=== PATIENT | female | born 1980 | race African-American/Black ===

== ENCOUNTER 2017-04-24 09:04 | Inpatient (IN) | payer MEDICARE ==
[~2017-04-24] VITALS: Ht 157.5 cm; Wt 57.7 kg
[~2017-04-24 09:04] MED LIST: ASPI325T8 PO; CLON0.1T PO; CLOP75TA57 PO; FURO-69 PO; GABA-585 PO; INSU100V31 SQ; INSU100V8 SQ; METO100T11 PO; NITR0.4T SL; OMEP40CA5 PO; ONDA4TAB10 SL; OXYC-323 PO; OXYC60TA7 PO; PRED20TA PO; RAMI5CAP PO; SIMV20TA3 PO; SULF1TAB24 PO; TIZA4CAP PO; TIZA4TAB PO
--- NOTE | 2017-04-24 09:10 | PHYS DOC ---
Past Medical History Past Medical History: Diabetes-Type I, High Cholesterol, Hypertension, OR, Other Additional Past Medical Histor: L EYE BLIND,CHRONIC PAIN Past Surgical History: Hysterectomy Alcohol Use: None Drug Use: Marijuana Adult General Chief Complaint Chief Complaint: CHEST PAIN HPI HPI Patient is a 37 year old female presenting to the emergency department for evaluation of chest pain abdominal pain along with nausea and vomiting. Patient says that she started having nausea and vomiting at 1:30 this morning and one hour after that she started having the chest and abdominal pain. She says it is sharp and burning in the middle of her chest and radiates down into her epigastrium. She says it has been constant since approximately 2:30 in the morning and the Phenergan that she tried to swallow home did not stay down. She says she has had multiple episodes of nonbloody nonbilious emesis. She denies any fevers chills dysuria hematuria vaginal bleeding vaginal discharge diarrhea or constipation. Review of Systems Review of Systems Constitutional: Denies fever or chills [] Eyes: Denies change in visual acuity, redness, or eye pain [] HENT: Denies nasal congestion or sore throat [] Respiratory: Denies cough or shortness of breath [] Cardiovascular: + CP GI: + abdominal pain, nausea, vomiting. No diarrhea : Denies dysuria or hematuria [] Musculoskeletal: Denies back pain or joint pain [] Integument: Denies rash or skin lesions [] Neurologic: Denies headache, focal weakness or sensory changes [] Current Medications Current Medications Current Medications Medications (Trade) Dose Ordered Sig/Irina Start Time Stop Time Status Last Admin Dose Admin Fentanyl Citrate (Fentanyl 2ml Vial) 75 mcg 1X ONCE 04/24/17 09:30 04/24/17 09:31 DC 04/24/17 09:30 75 MCG Multi-Ingredient Mouthwash/Gargle (Gi Cocktail Single Dose) 15 ml 1X ONCE 04/24/17 09:30 04/24/17 09:31 DC 04/24/17 10:01 15 ML Ondansetron HCl (Zofran) 8 mg 1X ONCE 04/24/17 09:30 04/24/17 09:31 DC 04/24/17 10:01 8 MG Pantoprazole Sodium (Protonix Vial) 40 mg 1X ONCE 04/24/17 09:30 04/24/17 09:31 DC 04/24/17 10:01 40 MG Sodium Chloride 1,000 ml @ 1,000 mls/hr 1X ONCE 04/24/17 09:30 04/24/17 10:29 DC 04/24/17 10:01 1,000 MLS/HR Allergies Allergies Allergies Coded Allergies Type Severity Reaction Last Updated Verified morphine Allergy Severe Shortness of Air, trouble breathing/sweating 07/14/16 Yes Physical Exam Physical Exam Constitutional: Well developed, well nourished, no acute distress, non-toxic appearance. [] HENT: Normocephalic, atraumatic, bilateral external ears normal, oropharynx moist, no oral exudates, nose normal. [] Eyes: PERRLA, EOMI, conjunctiva normal, no discharge. [] Neck: Normal range of motion, no tenderness, supple, no stridor. [] Cardiovascular:Heart rate regular rhythm, no murmur [] Lungs & Thorax: Bilateral breath sounds clear to auscultation [] Abdomen: Bowel sounds normal, soft, + epigastric tenderness, no rebound or guarding, no masses, no pulsatile masses. [] Skin: Warm, dry, no erythema, no rash. [] Back: No tenderness, no CVA tenderness. [] Extremities: No tenderness, no cyanosis, no clubbing, ROM intact, no edema. [] Neurologic: Alert and oriented X 3, normal motor function, normal sensory function, no focal deficits noted. [] Current Patient Data Vital Signs Vital Signs Date Time Temp Pulse Resp B/P (MAP) Pulse Ox O2 Delivery O2 Flow Rate FiO2 04/24/17 11:20 74 15 140/71 (94) 100 Room Air 04/24/17 09:15 98.2 98.2 Lab Values Laboratory Tests Test 04/24/17 09:40 04/24/17 09:45 Urine Collection Type Unknown Urine Color Yellow Urine Clarity Clear Urine pH 7.0 Urine Specific Parker 1.025 Urine Protein Negative mg/dL (NEG-TRACE) Urine Glucose (UA) >=1000 mg/dL (NEG) Urine Ketones (Stick) Negative mg/dL (NEG) Urine Blood Trace (NEG) Urine Nitrite Negative (NEG) Urine Bilirubin Negative (NEG) Urine Urobilinogen Dipstick 0.2 mg/dL (0.2 mg/dL) Urine Leukocyte Esterase Negative (NEG) Urine RBC 3-5 /HPF (0-2) Urine WBC 1-4 /HPF (0-4) Urine Squamous Epithelial Cells Many /LPF Urine Bacteria 0 /HPF (0-FEW) Urine Mucus Slight /LPF Urine Opiates Screen Pos (NEG) Urine Methadone Screen Neg (NEG) Urine Barbiturates Neg (NEG) Urine Phencyclidine Screen Neg (NEG) Urine Amphetamine/Methamphetamine Neg (NEG) Urine Benzodiazepines Screen Neg (NEG) Urine Cocaine Screen Neg (NEG) Urine Cannabinoids Screen Pos (NEG) Urine Ethyl Alcohol Neg (NEG) White Blood Count 11.7 x10^3/uL (4.0-11.0) H Red Blood Count 4.21 x10^6/uL (3.50-5.40) Hemoglobin 13.1 g/dL (12.0-15.5) Hematocrit 37.6 % (36.0-47.0) Mean Corpuscular Volume 89 fL (79-100) Mean Corpuscular Hemoglobin 31 pg (25-35) Mean Corpuscular Hemoglobin Concent 35 g/dL (31-37) Red Cell Distribution Width 13.0 % (11.5-14.5) Platelet Count 301 x10^3/uL (140-400) Neutrophils (%) (Auto) 89 % (31-73) H Lymphocytes (%) (Auto) 8 % (24-48) L Monocytes (%) (Auto) 3 % (0-9) Eosinophils (%) (Auto) 0 % (0-3) Basophils (%) (Auto) 0 % (0-3) Neutrophils # (Auto) 10.4 x10^3uL (1.8-7.7) H Lymphocytes # (Auto) 0.9 x10^3/uL (1.0-4.8) L Monocytes # (Auto) 0.3 x10^3/uL (0.0-1.1) Eosinophils # (Auto) 0.1 x10^3/uL (0.0-0.7) Basophils # (Auto) 0.0 x10^3/uL (0.0-0.2) Segmented Neutrophils % 89 % (35-66) H Band Neutrophils % 2 % (0-9) Lymphocytes % 4 % (24-48) L Monocytes % 4 % (0-10) Basophils % 1 % (0-3) Platelet Estimate Adequate (ADEQUATE) Sodium Level 138 mmol/L (136-145) Potassium Level 4.3 mmol/L (3.5-5.1) Chloride Level 101 mmol/L (98-107) Carbon Dioxide Level 27 mmol/L (21-32) Anion Gap 10 (6-14) Blood Urea Nitrogen 17 mg/dL (7-20) Creatinine 1.1 mg/dL (0.6-1.0) H Estimated GFR (Cockcroft-Gault) 68.0 BUN/Creatinine Ratio 15 (6-20) Glucose Level 420 mg/dL (70-99) H Calcium Level 9.6 mg/dL (8.5-10.1) Magnesium Level 1.9 mg/dL (1.8-2.4) Total Bilirubin 0.3 mg/dL (0.2-1.0) Aspartate Amino Transferase (AST) 22 U/L (15-37) Alanine Aminotransferase (ALT) 34 U/L (14-59) Alkaline Phosphatase 129 U/L (46-116) H Creatine Kinase 74 U/L (26-192) Troponin I Quantitative < 0.017 ng/mL (0.000-0.055) Total Protein 8.1 g/dL (6.4-8.2) Albumin 3.9 g/dL (3.4-5.0) Albumin/Globulin Ratio 0.9 (1.0-1.7) L Lipase 158 U/L (73-393) Ethyl Alcohol Level < 10 mg/dL (0-10) Laboratory Tests 04/24/17 09:45 Laboratory Tests 04/24/17 09:45 EKG EKG Sinus rhythm at 61 bpm with rightward axis no obvious ST elevation or depression and normal T waves. Radiology/Procedures Radiology/Procedures Indication chest pain. A single view of the chest was obtained. 10/12/2014. The heart, pulmonary vessels and mediastinum appear normal. The lungs are clear. There has not been a significant change compared to the previous exam. IMPRESSION: No acute or focal process is seen in the chest DICTATED and SIGNED BY: ARELI WALTERS MD DATE: 04/24/17 1010 Course & Med Decision Making Course & Med Decision Making Patient with intractable abdominal pain nausea and vomiting and she cannot tolerate anything by mouth so she will be admitted for further pain and nausea control. Patient admitted in stable condition. Dragon Disclaimer Dragon Disclaimer This electronic medical record was generated, in whole or in part, using a voice recognition dictation system. Departure Departure Impression: Primary Impression: Intractable abdominal pain Additional Impressions: Intractable nausea and vomiting Hyperglycemia Disposition: ADMITTED INPATIENT Admitting Physician: Other (REUSCH) Condition: STABLE Referrals: NO PCP (PCP) Problem Qualifiers SANJUANITA JAMES DO Apr 24, 2017 09:10
[2017-04-24] MEDS ORDERED: ONDANSETRON PF 4 MG/2 ML VIAL. IV ONE (09:30)
[2017-04-24] MEDS ORDERED: LIDO:MAALOX:DONNATAL 1:1:1 15 ML SINGLE DOSE SWSW ONE (09:30)
[2017-04-24] MEDS ORDERED: fentaNYL PF VIAL 100 MCG/2 ML VIAL IV ONE (09:30)
[2017-04-24] MEDS ORDERED: PANTOPRAZOLE IV PUSH 40 MG VIAL. IVP ONE (09:30)
[2017-04-24] MEDS ORDERED: IV NORMAL SALINE 1000ML BAG 1,000 ML IV ONE (09:30)
[2017-04-24 10:06] LABS: BILIRUBIN,URINE NEGATIVE (NEG); GLUCOSE,URINE >=1000 mg/dL (NEG); NITRITE,URINE NEGATIVE (NEG); PROTEIN,URINE NEGATIVE (NEG-TRACE); UROBILINOGEN,URINE 0.2 mg/dL (0.2 mg/dL)
[2017-04-24 10:06] LABS: BASO % 0 % (0-3); EOS % 0 % (0-3); HEMATOCRIT 37.6 % (36.0-47.0); HEMOGLOBIN 13.1 g/dL (12.0-15.5); LYMPH # 0.9 x10^3/uL (1.0-4.8); LYMPH % 8 % (24-48); MEAN CORPUSCULAR HEMOGLOBIN 31 pg (25-35); MEAN CORPUSCULAR HGB CONC 35 g/dL (31-37); MEAN CORPUSCULAR VOLUME 89 fL (79-100); MONO % 3 % (0-9); NEUT % 89 % (31-73); PLATELET COUNT 301 x10^3/uL (140-400); RED BLOOD COUNT 4.21 x10^6/uL (3.50-5.40); WHITE BLOOD COUNT 11.7 x10^3/uL (4.0-11.0)
[2017-04-24 10:12] LABS: CALCIUM 9.6 mg/dL (8.5-10.1); CREATININE 1.1 mg/dL (0.6-1.0); POTASSIUM 4.3 mmol/L (3.5-5.1)
[2017-04-24 10:14] LABS: BARBITURATES NEG (NEG); BENZODIAZEPINES NEG (NEG); CANNABINOIDS POS (NEG); COCAINE NEG (NEG); METHADONE NEG (NEG); OPIATES POS (NEG); PHENCYCLIDINE NEG (NEG)
--- NOTE | 2017-04-24 10:14 | RAD ---
Indication chest pain. A single view of the chest was obtained. 10/12/2014. The heart, pulmonary vessels and mediastinum appear normal. The lungs are clear. There has not been a significant change compared to the previous exam. IMPRESSION: No acute or focal process is seen in the chest
[2017-04-24 10:15] LABS: BACTERIA,URINE 0 /HPF (0-FEW); SQUAMOUS EPITHELIAL CELL,UR MANY /LPF
[2017-04-24 10:19] LABS: ALBUMIN 3.9 g/dL (3.4-5.0); ALBUMIN/GLOBULIN RATIO 0.9 (1.0-1.7); MAGNESIUM 1.9 mg/dL (1.8-2.4); TOTAL BILIRUBIN 0.3 mg/dL (0.2-1.0); TOTAL PROTEIN 8.1 g/dL (6.4-8.2)
[2017-04-24 10:25] LABS: % BASOS 1 % (0-3); PLT ESTIMATE ADEQUATE (ADEQUATE)
[2017-04-24] MEDS ORDERED: KETOROLAC TROMETHAMINE 30 MG/ML INJ. IV ONE (11:45)
[2017-04-24] MEDS ORDERED: diazePAM 5 MG TABLET PO ONE (11:45)
[2017-04-24] MEDS ORDERED: INSULIN REGULAR 100 UNIT/ML 10ML VIAL. IV ONE (11:45)
[2017-04-24] MEDS: fentaNYL PF VIAL 100 MCG/2 ML VIAL IV PRN ×4 (12:12→20:41)
--- NOTE | 2017-04-24 12:39 | EKG ---
[facility] [address] [place] [address] Test Date: 2017-04-24 Test Time: 09:18:07 Pat Name: BOZENA CLARK Department: Room: 418 Gender: F Sheet Ironworker: : 1980 Requested By: SANJUANITA JAMES Order Number: [id number] Reading MD: Mary Kay Soto Measurements Intervals [place] Rate: 61 P: 64 PA: 160 QRS: 106 QRSD: 76 T: 68 QT: 398 QTc: 406 Interpretive Statements SINUS RHYTHM RIGHTWARD AXIS NO SPECIFIC ECG ABNORMALITIES Electronically Signed On 04-24-2017 21:27:57 CDT by Mary Kay Soto
[2017-04-24 12:41] VITALS: BP 97/49
--- NOTE | 2017-04-24 13:06 | ACF ---
Admission Forms Criteria VOMITING Clinical Indications for Admission to Inpatient Care ( Place 'X' for any and all applicable criteria): Admission is indicated for 1 or more of the following(1)(2)(3): [ ]I. Complete or partial gastrointestinal obstruction [ ]II. Vomiting due to significant metabolic derangement (eg, severe hypercalcemia, diabetic ketoacidosis) [ ]III. Other cause of vomiting requiring hospitalization (eg, poisoning, increased intracranial pressure) [X]IV. Inpatient admission required rather than observation care because of 1 or more of the following [ ]i) Hemodynamic instability [X]ii) Vomiting that is severe or persistent indicated by 1 or more of the following [X]1) Numerous episodes of vomiting in past 24hours (eg, every 1 to 2 hours) 2) Suggests severe underlying cause or complication (eg , projectile, feculent, bilious, coffee ground, bloody) 3) Appropriate antiemetic treatment (eg, repeated oral or parenteral dosing) does not sufficiently reduce vomiting within 12 to 24 hours of treatment [X] 4) Treatment regimen necessary to adequately control vomiting requires inpatient level of care (eg, not immediately available in outpatient setting) [ ]iii) Severe electrolyte abnormalities requiring inpatient care [X]iv) Severe pain requiring acute inpatient management( Continuous or frequent (eg, every 2 to 4 hours) parental analgesics or analgesic regimen that can only be performed or initiated in inpatient setting) [ ]v) High fever or infection requiring inpatient admission as indicated by 1 or more of the following(7)(8): [ ]1) Appropriate outpatient or observation care antimicrobial treatment unavailable, not effective, or not feasible [ ]2) Documented bacteremia [ ]3) Temp >104.9 degrees F (40.5 degrees C) (oral) [ ]4) Temp >103.1 degrees F (39.5 C) (oral) or <96.8 degrees F (36 C) (rectal) that does not respond to all emergency treatment measures [ ]vi) Acute renal failure [ ]vii) IV fluid required rather than oral rehydration to replace significant on going losses (greater than 3 L/m2 per day) [ ]viii) Parenteral nutrition regimen that must be implemented on inpatient basis [ ]ix) Other condition, treatment or monitoring requiring inpatient admission Extended stay beyond goal length of stay may be needed for(1)(4): [ ]a) Severe vomiting [ ]b) Persistent vomiting, vital sign changes, severe electrolyte imbalance , or diagnosed cause of vomiting that requires continued hospitalization (eg, gastrointestinal obstruction , increased intracranial pressure) [ ]c) Surgery to treat identified causes of vomiting (eg, bowel obstruction , intracranial process) [ ]d) Comorbid illness that requires inpatient care (eg, acute heart failure , renal failure) [ ]e) Need for inpatient endoscopy The original [employer] content created by [employer] has been revised. The portions of the content which have been revised are identified through the use of italic text or in bold, and [facility] has neither reviewed nor approved the modified material. All other unmodified content is copyright [employer]. Please see references footnoted in the original [employer] edition 2016 Admission Criteria Met?: Yes BARBARA ENCISO Apr 24, 2017 13:06
[2017-04-24] MEDS ORDERED: INSU100I17 SQ (14:28)
[2017-04-24] MEDS ORDERED: LANS30CA66 PO (14:58)
[2017-04-24] MEDS ORDERED: GABA600T2 PO (14:58)
[2017-04-24] MEDS ORDERED: ASPI-630 PO (14:58)
[2017-04-24] MEDS ORDERED: PROM25TA10 PO (14:58)
[2017-04-24 15:44] VITALS: BP 106/56
[2017-04-24] MEDS: ONDANSETRON PF 4 MG/2 ML VIAL. IV PRN (15:46)
[2017-04-24] MEDS ORDERED: METOPROLOL SUCC 24HR ER 50 MG TAB.ER.24H. PO SCH ×2 (17:30→21:00)
[2017-04-24] MEDS ORDERED: INSULIN ASPART 300 UNITS/3 ML INSULN.PEN SQ STA (17:58)
[2017-04-24] MEDS ORDERED: DEXTROSE 50% 25 GM / 50ML DISP.SYRIN. IV PRN (18:00)
[2017-04-24] MEDS: POTASSIUM CHLORIDE 30 MEQ in IV 1/2 NORMAL SALINE 1,000 ML IV PRN (18:18)
[2017-04-24 19:00] VITALS: BP 110/56
[2017-04-24] MEDS: GABAPENTIN 300 MG CAPSULE. PO SCH (20:19)
[2017-04-24] MEDS: SIMVASTATIN 20 MG TABLET PO SCH (20:21)
--- NOTE | 2017-04-24 20:27 | HP ---
ADMIT DATE: 04/24/2017 CHIEF COMPLAINT: Chest pain. HISTORY OF PRESENT ILLNESS: The patient is a 37-year-old -Citizen Of [place] woman with past medical history of diabetes, hypertension and CAD who presented to the Emergency Room with abdominal pain, nausea and vomiting. She relates that her symptoms started early this morning with copious vomiting 10-12 times, which then resulted in chest pain as well as abdominal pain. She states pain is sharp, burning in the middle of her chest, radiating down into her epigastrium. She actually has been ill over the past week and several ill family members are at home as well. She tried some Phenergan at home, which unfortunately did not stay down and she therefore presented to the Emergency Room. She denies any fevers, chills, any diarrhea or constipation. In the Emergency Room, she was found with a blood sugar over 400. She relates that her insurance company no longer pays for Lantus and she has been out of this medication for the past 2 weeks, substituting with regular insulin 3 times a day. PAST MEDICAL HISTORY: Diabetes mellitus, hypercholesterolemia, hypertension, CAD, status post NC, left eye blindness and chronic lower back pain. PAST SURGICAL HISTORY: She is status post hysterectomy. FAMILY HISTORY: Positive for diabetes and heart disease. SOCIAL HISTORY: Lives with her family and no tobacco use, but smokes pot. No alcohol or other drugs. ALLERGIES: MORPHINE. MEDICATIONS: MAR reconciled with home medications. REVIEW OF SYSTEMS: Positive as per HPI. Currently she seems much improved. Animated and moving in bed without difficulties. PHYSICAL EXAMINATION: VITAL SIGNS: Show blood pressure of 106/56, heart rate at 89, respiratory rate at 14, she is afebrile. GENERAL: This is a well-nourished 37-year-old -Citizen [place] woman, alert and oriented, in no acute distress. HEENT: Shows no scleral icterus. Eyes are disconjugate. Oral mucosa is pink and moist. NECK: Supple without any lymphadenopathy. LUNGS: Clear. HEART: Regular rate and rhythm. ABDOMEN: Has positive bowel sounds, obese. Some tenderness along the costal margins bilaterally. EXTREMITIES: Show no edema, no clubbing, no cyanosis. SKIN: Warm, soft and dry. LABORATORY DATA: CBC with a WBC of 11.7, hemoglobin of 13.1, platelets of 301. Chemistries with a BUN and creatinine of 17 and 1.1, normal electrolytes, glucose at 420. LFTs within normal. Tox screen positive for opiates and cannabinoids. Urine essentially negative, save for glucose greater than 1000. IMAGING STUDIES: Chest x-ray shows no acute or focal process. ASSESSMENT AND PLAN: The patient is a 37-year-old -Citizen Of [place] woman with nausea, vomiting, abdominal pain and chest pain, most likely secondary to viral gastroenteritis. Her symptoms have significantly improved. We will continue antiemetics, IV fluids, keep her on clear liquids for now. Treat symptomatically if symptoms recur. For her chest pain, she will receive Carafate and PPI. Make fentanyl q. 4 hours available for her as well. We will repeat labs in a.m. Hopefully she will be stable enough for discharge then. MIGUEL UY MD DR: UR/nts JOB#: [id number] / [id number] DRAKE
[2017-04-24] MEDS: INSULIN DETEMIR 300 UNITS/3 ML INSULN.PEN. SQ SCH (20:41)
[2017-04-24] MEDS: CYCLOBENZAPRINE 10 MG TABLET. PO PRN (21:27)
[2017-04-24 23:00] VITALS: BP 123/58
[2017-04-25] MEDS: fentaNYL PF VIAL 100 MCG/2 ML VIAL IV PRN ×3 (00:38→09:28)
[2017-04-25 04:00] VITALS: BP 118/64
[2017-04-25 04:34] LABS: BASO # 0.1 x10^3/uL (0.0-0.2); BASO % 1 % (0-3); EOS % 1 % (0-3); HEMATOCRIT 34.4 % (36.0-47.0); HEMOGLOBIN 11.5 g/dL (12.0-15.5); LYMPH # 3.2 x10^3/uL (1.0-4.8); LYMPH % 31 % (24-48); MEAN CORPUSCULAR HEMOGLOBIN 31 pg (25-35); MEAN CORPUSCULAR HGB CONC 34 g/dL (31-37); MEAN CORPUSCULAR VOLUME 92 fL (79-100); MONO % 7 % (0-9); NEUT % 61 % (31-73); PLATELET COUNT 248 x10^3/uL (140-400); RED BLOOD COUNT 3.75 x10^6/uL (3.50-5.40); RED CELL DISTRIBUTION WIDTH 13.2 % (11.5-14.5); WHITE BLOOD COUNT 10.5 x10^3/uL (4.0-11.0)
[2017-04-25 05:02] LABS: CREATININE 0.9 mg/dL (0.6-1.0); GFR 85.7; POTASSIUM 3.8 mmol/L (3.5-5.1)
[2017-04-25] MEDS: CYCLOBENZAPRINE 10 MG TABLET. PO PRN ×2 (05:18→17:24)
[2017-04-25] MEDS: ONDANSETRON PF 4 MG/2 ML VIAL. IV PRN ×2 (05:51→13:02)
[2017-04-25] MEDS: POTASSIUM CHLORIDE 30 MEQ in IV 1/2 NORMAL SALINE 1,000 ML IV PRN (05:52)
[2017-04-25] MEDS: PANTOPRAZOLE 40 MG TABLET.DR. PO SCH (06:05)
[2017-04-25 07:00] VITALS: BP 127/70
[2017-04-25] MEDS: INSULIN DETEMIR 300 UNITS/3 ML INSULN.PEN. SQ SCH (08:31)
[2017-04-25] MEDS ORDERED: SIMVASTATIN 20 MG TABLET PO SCH (09:00)
[2017-04-25] MEDS: LISINOPRIL 10 MG TABLET PO SCH ×2 (09:00→09:09)
[2017-04-25] MEDS: GABAPENTIN 300 MG CAPSULE. PO SCH ×3 (09:06→20:32)
[2017-04-25] MEDS: CLOPIDOGREL BISULFATE 75 MG TABLET PO SCH (09:07)
[2017-04-25] MEDS: ASPIRIN CHEWABLE 81 MG TABLET. PO SCH (09:09)
[2017-04-25] MEDS: INSULIN ASPART 300 UNITS/3 ML INSULN.PEN SQ SCH ×3 (09:20→17:21)
[2017-04-25] MEDS ORDERED: hydrALAZINE 20 MG/ML VIAL. IVP PRN (10:00)
[2017-04-25] MEDS ORDERED: DOCUSATE SODIUM 100 MG CAPSULE. PO PRN (10:00)
[2017-04-25] MEDS ORDERED: ACETAMINOPHEN 325 MG TABLET. PO PRN (10:00)
[2017-04-25 11:00] VITALS: BP 119/64
[2017-04-25] MEDS: METOPROLOL TART IMMED RELEASE 50 MG TABLET. PO SCH ×2 (12:13→20:36)
--- NOTE | 2017-04-25 12:58 | PDOC ---
PROGRESS NOTES Chief Complaint Chief Complaint 1. acute on chronic back pain, likely 2/2 OA 2. uncontrolled dm2 3. htn 4. hld 5. h/o CAD 6. left eye blindness 7. Leukocytosis ,reactive 8. abd pain with N/V, gastritis likely plan; lumbar XR consult cont levemir 10u qhs, ssi check hba1c ivf pt refused to advance diet, cont clear liquid for now pain control metoprolol 50mg bid, pt refused ACEI in hosp dvt ppx History of Present Illness History of Present Illness pt c/o severe back pain, "nobody listens" still has Nausea, refused to advance diet Vitals Vitals Vital Signs Date Time Temp Pulse Resp B/P (MAP) Pulse Ox O2 Delivery O2 Flow Rate FiO2 04/25/17 12:13 83 119/64 04/25/17 11:43 Room Air 04/25/17 11:00 97.9 18 100 97.9 Physical Exam General: Alert, Oriented X3, Cooperative Heart: Regular rate, Normal S1, Normal S2 Lungs: Clear Abdomen: Normal bowel sounds, Soft, Other (diffused mild abd tenderness) Extremities: No clubbing Labs LABS Laboratory Tests Test 04/24/17 16:17 04/24/17 20:23 04/25/17 03:41 04/25/17 07:40 Glucose (Fingerstick) 235 mg/dL (70-99) 234 mg/dL (70-99) 162 mg/dL (70-99) White Blood Count 10.5 x10^3/uL (4.0-11.0) Red Blood Count 3.75 x10^6/uL (3.50-5.40) Hemoglobin 11.5 g/dL (12.0-15.5) Hematocrit 34.4 % (36.0-47.0) Mean Corpuscular Volume 92 fL (79-100) Mean Corpuscular Hemoglobin 31 pg (25-35) Mean Corpuscular Hemoglobin Concent 34 g/dL (31-37) Red Cell Distribution Width 13.2 % (11.5-14.5) Platelet Count 248 x10^3/uL (140-400) Neutrophils (%) (Auto) 61 % (31-73) Lymphocytes (%) (Auto) 31 % (24-48) Monocytes (%) (Auto) 7 % (0-9) Eosinophils (%) (Auto) 1 % (0-3) Basophils (%) (Auto) 1 % (0-3) Neutrophils # (Auto) 6.4 x10^3uL (1.8-7.7) Lymphocytes # (Auto) 3.2 x10^3/uL (1.0-4.8) Monocytes # (Auto) 0.8 x10^3/uL (0.0-1.1) Eosinophils # (Auto) 0.1 x10^3/uL (0.0-0.7) Basophils # (Auto) 0.1 x10^3/uL (0.0-0.2) Sodium Level 138 mmol/L (136-145) Potassium Level 3.8 mmol/L (3.5-5.1) Chloride Level 103 mmol/L (98-107) Carbon Dioxide Level 29 mmol/L (21-32) Anion Gap 6 (6-14) Blood Urea Nitrogen 14 mg/dL (7-20) Creatinine 0.9 mg/dL (0.6-1.0) Estimated GFR (Cockcroft-Gault) 85.7 Glucose Level 135 mg/dL (70-99) Calcium Level 8.0 mg/dL (8.5-10.1) Review of Systems Review of Systems no fever, chills, sob or chest pain Assessment and Plan Assessmemt and Plan Problems Medical Problems: (1) Hyperglycemia Status: Acute (2) Intractable abdominal pain Status: Acute (3) Intractable nausea and vomiting Status: Acute Problems: Comment Review of Relevant I have reviewed the following items marina (where applicable) has been applied. Labs Laboratory Tests Test 04/24/17 09:40 04/24/17 09:45 04/24/17 16:17 04/24/17 20:23 Urine Collection Type Unknown Urine Color Yellow Urine Clarity Clear Urine pH 7.0 Urine Specific [place] 1.025 Urine Protein Negative mg/dL (NEG-TRACE) Urine Glucose (UA) >=1000 mg/dL (NEG) Urine Ketones (Stick) Negative mg/dL (NEG) Urine Blood Trace (NEG) Urine Nitrite Negative (NEG) Urine Bilirubin Negative (NEG) Urine Urobilinogen Dipstick 0.2 mg/dL (0.2 mg/dL) Urine Leukocyte Esterase Negative (NEG) Urine RBC 3-5 /HPF (0-2) Urine WBC 1-4 /HPF (0-4) Urine Squamous Epithelial Cells Many /LPF Urine Bacteria 0 /HPF (0-FEW) Urine Mucus Slight /LPF Urine Opiates Screen Pos (NEG) Urine Methadone Screen Neg (NEG) Urine Barbiturates Neg (NEG) Urine Phencyclidine Screen Neg (NEG) Urine Amphetamine/Methamphetamine Neg (NEG) Urine Benzodiazepines Screen Neg (NEG) Urine Cocaine Screen Neg (NEG) Urine Cannabinoids Screen Pos (NEG) Urine Ethyl Alcohol Neg (NEG) White Blood Count 11.7 x10^3/uL (4.0-11.0) Red Blood Count 4.21 x10^6/uL (3.50-5.40) Hemoglobin 13.1 g/dL (12.0-15.5) Hematocrit 37.6 % (36.0-47.0) Mean Corpuscular Volume 89 fL (79-100) Mean Corpuscular Hemoglobin 31 pg (25-35) Mean Corpuscular Hemoglobin Concent 35 g/dL (31-37) Red Cell Distribution Width 13.0 % (11.5-14.5) Platelet Count 301 x10^3/uL (140-400) Neutrophils (%) (Auto) 89 % (31-73) Lymphocytes (%) (Auto) 8 % (24-48) Monocytes (%) (Auto) 3 % (0-9) Eosinophils (%) (Auto) 0 % (0-3) Basophils (%) (Auto) 0 % (0-3) Neutrophils # (Auto) 10.4 x10^3uL (1.8-7.7) Lymphocytes # (Auto) 0.9 x10^3/uL (1.0-4.8) Monocytes # (Auto) 0.3 x10^3/uL (0.0-1.1) Eosinophils # (Auto) 0.1 x10^3/uL (0.0-0.7) Basophils # (Auto) 0.0 x10^3/uL (0.0-0.2) Segmented Neutrophils % 89 % (35-66) Band Neutrophils % 2 % (0-9) Lymphocytes % 4 % (24-48) Monocytes % 4 % (0-10) Basophils % 1 % (0-3) Platelet Estimate Adequate (ADEQUATE) Sodium Level 138 mmol/L (136-145) Potassium Level 4.3 mmol/L (3.5-5.1) Chloride Level 101 mmol/L (98-107) Carbon Dioxide Level 27 mmol/L (21-32) Anion Gap 10 (6-14) Blood Urea Nitrogen 17 mg/dL (7-20) Creatinine 1.1 mg/dL (0.6-1.0) Estimated GFR (Cockcroft-Gault) 68.0 BUN/Creatinine Ratio 15 (6-20) Glucose Level 420 mg/dL (70-99) Calcium Level 9.6 mg/dL (8.5-10.1) Magnesium Level 1.9 mg/dL (1.8-2.4) Total Bilirubin 0.3 mg/dL (0.2-1.0) Aspartate Amino Transf (AST/SGOT) 22 U/L (15-37) Alanine Aminotransferase (ALT/SGPT) 34 U/L (14-59) Alkaline Phosphatase 129 U/L (46-116) Creatine Kinase 74 U/L (26-192) Troponin I Quantitative < 0.017 ng/mL (0.000-0.055) Total Protein 8.1 g/dL (6.4-8.2) Albumin 3.9 g/dL (3.4-5.0) Albumin/Globulin Ratio 0.9 (1.0-1.7) Lipase 158 U/L (73-393) Ethyl Alcohol Level < 10 mg/dL (0-10) Glucose (Fingerstick) 235 mg/dL (70-99) 234 mg/dL (70-99) Test 04/25/17 03:41 04/25/17 07:40 White Blood Count 10.5 x10^3/uL (4.0-11.0) Red Blood Count 3.75 x10^6/uL (3.50-5.40) Hemoglobin 11.5 g/dL (12.0-15.5) Hematocrit 34.4 % (36.0-47.0) Mean Corpuscular Volume 92 fL (79-100) Mean Corpuscular Hemoglobin 31 pg (25-35) Mean Corpuscular Hemoglobin Concent 34 g/dL (31-37) Red Cell Distribution Width 13.2 % (11.5-14.5) Platelet Count 248 x10^3/uL (140-400) Neutrophils (%) (Auto) 61 % (31-73) Lymphocytes (%) (Auto) 31 % (24-48) Monocytes (%) (Auto) 7 % (0-9) Eosinophils (%) (Auto) 1 % (0-3) Basophils (%) (Auto) 1 % (0-3) Neutrophils # (Auto) 6.4 x10^3uL (1.8-7.7) Lymphocytes # (Auto) 3.2 x10^3/uL (1.0-4.8) Monocytes # (Auto) 0.8 x10^3/uL (0.0-1.1) Eosinophils # (Auto) 0.1 x10^3/uL (0.0-0.7) Basophils # (Auto) 0.1 x10^3/uL (0.0-0.2) Sodium Level 138 mmol/L (136-145) Potassium Level 3.8 mmol/L (3.5-5.1) Chloride Level 103 mmol/L (98-107) Carbon Dioxide Level 29 mmol/L (21-32) Anion Gap 6 (6-14) Blood Urea Nitrogen 14 mg/dL (7-20) Creatinine 0.9 mg/dL (0.6-1.0) Estimated GFR (Cockcroft-Gault) 85.7 Glucose Level 135 mg/dL (70-99) Calcium Level 8.0 mg/dL (8.5-10.1) Glucose (Fingerstick) 162 mg/dL (70-99) Laboratory Tests Test 04/24/17 16:17 04/24/17 20:23 04/25/17 03:41 04/25/17 07:40 Glucose (Fingerstick) 235 mg/dL (70-99) 234 mg/dL (70-99) 162 mg/dL (70-99) White Blood Count 10.5 x10^3/uL (4.0-11.0) Red Blood Count 3.75 x10^6/uL (3.50-5.40) Hemoglobin 11.5 g/dL (12.0-15.5) Hematocrit 34.4 % (36.0-47.0) Mean Corpuscular Volume 92 fL (79-100) Mean Corpuscular Hemoglobin 31 pg (25-35) Mean Corpuscular Hemoglobin Concent 34 g/dL (31-37) Red Cell Distribution Width 13.2 % (11.5-14.5) Platelet Count 248 x10^3/uL (140-400) Neutrophils (%) (Auto) 61 % (31-73) Lymphocytes (%) (Auto) 31 % (24-48) Monocytes (%) (Auto) 7 % (0-9) Eosinophils (%) (Auto) 1 % (0-3) Basophils (%) (Auto) 1 % (0-3) Neutrophils # (Auto) 6.4 x10^3uL (1.8-7.7) Lymphocytes # (Auto) 3.2 x10^3/uL (1.0-4.8) Monocytes # (Auto) 0.8 x10^3/uL (0.0-1.1) Eosinophils # (Auto) 0.1 x10^3/uL (0.0-0.7) Basophils # (Auto) 0.1 x10^3/uL (0.0-0.2) Sodium Level 138 mmol/L (136-145) Potassium Level 3.8 mmol/L (3.5-5.1) Chloride Level 103 mmol/L (98-107) Carbon Dioxide Level 29 mmol/L (21-32) Anion Gap 6 (6-14) Blood Urea Nitrogen 14 mg/dL (7-20) Creatinine 0.9 mg/dL (0.6-1.0) Estimated GFR (Cockcroft-Gault) 85.7 Glucose Level 135 mg/dL (70-99) Calcium Level 8.0 mg/dL (8.5-10.1) Medications Current Medications Fentanyl Citrate (Fentanyl 2ml Vial) 75 mcg 1X ONCE IV Last administered on 09:30; Start 04/24/17 at 09:30; Stop 04/24/17 at 09:31; Status DC Ondansetron HCl (Zofran) 8 mg 1X ONCE IV Last administered on 04/24/17 10:01 ; Start 04/24/17 at 09:30; Stop 04/24/17 at 09:31; Status DC Pantoprazole Sodium (Protonix Vial) 40 mg 1X ONCE IVP Last administered on 10:01; Start 04/24/17 at 09:30; Stop 04/24/17 at 09:31; Status DC Sodium Chloride 1,000 ml @ 1,000 mls/hr 1X ONCE IV Last administered on 10:01; Start 04/24/17 at 09:30; Stop 04/24/17 at 10:29; Status DC Multi-Ingredient Mouthwash/Gargle (Gi Cocktail Single Dose) 15 ml 1X ONCE SWSW Last administered on 04/24/17 10:01; Start 04/24/17 at 09:30; Stop 04/24/17 at 09:31; Status DC Insulin Human Regular (NovoLIN R VIAL) 10 unit 1X ONCE IV Last administered on 04/24/17 11:56; Start 04/24/17 at 11:45; Stop 04/24/17 at 11:46; Status DC Ondansetron HCl (Zofran) 4 mg PRN Q8HRS PRN IV NAUSEA/VOMITING Last administered on 04/25/17 05:51; Start 04/24/17 at 11:45; Stop 04/25/17 at 11:44 ; Status DC Fentanyl Citrate (Fentanyl 2ml Vial) 50 mcg PRN Q2HR PRN IV PAIN Last administered on 04/24/17 15:49; Start 04/24/17 at 11:45; Stop 04/24/17 at 17:31 ; Status DC Ketorolac Tromethamine (Toradol) 30 mg 1X ONCE IV Last administered on 11:57; Start 04/24/17 at 11:45; Stop 04/24/17 at 11:46; Status DC Diazepam (Valium) 5 mg 1X ONCE PO Last administered on 04/24/17 11:59; Start 04/24/17 at 11:45; Stop 04/24/17 at 11:46; Status DC Aspirin (Children'S Aspirin) 81 mg DAILY PO Last administered on 04/25/17 09: 09; Start 04/25/17 at 09:00 Clopidogrel Bisulfate (Plavix) 75 mg DAILY PO Last administered on 04/25/17 09 :07; Start 04/25/17 at 09:00 Metoprolol Succinate (Toprol Xl) 50 mg DAILY16 PO ; Start 04/24/17 at 17:30; Stop 04/24/17 at 17:45; Status DC Simvastatin (Zocor) 20 mg DAILY PO ; Start 04/25/17 at 09:00; Stop 04/25/17 at 09:00; Status DC Gabapentin (Neurontin) 600 mg TID PO Last administered on 04/25/17 09:06; Start 04/24/17 at 21:00 Pantoprazole Sodium (Protonix) 40 mg DAILYAC PO Last administered on 04/25/17 06:05; Start 04/25/17 at 07:30 Lisinopril (Prinivil) 10 mg DAILY PO ; Start 04/25/17 at 09:00 Fentanyl Citrate (Fentanyl 2ml Vial) 25 mcg PRN Q4HRS PRN IV PAIN Last administered on 04/25/17 09:28; Start 04/24/17 at 20:00; Stop 04/25/17 at 19:59 Potassium Chloride 30 meq/ Sodium Chloride 1,015 ml @ 75 mls/hr [id number] PRN IV . Last administered on 04/25/17 05:52; Start 04/24/17 at 17:30 Metoprolol Succinate (Toprol Xl) 50 mg HS PO ; Start 04/24/17 at 21:00; Stop 10/30 at 09:59; Status DC Simvastatin (Zocor) 20 mg HS PO Last administered on 04/24/17 20:21; Start 09/30 at 21:00 Insulin Detemir (Levemir) 20 units BID SQ Last administered on 04/24/17 20:41 ; Start 04/24/17 at 21:00; Stop 04/25/17 at 09:59; Status DC Insulin Aspart (NovoLOG) 0-9 UNITS TIDWMEALS SQ Last administered on 04/25/17 12:19; Start 04/25/17 at 08:00 Dextrose (Dextrose 50%-Water Syringe) 12.5 gm PRN Q15MIN PRN IV SEE COMMENTS; Start 04/24/17 at 18:00 Insulin Aspart (NovoLOG) 5 units 1X STAT SQ Last administered on 04/24/17 18: 27; Start 04/24/17 at 17:58; Stop 04/24/17 at 18:01; Status DC Cyclobenzaprine HCl (Flexeril) 10 mg PRN Q8HRS PRN PO MUSCLE SPASMS Last administered on 04/25/17 05:18; Start 04/24/17 at 21:00 Insulin Detemir (Levemir) 10 units QHS SQ ; Start 04/25/17 at 21:00 Metoprolol Tartrate (Lopressor) 50 mg BID PO Last administered on 04/25/17 12: 13; Start 04/25/17 at 10:30 Acetaminophen (Tylenol) 650 mg PRN Q6HRS PRN PO FEVER; Start 04/25/17 at 10:00 Ondansetron HCl (Zofran) 4 mg PRN Q6HRS PRN IV NAUSEA/VOMITING; Start 04/25/17 at 10:00 Hydralazine HCl (Apresoline) 10 mg PRN Q4HRS PRN IVP ELEVATED BP, SEE COMMENTS ; Start 04/25/17 at 10:00 Docusate Sodium (Colace) 100 mg PRN DAILY PRN PO CONSTIPATION; Start 04/25/17 at 10:00 Active Scripts Active Reported Promethazine Hcl 25 Mg Tablet Unknown Dose PO Q6H PRN Prevacid (Lansoprazole) 30 Mg Capsule.dr 1 Cap PO DAILY Gabapentin 600 Mg Tablet 600 Mg PO TID Aspirin 81 Mg Tab.chew 1 Tab PO DAILY Novolog Flexpen (Insulin Aspart) 100 Unit/1 Ml Insuln.pen 0-10 SQ TIDAC Novolog (Insulin Aspart) 100 Unit/1 Ml Vial 6 Unit SQ TIDAC Simvastatin 20 Mg Tablet 20 Mg PO DAILY Ramipril 5 Mg Capsule 5 Mg PO DAILY Plavix (Clopidogrel Bisulfate) 75 Mg Tablet 75 Mg PO DAILY Metoprolol Succinate ( Xl ) (Metoprolol Succinate) 100 Mg Tab.er.24h 50 Mg PO DAILY16 Metoprolol Succinate ( Xl ) (Metoprolol Succinate) 100 Mg Tab.er.24h 100 Mg PO DAILY08 Vitals/I & O Vital Sign - Last 24 Hours 04/24/17 04/24/17 04/24/17 04/24/17 12:59 13:02 14:20 15:44 Temp 97.9 97.9 Pulse 89 Resp 14 B/P (MAP) 106/56 (73) Pulse Ox 100 O2 Delivery Room Air Room Air Room Air Room Air 04/24/17 04/24/17 04/24/17 04/24/17 15:49 19:00 20:00 20:41 Temp 98.1 98.1 Pulse 79 Resp 18 16 B/P (MAP) 110/56 (74) Pulse Ox 100 O2 Delivery Room Air Room Air Room Air Room Air 04/24/17 04/25/17 04/25/17 04/25/17 23:00 00:38 04:00 05:19 Temp 97.7 97.8 97.7 97.8 Pulse 76 74 Resp 18 16 18 16 B/P (MAP) 123/58 (79) 118/64 (82) Pulse Ox 99 99 O2 Delivery Room Air Room Air Room Air Room Air 04/25/17 04/25/17 04/25/17 04/25/17 05:50 07:00 08:10 09:00 Temp 97.8 97.8 Pulse 75 75 Resp 16 18 B/P (MAP) 127/70 (89) 182/86 Pulse Ox 100 O2 Delivery Room Air Room Air 04/25/17 04/25/17 04/25/17 04/25/17 09:28 11:00 11:43 12:13 Temp 97.9 97.9 Pulse 83 83 Resp 18 B/P (MAP) 119/64 (82) 119/64 Pulse Ox 100 O2 Delivery Room Air Room Air Room Air Intake and Output 04/24/17 04/24/17 04/25/17 15:00 23:00 07:00 Intake Total 1120 ml 1412 ml Balance 1120 ml 1412 ml KEYUR RUSSELL MD Apr 25, 2017 12:58
[2017-04-25] MEDS: traMADol 50 MG TABLET PO PRN ×2 (13:02→20:35)
[2017-04-25] MEDS ORDERED: PROCHLORPERAZINE 10 MG/2 ML VIAL. IV PRN (14:00)
[2017-04-25] MEDS ORDERED: oxyCODONE/APAP 5/325 1 TAB TABLET PO PRN (14:00)
[2017-04-25] MEDS: oxyCODONE/APAP 5/325 1 TAB TABLET PO PRN ×3 (14:47→22:32)
[2017-04-25 15:00] VITALS: BP 124/73
--- NOTE | 2017-04-25 15:10 | PDOC2 ---
GI CONSULT Reason For Consult: N/v HPI: HPI: 37 y/o female admitted through the ER on 04/24/17. Tells me had not been feeling well since 04/20/17 (recalls this day because she spoke w/ her PCP via phone) w/ abdominal pain (upper and lower), low back pain, and n/v. N/v worsened, she was unable to keep any food or liquids down, so she came to the ER. Sick contacts at home, but none w/ GI symptoms - only "colds." Known insulin-dependent diabetic, last A1c reportedly 7.2, says she sometimes takes only long-acting insulin and sometimes only takes shorter acting preparations. She has had no issues with this in the past and has most recently been using only Novolog x 2 weeks. Admitting blood sugar >400. Additional h/o nausea related to medications (names Gabapentin), uses Phenergan PRN (says a bottle of 60 pills lasts ~2 months). Additional h/o heartburn related to spicy foods ( names chili, tacos) and carbonated beverages (names Sprite), previously treated w/ Rx Prevacid QD, then PRN. She has been out of this for awhile and now treats heartburn with home remedies (mustard). Lifelong h/o constipation improved w/ Dulcolax 3-4 times weekly. Had a small stool yesterday and another small stool today. S/p cholecystectomy, she believes for gallstones. She still has abdominal and back pain, perhaps abdominal pain is worse after eating. She has not vomited today but did feel nauseated this morning. Has kept to clear liquids, has been hesitant to advance diet for fear of recurrence of symptoms, but might be willing to try now. Does take Plavix and ASA, no NSAIDs. Tox screen + marijuana, opiates. No previous EGD, colonoscopy, or GI eval. PMH: PMH: IDDM, CAD, [place], HTN, HLD, low back pain, hysterectomy w/ right oophorectomy, cholecystectomy, breast biopsy (benign), bilateral eye surgeries (blind in left eye) FH: Family History: No pertinent hx Social History: Smoke: No ALCOHOL: none Drugs: Marijuana ROS: GEN: Denies fevers, chills, sweats HEENT: Denies blurred vision, sore throat CV: Denies chest pain RESP: Denies shortness of air, cough GI: Per HPI : Denies hematuria, dysuria ENDO: 50 lb weight loss over the past 2-3 years NEURO: Denies confusion, dizziness MSK: back pain SKIN: Denies jaundice, pruritus Vitals: Vitals: Vital Signs Date Time Temp Pulse Resp B/P (MAP) Pulse Ox O2 Delivery O2 Flow Rate FiO2 04/25/17 14:47 Room Air 04/25/17 12:13 83 119/64 04/25/17 11:00 97.9 18 100 97.9 Labs: Labs: Laboratory Tests Test 04/24/17 16:17 04/24/17 20:23 04/25/17 03:41 04/25/17 07:40 Glucose (Fingerstick) 235 mg/dL (70-99) 234 mg/dL (70-99) 162 mg/dL (70-99) White Blood Count 10.5 x10^3/uL (4.0-11.0) Red Blood Count 3.75 x10^6/uL (3.50-5.40) Hemoglobin 11.5 g/dL (12.0-15.5) Hematocrit 34.4 % (36.0-47.0) Mean Corpuscular Volume 92 fL (79-100) Mean Corpuscular Hemoglobin 31 pg (25-35) Mean Corpuscular Hemoglobin Concent 34 g/dL (31-37) Red Cell Distribution Width 13.2 % (11.5-14.5) Platelet Count 248 x10^3/uL (140-400) Neutrophils (%) (Auto) 61 % (31-73) Lymphocytes (%) (Auto) 31 % (24-48) Monocytes (%) (Auto) 7 % (0-9) Eosinophils (%) (Auto) 1 % (0-3) Basophils (%) (Auto) 1 % (0-3) Neutrophils # (Auto) 6.4 x10^3uL (1.8-7.7) Lymphocytes # (Auto) 3.2 x10^3/uL (1.0-4.8) Monocytes # (Auto) 0.8 x10^3/uL (0.0-1.1) Eosinophils # (Auto) 0.1 x10^3/uL (0.0-0.7) Basophils # (Auto) 0.1 x10^3/uL (0.0-0.2) Sodium Level 138 mmol/L (136-145) Potassium Level 3.8 mmol/L (3.5-5.1) Chloride Level 103 mmol/L (98-107) Carbon Dioxide Level 29 mmol/L (21-32) Anion Gap 6 (6-14) Blood Urea Nitrogen 14 mg/dL (7-20) Creatinine 0.9 mg/dL (0.6-1.0) Estimated GFR (Cockcroft-Gault) 85.7 Glucose Level 135 mg/dL (70-99) Calcium Level 8.0 mg/dL (8.5-10.1) Allergies: Coded Allergies: morphine (Verified Allergy, Severe, Shortness of Air, trouble breathing/ sweating, 07/14/16) tolerates DILAUDID, OXYCODONE Medications: Current Medications Medications (Trade) Dose Ordered Sig/Irina Route PRN Reason Start Time Stop Time Status Last Admin Dose Admin Aspirin (Children'S Aspirin) 81 mg DAILY PO 04/25/17 09:00 04/25/17 09:09 Clopidogrel Bisulfate (Plavix) 75 mg DAILY PO 04/25/17 09:00 04/25/17 09:07 Gabapentin (Neurontin) 600 mg TID PO 04/24/17 21:00 04/25/17 14:45 Pantoprazole Sodium (Protonix) 40 mg DAILYAC PO 04/25/17 07:30 04/25/17 06:05 Fentanyl Citrate (Fentanyl 2ml Vial) 25 mcg PRN Q4HRS PRN IV PAIN 04/24/17 20:00 04/25/17 19:59 04/25/17 09:28 Potassium Chloride 30 meq/ Sodium Chloride 1,015 ml @ 75 mls/hr [id number] PRN IV . 04/24/17 17:30 04/25/17 05:52 Simvastatin (Zocor) 20 mg HS PO 04/24/17 21:00 04/24/17 20:21 Insulin Detemir (Levemir) 20 units BID SQ 04/24/17 21:00 04/25/17 09:59 DC 04/24/17 20:41 Insulin Aspart (NovoLOG) 0-9 UNITS TIDWMEALS SQ 04/25/17 08:00 04/25/17 12:19 Insulin Aspart (NovoLOG) 5 units 1X STAT SQ 04/24/17 17:58 04/24/17 18:01 DC 04/24/17 18:27 Cyclobenzaprine HCl (Flexeril) 10 mg PRN Q8HRS PRN PO MUSCLE SPASMS 04/24/17 21:00 04/25/17 05:18 Metoprolol Tartrate (Lopressor) 50 mg BID PO 04/25/17 10:30 04/25/17 12:13 Ondansetron HCl (Zofran) 4 mg PRN Q6HRS PRN IV NAUSEA/VOMITING 04/25/17 10:00 04/25/17 13:02 Tramadol HCl (Ultram) 50 mg PRN Q6HRS PRN PO PAIN 04/25/17 13:00 04/25/17 13:02 Oxycodone/ Acetaminophen (Percocet 5/325) 1 tab PRN Q4HRS PRN PO PAIN 04/25/17 14:00 04/25/17 14:47 Imaging: Imaging: CXR 04/24/17 IMPRESSION: No acute or focal process is seen in the chest. L-spine X-Ray 04/25/17 PENDING PE: GEN: NAD, sitting up in bed HEENT: Atraumatic LUNGS: CTAB anteriorly HEART: RRR ABD: NABS, S/Nd, epigastric/BUQ discomfort, some suprapubic - says related to full bladder EXTREMITY: No edema SKIN: No rashes, no jaundice NEURO/PSYCH: A & O 3, cooperative but seems slightly annoyed A/P: A/P: Abd pain, n/v -began last week -upper and lower pain, was unable to tolerate PO at home, okay w/ clears here -s/p cholecystectomy, hysterectomy w/ unilateral oophorectomy -does admit to chronic intermittent nausea related to medications -tox screen + cannabinoids, opiates IDDM -BS >400 on admission, better Heartburn -most often related to spicy foods or carbonation -previously used PPI, out of this, now only home remedies ---> is on PPI here -no previous EGD Constipation -lifelong history, controlled w/ Dulcolax PRN Low back pain Anemia -on Plavix and ASA, no overt bleeding CRC screen -no previous colonoscopy, average risk -- Agree w/ PPI. ADAT, consider GES if unimproved. (?diabetic gastroparesis) STEPHEN CLIFFORD Apr 25, 2017 15:10
[2017-04-25] MEDS: ENOXAPARIN 40 MG/0.4 ML SYRINGE. SQ SCH (15:34)
--- NOTE | 2017-04-25 17:04 | RAD ---
Three-view lumbar spine radiographs 04/25/2017 Clinical history: Low back pain intermittently for the last 3-4 years. AP and 2 lateral digital radiographs of the lumbar spine were obtained. Surgical clips are seen within the right upper quadrant of the abdomen consistent with a cholecystectomy. The alignment of the lumbar vertebrae is within normal limits. L5 is partially sacralized. No fracture or subluxation is seen. Degenerative changes are seen involving the lower thoracic disc spaces and the mid and lower lumbar disc spaces consisting of vertebral endplate sclerosis and minimal to mild anterior vertebral body osteophyte formation. Degenerative changes are seen involving the facet joints of the lower lumbar spine. Impression: Degenerative changes are seen involving the lower thoracic and mid and lower lumbar spine. No acute osseous abnormality is seen.
[2017-04-25] MEDS ORDERED: methylPREDNISolone ACETATE 40 MG/ML VIAL. ONE (18:00)
[2017-04-25] MEDS ORDERED: methylPREDNISolone ACETATE 40 MG/ML VIAL. IM ONE (18:00)
[2017-04-25] MEDS ORDERED: BUPIVACAINE MPF 0.25% 10 ML VIAL. IJ ONE (18:00)
[2017-04-25] MEDS ORDERED: BUPIVACAINE MPF 0.25% 10 ML VIAL. ONE (18:00)
[2017-04-25 19:00] VITALS: BP 127/60
--- NOTE | 2017-04-25 19:12 | PDOC4 ---
PROCEDURE Procedure At her request,I have injected her painful left sacroiliac joint under aseptic skin technique with marcaine and depomedrol solution and she tolerated the procedure satisfactorily without any side effects. ENDY FRANCE MD Apr 25, 2017 19:12
[2017-04-25] MEDS: SIMVASTATIN 20 MG TABLET PO SCH (20:34)
[2017-04-25] MEDS ORDERED: INSULIN DETEMIR 300 UNITS/3 ML INSULN.PEN. SQ SCH (21:00)
[2017-04-25] MEDS ORDERED: INSULIN ASPART 300 UNITS/3 ML INSULN.PEN SQ ONE (21:15)
[2017-04-25 23:00] VITALS: BP 132/65
[2017-04-26] MEDS ORDERED: oxyCODONE/APAP 5/325 1 TAB TABLET PO ONE (01:15)
[2017-04-26 03:00] VITALS: BP 146/68
--- NOTE | 2017-04-26 03:38 | CONS ---
DATE OF CONSULTATION: 04/25/2017 ATTENDING PHYSICIAN: Dr. Remy. The patient was seen at the request of Dr. Ramey for rehab evaluation. HISTORY OF PRESENT ILLNESS: This is a 37-year-old female with diabetes mellitus, juvenile onset, has been on insulin since age 10, hypertension, coronary artery disease, admitted through the Emergency Room on 04/24/2017 with abdominal pain, nausea, vomiting. The patient also admits to some chest pain radiating to her epigastrium. She apparently has been ill over the past week. 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 The patient had x-rays done at that time, which failed to reveal any acute abnormalities. The patient admits to lower back pain on and off. She denies any trouble with her bladder control. The patient has been blind in her left eye and she also had decreased acuity of vision in her right eye from diabetic retinopathy. Past medical history also includes previous myocardial infarction. THE PATIENT IS KNOWN ALLERGIC TO MORPHINE. She lives with her and children in [facility], had a flight of stairs for her to manage. ____ Eliz is her family physician. PHYSICAL EXAMINATION: Today revealed a young female patient in no acute distress. She is alert, oriented to time, place, person and circumstance and follows commands appropriately. She had painful limited movements of her lumbar spine without any significant paraspinal muscle spasm, tenderness to palpation over sacroiliac joint area bilaterally, left side more than right side and the adjoining lower lumbar paraspinal muscles. Straight leg raising test is negative bilaterally. She had 5/5 grade muscle strength in her extremities and deep tendon reflexes are decreased overall with absent ankle jerks and she had decreased touch and pinprick sensation over a stock and glove distribution mainly in her lower extremities. She is independent with bed mobility and transfers and up walking at bedside without any assistive devices. She is not using proper body mechanics all the time. ASSESSMENT: Young female with chronic lower back pain, most probably from degenerative disk disease of lumbar vertebrae. X-rays of lumbar spine revealed mild degenerative changes in the lower thoracic and lumbar vertebrae. The patient also presents with left lumbar radiculitis, but no clinical evidence of ongoing lumbar radiculopathy. She also presents with diabetic peripheral neuropathy, retinopathy with blindness in her left eye and decreased acuity of vision in her right eye and patient with known hypercholesterolemia, hypertension, coronary artery disease, status post previous myocardial infarction. RECOMMENDATIONS: To obtain MRI scan of her lumbar vertebrae to confirm her disk problem, to proceed with injections to help ease her lower back pain, to try to get her lumbar corset for use while up home when medically stable with outpatient followup. Dr. Ramey, I appreciate asking me to participate in the care of this interesting patient. I will be glad to follow her with you as needed for her rehabilitation. ENDY FRANCE MD DR: CHAVEZ/dilcia JOB#: [id number] / [id number]
[2017-04-26] MEDS: traMADol 50 MG TABLET PO PRN ×4 (04:34→23:45)
[2017-04-26 04:51] LABS: BASO # 0.1 x10^3/uL (0.0-0.2); BASO % 1 % (0-3); EOS % 0 % (0-3); HEMATOCRIT 35.3 % (36.0-47.0); LYMPH % 28 % (24-48); MEAN CORPUSCULAR HEMOGLOBIN 31 pg (25-35); MEAN CORPUSCULAR HGB CONC 34 g/dL (31-37); MEAN CORPUSCULAR VOLUME 92 fL (79-100); MONO % 7 % (0-9); NEUT % 64 % (31-73); PLATELET COUNT 240 x10^3/uL (140-400); RED BLOOD COUNT 3.84 x10^6/uL (3.50-5.40); RED CELL DISTRIBUTION WIDTH 12.8 % (11.5-14.5); WHITE BLOOD COUNT 7.4 x10^3/uL (4.0-11.0)
[2017-04-26 05:26] LABS: CALCIUM 8.4 mg/dL (8.5-10.1); CREATININE 0.8 mg/dL (0.6-1.0); GFR 98.2
[2017-04-26] MEDS: ONDANSETRON PF 4 MG/2 ML VIAL. IV PRN (05:29)
[2017-04-26] MEDS: PANTOPRAZOLE 40 MG TABLET.DR. PO SCH (05:29)
[2017-04-26 07:00] VITALS: BP 137/69
[2017-04-26] MEDS: GABAPENTIN 300 MG CAPSULE. PO SCH ×3 (08:00→21:08)
[2017-04-26] MEDS: CLOPIDOGREL BISULFATE 75 MG TABLET PO SCH (08:00)
[2017-04-26] MEDS: ASPIRIN CHEWABLE 81 MG TABLET. PO SCH (08:01)
[2017-04-26] MEDS: LISINOPRIL 10 MG TABLET PO SCH (08:01)
[2017-04-26] MEDS: CYCLOBENZAPRINE 10 MG TABLET. PO PRN ×2 (08:10→16:49)
[2017-04-26] MEDS: METOPROLOL SUCC 24HR ER 100 MG TAB.ER.24H. PO SCH (08:12)
[2017-04-26] MEDS: INSULIN ASPART 300 UNITS/3 ML INSULN.PEN SQ SCH ×4 (08:23→17:51)
[2017-04-26] MEDS: oxyCODONE/APAP 10/325 1 TAB TABLET PO PRN ×4 (09:52→23:45)
--- NOTE | 2017-04-26 10:20 | PDOC ---
PROGRESS NOTES Subjective Subjective She admits some low back pain. Objective Objective Vital Signs Date Time Temp Pulse Resp B/P (MAP) Pulse Ox O2 Delivery O2 Flow Rate FiO2 04/26/17 09:52 16 Room Air 04/26/17 08:12 62 137/69 04/26/17 07:00 97.9 99 97.9 Intake and Output 04/26/17 07:00 Intake Total 350 ml Balance 350 ml Intake Oral 350 ml # Voids 7 Physical Exam Physical Exam I saw her walking in her room independently without any limping and without any assistive devices. Assessment Assessment Problems Medical Problems: (1) Hyperglycemia Status: Acute (2) Intractable abdominal pain Status: Acute (3) Intractable nausea and vomiting Status: Acute Plan Plan of Detention when medically stable with out patient follow up. Comment Review of Relevant I have reviewed the following items marina (where applicable) has been applied. Labs Laboratory Tests Test 04/24/17 16:17 04/24/17 20:23 04/25/17 03:41 04/25/17 07:40 Glucose (Fingerstick) 235 mg/dL (70-99) 234 mg/dL (70-99) 162 mg/dL (70-99) White Blood Count 10.5 x10^3/uL (4.0-11.0) Red Blood Count 3.75 x10^6/uL (3.50-5.40) Hemoglobin 11.5 g/dL (12.0-15.5) Hematocrit 34.4 % (36.0-47.0) Mean Corpuscular Volume 92 fL (79-100) Mean Corpuscular Hemoglobin 31 pg (25-35) Mean Corpuscular Hemoglobin Concent 34 g/dL (31-37) Red Cell Distribution Width 13.2 % (11.5-14.5) Platelet Count 248 x10^3/uL (140-400) Neutrophils (%) (Auto) 61 % (31-73) Lymphocytes (%) (Auto) 31 % (24-48) Monocytes (%) (Auto) 7 % (0-9) Eosinophils (%) (Auto) 1 % (0-3) Basophils (%) (Auto) 1 % (0-3) Neutrophils # (Auto) 6.4 x10^3uL (1.8-7.7) Lymphocytes # (Auto) 3.2 x10^3/uL (1.0-4.8) Monocytes # (Auto) 0.8 x10^3/uL (0.0-1.1) Eosinophils # (Auto) 0.1 x10^3/uL (0.0-0.7) Basophils # (Auto) 0.1 x10^3/uL (0.0-0.2) Sodium Level 138 mmol/L (136-145) Potassium Level 3.8 mmol/L (3.5-5.1) Chloride Level 103 mmol/L (98-107) Carbon Dioxide Level 29 mmol/L (21-32) Anion Gap 6 (6-14) Blood Urea Nitrogen 14 mg/dL (7-20) Creatinine 0.9 mg/dL (0.6-1.0) Estimated GFR (Cockcroft-Gault) 85.7 Glucose Level 135 mg/dL (70-99) Calcium Level 8.0 mg/dL (8.5-10.1) Test 04/25/17 11:46 04/25/17 16:00 04/25/17 20:41 04/25/17 22:27 Glucose (Fingerstick) 197 mg/dL (70-99) 224 mg/dL (70-99) 294 mg/dL (70-99) 249 mg/dL (70-99) Test 04/25/17 23:45 04/26/17 04:20 04/26/17 07:25 Glucose (Fingerstick) 237 mg/dL (70-99) 207 mg/dL (70-99) White Blood Count 7.4 x10^3/uL (4.0-11.0) Red Blood Count 3.84 x10^6/uL (3.50-5.40) Hemoglobin 12.0 g/dL (12.0-15.5) Hematocrit 35.3 % (36.0-47.0) Mean Corpuscular Volume 92 fL (79-100) Mean Corpuscular Hemoglobin 31 pg (25-35) Mean Corpuscular Hemoglobin Concent 34 g/dL (31-37) Red Cell Distribution Width 12.8 % (11.5-14.5) Platelet Count 240 x10^3/uL (140-400) Neutrophils (%) (Auto) 64 % (31-73) Lymphocytes (%) (Auto) 28 % (24-48) Monocytes (%) (Auto) 7 % (0-9) Eosinophils (%) (Auto) 0 % (0-3) Basophils (%) (Auto) 1 % (0-3) Neutrophils # (Auto) 4.7 x10^3uL (1.8-7.7) Lymphocytes # (Auto) 2.0 x10^3/uL (1.0-4.8) Monocytes # (Auto) 0.5 x10^3/uL (0.0-1.1) Eosinophils # (Auto) 0.0 x10^3/uL (0.0-0.7) Basophils # (Auto) 0.1 x10^3/uL (0.0-0.2) Sodium Level 137 mmol/L (136-145) Potassium Level 5.0 mmol/L (3.5-5.1) Chloride Level 104 mmol/L (98-107) Carbon Dioxide Level 27 mmol/L (21-32) Anion Gap 6 (6-14) Blood Urea Nitrogen 7 mg/dL (7-20) Creatinine 0.8 mg/dL (0.6-1.0) Estimated GFR (Cockcroft-Gault) 98.2 Glucose Level 204 mg/dL (70-99) Calcium Level 8.4 mg/dL (8.5-10.1) Laboratory Tests Test 04/25/17 11:46 04/25/17 16:00 04/25/17 20:41 04/25/17 22:27 Glucose (Fingerstick) 197 mg/dL (70-99) 224 mg/dL (70-99) 294 mg/dL (70-99) 249 mg/dL (70-99) Test 04/25/17 23:45 04/26/17 04:20 04/26/17 07:25 Glucose (Fingerstick) 237 mg/dL (70-99) 207 mg/dL (70-99) White Blood Count 7.4 x10^3/uL (4.0-11.0) Red Blood Count 3.84 x10^6/uL (3.50-5.40) Hemoglobin 12.0 g/dL (12.0-15.5) Hematocrit 35.3 % (36.0-47.0) Mean Corpuscular Volume 92 fL (79-100) Mean Corpuscular Hemoglobin 31 pg (25-35) Mean Corpuscular Hemoglobin Concent 34 g/dL (31-37) Red Cell Distribution Width 12.8 % (11.5-14.5) Platelet Count 240 x10^3/uL (140-400) Neutrophils (%) (Auto) 64 % (31-73) Lymphocytes (%) (Auto) 28 % (24-48) Monocytes (%) (Auto) 7 % (0-9) Eosinophils (%) (Auto) 0 % (0-3) Basophils (%) (Auto) 1 % (0-3) Neutrophils # (Auto) 4.7 x10^3uL (1.8-7.7) Lymphocytes # (Auto) 2.0 x10^3/uL (1.0-4.8) Monocytes # (Auto) 0.5 x10^3/uL (0.0-1.1) Eosinophils # (Auto) 0.0 x10^3/uL (0.0-0.7) Basophils # (Auto) 0.1 x10^3/uL (0.0-0.2) Sodium Level 137 mmol/L (136-145) Potassium Level 5.0 mmol/L (3.5-5.1) Chloride Level 104 mmol/L (98-107) Carbon Dioxide Level 27 mmol/L (21-32) Anion Gap 6 (6-14) Blood Urea Nitrogen 7 mg/dL (7-20) Creatinine 0.8 mg/dL (0.6-1.0) Estimated GFR (Cockcroft-Gault) 98.2 Glucose Level 204 mg/dL (70-99) Calcium Level 8.4 mg/dL (8.5-10.1) Medications Current Medications Fentanyl Citrate (Fentanyl 2ml Vial) 75 mcg 1X ONCE IV Last administered on 09:30; Start 04/24/17 at 09:30; Stop 04/24/17 at 09:31; Status DC Ondansetron HCl (Zofran) 8 mg 1X ONCE IV Last administered on 04/24/17 10:01 ; Start 04/24/17 at 09:30; Stop 04/24/17 at 09:31; Status DC Pantoprazole Sodium (Protonix Vial) 40 mg 1X ONCE IVP Last administered on 10:01; Start 04/24/17 at 09:30; Stop 04/24/17 at 09:31; Status DC Sodium Chloride 1,000 ml @ 1,000 mls/hr 1X ONCE IV Last administered on 10:01; Start 04/24/17 at 09:30; Stop 04/24/17 at 10:29; Status DC Multi-Ingredient Mouthwash/Gargle (Gi Cocktail Single Dose) 15 ml 1X ONCE SWSW Last administered on 04/24/17 10:01; Start 04/24/17 at 09:30; Stop 04/24/17 at 09:31; Status DC Insulin Human Regular (NovoLIN R VIAL) 10 unit 1X ONCE IV Last administered on 04/24/17 11:56; Start 04/24/17 at 11:45; Stop 04/24/17 at 11:46; Status DC Ondansetron HCl (Zofran) 4 mg PRN Q8HRS PRN IV NAUSEA/VOMITING Last administered on 04/25/17 05:51; Start 04/24/17 at 11:45; Stop 04/25/17 at 11:44 ; Status DC Fentanyl Citrate (Fentanyl 2ml Vial) 50 mcg PRN Q2HR PRN IV PAIN Last administered on 04/24/17 15:49; Start 04/24/17 at 11:45; Stop 04/24/17 at 17:31 ; Status DC Ketorolac Tromethamine (Toradol) 30 mg 1X ONCE IV Last administered on 11:57; Start 04/24/17 at 11:45; Stop 04/24/17 at 11:46; Status DC Diazepam (Valium) 5 mg 1X ONCE PO Last administered on 04/24/17 11:59; Start 04/24/17 at 11:45; Stop 04/24/17 at 11:46; Status DC Aspirin (Children'S Aspirin) 81 mg DAILY PO Last administered on 04/26/17 08: 01; Start 04/25/17 at 09:00 Clopidogrel Bisulfate (Plavix) 75 mg DAILY PO Last administered on 04/26/17 08 :00; Start 04/25/17 at 09:00 Metoprolol Succinate (Toprol Xl) 50 mg DAILY16 PO ; Start 04/24/17 at 17:30; Stop 04/24/17 at 17:45; Status DC Simvastatin (Zocor) 20 mg DAILY PO ; Start 04/25/17 at 09:00; Stop 04/25/17 at 09:00; Status DC Gabapentin (Neurontin) 600 mg TID PO Last administered on 04/26/17 08:00; Start 04/24/17 at 21:00 Pantoprazole Sodium (Protonix) 40 mg DAILYAC PO Last administered on 04/26/17 05:29; Start 04/25/17 at 07:30 Lisinopril (Prinivil) 10 mg DAILY PO ; Start 04/25/17 at 09:00 Fentanyl Citrate (Fentanyl 2ml Vial) 25 mcg PRN Q4HRS PRN IV PAIN Last administered on 04/25/17 09:28; Start 04/24/17 at 20:00; Stop 04/25/17 at 19:59 ; Status DC Potassium Chloride 30 meq/ Sodium Chloride 1,015 ml @ 75 mls/hr [id number] PRN IV . Last administered on 04/25/17 05:52; Start 04/24/17 at 17:30 Metoprolol Succinate (Toprol Xl) 50 mg HS PO ; Start 04/24/17 at 21:00; Stop 10/30 at 09:59; Status DC Simvastatin (Zocor) 20 mg HS PO Last administered on 04/25/17 20:34; Start 09/30 at 21:00 Insulin Detemir (Levemir) 20 units BID SQ Last administered on 04/24/17 20:41 ; Start 04/24/17 at 21:00; Stop 04/25/17 at 09:59; Status DC Insulin Aspart (NovoLOG) 0-9 UNITS TIDWMEALS SQ Last administered on 04/26/17 08:23; Start 04/25/17 at 08:00 Dextrose (Dextrose 50%-Water Syringe) 12.5 gm PRN Q15MIN PRN IV SEE COMMENTS; Start 04/24/17 at 18:00 Insulin Aspart (NovoLOG) 5 units 1X STAT SQ Last administered on 04/24/17 18: 27; Start 04/24/17 at 17:58; Stop 04/24/17 at 18:01; Status DC Cyclobenzaprine HCl (Flexeril) 10 mg PRN Q8HRS PRN PO MUSCLE SPASMS Last administered on 04/26/17 08:10; Start 04/24/17 at 21:00 Insulin Detemir (Levemir) 10 units QHS SQ ; Start 04/25/17 at 21:00 Metoprolol Tartrate (Lopressor) 50 mg BID PO Last administered on 04/25/17 20: 36; Start 04/25/17 at 10:30; Stop 04/26/17 at 08:05; Status DC Acetaminophen (Tylenol) 650 mg PRN Q6HRS PRN PO FEVER; Start 04/25/17 at 10:00 Ondansetron HCl (Zofran) 4 mg PRN Q6HRS PRN IV NAUSEA/VOMITING Last administered on 04/26/17 05:29; Start 04/25/17 at 10:00 Hydralazine HCl (Apresoline) 10 mg PRN Q4HRS PRN IVP ELEVATED BP, SEE COMMENTS ; Start 04/25/17 at 10:00 Docusate Sodium (Colace) 100 mg PRN DAILY PRN PO CONSTIPATION Last administered on 04/26/17 01:14; Start 04/25/17 at 10:00 Tramadol HCl (Ultram) 50 mg PRN Q6HRS PRN PO PAIN Last administered on 04:34; Start 04/25/17 at 13:00 Enoxaparin Sodium (Lovenox 40mg Syringe) 40 mg Q24H SQ Last administered on 15:34; Start 04/25/17 at 14:00 Oxycodone/ Acetaminophen (Percocet 5/325) 1 tab PRN Q4HRS PRN PO PAIN Last administered on 04/25/17 22:32; Start 04/25/17 at 14:00 Oxycodone/ Acetaminophen (Percocet 5/325) 2 tab PRN Q4HRS PRN PO PAIN Last administered on 04/26/17 05:25; Start 04/25/17 at 14:00; Stop 04/26/17 at 09:42 ; Status DC Prochlorperazine Edisylate (Compazine) 10 mg PRN Q6HRS PRN IV NAUSEA/VOMITING; Start 04/25/17 at 14:00 Methylprednisolone Acetate (DEPO-Medrol 40MG VIAL) 40 mg 1X ONCE IM ; Start 10/30 at 18:00; Stop 04/25/17 at 18:01; Status DC Bupivacaine HCl (Sensorcaine-Mpf 0.25%) 10 ml 1X ONCE IJ ; Start 04/25/17 at 18 :00; Stop 04/25/17 at 18:01; Status DC Insulin Aspart (NovoLOG) 5 units ONCE ONCE SQ Last administered on 04/25/17 21:17; Start 04/25/17 at 21:15; Stop 04/25/17 at 21:16; Status DC Oxycodone/ Acetaminophen (Percocet 5/325) 1 tab 1X ONCE PO Last administered on 04/26/17 01:12; Start 04/26/17 at 01:15; Stop 04/26/17 at 01:16; Status DC Metoprolol Succinate (Toprol Xl) 100 mg DAILY08 PO Last administered on 08:12; Start 04/26/17 at 09:00 Oxycodone/ Acetaminophen (Percocet 10/325) 1 tab PRN Q4HRS PRN PO PAIN Last administered on 04/26/17 09:52; Start 04/26/17 at 09:45 Active Scripts Active Reported Promethazine Hcl 25 Mg Tablet Unknown Dose PO Q6H PRN Prevacid (Lansoprazole) 30 Mg Capsule.dr 1 Cap PO DAILY Gabapentin 600 Mg Tablet 600 Mg PO TID Aspirin 81 Mg Tab.chew 1 Tab PO DAILY Novolog Flexpen (Insulin Aspart) 100 Unit/1 Ml Insuln.pen 0-10 SQ TIDAC Novolog (Insulin Aspart) 100 Unit/1 Ml Vial 6 Unit SQ TIDAC Simvastatin 20 Mg Tablet 20 Mg PO DAILY Ramipril 5 Mg Capsule 5 Mg PO DAILY Plavix (Clopidogrel Bisulfate) 75 Mg Tablet 75 Mg PO DAILY Metoprolol Succinate ( Xl ) (Metoprolol Succinate) 100 Mg Tab.er.24h 50 Mg PO DAILY16 Metoprolol Succinate ( Xl ) (Metoprolol Succinate) 100 Mg Tab.er.24h 100 Mg PO DAILY08 Vitals/I & O Vital Sign - Last 24 Hours 04/25/17 04/25/17 04/25/17 04/25/17 11:00 11:43 12:13 13:02 Temp 97.9 97.9 Pulse 83 83 Resp 18 B/P (MAP) 119/64 (82) 119/64 Pulse Ox 100 O2 Delivery Room Air Room Air Room Air 04/25/17 04/25/17 04/25/17 04/25/17 14:47 15:00 18:28 19:00 Temp 98.4 97.9 98.4 97.9 Pulse 68 74 Resp 18 20 B/P (MAP) 124/73 (90) 127/60 (82) Pulse Ox 98 99 O2 Delivery Room Air Room Air Room Air Room Air 04/25/17 04/25/17 04/25/17 04/25/17 20:00 20:35 20:36 22:32 Resp 16 16 B/P (MAP) 125/62 O2 Delivery Room Air Room Air Room Air 04/25/17 04/25/17 04/26/17 04/26/17 23:00 23:32 01:12 02:12 Temp 97.9 97.9 Pulse 59 Resp 18 16 16 16 B/P (MAP) 132/65 (87) Pulse Ox 99 O2 Delivery Room Air Room Air Room Air 04/26/17 04/26/17 04/26/17 04/26/17 03:00 04:34 05:23 05:25 Temp 97.9 97.9 Pulse 63 Resp 20 16 18 16 B/P (MAP) 146/68 (94) Pulse Ox 99 O2 Delivery Room Air Room Air Room Air Room Air 04/26/17 04/26/17 04/26/17 04/26/17 06:30 07:00 08:01 08:12 Temp 97.9 97.9 Pulse 62 62 62 Resp 16 18 B/P (MAP) 137/69 (91) 137/69 137/69 Pulse Ox 99 O2 Delivery Room Air Room Air 04/26/17 09:52 Resp 16 O2 Delivery Room Air Intake and Output 04/25/17 04/25/17 04/26/17 15:00 23:00 07:00 Intake Total 350 ml Balance 350 ml ENDY FRANCE MD Apr 26, 2017 10:20
[2017-04-26 11:00] VITALS: BP 134/68
[2017-04-26] MEDS ORDERED: INSULIN ASPART 300 UNITS/3 ML INSULN.PEN SQ ONE (12:15)
--- NOTE | 2017-04-26 12:32 | PDOC ---
PROGRESS NOTES Chief Complaint Chief Complaint 1. acute on chronic back pain, likely 2/2 OA 2. uncontrolled dm2 3. htn 4. hld 5. h/o CAD 6. left eye blindness 7. Leukocytosis ,reactive 8. abd pain with N/V, gastritis likely plan; lumbar XR neg, MRI pending consulted cont levemir 10u qhs, ssi check hba1c ivf gi soft diet as per GI pain control pt refused ACEI in hosp dvt ppx dc tmr if ok with GI and if no intervention will be done History of Present Illness History of Present Illness pt c/o severe back pain, no vomiting ,still nausea got back steroid injection by dr. Pisano, slightly better, requires higher dose pain meds refused levemir last night, and hyperglycemia today, then requires high dose aspart for lunch. Vitals Vitals Vital Signs Date Time Temp Pulse Resp B/P (MAP) Pulse Ox O2 Delivery O2 Flow Rate FiO2 04/26/17 12:13 16 Room Air 04/26/17 11:00 97.8 63 134/68 (90) 100 97.8 Physical Exam General: Alert, Oriented X3, Cooperative Heart: Regular rate, Normal S1, Normal S2 Lungs: Clear Abdomen: Normal bowel sounds, Soft, Other (diffused mild abd tenderness) Extremities: No clubbing Labs LABS Laboratory Tests Test 04/25/17 16:00 04/25/17 20:41 04/25/17 22:27 04/25/17 23:45 Glucose (Fingerstick) 224 mg/dL (70-99) 294 mg/dL (70-99) 249 mg/dL (70-99) 237 mg/dL (70-99) Test 04/26/17 04:20 04/26/17 07:25 04/26/17 11:44 White Blood Count 7.4 x10^3/uL (4.0-11.0) Red Blood Count 3.84 x10^6/uL (3.50-5.40) Hemoglobin 12.0 g/dL (12.0-15.5) Hematocrit 35.3 % (36.0-47.0) Mean Corpuscular Volume 92 fL (79-100) Mean Corpuscular Hemoglobin 31 pg (25-35) Mean Corpuscular Hemoglobin Concent 34 g/dL (31-37) Red Cell Distribution Width 12.8 % (11.5-14.5) Platelet Count 240 x10^3/uL (140-400) Neutrophils (%) (Auto) 64 % (31-73) Lymphocytes (%) (Auto) 28 % (24-48) Monocytes (%) (Auto) 7 % (0-9) Eosinophils (%) (Auto) 0 % (0-3) Basophils (%) (Auto) 1 % (0-3) Neutrophils # (Auto) 4.7 x10^3uL (1.8-7.7) Lymphocytes # (Auto) 2.0 x10^3/uL (1.0-4.8) Monocytes # (Auto) 0.5 x10^3/uL (0.0-1.1) Eosinophils # (Auto) 0.0 x10^3/uL (0.0-0.7) Basophils # (Auto) 0.1 x10^3/uL (0.0-0.2) Sodium Level 137 mmol/L (136-145) Potassium Level 5.0 mmol/L (3.5-5.1) Chloride Level 104 mmol/L (98-107) Carbon Dioxide Level 27 mmol/L (21-32) Anion Gap 6 (6-14) Blood Urea Nitrogen 7 mg/dL (7-20) Creatinine 0.8 mg/dL (0.6-1.0) Estimated GFR (Cockcroft-Gault) 98.2 Glucose Level 204 mg/dL (70-99) Calcium Level 8.4 mg/dL (8.5-10.1) Glucose (Fingerstick) 207 mg/dL (70-99) 237 mg/dL (70-99) Review of Systems Review of Systems no fever, chills, sob or chest pain Assessment and Plan Assessmemt and Plan Problems Medical Problems: (1) Hyperglycemia Status: Acute (2) Intractable abdominal pain Status: Acute (3) Intractable nausea and vomiting Status: Acute Problems: Comment Review of Relevant I have reviewed the following items marina (where applicable) has been applied. Labs Laboratory Tests Test 04/24/17 16:17 04/24/17 20:23 04/25/17 03:41 04/25/17 07:40 Glucose (Fingerstick) 235 mg/dL (70-99) 234 mg/dL (70-99) 162 mg/dL (70-99) White Blood Count 10.5 x10^3/uL (4.0-11.0) Red Blood Count 3.75 x10^6/uL (3.50-5.40) Hemoglobin 11.5 g/dL (12.0-15.5) Hematocrit 34.4 % (36.0-47.0) Mean Corpuscular Volume 92 fL (79-100) Mean Corpuscular Hemoglobin 31 pg (25-35) Mean Corpuscular Hemoglobin Concent 34 g/dL (31-37) Red Cell Distribution Width 13.2 % (11.5-14.5) Platelet Count 248 x10^3/uL (140-400) Neutrophils (%) (Auto) 61 % (31-73) Lymphocytes (%) (Auto) 31 % (24-48) Monocytes (%) (Auto) 7 % (0-9) Eosinophils (%) (Auto) 1 % (0-3) Basophils (%) (Auto) 1 % (0-3) Neutrophils # (Auto) 6.4 x10^3uL (1.8-7.7) Lymphocytes # (Auto) 3.2 x10^3/uL (1.0-4.8) Monocytes # (Auto) 0.8 x10^3/uL (0.0-1.1) Eosinophils # (Auto) 0.1 x10^3/uL (0.0-0.7) Basophils # (Auto) 0.1 x10^3/uL (0.0-0.2) Sodium Level 138 mmol/L (136-145) Potassium Level 3.8 mmol/L (3.5-5.1) Chloride Level 103 mmol/L (98-107) Carbon Dioxide Level 29 mmol/L (21-32) Anion Gap 6 (6-14) Blood Urea Nitrogen 14 mg/dL (7-20) Creatinine 0.9 mg/dL (0.6-1.0) Estimated GFR (Cockcroft-Gault) 85.7 Glucose Level 135 mg/dL (70-99) Calcium Level 8.0 mg/dL (8.5-10.1) Test 04/25/17 11:46 04/25/17 16:00 04/25/17 20:41 04/25/17 22:27 Glucose (Fingerstick) 197 mg/dL (70-99) 224 mg/dL (70-99) 294 mg/dL (70-99) 249 mg/dL (70-99) Test 04/25/17 23:45 04/26/17 04:20 04/26/17 07:25 04/26/17 11:44 Glucose (Fingerstick) 237 mg/dL (70-99) 207 mg/dL (70-99) 237 mg/dL (70-99) White Blood Count 7.4 x10^3/uL (4.0-11.0) Red Blood Count 3.84 x10^6/uL (3.50-5.40) Hemoglobin 12.0 g/dL (12.0-15.5) Hematocrit 35.3 % (36.0-47.0) Mean Corpuscular Volume 92 fL (79-100) Mean Corpuscular Hemoglobin 31 pg (25-35) Mean Corpuscular Hemoglobin Concent 34 g/dL (31-37) Red Cell Distribution Width 12.8 % (11.5-14.5) Platelet Count 240 x10^3/uL (140-400) Neutrophils (%) (Auto) 64 % (31-73) Lymphocytes (%) (Auto) 28 % (24-48) Monocytes (%) (Auto) 7 % (0-9) Eosinophils (%) (Auto) 0 % (0-3) Basophils (%) (Auto) 1 % (0-3) Neutrophils # (Auto) 4.7 x10^3uL (1.8-7.7) Lymphocytes # (Auto) 2.0 x10^3/uL (1.0-4.8) Monocytes # (Auto) 0.5 x10^3/uL (0.0-1.1) Eosinophils # (Auto) 0.0 x10^3/uL (0.0-0.7) Basophils # (Auto) 0.1 x10^3/uL (0.0-0.2) Sodium Level 137 mmol/L (136-145) Potassium Level 5.0 mmol/L (3.5-5.1) Chloride Level 104 mmol/L (98-107) Carbon Dioxide Level 27 mmol/L (21-32) Anion Gap 6 (6-14) Blood Urea Nitrogen 7 mg/dL (7-20) Creatinine 0.8 mg/dL (0.6-1.0) Estimated GFR (Cockcroft-Gault) 98.2 Glucose Level 204 mg/dL (70-99) Calcium Level 8.4 mg/dL (8.5-10.1) Laboratory Tests Test 04/25/17 16:00 04/25/17 20:41 04/25/17 22:27 04/25/17 23:45 Glucose (Fingerstick) 224 mg/dL (70-99) 294 mg/dL (70-99) 249 mg/dL (70-99) 237 mg/dL (70-99) Test 04/26/17 04:20 04/26/17 07:25 04/26/17 11:44 White Blood Count 7.4 x10^3/uL (4.0-11.0) Red Blood Count 3.84 x10^6/uL (3.50-5.40) Hemoglobin 12.0 g/dL (12.0-15.5) Hematocrit 35.3 % (36.0-47.0) Mean Corpuscular Volume 92 fL (79-100) Mean Corpuscular Hemoglobin 31 pg (25-35) Mean Corpuscular Hemoglobin Concent 34 g/dL (31-37) Red Cell Distribution Width 12.8 % (11.5-14.5) Platelet Count 240 x10^3/uL (140-400) Neutrophils (%) (Auto) 64 % (31-73) Lymphocytes (%) (Auto) 28 % (24-48) Monocytes (%) (Auto) 7 % (0-9) Eosinophils (%) (Auto) 0 % (0-3) Basophils (%) (Auto) 1 % (0-3) Neutrophils # (Auto) 4.7 x10^3uL (1.8-7.7) Lymphocytes # (Auto) 2.0 x10^3/uL (1.0-4.8) Monocytes # (Auto) 0.5 x10^3/uL (0.0-1.1) Eosinophils # (Auto) 0.0 x10^3/uL (0.0-0.7) Basophils # (Auto) 0.1 x10^3/uL (0.0-0.2) Sodium Level 137 mmol/L (136-145) Potassium Level 5.0 mmol/L (3.5-5.1) Chloride Level 104 mmol/L (98-107) Carbon Dioxide Level 27 mmol/L (21-32) Anion Gap 6 (6-14) Blood Urea Nitrogen 7 mg/dL (7-20) Creatinine 0.8 mg/dL (0.6-1.0) Estimated GFR (Cockcroft-Gault) 98.2 Glucose Level 204 mg/dL (70-99) Calcium Level 8.4 mg/dL (8.5-10.1) Glucose (Fingerstick) 207 mg/dL (70-99) 237 mg/dL (70-99) Medications Current Medications Fentanyl Citrate (Fentanyl 2ml Vial) 75 mcg 1X ONCE IV Last administered on 09:30; Start 04/24/17 at 09:30; Stop 04/24/17 at 09:31; Status DC Ondansetron HCl (Zofran) 8 mg 1X ONCE IV Last administered on 04/24/17 10:01 ; Start 04/24/17 at 09:30; Stop 04/24/17 at 09:31; Status DC Pantoprazole Sodium (Protonix Vial) 40 mg 1X ONCE IVP Last administered on 10:01; Start 04/24/17 at 09:30; Stop 04/24/17 at 09:31; Status DC Sodium Chloride 1,000 ml @ 1,000 mls/hr 1X ONCE IV Last administered on 10:01; Start 04/24/17 at 09:30; Stop 04/24/17 at 10:29; Status DC Multi-Ingredient Mouthwash/Gargle (Gi Cocktail Single Dose) 15 ml 1X ONCE SWSW Last administered on 04/24/17 10:01; Start 04/24/17 at 09:30; Stop 04/24/17 at 09:31; Status DC Insulin Human Regular (NovoLIN R VIAL) 10 unit 1X ONCE IV Last administered on 04/24/17 11:56; Start 04/24/17 at 11:45; Stop 04/24/17 at 11:46; Status DC Ondansetron HCl (Zofran) 4 mg PRN Q8HRS PRN IV NAUSEA/VOMITING Last administered on 04/25/17 05:51; Start 04/24/17 at 11:45; Stop 04/25/17 at 11:44 ; Status DC Fentanyl Citrate (Fentanyl 2ml Vial) 50 mcg PRN Q2HR PRN IV PAIN Last administered on 04/24/17 15:49; Start 04/24/17 at 11:45; Stop 04/24/17 at 17:31 ; Status DC Ketorolac Tromethamine (Toradol) 30 mg 1X ONCE IV Last administered on 11:57; Start 04/24/17 at 11:45; Stop 04/24/17 at 11:46; Status DC Diazepam (Valium) 5 mg 1X ONCE PO Last administered on 04/24/17 11:59; Start 04/24/17 at 11:45; Stop 04/24/17 at 11:46; Status DC Aspirin (Children'S Aspirin) 81 mg DAILY PO Last administered on 04/26/17 08: 01; Start 04/25/17 at 09:00 Clopidogrel Bisulfate (Plavix) 75 mg DAILY PO Last administered on 04/26/17 08 :00; Start 04/25/17 at 09:00 Metoprolol Succinate (Toprol Xl) 50 mg DAILY16 PO ; Start 04/24/17 at 17:30; Stop 04/24/17 at 17:45; Status DC Simvastatin (Zocor) 20 mg DAILY PO ; Start 04/25/17 at 09:00; Stop 04/25/17 at 09:00; Status DC Gabapentin (Neurontin) 600 mg TID PO Last administered on 04/26/17 08:00; Start 04/24/17 at 21:00 Pantoprazole Sodium (Protonix) 40 mg DAILYAC PO Last administered on 04/26/17 05:29; Start 04/25/17 at 07:30 Lisinopril (Prinivil) 10 mg DAILY PO ; Start 04/25/17 at 09:00 Fentanyl Citrate (Fentanyl 2ml Vial) 25 mcg PRN Q4HRS PRN IV PAIN Last administered on 04/25/17 09:28; Start 04/24/17 at 20:00; Stop 04/25/17 at 19:59 ; Status DC Potassium Chloride 30 meq/ Sodium Chloride 1,015 ml @ 75 mls/hr [id number] PRN IV . Last administered on 04/25/17 05:52; Start 04/24/17 at 17:30 Metoprolol Succinate (Toprol Xl) 50 mg HS PO ; Start 04/24/17 at 21:00; Stop 10/30 at 09:59; Status DC Simvastatin (Zocor) 20 mg HS PO Last administered on 04/25/17 20:34; Start 09/30 at 21:00 Insulin Detemir (Levemir) 20 units BID SQ Last administered on 04/24/17 20:41 ; Start 04/24/17 at 21:00; Stop 04/25/17 at 09:59; Status DC Insulin Aspart (NovoLOG) 0-9 UNITS TIDWMEALS SQ Last administered on 04/26/17 08:23; Start 04/25/17 at 08:00 Dextrose (Dextrose 50%-Water Syringe) 12.5 gm PRN Q15MIN PRN IV SEE COMMENTS; Start 04/24/17 at 18:00 Insulin Aspart (NovoLOG) 5 units 1X STAT SQ Last administered on 04/24/17 18: 27; Start 04/24/17 at 17:58; Stop 04/24/17 at 18:01; Status DC Cyclobenzaprine HCl (Flexeril) 10 mg PRN Q8HRS PRN PO MUSCLE SPASMS Last administered on 04/26/17 08:10; Start 04/24/17 at 21:00 Insulin Detemir (Levemir) 10 units QHS SQ ; Start 04/25/17 at 21:00 Metoprolol Tartrate (Lopressor) 50 mg BID PO Last administered on 04/25/17 20: 36; Start 04/25/17 at 10:30; Stop 04/26/17 at 08:05; Status DC Acetaminophen (Tylenol) 650 mg PRN Q6HRS PRN PO FEVER; Start 04/25/17 at 10:00 Ondansetron HCl (Zofran) 4 mg PRN Q6HRS PRN IV NAUSEA/VOMITING Last administered on 04/26/17 05:29; Start 04/25/17 at 10:00 Hydralazine HCl (Apresoline) 10 mg PRN Q4HRS PRN IVP ELEVATED BP, SEE COMMENTS ; Start 04/25/17 at 10:00 Docusate Sodium (Colace) 100 mg PRN DAILY PRN PO CONSTIPATION Last administered on 04/26/17 01:14; Start 04/25/17 at 10:00 Tramadol HCl (Ultram) 50 mg PRN Q6HRS PRN PO PAIN Last administered on 11:11; Start 04/25/17 at 13:00 Enoxaparin Sodium (Lovenox 40mg Syringe) 40 mg Q24H SQ Last administered on 15:34; Start 04/25/17 at 14:00 Oxycodone/ Acetaminophen (Percocet 5/325) 1 tab PRN Q4HRS PRN PO PAIN Last administered on 04/25/17 22:32; Start 04/25/17 at 14:00 Oxycodone/ Acetaminophen (Percocet 5/325) 2 tab PRN Q4HRS PRN PO PAIN Last administered on 04/26/17 05:25; Start 04/25/17 at 14:00; Stop 04/26/17 at 09:42 ; Status DC Prochlorperazine Edisylate (Compazine) 10 mg PRN Q6HRS PRN IV NAUSEA/VOMITING; Start 04/25/17 at 14:00 Methylprednisolone Acetate (DEPO-Medrol 40MG VIAL) 40 mg 1X ONCE IM ; Start 10/30 at 18:00; Stop 04/25/17 at 18:01; Status DC Bupivacaine HCl (Sensorcaine-Mpf 0.25%) 10 ml 1X ONCE IJ ; Start 04/25/17 at 18 :00; Stop 04/25/17 at 18:01; Status DC Insulin Aspart (NovoLOG) 5 units ONCE ONCE SQ Last administered on 04/25/17 21:17; Start 04/25/17 at 21:15; Stop 04/25/17 at 21:16; Status DC Oxycodone/ Acetaminophen (Percocet 5/325) 1 tab 1X ONCE PO Last administered on 04/26/17 01:12; Start 04/26/17 at 01:15; Stop 04/26/17 at 01:16; Status DC Metoprolol Succinate (Toprol Xl) 100 mg DAILY08 PO Last administered on 08:12; Start 04/26/17 at 09:00 Oxycodone/ Acetaminophen (Percocet 10/325) 1 tab PRN Q4HRS PRN PO PAIN Last administered on 04/26/17 09:52; Start 04/26/17 at 09:45 Insulin Aspart (NovoLOG) 10 units 1X ONCE SQ Last administered on 04/26/17 11 :59; Start 04/26/17 at 12:15; Stop 04/26/17 at 12:16; Status DC Active Scripts Active Reported Promethazine Hcl 25 Mg Tablet Unknown Dose PO Q6H PRN Prevacid (Lansoprazole) 30 Mg Capsule.dr 1 Cap PO DAILY Gabapentin 600 Mg Tablet 600 Mg PO TID Aspirin 81 Mg Tab.chew 1 Tab PO DAILY Novolog Flexpen (Insulin Aspart) 100 Unit/1 Ml Insuln.pen 0-10 SQ TIDAC Novolog (Insulin Aspart) 100 Unit/1 Ml Vial 6 Unit SQ TIDAC Simvastatin 20 Mg Tablet 20 Mg PO DAILY Ramipril 5 Mg Capsule 5 Mg PO DAILY Plavix (Clopidogrel Bisulfate) 75 Mg Tablet 75 Mg PO DAILY Metoprolol Succinate ( Xl ) (Metoprolol Succinate) 100 Mg Tab.er.24h 50 Mg PO DAILY16 Metoprolol Succinate ( Xl ) (Metoprolol Succinate) 100 Mg Tab.er.24h 100 Mg PO DAILY08 Vitals/I & O Vital Sign - Last 24 Hours 04/25/17 04/25/17 04/25/17 04/25/17 13:02 14:47 15:00 18:28 Temp 98.4 98.4 Pulse 68 Resp 18 B/P (MAP) 124/73 (90) Pulse Ox 98 O2 Delivery Room Air Room Air Room Air Room Air 04/25/17 04/25/17 04/25/17 04/25/17 19:00 20:00 20:35 20:36 Temp 97.9 97.9 Pulse 74 Resp 20 16 B/P (MAP) 127/60 (82) 125/62 Pulse Ox 99 O2 Delivery Room Air Room Air Room Air 04/25/17 04/25/17 04/25/17 04/26/17 22:32 23:00 23:32 01:12 Temp 97.9 97.9 Pulse 59 Resp 16 18 16 16 B/P (MAP) 132/65 (87) Pulse Ox 99 O2 Delivery Room Air Room Air Room Air 04/26/17 04/26/17 04/26/17 04/26/17 02:12 03:00 04:34 05:25 Temp 97.9 97.9 Pulse 63 Resp 16 20 16 16 B/P (MAP) 146/68 (94) Pulse Ox 99 O2 Delivery Room Air Room Air Room Air Room Air 04/26/17 04/26/17 04/26/17 04/26/17 06:30 07:00 07:45 08:01 Temp 97.9 97.9 Pulse 62 62 Resp 16 18 B/P (MAP) 137/69 (91) 137/69 Pulse Ox 99 O2 Delivery Room Air Room Air Room Air 04/26/17 04/26/17 04/26/17 04/26/17 08:12 09:52 10:52 11:00 Temp 97.8 97.8 Pulse 62 63 Resp 16 16 18 B/P (MAP) 137/69 134/68 (90) Pulse Ox 100 O2 Delivery Room Air Room Air Room Air 04/26/17 04/26/17 11:11 12:13 Resp 16 16 O2 Delivery Room Air Room Air Intake and Output 04/25/17 04/25/17 04/26/17 15:00 23:00 07:00 Intake Total 350 ml Balance 350 ml KEYUR RUSSELL MD Apr 26, 2017 12:32
--- NOTE | 2017-04-26 12:40 | PDOC ---
Subjective: Subjective: Still back pain after steroid injection, worse w/ movement. Still abd pain but better. Has ordered mashed potatoes for lunch. Objective: Objective: D/w RN. Vital Signs: Vital Signs Date Time Temp Pulse Resp B/P (MAP) Pulse Ox O2 Delivery O2 Flow Rate FiO2 04/26/17 12:13 16 Room Air 04/26/17 11:00 97.8 63 134/68 (90) 100 97.8 Labs: Laboratory Tests Test 04/25/17 16:00 04/25/17 20:41 04/25/17 22:27 04/25/17 23:45 Glucose (Fingerstick) 224 mg/dL 294 mg/dL 249 mg/dL 237 mg/dL Test 04/26/17 04:20 04/26/17 07:25 04/26/17 11:44 White Blood Count 7.4 x10^3/uL Red Blood Count 3.84 x10^6/uL Hemoglobin 12.0 g/dL Hematocrit 35.3 % Mean Corpuscular Volume 92 fL Mean Corpuscular Hemoglobin 31 pg Mean Corpuscular Hemoglobin Concent 34 g/dL Red Cell Distribution Width 12.8 % Platelet Count 240 x10^3/uL Neutrophils (%) (Auto) 64 % Lymphocytes (%) (Auto) 28 % Monocytes (%) (Auto) 7 % Eosinophils (%) (Auto) 0 % Basophils (%) (Auto) 1 % Neutrophils # (Auto) 4.7 x10^3uL Lymphocytes # (Auto) 2.0 x10^3/uL Monocytes # (Auto) 0.5 x10^3/uL Eosinophils # (Auto) 0.0 x10^3/uL Basophils # (Auto) 0.1 x10^3/uL Sodium Level 137 mmol/L Potassium Level 5.0 mmol/L Chloride Level 104 mmol/L Carbon Dioxide Level 27 mmol/L Anion Gap 6 Blood Urea Nitrogen 7 mg/dL Creatinine 0.8 mg/dL Estimated GFR (Cockcroft-Gault) 98.2 Glucose Level 204 mg/dL Calcium Level 8.4 mg/dL Glucose (Fingerstick) 207 mg/dL 237 mg/dL PE: GEN: NAD LUNGS: clear HEART: RRR ABD: BS+, less discomfort compared to yesterday NEURO/PSYCH: A & O 3 A/P: Abd pain, n/v - better -tolerating clears and crackers, plans to try more for lunch -h/o heartburn, on PPI here, no previous EGD -s/p cholecystectomy, hysterectomy, unilateral oophorectomy -h/o DM, A1c pending, no previous GES -+marijuana Low back pain -- Likely diabetic gastroparesis +/- GERD. Plans to try eating more today, observe. Continue PPI. GES/EGD later if indicated, could be done as outpt if tolerates diet. STEPHEN CLIFFORD Apr 26, 2017 12:40
--- NOTE | 2017-04-26 12:58 | RAD ---
MRI Lumbar Spine without contrast History: Low back pain with left leg radiculopathy Technique: Multiplanar, multi sequential noncontrast MR imaging was performed of the lumbar spine. Contrast: None Comparison: None Findings: The most inferior fully formed intervertebral disc space is considered L5-S1 for this report. Lumbar vertebral body stature and AP alignment are preserved. Conus terminates normally at L1. There is no significant marrow edema. There is nonspecific edema of the posterior subcutaneous fat of the lower back. L1-L2: Neural foramina and spinal canal are adequate. L2-L3: Spinal canal and neural foramina are adequate. L3-L4: Spinal canal and neural foramina are adequate. There is mild buckling of the ligamentum flavum. L4-L5: Spinal canal and neural foramina are adequate.There is mild buckling of the ligamentum flavum on the right. L5-S1: Neural foramina and spinal canal are adequate. Impression: 1. There is no significant lumbar spinal stenosis or neural foramina compromise. Electronically signed by: Ever Ramires MD (04/26/2017 12:55 PM)
[2017-04-26] MEDS: ENOXAPARIN 40 MG/0.4 ML SYRINGE. SQ SCH (14:42)
[2017-04-26 15:00] VITALS: BP 138/72
[2017-04-26 19:00] VITALS: BP 135/72
[2017-04-26] MEDS: SIMVASTATIN 20 MG TABLET PO SCH (21:08)
[2017-04-26 23:00] VITALS: BP 139/63
[2017-04-27 03:00] VITALS: BP 146/74
[2017-04-27] MEDS: oxyCODONE/APAP 10/325 1 TAB TABLET PO PRN ×3 (03:59→12:47)
[2017-04-27] MEDS: traMADol 50 MG TABLET PO PRN (06:30)
[2017-04-27] MEDS: PANTOPRAZOLE 40 MG TABLET.DR. PO SCH (06:30)
[2017-04-27 06:46] LABS: BASO # 0.1 x10^3/uL (0.0-0.2); BASO % 1 % (0-3); EOS % 1 % (0-3); HEMATOCRIT 36.4 % (36.0-47.0); HEMOGLOBIN 12.7 g/dL (12.0-15.5); LYMPH # 2.6 x10^3/uL (1.0-4.8); LYMPH % 37 % (24-48); MEAN CORPUSCULAR HEMOGLOBIN 31 pg (25-35); MEAN CORPUSCULAR HGB CONC 35 g/dL (31-37); MEAN CORPUSCULAR VOLUME 90 fL (79-100); MONO % 9 % (0-9); NEUT % 54 % (31-73); PLATELET COUNT 259 x10^3/uL (140-400); RED BLOOD COUNT 4.05 x10^6/uL (3.50-5.40); RED CELL DISTRIBUTION WIDTH 12.6 % (11.5-14.5); WHITE BLOOD COUNT 7.2 x10^3/uL (4.0-11.0)
[2017-04-27 07:00] VITALS: BP 142/73
[2017-04-27 07:15] LABS: CALCIUM 9.1 mg/dL (8.5-10.1); CREATININE 0.9 mg/dL (0.6-1.0); GFR 85.7; POTASSIUM 3.9 mmol/L (3.5-5.1)
[2017-04-27] MEDS: GABAPENTIN 300 MG CAPSULE. PO SCH (08:21)
[2017-04-27] MEDS: CLOPIDOGREL BISULFATE 75 MG TABLET PO SCH (08:21)
[2017-04-27] MEDS: ASPIRIN CHEWABLE 81 MG TABLET. PO SCH (08:21)
[2017-04-27] MEDS: CYCLOBENZAPRINE 10 MG TABLET. PO PRN (08:21)
[2017-04-27] MEDS: METOPROLOL SUCC 24HR ER 100 MG TAB.ER.24H. PO SCH (08:22)
[2017-04-27] MEDS: INSULIN ASPART 300 UNITS/3 ML INSULN.PEN SQ SCH ×4 (08:30→12:11)
[2017-04-27] MEDS: LISINOPRIL 10 MG TABLET PO SCH (08:31)
--- NOTE | 2017-04-27 10:57 | PDOC ---
PROGRESS NOTES Subjective Subjective She feels better with injection to low back on the left side but painful on right side .Mri scan failed to reveal any disc herniation. Objective Objective Vital Signs Date Time Temp Pulse Resp B/P (MAP) Pulse Ox O2 Delivery O2 Flow Rate FiO2 04/27/17 09:30 Room Air 04/27/17 08:22 62 142/73 04/27/17 07:00 97.8 18 100 97.8 Intake and Output 04/27/17 07:00 Intake Total 300 ml Balance 300 ml Intake Oral 300 ml # Voids 5 Physical Exam Physical Exam She remains independent with her mobility and self care and likes back support. Assessment Assessment Problems Medical Problems: (1) Hyperglycemia Status: Acute (2) Intractable abdominal pain Status: Acute (3) Intractable nausea and vomiting Status: Acute Plan Plan of Residential with outpatient follow up when medically stable. Comment Review of Relevant I have reviewed the following items marina (where applicable) has been applied. Labs Laboratory Tests Test 04/25/17 11:46 04/25/17 16:00 04/25/17 20:41 04/25/17 22:27 Glucose (Fingerstick) 197 mg/dL (70-99) 224 mg/dL (70-99) 294 mg/dL (70-99) 249 mg/dL (70-99) Test 04/25/17 23:45 04/26/17 04:20 04/26/17 07:25 04/26/17 11:44 Glucose (Fingerstick) 237 mg/dL (70-99) 207 mg/dL (70-99) 237 mg/dL (70-99) White Blood Count 7.4 x10^3/uL (4.0-11.0) Red Blood Count 3.84 x10^6/uL (3.50-5.40) Hemoglobin 12.0 g/dL (12.0-15.5) Hematocrit 35.3 % (36.0-47.0) Mean Corpuscular Volume 92 fL (79-100) Mean Corpuscular Hemoglobin 31 pg (25-35) Mean Corpuscular Hemoglobin Concent 34 g/dL (31-37) Red Cell Distribution Width 12.8 % (11.5-14.5) Platelet Count 240 x10^3/uL (140-400) Neutrophils (%) (Auto) 64 % (31-73) Lymphocytes (%) (Auto) 28 % (24-48) Monocytes (%) (Auto) 7 % (0-9) Eosinophils (%) (Auto) 0 % (0-3) Basophils (%) (Auto) 1 % (0-3) Neutrophils # (Auto) 4.7 x10^3uL (1.8-7.7) Lymphocytes # (Auto) 2.0 x10^3/uL (1.0-4.8) Monocytes # (Auto) 0.5 x10^3/uL (0.0-1.1) Eosinophils # (Auto) 0.0 x10^3/uL (0.0-0.7) Basophils # (Auto) 0.1 x10^3/uL (0.0-0.2) Sodium Level 137 mmol/L (136-145) Potassium Level 5.0 mmol/L (3.5-5.1) Chloride Level 104 mmol/L (98-107) Carbon Dioxide Level 27 mmol/L (21-32) Anion Gap 6 (6-14) Blood Urea Nitrogen 7 mg/dL (7-20) Creatinine 0.8 mg/dL (0.6-1.0) Estimated GFR (Cockcroft-Gault) 98.2 Glucose Level 204 mg/dL (70-99) Hemoglobin A1c 8.3 % (4.8-5.6) Calcium Level 8.4 mg/dL (8.5-10.1) Test 04/26/17 17:15 04/26/17 21:56 04/27/17 05:25 04/27/17 07:15 Glucose (Fingerstick) 223 mg/dL (70-99) 245 mg/dL (70-99) 217 mg/dL (70-99) White Blood Count 7.2 x10^3/uL (4.0-11.0) Red Blood Count 4.05 x10^6/uL (3.50-5.40) Hemoglobin 12.7 g/dL (12.0-15.5) Hematocrit 36.4 % (36.0-47.0) Mean Corpuscular Volume 90 fL (79-100) Mean Corpuscular Hemoglobin 31 pg (25-35) Mean Corpuscular Hemoglobin Concent 35 g/dL (31-37) Red Cell Distribution Width 12.6 % (11.5-14.5) Platelet Count 259 x10^3/uL (140-400) Neutrophils (%) (Auto) 54 % (31-73) Lymphocytes (%) (Auto) 37 % (24-48) Monocytes (%) (Auto) 9 % (0-9) Eosinophils (%) (Auto) 1 % (0-3) Basophils (%) (Auto) 1 % (0-3) Neutrophils # (Auto) 3.9 x10^3uL (1.8-7.7) Lymphocytes # (Auto) 2.6 x10^3/uL (1.0-4.8) Monocytes # (Auto) 0.6 x10^3/uL (0.0-1.1) Eosinophils # (Auto) 0.0 x10^3/uL (0.0-0.7) Basophils # (Auto) 0.1 x10^3/uL (0.0-0.2) Sodium Level 136 mmol/L (136-145) Potassium Level 3.9 mmol/L (3.5-5.1) Chloride Level 102 mmol/L (98-107) Carbon Dioxide Level 27 mmol/L (21-32) Anion Gap 7 (6-14) Blood Urea Nitrogen 11 mg/dL (7-20) Creatinine 0.9 mg/dL (0.6-1.0) Estimated GFR (Cockcroft-Gault) 85.7 Glucose Level 233 mg/dL (70-99) Calcium Level 9.1 mg/dL (8.5-10.1) Laboratory Tests Test 04/26/17 11:44 04/26/17 17:15 04/26/17 21:56 04/27/17 05:25 Glucose (Fingerstick) 237 mg/dL (70-99) 223 mg/dL (70-99) 245 mg/dL (70-99) White Blood Count 7.2 x10^3/uL (4.0-11.0) Red Blood Count 4.05 x10^6/uL (3.50-5.40) Hemoglobin 12.7 g/dL (12.0-15.5) Hematocrit 36.4 % (36.0-47.0) Mean Corpuscular Volume 90 fL (79-100) Mean Corpuscular Hemoglobin 31 pg (25-35) Mean Corpuscular Hemoglobin Concent 35 g/dL (31-37) Red Cell Distribution Width 12.6 % (11.5-14.5) Platelet Count 259 x10^3/uL (140-400) Neutrophils (%) (Auto) 54 % (31-73) Lymphocytes (%) (Auto) 37 % (24-48) Monocytes (%) (Auto) 9 % (0-9) Eosinophils (%) (Auto) 1 % (0-3) Basophils (%) (Auto) 1 % (0-3) Neutrophils # (Auto) 3.9 x10^3uL (1.8-7.7) Lymphocytes # (Auto) 2.6 x10^3/uL (1.0-4.8) Monocytes # (Auto) 0.6 x10^3/uL (0.0-1.1) Eosinophils # (Auto) 0.0 x10^3/uL (0.0-0.7) Basophils # (Auto) 0.1 x10^3/uL (0.0-0.2) Sodium Level 136 mmol/L (136-145) Potassium Level 3.9 mmol/L (3.5-5.1) Chloride Level 102 mmol/L (98-107) Carbon Dioxide Level 27 mmol/L (21-32) Anion Gap 7 (6-14) Blood Urea Nitrogen 11 mg/dL (7-20) Creatinine 0.9 mg/dL (0.6-1.0) Estimated GFR (Cockcroft-Gault) 85.7 Glucose Level 233 mg/dL (70-99) Calcium Level 9.1 mg/dL (8.5-10.1) Test 04/27/17 07:15 Glucose (Fingerstick) 217 mg/dL (70-99) Medications Current Medications Fentanyl Citrate (Fentanyl 2ml Vial) 75 mcg 1X ONCE IV Last administered on 09:30; Start 04/24/17 at 09:30; Stop 04/24/17 at 09:31; Status DC Ondansetron HCl (Zofran) 8 mg 1X ONCE IV Last administered on 04/24/17 10:01 ; Start 04/24/17 at 09:30; Stop 04/24/17 at 09:31; Status DC Pantoprazole Sodium (Protonix Vial) 40 mg 1X ONCE IVP Last administered on 10:01; Start 04/24/17 at 09:30; Stop 04/24/17 at 09:31; Status DC Sodium Chloride 1,000 ml @ 1,000 mls/hr 1X ONCE IV Last administered on 10:01; Start 04/24/17 at 09:30; Stop 04/24/17 at 10:29; Status DC Multi-Ingredient Mouthwash/Gargle (Gi Cocktail Single Dose) 15 ml 1X ONCE SWSW Last administered on 04/24/17 10:01; Start 04/24/17 at 09:30; Stop 04/24/17 at 09:31; Status DC Insulin Human Regular (NovoLIN R VIAL) 10 unit 1X ONCE IV Last administered on 04/24/17 11:56; Start 04/24/17 at 11:45; Stop 04/24/17 at 11:46; Status DC Ondansetron HCl (Zofran) 4 mg PRN Q8HRS PRN IV NAUSEA/VOMITING Last administered on 04/25/17 05:51; Start 04/24/17 at 11:45; Stop 04/25/17 at 11:44 ; Status DC Fentanyl Citrate (Fentanyl 2ml Vial) 50 mcg PRN Q2HR PRN IV PAIN Last administered on 04/24/17 15:49; Start 04/24/17 at 11:45; Stop 04/24/17 at 17:31 ; Status DC Ketorolac Tromethamine (Toradol) 30 mg 1X ONCE IV Last administered on 11:57; Start 04/24/17 at 11:45; Stop 04/24/17 at 11:46; Status DC Diazepam (Valium) 5 mg 1X ONCE PO Last administered on 04/24/17 11:59; Start 04/24/17 at 11:45; Stop 04/24/17 at 11:46; Status DC Aspirin (Children'S Aspirin) 81 mg DAILY PO Last administered on 04/27/17 08: 21; Start 04/25/17 at 09:00 Clopidogrel Bisulfate (Plavix) 75 mg DAILY PO Last administered on 04/27/17 08 :21; Start 04/25/17 at 09:00 Metoprolol Succinate (Toprol Xl) 50 mg DAILY16 PO ; Start 04/24/17 at 17:30; Stop 04/24/17 at 17:45; Status DC Simvastatin (Zocor) 20 mg DAILY PO ; Start 04/25/17 at 09:00; Stop 04/25/17 at 09:00; Status DC Gabapentin (Neurontin) 600 mg TID PO Last administered on 04/27/17 08:21; Start 04/24/17 at 21:00 Pantoprazole Sodium (Protonix) 40 mg DAILYAC PO Last administered on 04/27/17 06:30; Start 04/25/17 at 07:30 Lisinopril (Prinivil) 10 mg DAILY PO ; Start 04/25/17 at 09:00 Fentanyl Citrate (Fentanyl 2ml Vial) 25 mcg PRN Q4HRS PRN IV PAIN Last administered on 04/25/17 09:28; Start 04/24/17 at 20:00; Stop 04/25/17 at 19:59 ; Status DC Potassium Chloride 30 meq/ Sodium Chloride 1,015 ml @ 75 mls/hr [id number] PRN IV . Last administered on 04/25/17 05:52; Start 04/24/17 at 17:30 Metoprolol Succinate (Toprol Xl) 50 mg HS PO ; Start 04/24/17 at 21:00; Stop 10/30 at 09:59; Status DC Simvastatin (Zocor) 20 mg HS PO Last administered on 04/26/17 21:08; Start 09/30 at 21:00 Insulin Detemir (Levemir) 20 units BID SQ Last administered on 04/24/17 20:41 ; Start 04/24/17 at 21:00; Stop 04/25/17 at 09:59; Status DC Insulin Aspart (NovoLOG) 0-9 UNITS TIDWMEALS SQ Last administered on 04/27/17 08:30; Start 04/25/17 at 08:00 Dextrose (Dextrose 50%-Water Syringe) 12.5 gm PRN Q15MIN PRN IV SEE COMMENTS; Start 04/24/17 at 18:00 Insulin Aspart (NovoLOG) 5 units 1X STAT SQ Last administered on 04/24/17 18: 27; Start 04/24/17 at 17:58; Stop 04/24/17 at 18:01; Status DC Cyclobenzaprine HCl (Flexeril) 10 mg PRN Q8HRS PRN PO MUSCLE SPASMS Last administered on 04/27/17 08:21; Start 04/24/17 at 21:00 Insulin Detemir (Levemir) 10 units QHS SQ ; Start 04/25/17 at 21:00; Stop at 17:28; Status DC Metoprolol Tartrate (Lopressor) 50 mg BID PO Last administered on 04/25/17 20: 36; Start 04/25/17 at 10:30; Stop 04/26/17 at 08:05; Status DC Acetaminophen (Tylenol) 650 mg PRN Q6HRS PRN PO FEVER; Start 04/25/17 at 10:00 Ondansetron HCl (Zofran) 4 mg PRN Q6HRS PRN IV NAUSEA/VOMITING Last administered on 04/26/17 05:29; Start 04/25/17 at 10:00 Hydralazine HCl (Apresoline) 10 mg PRN Q4HRS PRN IVP ELEVATED BP, SEE COMMENTS ; Start 04/25/17 at 10:00 Docusate Sodium (Colace) 100 mg PRN DAILY PRN PO CONSTIPATION Last administered on 04/26/17 01:14; Start 04/25/17 at 10:00 Tramadol HCl (Ultram) 50 mg PRN Q6HRS PRN PO PAIN Last administered on 06:30; Start 04/25/17 at 13:00 Enoxaparin Sodium (Lovenox 40mg Syringe) 40 mg Q24H SQ Last administered on 15:34; Start 04/25/17 at 14:00 Oxycodone/ Acetaminophen (Percocet 5/325) 1 tab PRN Q4HRS PRN PO PAIN Last administered on 04/25/17 22:32; Start 04/25/17 at 14:00 Oxycodone/ Acetaminophen (Percocet 5/325) 2 tab PRN Q4HRS PRN PO PAIN Last administered on 04/26/17 05:25; Start 04/25/17 at 14:00; Stop 04/26/17 at 09:42 ; Status DC Prochlorperazine Edisylate (Compazine) 10 mg PRN Q6HRS PRN IV NAUSEA/VOMITING; Start 04/25/17 at 14:00 Methylprednisolone Acetate (DEPO-Medrol 40MG VIAL) 40 mg 1X ONCE IM ; Start 10/30 at 18:00; Stop 04/25/17 at 18:01; Status DC Bupivacaine HCl (Sensorcaine-Mpf 0.25%) 10 ml 1X ONCE IJ ; Start 04/25/17 at 18 :00; Stop 04/25/17 at 18:01; Status DC Insulin Aspart (NovoLOG) 5 units ONCE ONCE SQ Last administered on 04/25/17 21:17; Start 04/25/17 at 21:15; Stop 04/25/17 at 21:16; Status DC Oxycodone/ Acetaminophen (Percocet 5/325) 1 tab 1X ONCE PO Last administered on 04/26/17 01:12; Start 04/26/17 at 01:15; Stop 04/26/17 at 01:16; Status DC Metoprolol Succinate (Toprol Xl) 100 mg DAILY08 PO Last administered on 08:22; Start 04/26/17 at 09:00 Oxycodone/ Acetaminophen (Percocet 10/325) 1 tab PRN Q4HRS PRN PO PAIN Last administered on 04/27/17 08:22; Start 04/26/17 at 09:45 Insulin Aspart (NovoLOG) 10 units 1X ONCE SQ Last administered on 04/26/17 11 :59; Start 04/26/17 at 12:15; Stop 04/26/17 at 12:16; Status DC Insulin Aspart (NovoLOG) 5 units TIDWMEALS SQ Last administered on 04/27/17 08 :30; Start 04/26/17 at 17:15 Active Scripts Active Reported Promethazine Hcl 25 Mg Tablet Unknown Dose PO Q6H PRN Prevacid (Lansoprazole) 30 Mg Capsule.dr 1 Cap PO DAILY Gabapentin 600 Mg Tablet 600 Mg PO TID Aspirin 81 Mg Tab.chew 1 Tab PO DAILY Novolog Flexpen (Insulin Aspart) 100 Unit/1 Ml Insuln.pen 0-10 SQ TIDAC Novolog (Insulin Aspart) 100 Unit/1 Ml Vial 6 Unit SQ TIDAC Simvastatin 20 Mg Tablet 20 Mg PO DAILY Ramipril 5 Mg Capsule 5 Mg PO DAILY Plavix (Clopidogrel Bisulfate) 75 Mg Tablet 75 Mg PO DAILY Metoprolol Succinate ( Xl ) (Metoprolol Succinate) 100 Mg Tab.er.24h 50 Mg PO DAILY16 Metoprolol Succinate ( Xl ) (Metoprolol Succinate) 100 Mg Tab.er.24h 100 Mg PO DAILY08 Vitals/I & O Vital Sign - Last 24 Hours 04/26/17 04/26/17 04/26/17 04/26/17 11:00 11:11 14:42 15:00 Temp 97.8 97.7 97.8 97.7 Pulse 63 80 Resp 18 16 18 B/P (MAP) 134/68 (90) 138/72 (94) Pulse Ox 100 100 O2 Delivery Room Air Room Air Room Air Room Air 04/26/17 04/26/17 04/26/17 04/26/17 17:43 18:41 19:00 20:00 Temp 98.5 98.5 Pulse 65 Resp 18 B/P (MAP) 135/72 (93) Pulse Ox 98 O2 Delivery Room Air Room Air Room Air Room Air 04/26/17 04/26/17 04/26/17 04/27/17 23:00 23:45 23:45 00:45 Temp 98.3 98.3 Pulse 60 Resp 18 20 20 20 B/P (MAP) 139/63 (88) Pulse Ox 97 98 98 96 O2 Delivery Room Air Room Air Room Air 04/27/17 04/27/17 04/27/17 04/27/17 00:45 03:00 03:59 05:00 Temp 97.8 97.8 Pulse 60 Resp 18 20 20 B/P (MAP) 146/74 (98) Pulse Ox 96 100 96 O2 Delivery Room Air Room Air 04/27/17 04/27/17 04/27/17 04/27/17 06:30 07:00 08:15 08:22 Temp 97.8 97.8 Pulse 62 62 Resp 20 18 B/P (MAP) 142/73 (96) 142/73 Pulse Ox 96 100 O2 Delivery Room Air Room Air Room Air 04/27/17 04/27/17 04/27/17 08:22 08:31 09:30 O2 Delivery Room Air Room Air Room Air Intake and Output 04/26/17 04/26/17 04/27/17 15:00 23:00 07:00 Intake Total 300 ml Balance 300 ml ENDY FRANCE MD Apr 27, 2017 10:57
[2017-04-27 11:00] VITALS: BP 126/73
--- NOTE | 2017-04-27 11:39 | PDOC3 ---
Discharge Summary [facility] Date of Admission: Apr 24, 2017 Discharge Date: Apr 27, 2017 Admitting Diagnosis 1. acute on chronic back pain, likely 2/2 OA 2. uncontrolled dm2 3. htn 4. hld 5. h/o CAD 6. left eye blindness 7. Leukocytosis ,reactive 8. abd pain with N/V, gastritis vs. gastroparesis Problems: Final Diagnosis CONSULTS gi dr. Pisano Brief Hospital Course Ms. Bryan is a 37 old F, dm2 on insulin only aspart 5-10u tid, no lantus, chronic back pain, comes for back pain, abd pain , N/V. BACK XR neg, MRI neg for spinal stenosis, dr. Pisano consulted, got steroid injection, pain slightly better. pt still has nausea, possible 2/2 gastroparesis, which was not diagnosed, eats ok. pt refused levemir, insist only use aspart in hosp, and glucose is >200 all the time. She insisted that her DM IS controlled well, but HBA1C 8.3. pt wants to take exactly what she takes at home, refused recommendation in hosp. dc home dc time 40min General: Alert, Oriented X3, Cooperative Heart: Regular rate, Normal S1, Normal S2 Lungs: Clear Abdomen: Normal bowel sounds, Soft, Other (diffused mild abd tenderness) Extremities: No clubbing Patient History: Problems: Disposition home CONDITION AT DISCHARGE: Improved Diet ada Scheduled Aspirin (Aspirin), 1 TAB PO DAILY, (Reported) Clopidogrel Bisulfate (Plavix), 75 MG PO DAILY, (Reported) Gabapentin (Gabapentin), 600 MG PO TID, (Reported) Insulin Aspart (Novolog), 6 UNIT SQ TIDAC, (Reported) Insulin Aspart (Novolog Flexpen), 0-10 SQ TIDAC, (Reported) Lansoprazole (Prevacid), 1 CAP PO DAILY, (Reported) Metoprolol Succinate (Metoprolol Succinate ( Xl )), 100 MG PO DAILY08, (Reported ) Metoprolol Succinate (Metoprolol Succinate ( Xl )), 50 MG PO DAILY16, (Reported) Ramipril (Ramipril), 5 MG PO DAILY, (Reported) Simvastatin (Simvastatin), 20 MG PO DAILY, (Reported) Scheduled PRN Promethazine Hcl (Promethazine Hcl), Unknown Dose PO Q6H PRN for NAUSEA/VOMITING , (Reported) Follow Up pcp in 2 weeks KEYUR RUSSELL MD Apr 27, 2017 11:39
[2017-04-27] MEDS ORDERED: TRAM50TA PO (12:32)
[2017-04-27] MEDS ORDERED: OXYC-328 PO (12:32)
[2017-04-27] MEDS ORDERED: CYCL10TA2 PO (12:33)
--- NOTE | 2017-04-27 12:34 | PDOC ---
Subjective: Subjective: Just out of shower, getting dressed in restroom. Says going home. Objective: Objective: Per RN - DC today. Vital Signs: Vital Signs Date Time Temp Pulse Resp B/P (MAP) Pulse Ox O2 Delivery O2 Flow Rate FiO2 04/27/17 11:00 98.2 76 18 126/73 (90) 100 Room Air 98.2 Labs: Laboratory Tests Test 04/26/17 17:15 04/26/17 21:56 04/27/17 05:25 04/27/17 07:15 Glucose (Fingerstick) 223 mg/dL 245 mg/dL 217 mg/dL White Blood Count 7.2 x10^3/uL Red Blood Count 4.05 x10^6/uL Hemoglobin 12.7 g/dL Hematocrit 36.4 % Mean Corpuscular Volume 90 fL Mean Corpuscular Hemoglobin 31 pg Mean Corpuscular Hemoglobin Concent 35 g/dL Red Cell Distribution Width 12.6 % Platelet Count 259 x10^3/uL Neutrophils (%) (Auto) 54 % Lymphocytes (%) (Auto) 37 % Monocytes (%) (Auto) 9 % Eosinophils (%) (Auto) 1 % Basophils (%) (Auto) 1 % Neutrophils # (Auto) 3.9 x10^3uL Lymphocytes # (Auto) 2.6 x10^3/uL Monocytes # (Auto) 0.6 x10^3/uL Eosinophils # (Auto) 0.0 x10^3/uL Basophils # (Auto) 0.1 x10^3/uL Sodium Level 136 mmol/L Potassium Level 3.9 mmol/L Chloride Level 102 mmol/L Carbon Dioxide Level 27 mmol/L Anion Gap 7 Blood Urea Nitrogen 11 mg/dL Creatinine 0.9 mg/dL Estimated GFR (Cockcroft-Gault) 85.7 Glucose Level 233 mg/dL Calcium Level 9.1 mg/dL Test 04/27/17 12:00 Glucose (Fingerstick) 284 mg/dL PE: GEN: not seen, talked the bathroom door A/P: Abd pain, n/v - better -tolerating PO -on PPI here for heartburn, no previous EGD -h/o DM, A1c 8.3, no previous GES -- Improved. Likely related to gastroparesis/GERD. Continue optimal control of DM, try gastroparesis diet. Continue PPI. Follow-up w/ Dr. Sultana w/ ongoing symptoms to consider outpt EGD/GES. D/w PAUL. STEPHEN CLIFFORD Apr 27, 2017 12:34
[2017-04-27] MEDS ORDERED: PANT40TA5 PO ×2 (12:58→12:59)
== END 2017-04-27 12:55 | disposition home or self-care (01) | DRG 74 ==
LOC: ER 09:04 → 4 NORTH 11:44
PROVIDERS: ADMIT Internal Medicine Hematology & Oncology; ATTEND Internal Medicine Hematology & Oncology
PROC: 3E0U33Z Introduction of Anti-inflammatory into Joints, Percutaneous Approach (ICD-10-PCS; principal; 2017-04-25)
PROC: 3E0U3BZ Introduction of Anesthetic Agent into Joints, Percutaneous Approach (ICD-10-PCS; 2017-04-25)
DX: E10.43 Type 1 diabetes mellitus with diabetic autonomic (poly)neuropathy (principal); M47.26 Other spondylosis with radiculopathy, lumbar region; E10.319 Type 1 diabetes mellitus with unspecified diabetic retinopathy without macular edema; E10.42 Type 1 diabetes mellitus with diabetic polyneuropathy; E10.65 Type 1 diabetes mellitus with hyperglycemia; E78.00 Pure hypercholesterolemia, unspecified; E78.5 Hyperlipidemia, unspecified; G89.29 Other chronic pain; H54.42 Blindness, left eye, normal vision right eye; I10 Essential (primary) hypertension; K59.00 Constipation, unspecified; D64.9 Anemia, unspecified; K31.84 Gastroparesis; F12.90 Cannabis use, unspecified, uncomplicated; I25.10 Atherosclerotic heart disease of native coronary artery without angina pectoris; K21.9 Gastro-esophageal reflux disease without esophagitis; Z88.5 Allergy status to narcotic agent; Z90.710 Acquired absence of both cervix and uterus; Z90.49 Acquired absence of other specified parts of digestive tract; I25.2 Old myocardial infarction; Z79.899 Other long term (current) drug therapy; Z83.3 Family history of diabetes mellitus; Z90.721 Acquired absence of ovaries, unilateral; Z82.49 Family history of ischemic heart disease and other diseases of the circulatory system; K29.70 Gastritis, unspecified, without bleeding
CPT/HCPCS: 36415; 71010; 72100; 72148; 80048; 80053; 81001; 82550; 82962; 83036; 83690; 83735; 84484; 85007; 85027; 93005; 96374; 96375; C9113; G0480; G0481; J1030; J1650; J1815; J1885; J2405; J3010; J3490; J7030; 99285-25

== ENCOUNTER 2017-06-29 17:09 | Emergency (ER) | payer MEDICARE ==
[~2017-06-29] VITALS: Ht 167.6 cm; Wt 57.6 kg
[~2017-06-29 17:09] MED LIST changes: +ASPI-630 PO; +CYCL10TA2 PO; +GABA600T2 PO; +INSU100I17 SQ; +LANS30CA66 PO; +OXYC-328 PO; +PANT40TA5 PO; +PROM25TA10 PO; +TRAM50TA PO
[2017-06-29 18:11] LABS: BILIRUBIN,URINE NEGATIVE (NEG); GLUCOSE,URINE >=1000 mg/dL (NEG); NITRITE,URINE NEGATIVE (NEG); PH,URINE 6.5; PROTEIN,URINE NEGATIVE (NEG-TRACE); UROBILINOGEN,URINE 0.2 mg/dL (0.2 mg/dL)
[2017-06-29 18:28] LABS: BACTERIA,URINE FEW /HPF (0-FEW); WBC,URINE 0 /HPF (0-4)
[2017-06-29 18:29] LABS: SQUAMOUS EPITHELIAL CELL,UR FEW /LPF
[2017-06-29] MEDS ORDERED: KETOROLAC TROMETHAMINE 60 MG/2 ML INJ. IM ONE (18:45)
[2017-06-29 18:50] LABS: BASO % 0 % (0-3); EOS % 0 % (0-3); HEMATOCRIT 38.4 % (36.0-47.0); HEMOGLOBIN 13.2 g/dL (12.0-15.5); LYMPH # 1.3 x10^3/uL (1.0-4.8); LYMPH % 16 % (24-48); MEAN CORPUSCULAR HEMOGLOBIN 31 pg (25-35); MEAN CORPUSCULAR HGB CONC 35 g/dL (31-37); MEAN CORPUSCULAR VOLUME 91 fL (79-100); MONO % 5 % (0-9); NEUT % 79 % (31-73); PLATELET COUNT 250 x10^3/uL (140-400); RED BLOOD COUNT 4.21 x10^6/uL (3.50-5.40); RED CELL DISTRIBUTION WIDTH 13.2 % (11.5-14.5)
[2017-06-29 18:59] LABS: CREATININE 0.9 mg/dL (0.6-1.0); GFR 85.7; POTASSIUM 4.1 mmol/L (3.5-5.1)
[2017-06-29 19:04] LABS: ALBUMIN 3.5 g/dL (3.4-5.0); ALBUMIN/GLOBULIN RATIO 0.8 (1.0-1.7); TOTAL BILIRUBIN 0.2 mg/dL (0.2-1.0); TOTAL PROTEIN 7.9 g/dL (6.4-8.2)
[2017-06-29] MEDS ORDERED: SENN8.6T99 PO (20:20)
[2017-06-29] MEDS ORDERED: POLY17PO29 PO (20:20)
--- NOTE | 2017-06-29 20:20 | PHYS DOC ---
Past Medical History Past Medical History: Diabetes-Type I, High Cholesterol, Hypertension, DE, Other Additional Past Medical Histor: L EYE BLIND,CHRONIC PAIN , "abd issues" Past Surgical History: Cholecystectomy, Hysterectomy Additional Past Surgical Histo: "bone abscess" Alcohol Use: Occasionally Drug Use: Marijuana Adult General Chief Complaint Chief Complaint: ABDOMINAL PAIN HPI HPI Patient is a 37 year old female who presents with abdominal pain. The patient reports 1 week history of L upper & suprapubic abdominal pain. Reports constipation, thinks she hasn't had a bowel movement for 10 days. She denies fevers/chills, nausea/vomiting, hematochezia/melena, dysuria/hematuria, vaginal bleeding/discharge. Took dulcolax at home. History of cholecystectomy & hysterectomy. Review of Systems Review of Systems Constitutional: Denies fever or chills Eyes: Denies change in visual acuity HENT: Denies nasal congestion or sore throat Respiratory: Denies cough or shortness of breath Cardiovascular: Denies chest pain or edema GI: Reports abdominal pain, denies nausea, vomiting, bloody stools or diarrhea : Denies dysuria or hematuria Musculoskeletal: Denies back pain or joint pain Integument: Denies rash or skin lesions Neurologic: Denies headache, focal weakness or sensory changes Current Medications Current Medications Current Medications Medications (Trade) Dose Ordered Sig/Irina Start Time Stop Time Status Last Admin Dose Admin Ketorolac Tromethamine (Toradol Im) 60 mg 1X ONCE 06/29/17 18:45 06/29/17 18:46 DC 06/29/17 18:48 60 MG Allergies Allergies Allergies Coded Allergies Type Severity Reaction Last Updated Verified morphine Allergy Severe Shortness of Air, trouble breathing/sweating 07/14/16 Yes Physical Exam Physical Exam Constitutional: Well developed, well nourished, no acute distress, non-toxic appearance. HENT: Normocephalic, atraumatic, bilateral external ears normal, oropharynx moist, nose normal. Eyes: conjunctiva normal, no discharge. Neck: supple, no stridor. Cardiovascular: RRR, no murmurs, no edema. Lungs & Thorax: LCTAB, no wheezing, no respiratory distress. Abdomen: soft, no focal abdominal tenderness with palpation, no rebound/guarding , no masses or pulsatile masses, nondistended. Skin: Warm, dry, no erythema, no rash. Back: No CVA tenderness. Extremities: No tenderness, no edema. Neurologic: Alert and oriented X 3, no focal deficits noted. Psychologic: Affect normal, judgement normal, mood normal. Current Patient Data Vital Signs Vital Signs Date Time Temp Pulse Resp B/P (MAP) Pulse Ox O2 Delivery O2 Flow Rate FiO2 06/29/17 20:30 76 18 117/66 (83) 100 Room Air 06/29/17 17:34 98.1 98.1 Lab Values Laboratory Tests Test 06/29/17 16:56 06/29/17 17:30 06/29/17 18:44 POC Urine HCG, Qualitative Hcg negative (Negative) Urine Collection Type Void Urine Color Yellow Urine Clarity Clear Urine pH 6.5 Urine Specific Andrews 1.020 Urine Protein Negative mg/dL (NEG-TRACE) Urine Glucose (UA) >=1000 mg/dL (NEG) Urine Ketones (Stick) Negative mg/dL (NEG) Urine Blood Trace (NEG) Urine Nitrite Negative (NEG) Urine Bilirubin Negative (NEG) Urine Urobilinogen Dipstick 0.2 mg/dL (0.2 mg/dL) Urine Leukocyte Esterase Negative (NEG) Urine RBC 6-10 /HPF (0-2) Urine WBC 0 /HPF (0-4) Urine Squamous Epithelial Cells Few /LPF Urine Bacteria Few /HPF (0-FEW) White Blood Count 8.0 x10^3/uL (4.0-11.0) Red Blood Count 4.21 x10^6/uL (3.50-5.40) Hemoglobin 13.2 g/dL (12.0-15.5) Hematocrit 38.4 % (36.0-47.0) Mean Corpuscular Volume 91 fL (79-100) Mean Corpuscular Hemoglobin 31 pg (25-35) Mean Corpuscular Hemoglobin Concent 35 g/dL (31-37) Red Cell Distribution Width 13.2 % (11.5-14.5) Platelet Count 250 x10^3/uL (140-400) Neutrophils (%) (Auto) 79 % (31-73) H Lymphocytes (%) (Auto) 16 % (24-48) L Monocytes (%) (Auto) 5 % (0-9) Eosinophils (%) (Auto) 0 % (0-3) Basophils (%) (Auto) 0 % (0-3) Neutrophils # (Auto) 6.4 x10^3uL (1.8-7.7) Lymphocytes # (Auto) 1.3 x10^3/uL (1.0-4.8) Monocytes # (Auto) 0.4 x10^3/uL (0.0-1.1) Eosinophils # (Auto) 0.0 x10^3/uL (0.0-0.7) Basophils # (Auto) 0.0 x10^3/uL (0.0-0.2) Sodium Level 138 mmol/L (136-145) Potassium Level 4.1 mmol/L (3.5-5.1) Chloride Level 101 mmol/L (98-107) Carbon Dioxide Level 26 mmol/L (21-32) Anion Gap 11 (6-14) Blood Urea Nitrogen 13 mg/dL (7-20) Creatinine 0.9 mg/dL (0.6-1.0) Estimated GFR (Cockcroft-Gault) 85.7 BUN/Creatinine Ratio 14 (6-20) Glucose Level 300 mg/dL (70-99) H Calcium Level 9.0 mg/dL (8.5-10.1) Total Bilirubin 0.2 mg/dL (0.2-1.0) Aspartate Amino Transferase (AST) 15 U/L (15-37) Alanine Aminotransferase (ALT) 13 U/L (14-59) L Alkaline Phosphatase 85 U/L (46-116) Total Protein 7.9 g/dL (6.4-8.2) Albumin 3.5 g/dL (3.4-5.0) Albumin/Globulin Ratio 0.8 (1.0-1.7) L Lipase 74 U/L (73-393) Laboratory Tests 06/29/17 18:44 Laboratory Tests 06/29/17 18:44 EKG EKG [] Radiology/Procedures Radiology/Procedures acute abdominal series: interpreted by me: constipation, no air fluid levels, no free air, no infiltrate.[] Course & Med Decision Making Course & Med Decision Making Pertinent Labs and Imaging studies reviewed. (See chart for details) The patient presents with abdominal pain & constipation. Unremarkable abdominal exam, well appearing. UA negative for UTI, labs show hyperglycemia without DKA, acute abdominal series shows constipation without air fluid levels. Recommend rest, PO hydration, increase fiber, continue dulcolax, add senokot & miralax, try enema over the counter. Follow up with PCP in 2-3 days. Come back for high fever, severe pain, uncontrolled vomiting, any otherwise worsening condition. Discharged home in stable condition. [] Dragon Disclaimer Dragon Disclaimer This electronic medical record was generated, in whole or in part, using a voice recognition dictation system. Departure Departure Impression: Primary Impression: Constipation Additional Impression: Hyperglycemia Disposition: HOME, SELF-CARE Condition: STABLE Referrals: PACO PLATT DO (PCP) Patient Instructions: Constipation, Adult, [id number] Additional Instructions: You were seen in the emergency room today for constipation. We did not find any other serious cause of your symptoms. Please continue dulcolax, use senokot & miralax too, consider getting an enema from the drug store. Increase fluid & fiber in diet. Follow up with primary care doctor in 2-3 days. Come back for high fever, severe pain, uncontrolled vomiting, any otherwise worsening condition. Scripts Polyethylene Glycol 3350 (MIRALAX) 17 Gm Powd.pack 1 PACKET PO DAILY Y for CONSTIPATION, #2 PACKET Prov: GERI RICE MD 06/29/17 Sennosides (SENOKOT) 8.6 Mg Tablet 1 TAB PO BID, #14 TAB Prov: GERI RICE MD 06/29/17 Problem Qualifiers GERI RICE MD Jun 29, 2017 20:20
[2017-06-29 20:30] VITALS: BP 117/66
--- NOTE | 2017-06-30 07:42 | RAD ---
Acute abdominal series with single view chest 06/29/2017 at 1932 hours Indication: Abdominal pain and constipation. Comparison: Chest radiograph 04/24/2017 Technique: Upright frontal view of the chest, upright view of the abdomen and supine views of the abdomen are provided. Findings: Cardiomediastinal silhouette is within normal limits. No pleural effusions, pulmonary vascular congestion or pneumothorax. Lungs are clear. There is no free intraperitoneal air. Cholecystectomy clips are identified in the right upper quadrant. No dilated small or large bowel loops. Moderate amount of fecal contents noted throughout the colon. Gas is identified within the rectum. Mild lower lumbar facet arthropathy. Impression: 1. No acute cardiopulmonary process. 2. Nonobstructive bowel gas pattern. Moderate fecal contents noted.
== END 2017-06-29 20:30 | disposition home or self-care (01) ==
LOC: ER 17:09
DX: K59.00 Constipation, unspecified (principal); E10.65 Type 1 diabetes mellitus with hyperglycemia; I10 Essential (primary) hypertension; E78.00 Pure hypercholesterolemia, unspecified; I25.2 Old myocardial infarction; G89.29 Other chronic pain; Z90.49 Acquired absence of other specified parts of digestive tract; Z90.710 Acquired absence of both cervix and uterus; Z79.4 Long term (current) use of insulin
CPT/HCPCS: 36415; 74022; 80053; 81001; 81025; 83690; 85025; 96372; 99285; J1885

== ENCOUNTER 2017-07-17 12:26 | Emergency (ER) | payer MEDICARE ==
[~2017-07-17] VITALS: Ht 157.5 cm; Wt 59.0 kg
[~2017-07-17 12:26] MED LIST changes: +POLY17PO29 PO; +SENN8.6T99 PO
[2017-07-17] MEDS ORDERED: IV NORMAL SALINE 1000ML BAG 1,000 ML IV SCH (12:49)
[2017-07-17] MEDS ORDERED: 0.9 % SODIUM CHLORIDE 10 ML DISP.SYRIN. IV PRN (13:00)
[2017-07-17] MEDS ORDERED: ONDANSETRON PF 4 MG/2 ML VIAL. IV ONE (13:00)
[2017-07-17] MEDS ORDERED: KETAMINE HCL 500 MG/10 ML VIAL. IV ONE (13:00)
--- NOTE | 2017-07-17 13:03 | PHYS DOC ---
Past Medical History Past Medical History: Diabetes-Type I, High Cholesterol, Hypertension, [place], Other Additional Past Medical Histor: L EYE BLIND,CHRONIC PAIN , "abd issues" Past Surgical History: Cholecystectomy, Hysterectomy Additional Past Surgical Histo: "bone abscess" Alcohol Use: Occasionally Drug Use: Marijuana Adult General Chief Complaint Chief Complaint: MULTIPLE COMPLAINTS [facility] Patient is a pleasant 37 showed female with multiple medical problems include chronic back pain chronic abdominal pain is some dependent diabetes hypertension who presents with abdominal pain and nausea vomiting that began several days prior to arrival. Patient awoke this morning with increasing epigastric abdominal pain with 2 episodes of nausea and vomiting with decreased appetite. She denies any fevers, chills, UTI or diarrheal symptoms, she actually is more constipation than other symptoms. Her last stool was small in nature described as a smear 2 days ago. Patient denies any trauma, denies any new symptoms other than the abdominal pain with nausea and vomiting. Patient's vomiting is nonbilious nonbloody denies any raw food consumption, handling of poultry or reptiles. She denies any sick contacts travel outside the country or recent antibiotics. She is on insulin and says her sugars been between 200 and 300 although she is not eating she still taking small doses of her NovoLog insulin through her insulin pen as scheduled. She denies any recent history of DKA, denies any lower extremity weakness. Patient has had a history of questionable narcotic withdrawal symptoms and narcotic seeking behavior. She understands this and she is not really asking for pain meds but does complain that her abdominal pain is present here. She also describes her back pain which is not new in nature is chronic described as a goal to leaking from her lumbar spine to her flanks. My abdominal pain differential includes but not limited to ectopic , UTI, pyonephritis, cholecystitis, cholelithiasis, pancreatitis, appendicitis, small bowel obstruction, large bowel obstruction, diverticulosis, Diverticulum, intussusception, volvulus, irritable bowel disease, Crohn's or ulcerative colitis, considered upon arrival Review of Systems Review of Systems Constitutional: Denies fever or chills [] Eyes: Denies change in visual acuity, redness, or eye pain [] HENT: Denies nasal congestion or sore throat [] Respiratory: Denies cough or shortness of breath [] Cardiovascular: No additional information not addressed in HPI [] GI: She complains of diffuse abdominal pain specifically in the epigastrium mostly with nausea and vomiting number was nonbloody no diarrhea but has had some constipation. : Denies dysuria or hematuria [] Musculoskeletal: She describes chronic lower back pain. Integument: Denies rash or skin lesions [] Neurologic: Denies headache, focal weakness or sensory changes [] Endocrine: Denies polyuria or polydipsia [] Current Medications Current Medications Current Medications Medications (Trade) Dose Ordered Sig/Irina Start Time Stop Time Status Last Admin Dose Admin Info (Do NOT chart on this entry -- for MONITORING) 1 each PRN DAILY PRN 07/17/17 14:15 07/19/17 14:14 Iohexol (Omnipaque 300 Mg/ml) 75 ml 1X ONCE 07/17/17 14:00 07/17/17 14:03 DC 07/17/17 14:33 75 ML Ketamine HCl 500 mg 1X ONCE 07/17/17 13:00 07/17/17 13:01 Cancel Ketamine HCl 11.8 mg/Sodium Chloride 250.236 ml @ 500.472 mls/hr 1X ONCE 07/17/17 13:45 07/17/17 14:14 DC 07/17/17 13:50 500.472 MLS/HR Lorazepam (Ativan) 1 mg 1X ONCE 07/17/17 13:00 07/17/17 13:01 DC 07/17/17 13:46 1 MG Ondansetron HCl (Zofran) 4 mg 1X ONCE 07/17/17 13:00 07/17/17 13:01 DC 07/17/17 13:44 4 MG Sodium Chloride (Normal Saline Flush) 10 ml QSHIFT PRN 07/17/17 13:00 07/17/17 13:48 10 ML Allergies Allergies Allergies Coded Allergies Type Severity Reaction Last Updated Verified morphine Allergy Severe Shortness of Air, trouble breathing/sweating 07/14/16 Yes Physical Exam Physical Exam Constitutional: Well developed, well nourished, no acute distress, non-toxic appearance. [] HENT: Normocephalic, atraumatic, bilateral external ears normal, oropharynx moist, no oral exudates, nose normal. [] Eyes: PERRLA, EOMI, conjunctiva normal, no discharge. [] Neck: Normal range of motion, no tenderness, supple, no stridor. [] Cardiovascular:Heart rate regular rhythm, no murmur [] Lungs & Thorax: Bilateral breath sounds clear to auscultation [] Abdomen: Patient with epigastric abdominal pain with mild tenderness without voluntary guarding rebound or organomegaly. Patient is no Dodd's or McBurney' s point tenderness to palpation. Skin: Warm, dry, no erythema, no rash. [] Back: no CVA tenderness. Patient has some tenderness palpation bilaterally over each erector spinae muscle on the lumbar spine. Nothing midline.[] Extremities: No tenderness, no cyanosis, no clubbing, ROM intact, no edema. [] Neurologic: Alert and oriented X 3, normal motor function, normal sensory function, no focal deficits noted. [] Psychologic: Affect normal, judgement normal, mood normal. [] Current Patient Data Vital Signs Vital Signs Date Time Temp Pulse Resp B/P (MAP) Pulse Ox O2 Delivery O2 Flow Rate FiO2 07/17/17 12:45 98.4 110 20 149/65 (93) 99 98.4 Lab Values Laboratory Tests Test 07/17/17 12:40 07/17/17 12:55 07/17/17 13:44 Urine Collection Type Unknown Urine Color Yellow Urine Clarity Cloudy Urine pH 8.0 Urine Specific [place] 1.015 Urine Protein 30 mg/dL (NEG-TRACE) Urine Glucose (UA) Negative mg/dL (NEG) Urine Ketones (Stick) Negative mg/dL (NEG) Urine Blood Negative (NEG) Urine Nitrite Negative (NEG) Urine Bilirubin Negative (NEG) Urine Urobilinogen Dipstick 0.2 mg/dL (0.2 mg/dL) Urine Leukocyte Esterase Negative (NEG) Urine RBC 0 /HPF (0-2) Urine WBC Occ /HPF (0-4) Urine Squamous Epithelial Cells Many /LPF Urine Bacteria Few /HPF (0-FEW) White Blood Count 9.9 x10^3/uL (4.0-11.0) Red Blood Count 4.28 x10^6/uL (3.50-5.40) Hemoglobin 13.4 g/dL (12.0-15.5) Hematocrit 38.9 % (36.0-47.0) Mean Corpuscular Volume 91 fL (79-100) Mean Corpuscular Hemoglobin 31 pg (25-35) Mean Corpuscular Hemoglobin Concent 35 g/dL (31-37) Red Cell Distribution Width 13.5 % (11.5-14.5) Platelet Count 300 x10^3/uL (140-400) Neutrophils (%) (Auto) 80 % (31-73) H Lymphocytes (%) (Auto) 16 % (24-48) L Monocytes (%) (Auto) 3 % (0-9) Eosinophils (%) (Auto) 0 % (0-3) Basophils (%) (Auto) 0 % (0-3) Neutrophils # (Auto) 8.0 x10^3uL (1.8-7.7) H Lymphocytes # (Auto) 1.6 x10^3/uL (1.0-4.8) Monocytes # (Auto) 0.3 x10^3/uL (0.0-1.1) Eosinophils # (Auto) 0.0 x10^3/uL (0.0-0.7) Basophils # (Auto) 0.0 x10^3/uL (0.0-0.2) Sodium Level 138 mmol/L (136-145) Potassium Level 4.4 mmol/L (3.5-5.1) Chloride Level 101 mmol/L (98-107) Carbon Dioxide Level 28 mmol/L (21-32) Anion Gap 9 (6-14) Blood Urea Nitrogen 18 mg/dL (7-20) Creatinine 1.1 mg/dL (0.6-1.0) H Estimated GFR (Cockcroft-Gault) 68.0 Glucose Level 342 mg/dL (70-99) H Calcium Level 9.0 mg/dL (8.5-10.1) Magnesium Level 1.8 mg/dL (1.8-2.4) Total Bilirubin 0.2 mg/dL (0.2-1.0) Direct Bilirubin 0.1 mg/dL (0.0-0.2) Aspartate Amino Transferase (AST) 12 U/L (15-37) L Alanine Aminotransferase (ALT) 16 U/L (14-59) Alkaline Phosphatase 99 U/L (46-116) Troponin I Quantitative < 0.017 ng/mL (0.000-0.055) [place]-Clt-W-Type Natriuretic Peptide 109 pg/mL (0-124) Total Protein 7.6 g/dL (6.4-8.2) Albumin 3.4 g/dL (3.4-5.0) Lipase 86 U/L (73-393) Laboratory Tests 07/17/17 12:55 Laboratory Tests 07/17/17 13:44 EKG EKG []EKG timed 12:54 PM 07/17/[address] Sahu demonstrated a heart rate of 98 normal sinus rhythm with a mild nonseptic T-wave changes in the lateral leads. 166 which is normal QRS is 76 which is normal QTC is 44 which is normal. Radiology/Procedures Radiology/Procedures [] [facility] [address] [place] [address] IMAGING REPORT Signed PATIENT: BOZENA CLARK ACCOUNT: [id number] : 1980 LOCATION: ER AGE: 37 SEX: F EXAM STATUS: REG ER ORD. PHYSICIAN: KYLE SAHU MD REASON: mid epigastric pain PROCEDURE: PORTABLE CHEST 1V EXAM: CHEST 1 VIEW History: Pain radiating to the back COMPARISON: 06/29/2017 TECHNIQUE: Single portable radiograph of the chest FINDINGS: The cardiac silhouette is unremarkable. The lungs are clear bilaterally. The costophrenic sulci are clear and well demarcated. IMPRESSION: No radiographic evidence of an acute cardiopulmonary process. DICTATED and SIGNED BY: SHYANNE MCDONALD MD DATE: 07/17/17 1336 CC: KYLE SAHU MD; PACO PLATT DO ~ Course & Med Decision Making Course & Med Decision Making Pertinent Labs and Imaging studies reviewed. (See chart for details) Patient resents with nausea vomiting and epigastric abdominal pain and constipation and lower back pain which is not new for patient. Considered differential diagnosis of My abdominal pain differential includes but not limited to ectopic , UTI, pyonephritis, cholecystitis, cholelithiasis, pancreatitis, appendicitis, small bowel obstruction, large bowel obstruction, diverticulosis, Diverticulum, intussusception, volvulus, irritable bowel disease , Crohn's or ulcerative colitis, considered upon arrival as potential causes of her symptoms. At this point patient demonstrates mild dehydration with elevated BUN/creatinine. Her glucose is elevated above 300 but there is no evidence of DKA. Her urine shows some white blood cells bacteria but considerable contamination with epithelial cells. Urine specific gravity is elevated but there is no ketones in her urine. There is no anion gap she received fluids antiemetics and IV ketamine over slow push non-dissociative dosing did not cause euphoria but treated pain well. Time is now 2:30 PM. Patient tells me that their symptoms given during CC are improved. We reviewed labs at 2:50 PM and the patient's CAT scan abdomen and pelvis is still not officially read. Patient looked that she is feeling more formal comfortable and still infusing the ketamine at this time. Dose therapy is not completely completed I will turn care over to the change of shift physician Dr. Gonzalo Espinoza. time is now 3 PM Jesus Disclaimer Jose Alejandroon Disclaimer This electronic medical record was generated, in whole or in part, using a voice recognition dictation system. Departure Departure Impression: Primary Impression: Abdominal pain in female patient Additional Impressions: Hyperglycemia Constipation Disposition: HOME, SELF-CARE Condition: IMPROVED Referrals: PACO PLATT DO (PCP) Patient Instructions: Abdominal Pain (Nonspecific), Chronic Pain Management, Nausea and Vomiting Additional Instructions: My discharge plan Follow up: In addition patient is asked to followup with their primary doctor, within a week for followup examination and to address patient's ongoing medical conditions. Is follow-up your primary care doctor Dr. PETER ARRINGTON Patient is advised that in the Emergency Department primary complaints are addressed and only in light of known signs and symptoms. Patient should return immediately to the emergency department if new signs and symptoms develop or patient's condition worsens in any way. At time of discharge patient was in stable condition and had verbalized understanding of the discharge instructions. Scripts Naproxen (NAPROSYN) 500 Mg Tablet 1 TAB PO BID, #14 TAB 1 Refill Prov: KYLE SAHU MD 07/17/17 Ondansetron (ZOFRAN ODT) 4 Mg Tab.rapdis 4 MG PO BID Y for NAUSEA/VOMITING for 7 Days, #14 TAB Prov: KYLE SAHU MD 07/17/17 Dicyclomine Hcl (BENTYL) 10 Mg Capsule 1 CAP PO TID, #30 CAP 3 Refills Prov: KYLE SAHU MD 07/17/17 Problem Qualifiers KYLE SAHU MD Jul 17, 2017 13:03
[2017-07-17 13:11] LABS: BILIRUBIN,URINE NEGATIVE (NEG); GLUCOSE,URINE NEGATIVE (NEG); NITRITE,URINE NEGATIVE (NEG); PROTEIN,URINE 30 mg/dL (NEG-TRACE); UROBILINOGEN,URINE 0.2 mg/dL (0.2 mg/dL)
[2017-07-17 13:15] LABS: BASO % 0 % (0-3); EOS % 0 % (0-3); HEMATOCRIT 38.9 % (36.0-47.0); HEMOGLOBIN 13.4 g/dL (12.0-15.5); LYMPH # 1.6 x10^3/uL (1.0-4.8); LYMPH % 16 % (24-48); MEAN CORPUSCULAR HEMOGLOBIN 31 pg (25-35); MEAN CORPUSCULAR HGB CONC 35 g/dL (31-37); MEAN CORPUSCULAR VOLUME 91 fL (79-100); MONO % 3 % (0-9); NEUT % 80 % (31-73); PLATELET COUNT 300 x10^3/uL (140-400); RED BLOOD COUNT 4.28 x10^6/uL (3.50-5.40); RED CELL DISTRIBUTION WIDTH 13.5 % (11.5-14.5); WHITE BLOOD COUNT 9.9 x10^3/uL (4.0-11.0)
[2017-07-17 13:26] LABS: BACTERIA,URINE FEW /HPF (0-FEW); RBC,URINE 0 /HPF (0-2); SQUAMOUS EPITHELIAL CELL,UR MANY /LPF; WBC,URINE OCC /HPF (0-4)
--- NOTE | 2017-07-17 13:38 | RAD ---
EXAM: CHEST 1 VIEW History: Pain radiating to the back COMPARISON: 06/29/2017 TECHNIQUE: Single portable radiograph of the chest FINDINGS: The cardiac silhouette is unremarkable. The lungs are clear bilaterally. The costophrenic sulci are clear and well demarcated. IMPRESSION: No radiographic evidence of an acute cardiopulmonary process.
[2017-07-17] MEDS ORDERED: NORMAL SALINE IV ONE (13:45)
[2017-07-17] MEDS ORDERED: KETAMINE HCL IV ONE (13:45)
[2017-07-17] MEDS ORDERED: IOHEXOL 300 MG/ML 75 ML VIAL IV ONE (14:00)
[2017-07-17 14:04] LABS: CREATININE 1.1 mg/dL (0.6-1.0); POTASSIUM 4.4 mmol/L (3.5-5.1)
[2017-07-17 14:09] LABS: ALBUMIN 3.4 g/dL (3.4-5.0); DIRECT BILIRUBIN 0.1 mg/dL (0.0-0.2); MAGNESIUM 1.8 mg/dL (1.8-2.4); TOTAL BILIRUBIN 0.2 mg/dL (0.2-1.0); TOTAL PROTEIN 7.6 g/dL (6.4-8.2)
[2017-07-17] MEDS ORDERED: CONTRAST GIVEN MC PRN (14:15)
[2017-07-17] MEDS ORDERED: NAPR500T PO (14:54)
[2017-07-17] MEDS ORDERED: DICY10CA53 PO (14:54)
[2017-07-17] MEDS ORDERED: ONDA4TAB10 PO (14:54)
--- NOTE | 2017-07-17 15:05 | RAD ---
Examination: CT of the abdomen pelvis with IV contrast History: History of diffuse abdominal pain Comparison: 10/17/2011 Technique: Axial CT images of the abdomen pelvis were performed with IV contrast. Coronal and sagittal reformats are performed. PQRS Compliance Statement: One or more of the following individualized dose reduction techniques were utilized for this examination: 1. Automated exposure control 2. Adjustment of the mA and/or kV according to patient size 3. Use of iterative reconstruction technique Findings: The visualized bibasal lungs grossly appears unremarkable. No evidence of free air identified in the abdomen. The visualized liver, spleen, adrenals grossly appears unremarkable. Changes of cholecystectomy identified. Prominent distended appearing common bile duct likely post cholecystectomy changes or common bile duct dilatation. The visualized pancreas grossly appears unremarkable. The bilateral kidneys enhance symmetrically. Mild distended bilateral ureters. The stomach is mildly distended. The small bowel is nondilated. Appendix is normal. Moderate amount of feces and gas noted throughout the colon. Urinary bladder is moderately distended. No significant free fluid identified in the pelvis. Mild aortic atherosclerosis. Mild degenerative changes lumbar spine. Impression: 1. Moderate amount of stool noted throughout the colon. Correlate for constipation. 2. Moderately distended urinary bladder and mildly distended bilateral ureters, nonspecific. 3. Prominent appearing common bile duct likely post cholecystectomy changes or common bile duct obstruction. Correlate with lab values.
--- NOTE | 2017-07-17 15:05 | EKG ---
[facility] [address] [place] [address] Test Date: 2017-07-17 Test Time: 12:54:02 Pat Name: BOZENA CLARK Department: Room: Gender: F Mechanical Maintenance: : 1980 Requested By: KYLE SAHU Order Number: [id number] Reading MD: Measurements Intervals [place] Rate: 98 P: 59 DC: 166 QRS: 104 QRSD: 76 T: 52 QT: 344 QTc: 441 Interpretive Statements SINUS RHYTHM RIGHTWARD AXIS NON SPECIFIC ST-T ABNORMALITY (ELEVATION) OTHERWISE NORMAL ECG RI6.01 Unconfirmed report No previous ECG available for comparison
[2017-07-17 15:57] VITALS: BP 141/63
== END 2017-07-17 15:57 | disposition home or self-care (01) ==
LOC: ER 12:26
DX: G89.29 Other chronic pain (principal); R10.84 Generalized abdominal pain; R10.13 Epigastric pain; E10.65 Type 1 diabetes mellitus with hyperglycemia; K59.00 Constipation, unspecified; I10 Essential (primary) hypertension; M54.5 Low back pain; R11.2 Nausea with vomiting, unspecified; E78.00 Pure hypercholesterolemia, unspecified; Z90.710 Acquired absence of both cervix and uterus; Z90.49 Acquired absence of other specified parts of digestive tract; Z88.5 Allergy status to narcotic agent
CPT/HCPCS: 36415; 71010; 74177; 80048; 80076; 81001; 83690; 83735; 83880; 84484; 85025; 93005; 96365; 96375; 99285; J2060; J2405; J3490; J7030; J7050; Q9967

== ENCOUNTER 2017-08-02 12:41 | Inpatient (IN) | payer MEDICARE ==
[~2017-08-02] VITALS: Ht 157.5 cm; Wt 59.0 kg
[~2017-08-02 12:41] MED LIST changes: +DICY10CA53 PO; +METO-247 PO; -METO100T11 PO; +NAPR500T PO; +ONDA4TAB10 PO
[2017-08-02] MEDS ORDERED: IV NORMAL SALINE 1000ML BAG 1,000 ML IV ONE (13:15)
[2017-08-02] MEDS ORDERED: ONDANSETRON PF 4 MG/2 ML VIAL. IV ONE (13:45)
--- NOTE | 2017-08-02 13:45 | PHYS DOC ---
Past Medical History Past Medical History: Diabetes-Type I, High Cholesterol, Hypertension, [place], Other Additional Past Medical Histor: L EYE BLIND,CHRONIC PAIN , "abd issues" Past Surgical History: Cholecystectomy, Hysterectomy Additional Past Surgical Histo: "bone abscess", BX EYE Alcohol Use: Occasionally Drug Use: Marijuana Adult General Chief Complaint Chief Complaint: NAUSEA/VOMITING/DIARRHA HPI HPI 37-year-old female presenting to the emergency department today with diarrhea nausea vomiting and epigastric abdominal pain. She also reports having chest pain. She describes the pain is sharp nonradiating intermittent nonmigratory and without alleviating factors. She reports this started this morning. Review of systems is negative for fevers chills cough headache or focal numbness weakness or tingling. All other review of systems is negative unless otherwise noted in history of present illness. ED course: 37-year-old female presenting to the emergency department today with nausea vomiting and chest along with abdominal pain. Vital signs afebrile with mild tachycardia. Patient did vomit nonbilious nonbloody stomach contents while in the emergency department. IV established and saline given along with antinausea medication. Blood pressure noted to be mildly elevated initially likely secondary to nausea and vomiting. Blood work obtained along with chest x- ray and EKG. workup unremarkable. On reexamination patient was not feeling better. Patient was then admitted to the hospital for symptomatic care, further evaluation workup and serial abdominal examinations. Review of Systems Review of Systems SEE ABOVE. Current Medications Current Medications Current Medications Medications (Trade) Dose Ordered Sig/Irina Start Time Stop Time Status Last Admin Dose Admin Ondansetron HCl (Zofran) 4 mg 1X ONCE 08/02/17 13:45 08/02/17 13:46 DC 08/02/17 13:59 4 MG Sodium Chloride 1,000 ml @ 1,000 mls/hr 1X ONCE 08/02/17 13:15 08/02/17 14:14 DC 08/02/17 13:59 1,000 MLS/HR Allergies Allergies Allergies Coded Allergies Type Severity Reaction Last Updated Verified morphine Allergy Severe Shortness of Air, trouble breathing/sweating 07/14/16 Yes Physical Exam Physical Exam SEE ABOVE Constitutional: Well developed, well nourished, no acute distress, non-toxic appearance. HENT: Normocephalic, atraumatic, bilateral external ears normal, oropharynx moist, no oral exudates, nose normal. [] Eyes: PERRLA, EOMI, conjunctiva normal, no discharge. [] Neck: Normal range of motion, no tenderness, supple, no stridor. [] Cardiovascular:Heart rate regular rhythm, no murmur [] Lungs & Thorax: Bilateral breath sounds clear to auscultation [] Abdomen: Bowel sounds normal, soft, no tenderness, no masses, no pulsatile masses. [] Skin: Warm, dry, no erythema, no rash. [] Back: No tenderness, no CVA tenderness. [] Extremities: No tenderness, no cyanosis, no clubbing, ROM intact, no edema. [] Neurologic: Alert and oriented X 3, normal motor function, normal sensory function, no focal deficits noted. [] Psychologic: Affect normal, judgement normal, mood normal. [] Current Patient Data Vital Signs Vital Signs Date Time Temp Pulse Resp B/P (MAP) Pulse Ox O2 Delivery O2 Flow Rate FiO2 08/02/17 13:26 97.9 109 19 177/73 (107) 100 Room Air 97.9 Lab Values Laboratory Tests Test 08/02/17 13:45 08/02/17 13:50 White Blood Count 11.3 x10^3/uL (4.0-11.0) H Red Blood Count 4.23 x10^6/uL (3.50-5.40) Hemoglobin 13.2 g/dL (12.0-15.5) Hematocrit 38.5 % (36.0-47.0) Mean Corpuscular Volume 91 fL (79-100) Mean Corpuscular Hemoglobin 31 pg (25-35) Mean Corpuscular Hemoglobin Concent 34 g/dL (31-37) Red Cell Distribution Width 13.1 % (11.5-14.5) Platelet Count 279 x10^3/uL (140-400) Neutrophils (%) (Auto) 89 % (31-73) H Lymphocytes (%) (Auto) 8 % (24-48) L Monocytes (%) (Auto) 3 % (0-9) Eosinophils (%) (Auto) 0 % (0-3) Basophils (%) (Auto) 1 % (0-3) Neutrophils # (Auto) 10.1 x10^3uL (1.8-7.7) H Lymphocytes # (Auto) 0.9 x10^3/uL (1.0-4.8) L Monocytes # (Auto) 0.3 x10^3/uL (0.0-1.1) Eosinophils # (Auto) 0.0 x10^3/uL (0.0-0.7) Basophils # (Auto) 0.1 x10^3/uL (0.0-0.2) Segmented Neutrophils % 93 % (35-66) H Band Neutrophils % 1 % (0-9) Lymphocytes % 3 % (24-48) L Monocytes % 3 % (0-10) Platelet Estimate Adequate (ADEQUATE) Platelet Clumps, EDTA Present Urine Collection Type Unknown Urine Color Yellow Urine Clarity Cloudy Urine pH 8.0 Urine Specific [place] 1.010 Urine Protein 100 mg/dL (NEG-TRACE) Urine Glucose (UA) Negative mg/dL (NEG) Urine Ketones (Stick) Negative mg/dL (NEG) Urine Blood Negative (NEG) Urine Nitrite Negative (NEG) Urine Bilirubin Negative (NEG) Urine Urobilinogen Dipstick 0.2 mg/dL (0.2 mg/dL) Urine Leukocyte Esterase Negative (NEG) Urine RBC 0 /HPF (0-2) Urine WBC 0 /HPF (0-4) Urine Bacteria Few /HPF (0-FEW) Sodium Level 139 mmol/L (136-145) Potassium Level 4.0 mmol/L (3.5-5.1) Chloride Level 100 mmol/L (98-107) Carbon Dioxide Level 25 mmol/L (21-32) Anion Gap 14 (6-14) Blood Urea Nitrogen 12 mg/dL (7-20) Creatinine 1.1 mg/dL (0.6-1.0) H Estimated GFR (Cockcroft-Gault) 68.0 BUN/Creatinine Ratio 11 (6-20) Glucose Level 347 mg/dL (70-99) H Calcium Level 9.3 mg/dL (8.5-10.1) Total Bilirubin 0.3 mg/dL (0.2-1.0) Aspartate Amino Transferase (AST) 17 U/L (15-37) Alanine Aminotransferase (ALT) 20 U/L (14-59) Alkaline Phosphatase 105 U/L (46-116) Total Protein 8.3 g/dL (6.4-8.2) H Albumin 3.7 g/dL (3.4-5.0) Albumin/Globulin Ratio 0.8 (1.0-1.7) L Lipase 111 U/L (73-393) Urine Opiates Screen Pos (NEG) Urine Methadone Screen Neg (NEG) Urine Barbiturates Neg (NEG) Urine Phencyclidine Screen Neg (NEG) Urine Amphetamine/Methamphetamine Neg (NEG) Urine Benzodiazepines Screen Neg (NEG) Urine Cocaine Screen Neg (NEG) Urine Cannabinoids Screen Neg (NEG) Urine Ethyl Alcohol Neg (NEG) POC Urine HCG, Qualitative Hcg negative (Negative) Laboratory Tests 08/02/17 13:45 Laboratory Tests 08/02/17 13:45 EKG EKG EKG shows sinus rhythm with regular rate. Normal intervals. Normal axis. ST segments are congruent. Nonspecific T-wave inversions in lead V1 and V2. Not suggestive of ACS. Reviewed by myself.[] Radiology/Procedures Radiology/Procedures []Chest x-ray reviewed by myself shows no obvious infiltrate or pneumothorax present. No obvious acute cardiopulmonary process present. Course & Med Decision Making Course & Med Decision Making Pertinent Labs and Imaging studies reviewed. (See chart for details) [] Dragon Disclaimer Dragon Disclaimer This electronic medical record was generated, in whole or in part, using a voice recognition dictation system. Departure Departure Impression: Primary Impression: Vomiting and diarrhea Additional Impression: Chronic abdominal pain Disposition: 09 ADMITTED INPATIENT Admitting Physician: Estiven Ramey Condition: STABLE Referrals: UNKNOWN PCP NAME (PCP) Patient Instructions: Nausea and Vomiting Problem Qualifiers ACOSTA DC MD Aug 02, 2017 13:45
--- NOTE | 2017-08-02 13:48 | EKG ---
[facility] [address] [place] [address] Test Date: 2017-08-02 Test Time: 13:14:14 Pat Name: BOZENA CLARK Department: Room: Gender: F Cleaning Manager: : 1980 Requested By: ACOSTA DC Order Number: [id number] Reading MD: Mary Kay Soto Measurements Intervals [place] Rate: 81 P: 73 TN: 168 QRS: 99 QRSD: 74 T: 66 QT: 356 QTc: 414 Interpretive Statements SINUS RHYTHM RIGHTWARD AXIS QRS(T) CONTOUR ABNORMALITY CANNOT RULE OUT ANTEROSEPTAL MYOCARDIAL DAMAGE Electronically Signed On 08-07-2017 21:49:21 CDT by Mary Kay Soto
--- NOTE | 2017-08-02 13:53 | RAD ---
Indication chest discomfort. A single view of the chest was obtained and is compared to a study 16 days earlier. The heart, pulmonary vessels and mediastinum appear unremarkable. The lungs are clear. There has not been a significant change in the chest compared to the previous exam. IMPRESSION: No acute finding in the chest. No significant change
[2017-08-02 13:56] LABS: BASO # 0.1 x10^3/uL (0.0-0.2); BASO % 1 % (0-3); EOS % 0 % (0-3); HEMATOCRIT 38.5 % (36.0-47.0); HEMOGLOBIN 13.2 g/dL (12.0-15.5); LYMPH # 0.9 x10^3/uL (1.0-4.8); LYMPH % 8 % (24-48); MEAN CORPUSCULAR HEMOGLOBIN 31 pg (25-35); MEAN CORPUSCULAR HGB CONC 34 g/dL (31-37); MEAN CORPUSCULAR VOLUME 91 fL (79-100); MONO % 3 % (0-9); NEUT % 89 % (31-73); PLATELET COUNT 279 x10^3/uL (140-400); RED BLOOD COUNT 4.23 x10^6/uL (3.50-5.40); RED CELL DISTRIBUTION WIDTH 13.1 % (11.5-14.5); WHITE BLOOD COUNT 11.3 x10^3/uL (4.0-11.0)
[2017-08-02 14:13] LABS: BILIRUBIN,URINE NEGATIVE (NEG); GLUCOSE,URINE NEGATIVE (NEG); NITRITE,URINE NEGATIVE (NEG); PROTEIN,URINE 100 mg/dL (NEG-TRACE); UROBILINOGEN,URINE 0.2 mg/dL (0.2 mg/dL)
[2017-08-02 14:17] LABS: CALCIUM 9.3 mg/dL (8.5-10.1); CREATININE 1.1 mg/dL (0.6-1.0)
[2017-08-02 14:22] LABS: ALBUMIN 3.7 g/dL (3.4-5.0); ALBUMIN/GLOBULIN RATIO 0.8 (1.0-1.7); TOTAL BILIRUBIN 0.3 mg/dL (0.2-1.0); TOTAL PROTEIN 8.3 g/dL (6.4-8.2)
[2017-08-02 14:39] LABS: BACTERIA,URINE FEW /HPF (0-FEW); RBC,URINE 0 /HPF (0-2); WBC,URINE 0 /HPF (0-4)
[2017-08-02 15:06] LABS: PLT ESTIMATE ADEQUATE (ADEQUATE)
[2017-08-02] MEDS ORDERED: LORazepam 1 MG TABLET PO ONE (15:30)
[2017-08-02] MEDS ORDERED: METOCLOPRAMIDE HCL 10 MG/2 ML VIAL. IV ONE (15:30)
[2017-08-02] MEDS ORDERED: ONDANSETRON PF 4 MG/2 ML VIAL. IV PRN ×3 (15:45→16:15)
--- NOTE | 2017-08-02 16:05 | PDOC1 ---
History and Physical Date of Admission Date of Admission 08/02/17 Identification/Chief Complaint Chief Complaint N/V, abd pain Problems: Source Source: Chart review, Patient History of Present Illness History of Present Illness HPI HPI 37-year-old female presenting to the emergency department today with diarrhea nausea vomiting and epigastric abdominal pain x3ds. pT is very anxious when i saw her in the ER. she got reglan, zofran and ativan from ER, N/V better, but kept walking around and asking for something "to calm down". Pt has h/o gastroparesis?, was dced here 04/2017 for back pain, MRI neg for spinal stenosis, dr. Pisano consulted, got steroid injection, pain slightly better. AT THAT TIME, pt refused levemir, insist only use aspart in hosp (home aspart 6u tid), and glucose is >200 all the time. She insisted that her DM IS controlled well, but HBA1C 8.3. pt wanted to take exactly what she takes at home , refused recommendation in hosp. this time, she said cont N/V for 3 days, with yellowish and then dark liquid emesis. said never did EGD or colonoscopy. She kept asking for pain meds for her back pain and epigastric pain, 06/23, no radiation, constant. takes oxycodone at home for pain, not on reglan at home said nobody asked her to take it. Past Medical History Cardiovascular: HTN Endocrine: Diabetes Past Surgical History Past Surgical History: Cholecystectomy, Hysterectomy Family History Family History: Hypertension Social History Smoke: No ALCOHOL: none Drugs: Marijuana Current Problem List Problem List Problems Medical Problems: (1) Vomiting and diarrhea Status: Acute Current Medications Current Medications Current Medications Medications (Trade) Dose Ordered Sig/Irina Start Time Stop Time Status Last Admin Dose Admin Lorazepam (Ativan) 1 mg 1X ONCE 08/02/17 15:30 08/02/17 15:31 DC 08/02/17 15:27 1 MG Metoclopramide HCl (Reglan) 10 mg 1X ONCE 08/02/17 15:30 08/02/17 15:31 DC 08/02/17 15:28 10 MG Ondansetron HCl (Zofran) 4 mg PRN Q8HRS PRN 08/02/17 15:45 08/03/17 15:44 Sodium Chloride 1,000 ml @ 1,000 mls/hr 1X ONCE 08/02/17 13:15 08/02/17 14:14 DC 08/02/17 13:59 1,000 MLS/HR Allergies Allergies Allergies Coded Allergies Type Severity Reaction Last Updated Verified morphine Allergy Severe Shortness of Air, trouble breathing/sweating 07/14/16 Yes ROS Review of System CONSTITUTIONAL: No fever or chills EYES: No recent changes SKIN: No rash or itching CARDIOVASCULAR: No chest pain, syncope, palpitations, or edema RESPIRATORY: No SOB or cough GASTROINTESTINAL: + nausea, vomiting or abdominal pain NEUROLOGICAL: No headaches or weakness ENDOCRINE: No cold or heat intolerance GENITOURINARY: No urgency or frequency of urination MUSCULOSKELETAL: No back pain or joint pain LYMPHATICS: No enlarged lymph nodes PSYCHIATRIC: No anxiety or depression Physical Exam Physical Exam GEN.: No apparent distress. Alert and oriented. HEENT: Head is normocephalic, atraumatic NECK: Supple. LUNGS: Clear to auscultation. HEART: RRR, S1, S2 present. Peripheral pulses intact ABDOMEN: Soft, nontender. Positive bowel sounds. EXTREMITIES: Without any cyanosis. NEUROLOGIC: Normal speech, normal tone PSYCHIATRIC: Normal affect, normal mood. SKIN: No ulcerations Vitals Vitals Vital Signs Date Time Temp Pulse Resp B/P (MAP) Pulse Ox O2 Delivery O2 Flow Rate FiO2 08/02/17 13:26 97.9 109 19 177/73 (107) 100 Room Air 97.9 Labs Labs Laboratory Tests Test 08/02/17 13:45 08/02/17 13:50 White Blood Count 11.3 x10^3/uL (4.0-11.0) Red Blood Count 4.23 x10^6/uL (3.50-5.40) Hemoglobin 13.2 g/dL (12.0-15.5) Hematocrit 38.5 % (36.0-47.0) Mean Corpuscular Volume 91 fL (79-100) Mean Corpuscular Hemoglobin 31 pg (25-35) Mean Corpuscular Hemoglobin Concent 34 g/dL (31-37) Red Cell Distribution Width 13.1 % (11.5-14.5) Platelet Count 279 x10^3/uL (140-400) Neutrophils (%) (Auto) 89 % (31-73) Lymphocytes (%) (Auto) 8 % (24-48) Monocytes (%) (Auto) 3 % (0-9) Eosinophils (%) (Auto) 0 % (0-3) Basophils (%) (Auto) 1 % (0-3) Neutrophils # (Auto) 10.1 x10^3uL (1.8-7.7) Lymphocytes # (Auto) 0.9 x10^3/uL (1.0-4.8) Monocytes # (Auto) 0.3 x10^3/uL (0.0-1.1) Eosinophils # (Auto) 0.0 x10^3/uL (0.0-0.7) Basophils # (Auto) 0.1 x10^3/uL (0.0-0.2) Segmented Neutrophils % 93 % (35-66) Band Neutrophils % 1 % (0-9) Lymphocytes % 3 % (24-48) Monocytes % 3 % (0-10) Platelet Estimate Adequate (ADEQUATE) Platelet Clumps, EDTA Present Urine Collection Type Unknown Urine Color Yellow Urine Clarity Cloudy Urine pH 8.0 Urine Specific [place] 1.010 Urine Protein 100 mg/dL (NEG-TRACE) Urine Glucose (UA) Negative mg/dL (NEG) Urine Ketones (Stick) Negative mg/dL (NEG) Urine Blood Negative (NEG) Urine Nitrite Negative (NEG) Urine Bilirubin Negative (NEG) Urine Urobilinogen Dipstick 0.2 mg/dL (0.2 mg/dL) Urine Leukocyte Esterase Negative (NEG) Urine RBC 0 /HPF (0-2) Urine WBC 0 /HPF (0-4) Urine Bacteria Few /HPF (0-FEW) Sodium Level 139 mmol/L (136-145) Potassium Level 4.0 mmol/L (3.5-5.1) Chloride Level 100 mmol/L (98-107) Carbon Dioxide Level 25 mmol/L (21-32) Anion Gap 14 (6-14) Blood Urea Nitrogen 12 mg/dL (7-20) Creatinine 1.1 mg/dL (0.6-1.0) Estimated GFR (Cockcroft-Gault) 68.0 BUN/Creatinine Ratio 11 (6-20) Glucose Level 347 mg/dL (70-99) Calcium Level 9.3 mg/dL (8.5-10.1) Total Bilirubin 0.3 mg/dL (0.2-1.0) Aspartate Amino Transf (AST/SGOT) 17 U/L (15-37) Alanine Aminotransferase (ALT/SGPT) 20 U/L (14-59) Alkaline Phosphatase 105 U/L (46-116) Total Protein 8.3 g/dL (6.4-8.2) Albumin 3.7 g/dL (3.4-5.0) Albumin/Globulin Ratio 0.8 (1.0-1.7) Lipase 111 U/L (73-393) Bedside Urine HCG, Qualitative Hcg negative (Negative) Laboratory Tests Test 08/02/17 13:45 08/02/17 13:50 White Blood Count 11.3 x10^3/uL (4.0-11.0) Red Blood Count 4.23 x10^6/uL (3.50-5.40) Hemoglobin 13.2 g/dL (12.0-15.5) Hematocrit 38.5 % (36.0-47.0) Mean Corpuscular Volume 91 fL (79-100) Mean Corpuscular Hemoglobin 31 pg (25-35) Mean Corpuscular Hemoglobin Concent 34 g/dL (31-37) Red Cell Distribution Width 13.1 % (11.5-14.5) Platelet Count 279 x10^3/uL (140-400) Neutrophils (%) (Auto) 89 % (31-73) Lymphocytes (%) (Auto) 8 % (24-48) Monocytes (%) (Auto) 3 % (0-9) Eosinophils (%) (Auto) 0 % (0-3) Basophils (%) (Auto) 1 % (0-3) Neutrophils # (Auto) 10.1 x10^3uL (1.8-7.7) Lymphocytes # (Auto) 0.9 x10^3/uL (1.0-4.8) Monocytes # (Auto) 0.3 x10^3/uL (0.0-1.1) Eosinophils # (Auto) 0.0 x10^3/uL (0.0-0.7) Basophils # (Auto) 0.1 x10^3/uL (0.0-0.2) Segmented Neutrophils % 93 % (35-66) Band Neutrophils % 1 % (0-9) Lymphocytes % 3 % (24-48) Monocytes % 3 % (0-10) Platelet Estimate Adequate (ADEQUATE) Platelet Clumps, EDTA Present Urine Collection Type Unknown Urine Color Yellow Urine Clarity Cloudy Urine pH 8.0 Urine Specific [place] 1.010 Urine Protein 100 mg/dL (NEG-TRACE) Urine Glucose (UA) Negative mg/dL (NEG) Urine Ketones (Stick) Negative mg/dL (NEG) Urine Blood Negative (NEG) Urine Nitrite Negative (NEG) Urine Bilirubin Negative (NEG) Urine Urobilinogen Dipstick 0.2 mg/dL (0.2 mg/dL) Urine Leukocyte Esterase Negative (NEG) Urine RBC 0 /HPF (0-2) Urine WBC 0 /HPF (0-4) Urine Bacteria Few /HPF (0-FEW) Sodium Level 139 mmol/L (136-145) Potassium Level 4.0 mmol/L (3.5-5.1) Chloride Level 100 mmol/L (98-107) Carbon Dioxide Level 25 mmol/L (21-32) Anion Gap 14 (6-14) Blood Urea Nitrogen 12 mg/dL (7-20) Creatinine 1.1 mg/dL (0.6-1.0) Estimated GFR (Cockcroft-Gault) 68.0 BUN/Creatinine Ratio 11 (6-20) Glucose Level 347 mg/dL (70-99) Calcium Level 9.3 mg/dL (8.5-10.1) Total Bilirubin 0.3 mg/dL (0.2-1.0) Aspartate Amino Transf (AST/SGOT) 17 U/L (15-37) Alanine Aminotransferase (ALT/SGPT) 20 U/L (14-59) Alkaline Phosphatase 105 U/L (46-116) Total Protein 8.3 g/dL (6.4-8.2) Albumin 3.7 g/dL (3.4-5.0) Albumin/Globulin Ratio 0.8 (1.0-1.7) Lipase 111 U/L (73-393) Bedside Urine HCG, Qualitative Hcg negative (Negative) VTE Prophylaxis Ordered VTE Prophylaxis Devices: Yes VTE Pharmacological Prophylaxi: No Assessment/Plan Assessment/Plan intractable N/V ,epigastric abd pain, gastritis vs. gastroparesis? uncontrolled dm1 htn hld h/o CAD left eye blindness Leukocytosis ,reactive chronic lower back pain h/o drug abuse with marijuana possible drug seeker behavior anxiety plan: GI consult clear liquid for now ivf ssi reglan iv tid cont home meds gi ppx check urine drug KEYUR RUSSELL MD Aug 02, 2017 16:05
[2017-08-02] MEDS ORDERED: DEXTROSE 50% 25 GM / 50ML DISP.SYRIN. IV PRN (16:15)
[2017-08-02] MEDS ORDERED: ACETAMINOPHEN 325 MG TABLET. PO PRN ×2 (16:15)
[2017-08-02] MEDS ORDERED: hydrALAZINE 20 MG/ML VIAL. IVP PRN ×2 (16:15)
[2017-08-02] MEDS ORDERED: MORPHINE SULFATE 2 MG/ML DISP.SYRIN. IV PRN (16:15)
[2017-08-02] MEDS ORDERED: DOCUSATE SODIUM 100 MG CAPSULE. PO PRN ×2 (16:15)
[2017-08-02 16:34] LABS: BARBITURATES NEG (NEG); BENZODIAZEPINES NEG (NEG); CANNABINOIDS NEG (NEG); COCAINE NEG (NEG); METHADONE NEG (NEG); OPIATES POS (NEG); PHENCYCLIDINE NEG (NEG)
[2017-08-02] MEDS ORDERED: INSULIN ASPART 300 UNITS/3 ML INSULN.PEN SQ SCH (17:00)
[2017-08-02 17:32] VITALS: BP 152/80
[2017-08-02] MEDS: CYCLOBENZAPRINE 10 MG TABLET. PO PRN (18:26)
[2017-08-02] MEDS: LISINOPRIL 10 MG TABLET PO SCH (18:26)
[2017-08-02] MEDS: DICYCLOMINE HCL 10 MG CAPSULE PO SCH ×2 (18:26→20:27)
[2017-08-02] MEDS: CLOPIDOGREL BISULFATE 75 MG TABLET PO SCH (18:27)
[2017-08-02] MEDS: ASPIRIN CHEWABLE 81 MG TABLET. PO SCH (18:27)
[2017-08-02] MEDS: PANTOPRAZOLE 40 MG TABLET.DR. PO SCH (18:27)
[2017-08-02 19:00] VITALS: BP 127/61
[2017-08-02] MEDS: METOCLOPRAMIDE HCL 10 MG/2 ML VIAL. IV SCH (20:27)
[2017-08-02] MEDS: GABAPENTIN 300 MG CAPSULE. PO SCH (20:27)
[2017-08-02] MEDS: SIMVASTATIN 20 MG TABLET PO SCH (20:27)
[2017-08-02] MEDS: oxyCODONE/APAP 10/325 1 TAB TABLET PO SCH (20:28)
[2017-08-02] MEDS ORDERED: INSULIN ASPART 300 UNITS/3 ML INSULN.PEN SQ ONE (21:15)
[2017-08-02] MEDS: INSULIN ASPART 300 UNITS/3 ML INSULN.PEN SQ SCH (21:44)
[2017-08-02 22:49] VITALS: BP 100/50
[2017-08-03 02:57] VITALS: BP 112/56
[2017-08-03 05:34] LABS: BASO % 0 % (0-3); EOS % 0 % (0-3); HEMATOCRIT 33.4 % (36.0-47.0); HEMOGLOBIN 11.6 g/dL (12.0-15.5); LYMPH # 2.4 x10^3/uL (1.0-4.8); LYMPH % 28 % (24-48); MEAN CORPUSCULAR HEMOGLOBIN 31 pg (25-35); MEAN CORPUSCULAR HGB CONC 35 g/dL (31-37); MEAN CORPUSCULAR VOLUME 90 fL (79-100); MONO % 7 % (0-9); NEUT % 65 % (31-73); PLATELET COUNT 234 x10^3/uL (140-400); RED BLOOD COUNT 3.69 x10^6/uL (3.50-5.40); RED CELL DISTRIBUTION WIDTH 13.4 % (11.5-14.5); WHITE BLOOD COUNT 8.7 x10^3/uL (4.0-11.0)
[2017-08-03 05:44] LABS: CALCIUM 8.3 mg/dL (8.5-10.1); CREATININE 0.9 mg/dL (0.6-1.0); GFR 85.7; POTASSIUM 3.9 mmol/L (3.5-5.1)
[2017-08-03] MEDS: CYCLOBENZAPRINE 10 MG TABLET. PO PRN ×2 (06:42→21:08)
[2017-08-03 07:00] VITALS: BP 122/60
[2017-08-03] MEDS: INSULIN ASPART 300 UNITS/3 ML INSULN.PEN SQ SCH ×4 (07:30→21:17)
[2017-08-03] MEDS: DICYCLOMINE HCL 10 MG CAPSULE PO SCH ×3 (08:23→21:00)
[2017-08-03] MEDS: ASPIRIN CHEWABLE 81 MG TABLET. PO SCH (08:23)
[2017-08-03] MEDS: oxyCODONE/APAP 10/325 1 TAB TABLET PO SCH ×2 (08:24→16:07)
[2017-08-03] MEDS: CLOPIDOGREL BISULFATE 75 MG TABLET PO SCH (08:25)
[2017-08-03] MEDS: PANTOPRAZOLE 40 MG TABLET.DR. PO SCH (08:25)
[2017-08-03] MEDS: LISINOPRIL 10 MG TABLET PO SCH (08:25)
[2017-08-03] MEDS: GABAPENTIN 300 MG CAPSULE. PO SCH ×3 (08:26→21:08)
[2017-08-03] MEDS: METOCLOPRAMIDE HCL 10 MG/2 ML VIAL. IV SCH ×4 (08:26→21:09)
--- NOTE | 2017-08-03 08:41 | PDOC2 ---
GI CONSULT Reason For Consult: N/v, gastroparesis HPI: HPI: 37 y/o female who we saw in 04/2017. H/o IDDM w/ last A1c >8, sees her PCP for DM, not sure when next appt is. On this occasion, reports glucose >300 for a few days associated w/ n/v, burning chest pain, and diffuse abd discomfort. At one point emesis looked dark, now looks yellow. Additionally has vomited food/ liquid that she consumed several days before. Also mentions early satiety. Seems nausea is more of a chronic problem - has promethazine at home and generally takes this daily. No weight loss. H/o GERD previously on PPI, currently untreated (although we did restart PPI last admission). No previous EGD. Lifelong h/o constipation improved w/ Dulcolax 3-4 times weekly, hasn't needed this recently. No previous colonoscopy. Uses marijuana ("not daily"). No NSAID use but takes ASA QD and Plavix QOD (says since [place] in 2009). S/p cholecystectomy for stones. No previous GES. Has been started on IV Reglan TID, Bentyl, and Protonix here. PMH: PMH: IDDM (last A1c >8), CAD, TN, HTN, HLD, GERD, constipation, LBP, hysterectomy w/ right oophorectomy, cholecystectomy, breast biopsy (benign), bilateral eye surgeries (blind in left eye) FH: Family History: No pertinent hx Social History: Smoke: No ALCOHOL: none Drugs: Marijuana ROS: GEN: Denies fevers, chills, sweats HEENT: Denies blurred vision, sore throat CV: +burning CP RESP: Denies shortness of air, cough GI: Per HPI : Denies hematuria, dysuria ENDO: Denies weight changes NEURO: Denies confusion, dizziness MSK: Denies weakness, joint pain/swelling SKIN: Denies jaundice, pruritus Vitals: Vitals: Vital Signs Date Time Temp Pulse Resp B/P (MAP) Pulse Ox O2 Delivery O2 Flow Rate FiO2 08/03/17 02:57 98.6 84 18 112/56 (74) 98 Room Air 98.6 Labs: Labs: Laboratory Tests Test 08/02/17 13:45 08/02/17 13:50 08/02/17 17:21 08/02/17 20:51 White Blood Count 11.3 x10^3/uL (4.0-11.0) Red Blood Count 4.23 x10^6/uL (3.50-5.40) Hemoglobin 13.2 g/dL (12.0-15.5) Hematocrit 38.5 % (36.0-47.0) Mean Corpuscular Volume 91 fL (79-100) Mean Corpuscular Hemoglobin 31 pg (25-35) Mean Corpuscular Hemoglobin Concent 34 g/dL (31-37) Red Cell Distribution Width 13.1 % (11.5-14.5) Platelet Count 279 x10^3/uL (140-400) Neutrophils (%) (Auto) 89 % (31-73) Lymphocytes (%) (Auto) 8 % (24-48) Monocytes (%) (Auto) 3 % (0-9) Eosinophils (%) (Auto) 0 % (0-3) Basophils (%) (Auto) 1 % (0-3) Neutrophils # (Auto) 10.1 x10^3uL (1.8-7.7) Lymphocytes # (Auto) 0.9 x10^3/uL (1.0-4.8) Monocytes # (Auto) 0.3 x10^3/uL (0.0-1.1) Eosinophils # (Auto) 0.0 x10^3/uL (0.0-0.7) Basophils # (Auto) 0.1 x10^3/uL (0.0-0.2) Segmented Neutrophils % 93 % (35-66) Band Neutrophils % 1 % (0-9) Lymphocytes % 3 % (24-48) Monocytes % 3 % (0-10) Platelet Estimate Adequate (ADEQUATE) Platelet Clumps, EDTA Present Urine Collection Type Unknown Urine Color Yellow Urine Clarity Cloudy Urine pH 8.0 Urine Specific [place] 1.010 Urine Protein 100 mg/dL (NEG-TRACE) Urine Glucose (UA) Negative mg/dL (NEG) Urine Ketones (Stick) Negative mg/dL (NEG) Urine Blood Negative (NEG) Urine Nitrite Negative (NEG) Urine Bilirubin Negative (NEG) Urine Urobilinogen Dipstick 0.2 mg/dL (0.2 mg/dL) Urine Leukocyte Esterase Negative (NEG) Urine RBC 0 /HPF (0-2) Urine WBC 0 /HPF (0-4) Urine Bacteria Few /HPF (0-FEW) Sodium Level 139 mmol/L (136-145) Potassium Level 4.0 mmol/L (3.5-5.1) Chloride Level 100 mmol/L (98-107) Carbon Dioxide Level 25 mmol/L (21-32) Anion Gap 14 (6-14) Blood Urea Nitrogen 12 mg/dL (7-20) Creatinine 1.1 mg/dL (0.6-1.0) Estimated GFR (Cockcroft-Gault) 68.0 BUN/Creatinine Ratio 11 (6-20) Glucose Level 347 mg/dL (70-99) Calcium Level 9.3 mg/dL (8.5-10.1) Total Bilirubin 0.3 mg/dL (0.2-1.0) Aspartate Amino Transf (AST/SGOT) 17 U/L (15-37) Alanine Aminotransferase (ALT/SGPT) 20 U/L (14-59) Alkaline Phosphatase 105 U/L (46-116) Total Protein 8.3 g/dL (6.4-8.2) Albumin 3.7 g/dL (3.4-5.0) Albumin/Globulin Ratio 0.8 (1.0-1.7) Lipase 111 U/L (73-393) Urine Opiates Screen Pos (NEG) Urine Methadone Screen Neg (NEG) Urine Barbiturates Neg (NEG) Urine Phencyclidine Screen Neg (NEG) Urine Amphetamine/Methamphetamine Neg (NEG) Urine Benzodiazepines Screen Neg (NEG) Urine Cocaine Screen Neg (NEG) Urine Cannabinoids Screen Neg (NEG) Urine Ethyl Alcohol Neg (NEG) Bedside Urine HCG, Qualitative Hcg negative (Negative) Glucose (Fingerstick) 313 mg/dL (70-99) 324 mg/dL (70-99) Test 08/02/17 22:00 08/03/17 03:30 08/03/17 07:56 Troponin I Quantitative < 0.017 ng/mL (0.000-0.055) < 0.017 ng/mL (0.000-0.055) White Blood Count 8.7 x10^3/uL (4.0-11.0) Red Blood Count 3.69 x10^6/uL (3.50-5.40) Hemoglobin 11.6 g/dL (12.0-15.5) Hematocrit 33.4 % (36.0-47.0) Mean Corpuscular Volume 90 fL (79-100) Mean Corpuscular Hemoglobin 31 pg (25-35) Mean Corpuscular Hemoglobin Concent 35 g/dL (31-37) Red Cell Distribution Width 13.4 % (11.5-14.5) Platelet Count 234 x10^3/uL (140-400) Neutrophils (%) (Auto) 65 % (31-73) Lymphocytes (%) (Auto) 28 % (24-48) Monocytes (%) (Auto) 7 % (0-9) Eosinophils (%) (Auto) 0 % (0-3) Basophils (%) (Auto) 0 % (0-3) Neutrophils # (Auto) 5.6 x10^3uL (1.8-7.7) Lymphocytes # (Auto) 2.4 x10^3/uL (1.0-4.8) Monocytes # (Auto) 0.6 x10^3/uL (0.0-1.1) Eosinophils # (Auto) 0.0 x10^3/uL (0.0-0.7) Basophils # (Auto) 0.0 x10^3/uL (0.0-0.2) Sodium Level 140 mmol/L (136-145) Potassium Level 3.9 mmol/L (3.5-5.1) Chloride Level 103 mmol/L (98-107) Carbon Dioxide Level 28 mmol/L (21-32) Anion Gap 9 (6-14) Blood Urea Nitrogen 10 mg/dL (7-20) Creatinine 0.9 mg/dL (0.6-1.0) Estimated GFR (Cockcroft-Gault) 85.7 Glucose Level 208 mg/dL (70-99) Calcium Level 8.3 mg/dL (8.5-10.1) Glucose (Fingerstick) 170 mg/dL (70-99) Allergies: Coded Allergies: morphine (Verified Allergy, Severe, Shortness of Air, trouble breathing/ sweating, 07/14/16) tolerates DILAUDID, OXYCODONE Medications: Current Medications Medications (Trade) Dose Ordered Sig/Irina Route PRN Reason Start Time Stop Time Status Last Admin Dose Admin Sodium Chloride 1,000 ml @ 1,000 mls/hr 1X ONCE IV 9/19/17 13:15 08/02/17 14:14 DC 08/02/17 13:59 Ondansetron HCl (Zofran) 4 mg 1X ONCE IV 08/02/17 13:45 08/02/17 13:46 DC 08/02/17 13:59 Lorazepam (Ativan) 1 mg 1X ONCE PO 08/02/17 15:30 08/02/17 15:31 DC 08/02/17 15:27 Metoclopramide HCl (Reglan) 10 mg 1X ONCE IV 08/02/17 15:30 08/02/17 15:31 DC 08/02/17 15:28 Insulin Aspart (NovoLOG) 0-9 UNITS TIDWMEALS SQ 08/02/17 17:00 08/02/17 21:11 DC 08/02/17 18:23 Aspirin (Children'S Aspirin) 81 mg DAILY PO 08/02/17 17:00 08/02/17 18:27 Clopidogrel Bisulfate (Plavix) 75 mg DAILY PO 08/02/17 17:00 08/02/17 18:27 Cyclobenzaprine HCl (Flexeril) 10 mg PRN TID PRN PO MUSCLE SPASMS 08/02/17 16:15 08/03/17 06:42 Dicyclomine HCl (Bentyl) 10 mg TID PO 08/02/17 16:30 08/02/17 20:27 Oxycodone/ Acetaminophen (Percocet 10/325) 1 tab TID PO 08/02/17 21:00 08/02/17 20:28 Pantoprazole Sodium (Protonix) 40 mg DAILY PO 08/02/17 16:30 08/02/17 18:27 Simvastatin (Zocor) 20 mg QHS PO 08/02/17 21:00 08/02/17 20:27 Gabapentin (Neurontin) 600 mg TID PO 08/02/17 21:00 08/02/17 20:27 Lisinopril (Prinivil) 10 mg DAILY PO 08/02/17 17:00 08/02/17 18:26 Metoclopramide HCl (Reglan) 10 mg TID IV 08/02/17 21:00 08/02/17 20:27 Insulin Aspart (NovoLOG) 0-9 UNITS TIDACHC SQ 08/02/17 21:15 08/02/17 21:44 Imaging: Imaging: CXR 08/02/17 IMPRESSION: No acute finding in the chest. No significant change. PE: GEN: NAD HEENT: Atraumatic, PERRL LUNGS: CTAB HEART: RRR ABD: NABS, S/ND, diffusely tender EXTREMITY: No edema SKIN: No rashes, no jaundice NEURO/PSYCH: A & O 3 A/P: A/P: N/v, abd pain, early satiety Uncontrolled DM GERD -- Likely diabetic gastroparesis. Will do formal GES - called this to RN if able to hold clears for breakfast. Agree w/ PPI. Has been started on Reglan - would be best if given scheduled (QIDAC) for now, although not an ideal medication skilled nursing. When taking clears well, ADAT. Encouraged follow-up w/ PCP re: diabetes, perhaps even visit w/ loop cutter. STEPHEN CLIFFORD Aug 03, 2017 08:41
--- NOTE | 2017-08-03 09:59 | ACF ---
Admit Criteria Forms Admit Criteria Forms Admit Criteria Forms ABDOMINAL PAIN Clinical Indications for Admission to Inpatient Care ( [place]/check or initial the applicable condition/criteria): Admission is indicated for ANY ONE of the following (1)(2)(3)(4)(5)(6): [ ]I. Surgery needed that cannot be performed on ambulatory basis [ ]II. Peritoneal signs present (eg, rebound tenderness, rigidity) [ ]III. Evaluation requires patient to not eat or drink for extended period ( eg, more than 24 hours). [ X]IV. Inpatient admission required[B] rather than observation care (see Abdominal Pain: Observation Care guideline as appropriate) because of ANY ONE of the following(7)(8)(9): [ ] a) Hemodynamic instability [X ]b) Severe pain requiring acute inpatient management [ ]c) Identification of etiology or finding that requires inpatient care (eg, aortic dissection, free air,bowel ischemia)(10) [ ]d) Absent bowel sounds with complete ileus (11) [ ]e) Signs of intestinal obstruction[C] [ ]f) Suspected toxic megacolon [ ]g) Severe electrolyte abnormalities requiring inpatient care [ ]h) High fever or infection requiring inpatient admission as indicated by ANY ONE of the following (12)(13): [ ]i) Appropriate outpatient or observation care antimicrobial treatment unavailable, not effective, or not feasible [ ]ii) Documented bacteremia [ ]iii) Temperature greater than 104.9 degrees F (40.5 degrees C) (oral) [ ]iv) Temperature greater than 103.1 degrees F (39.5 degrees C) ( oral) or less than 96.8 degrees F (36 degrees C) (rectal) that does not respond to all emergency treatment measures [ ]i) IV fluid required rather than oral rehydration to replace significant ongoing (eg, for greater than 24 hours) losses (greater than 3 L/m2 per day)(14)(15) [ ]j) Percutaneous or open drainage (eg, abscess, biliary tract) procedures [ ]k) Parenteral nutrition regimen that must be implemented on inpatient basis [X ]l) Other condition, treatment, or monitoring requiring inpatient admission Extended stay beyond goal length of stay may be needed for (1)(3)(4)(10)(16): [ ]a) Surgery (e.g., colectomy, revascularization procedure) [ ]b) Persistent abdominal pain with suspected intra-abdominal process [ ]c) Diagnosed condition requiring continued stay (e.g., pancreatitis, complicated diverticulitis) The original [facility] [employer] content created by [facility] has been revised. The portions of the content which have been revised are identified through the use of italic text, and [facility] (formerly [facility]3] has neither reviewed nor approved the modified material.All other unmodified content is copyright [facility]. Please see references footnoted in the original [facility] [employer] edition 2014 WINSTON GILL Aug 03, 2017 09:59
[2017-08-03 11:00] VITALS: BP 120/64
--- NOTE | 2017-08-03 11:41 | RAD ---
Radionuclide gastric imaging study, 08/03/2017: History: Nausea and vomiting The study was performed utilizing a test meal radiolabeled with 2.0 mCi of technetium 99m sulfur colloid. Imaging of the abdomen out to one hour showed little if any gastric emptying. The time/activity curve is nearly flat. A markedly elongated T1/2 of 670 minutes was calculated. IMPRESSION: Markedly delayed gastric emptying.
[2017-08-03] MEDS ORDERED: POLYETHYLENE GLYCOL 3350 17 GM PACKET. PO PRN (13:45)
[2017-08-03] MEDS ORDERED: BISACODYL 5 MG TABLET.DR. PO PRN (13:45)
--- NOTE | 2017-08-03 13:54 | PDOC ---
PROGRESS NOTES Chief Complaint Chief Complaint intractable N/V ,epigastric abd pain, gastroparesis uncontrolled dm1 htn hld h/o CAD left eye blindness Leukocytosis ,reactive chronic lower back pain h/o drug abuse with marijuana possible drug seeker behavior anxiety plan: GI consulted, GES today, + clear liquid for now ssi reglan iv QID cont home meds gi ppx check urine drug neg hope dc IN 1-2DS i was asked by this hospital to keep pt as inpt statuts instead of ob History of Present Illness History of Present Illness ROS: no fever, chills, sob or chest pain pt STILL HAS n/v , SLIGHTly better tho she requies me to give her pain meds as home regimen, but when i asked her what and how often she takes at home, she is very upset and kept telling me "i m talking about in the hospital" +++ GES Vitals Vitals Vital Signs Date Time Temp Pulse Resp B/P (MAP) Pulse Ox O2 Delivery O2 Flow Rate FiO2 08/03/17 08:25 80 122/60 08/03/17 08:24 20 98 Room Air 08/03/17 07:00 98.2 98.2 Physical Exam General: Alert, Oriented X3, Cooperative Heart: Regular rate, Normal S1 Lungs: Clear Abdomen: Normal bowel sounds, Soft Extremities: No clubbing, No cyanosis Skin: No rashes, No breakdown Labs LABS Laboratory Tests Test 08/02/17 17:21 08/02/17 20:51 08/02/17 22:00 08/03/17 03:30 Glucose (Fingerstick) 313 mg/dL (70-99) 324 mg/dL (70-99) Troponin I Quantitative < 0.017 ng/mL (0.000-0.055) < 0.017 ng/mL (0.000-0.055) White Blood Count 8.7 x10^3/uL (4.0-11.0) Red Blood Count 3.69 x10^6/uL (3.50-5.40) Hemoglobin 11.6 g/dL (12.0-15.5) Hematocrit 33.4 % (36.0-47.0) Mean Corpuscular Volume 90 fL (79-100) Mean Corpuscular Hemoglobin 31 pg (25-35) Mean Corpuscular Hemoglobin Concent 35 g/dL (31-37) Red Cell Distribution Width 13.4 % (11.5-14.5) Platelet Count 234 x10^3/uL (140-400) Neutrophils (%) (Auto) 65 % (31-73) Lymphocytes (%) (Auto) 28 % (24-48) Monocytes (%) (Auto) 7 % (0-9) Eosinophils (%) (Auto) 0 % (0-3) Basophils (%) (Auto) 0 % (0-3) Neutrophils # (Auto) 5.6 x10^3uL (1.8-7.7) Lymphocytes # (Auto) 2.4 x10^3/uL (1.0-4.8) Monocytes # (Auto) 0.6 x10^3/uL (0.0-1.1) Eosinophils # (Auto) 0.0 x10^3/uL (0.0-0.7) Basophils # (Auto) 0.0 x10^3/uL (0.0-0.2) Sodium Level 140 mmol/L (136-145) Potassium Level 3.9 mmol/L (3.5-5.1) Chloride Level 103 mmol/L (98-107) Carbon Dioxide Level 28 mmol/L (21-32) Anion Gap 9 (6-14) Blood Urea Nitrogen 10 mg/dL (7-20) Creatinine 0.9 mg/dL (0.6-1.0) Estimated GFR (Cockcroft-Gault) 85.7 Glucose Level 208 mg/dL (70-99) Calcium Level 8.3 mg/dL (8.5-10.1) Test 08/03/17 07:56 08/03/17 11:47 Glucose (Fingerstick) 170 mg/dL (70-99) 244 mg/dL (70-99) Assessment and Plan Assessmemt and Plan Problems Medical Problems: (1) Chronic abdominal pain Status: Acute (2) Vomiting and diarrhea Status: Acute Problems: Comment Review of Relevant I have reviewed the following items marina (where applicable) has been applied. Labs Laboratory Tests Test 08/02/17 13:45 08/02/17 13:50 08/02/17 17:21 08/02/17 20:51 White Blood Count 11.3 x10^3/uL (4.0-11.0) Red Blood Count 4.23 x10^6/uL (3.50-5.40) Hemoglobin 13.2 g/dL (12.0-15.5) Hematocrit 38.5 % (36.0-47.0) Mean Corpuscular Volume 91 fL (79-100) Mean Corpuscular Hemoglobin 31 pg (25-35) Mean Corpuscular Hemoglobin Concent 34 g/dL (31-37) Red Cell Distribution Width 13.1 % (11.5-14.5) Platelet Count 279 x10^3/uL (140-400) Neutrophils (%) (Auto) 89 % (31-73) Lymphocytes (%) (Auto) 8 % (24-48) Monocytes (%) (Auto) 3 % (0-9) Eosinophils (%) (Auto) 0 % (0-3) Basophils (%) (Auto) 1 % (0-3) Neutrophils # (Auto) 10.1 x10^3uL (1.8-7.7) Lymphocytes # (Auto) 0.9 x10^3/uL (1.0-4.8) Monocytes # (Auto) 0.3 x10^3/uL (0.0-1.1) Eosinophils # (Auto) 0.0 x10^3/uL (0.0-0.7) Basophils # (Auto) 0.1 x10^3/uL (0.0-0.2) Segmented Neutrophils % 93 % (35-66) Band Neutrophils % 1 % (0-9) Lymphocytes % 3 % (24-48) Monocytes % 3 % (0-10) Platelet Estimate Adequate (ADEQUATE) Platelet Clumps, EDTA Present Urine Collection Type Unknown Urine Color Yellow Urine Clarity Cloudy Urine pH 8.0 Urine Specific Greig 1.010 Urine Protein 100 mg/dL (NEG-TRACE) Urine Glucose (UA) Negative mg/dL (NEG) Urine Ketones (Stick) Negative mg/dL (NEG) Urine Blood Negative (NEG) Urine Nitrite Negative (NEG) Urine Bilirubin Negative (NEG) Urine Urobilinogen Dipstick 0.2 mg/dL (0.2 mg/dL) Urine Leukocyte Esterase Negative (NEG) Urine RBC 0 /HPF (0-2) Urine WBC 0 /HPF (0-4) Urine Bacteria Few /HPF (0-FEW) Sodium Level 139 mmol/L (136-145) Potassium Level 4.0 mmol/L (3.5-5.1) Chloride Level 100 mmol/L (98-107) Carbon Dioxide Level 25 mmol/L (21-32) Anion Gap 14 (6-14) Blood Urea Nitrogen 12 mg/dL (7-20) Creatinine 1.1 mg/dL (0.6-1.0) Estimated GFR (Cockcroft-Gault) 68.0 BUN/Creatinine Ratio 11 (6-20) Glucose Level 347 mg/dL (70-99) Calcium Level 9.3 mg/dL (8.5-10.1) Total Bilirubin 0.3 mg/dL (0.2-1.0) Aspartate Amino Transf (AST/SGOT) 17 U/L (15-37) Alanine Aminotransferase (ALT/SGPT) 20 U/L (14-59) Alkaline Phosphatase 105 U/L (46-116) Total Protein 8.3 g/dL (6.4-8.2) Albumin 3.7 g/dL (3.4-5.0) Albumin/Globulin Ratio 0.8 (1.0-1.7) Lipase 111 U/L (73-393) Urine Opiates Screen Pos (NEG) Urine Methadone Screen Neg (NEG) Urine Barbiturates Neg (NEG) Urine Phencyclidine Screen Neg (NEG) Urine Amphetamine/Methamphetamine Neg (NEG) Urine Benzodiazepines Screen Neg (NEG) Urine Cocaine Screen Neg (NEG) Urine Cannabinoids Screen Neg (NEG) Urine Ethyl Alcohol Neg (NEG) Bedside Urine HCG, Qualitative Hcg negative (Negative) Glucose (Fingerstick) 313 mg/dL (70-99) 324 mg/dL (70-99) Test 08/02/17 22:00 08/03/17 03:30 08/03/17 07:56 08/03/17 11:47 Troponin I Quantitative < 0.017 ng/mL (0.000-0.055) < 0.017 ng/mL (0.000-0.055) White Blood Count 8.7 x10^3/uL (4.0-11.0) Red Blood Count 3.69 x10^6/uL (3.50-5.40) Hemoglobin 11.6 g/dL (12.0-15.5) Hematocrit 33.4 % (36.0-47.0) Mean Corpuscular Volume 90 fL (79-100) Mean Corpuscular Hemoglobin 31 pg (25-35) Mean Corpuscular Hemoglobin Concent 35 g/dL (31-37) Red Cell Distribution Width 13.4 % (11.5-14.5) Platelet Count 234 x10^3/uL (140-400) Neutrophils (%) (Auto) 65 % (31-73) Lymphocytes (%) (Auto) 28 % (24-48) Monocytes (%) (Auto) 7 % (0-9) Eosinophils (%) (Auto) 0 % (0-3) Basophils (%) (Auto) 0 % (0-3) Neutrophils # (Auto) 5.6 x10^3uL (1.8-7.7) Lymphocytes # (Auto) 2.4 x10^3/uL (1.0-4.8) Monocytes # (Auto) 0.6 x10^3/uL (0.0-1.1) Eosinophils # (Auto) 0.0 x10^3/uL (0.0-0.7) Basophils # (Auto) 0.0 x10^3/uL (0.0-0.2) Sodium Level 140 mmol/L (136-145) Potassium Level 3.9 mmol/L (3.5-5.1) Chloride Level 103 mmol/L (98-107) Carbon Dioxide Level 28 mmol/L (21-32) Anion Gap 9 (6-14) Blood Urea Nitrogen 10 mg/dL (7-20) Creatinine 0.9 mg/dL (0.6-1.0) Estimated GFR (Cockcroft-Gault) 85.7 Glucose Level 208 mg/dL (70-99) Calcium Level 8.3 mg/dL (8.5-10.1) Glucose (Fingerstick) 170 mg/dL (70-99) 244 mg/dL (70-99) Laboratory Tests Test 08/02/17 17:21 08/02/17 20:51 08/02/17 22:00 08/03/17 03:30 Glucose (Fingerstick) 313 mg/dL (70-99) 324 mg/dL (70-99) Troponin I Quantitative < 0.017 ng/mL (0.000-0.055) < 0.017 ng/mL (0.000-0.055) White Blood Count 8.7 x10^3/uL (4.0-11.0) Red Blood Count 3.69 x10^6/uL (3.50-5.40) Hemoglobin 11.6 g/dL (12.0-15.5) Hematocrit 33.4 % (36.0-47.0) Mean Corpuscular Volume 90 fL (79-100) Mean Corpuscular Hemoglobin 31 pg (25-35) Mean Corpuscular Hemoglobin Concent 35 g/dL (31-37) Red Cell Distribution Width 13.4 % (11.5-14.5) Platelet Count 234 x10^3/uL (140-400) Neutrophils (%) (Auto) 65 % (31-73) Lymphocytes (%) (Auto) 28 % (24-48) Monocytes (%) (Auto) 7 % (0-9) Eosinophils (%) (Auto) 0 % (0-3) Basophils (%) (Auto) 0 % (0-3) Neutrophils # (Auto) 5.6 x10^3uL (1.8-7.7) Lymphocytes # (Auto) 2.4 x10^3/uL (1.0-4.8) Monocytes # (Auto) 0.6 x10^3/uL (0.0-1.1) Eosinophils # (Auto) 0.0 x10^3/uL (0.0-0.7) Basophils # (Auto) 0.0 x10^3/uL (0.0-0.2) Sodium Level 140 mmol/L (136-145) Potassium Level 3.9 mmol/L (3.5-5.1) Chloride Level 103 mmol/L (98-107) Carbon Dioxide Level 28 mmol/L (21-32) Anion Gap 9 (6-14) Blood Urea Nitrogen 10 mg/dL (7-20) Creatinine 0.9 mg/dL (0.6-1.0) Estimated GFR (Cockcroft-Gault) 85.7 Glucose Level 208 mg/dL (70-99) Calcium Level 8.3 mg/dL (8.5-10.1) Test 08/03/17 07:56 08/03/17 11:47 Glucose (Fingerstick) 170 mg/dL (70-99) 244 mg/dL (70-99) Medications Current Medications Sodium Chloride 1,000 ml @ 1,000 mls/hr 1X ONCE IV Last administered on 13:59; Start 08/02/17 at 13:15; Stop 08/02/17 at 14:14; Status DC Ondansetron HCl (Zofran) 4 mg 1X ONCE IV Last administered on 08/02/17 13:59 ; Start 08/02/17 at 13:45; Stop 08/02/17 at 13:46; Status DC Lorazepam (Ativan) 1 mg 1X ONCE PO Last administered on 08/02/17 15:27; Start 08/02/17 at 15:30; Stop 08/02/17 at 15:31; Status DC Metoclopramide HCl (Reglan) 10 mg 1X ONCE IV Last administered on 08/02/17 15 :28; Start 08/02/17 at 15:30; Stop 08/02/17 at 15:31; Status DC Ondansetron HCl (Zofran) 4 mg PRN Q8HRS PRN IV NAUSEA/VOMITING; Start 08/02/17 at 15:45; Stop 08/02/17 at 16:19; Status DC Insulin Aspart (NovoLOG) 0-9 UNITS TIDWMEALS SQ Last administered on 08/02/17 18:23; Start 08/02/17 at 17:00; Stop 08/02/17 at 21:11; Status DC Dextrose (Dextrose 50%-Water Syringe) 12.5 gm PRN Q15MIN PRN IV SEE COMMENTS; Start 08/02/17 at 16:15 Acetaminophen (Tylenol) 650 mg PRN Q6HRS PRN PO FEVER; Start 08/02/17 at 16:15 ; Stop 08/02/17 at 17:08; Status DC Ondansetron HCl (Zofran) 4 mg PRN Q6HRS PRN IV NAUSEA/VOMITING; Start 08/02/17 at 16:15; Stop 08/02/17 at 17:08; Status DC Hydralazine HCl (Apresoline) 10 mg PRN Q4HRS PRN IVP ELEVATED BP, SEE COMMENTS ; Start 08/02/17 at 16:15; Stop 08/02/17 at 17:08; Status DC Docusate Sodium (Colace) 100 mg PRN DAILY PRN PO CONSTIPATION; Start 08/02/17 at 16:15; Stop 08/02/17 at 17:08; Status DC Aspirin (Children'S Aspirin) 81 mg DAILY PO Last administered on 08/03/17 08: 23; Start 08/02/17 at 17:00 Clopidogrel Bisulfate (Plavix) 75 mg DAILY PO Last administered on 08/03/17 08 :25; Start 08/02/17 at 17:00 Cyclobenzaprine HCl (Flexeril) 10 mg PRN TID PRN PO MUSCLE SPASMS Last administered on 08/03/17 06:42; Start 08/02/17 at 16:15 Dicyclomine HCl (Bentyl) 10 mg TID PO Last administered on 08/03/17 08:23; Start 08/02/17 at 16:30 Metoprolol Succinate (Toprol Xl) 50 mg DAILY16 PO ; Start 08/03/17 at 17:00 Oxycodone/ Acetaminophen (Percocet 10/325) 1 tab TID PO Last administered on 08:24; Start 08/02/17 at 21:00 Pantoprazole Sodium (Protonix) 40 mg DAILY PO Last administered on 08/03/17 08 :25; Start 08/02/17 at 16:30 Simvastatin (Zocor) 20 mg QHS PO Last administered on 08/02/17 20:27; Start at 21:00 Gabapentin (Neurontin) 600 mg TID PO Last administered on 08/03/17 08:26; Start 08/02/17 at 21:00 Lisinopril (Prinivil) 10 mg DAILY PO Last administered on 08/03/17 08:25; Start 08/02/17 at 17:00 Metoclopramide HCl (Reglan) 10 mg TID IV Last administered on 08/02/17 20:27; Start 08/02/17 at 21:00; Stop 08/03/17 at 09:56; Status DC Acetaminophen (Tylenol) 650 mg PRN Q6HRS PRN PO FEVER; Start 08/02/17 at 16:15 Ondansetron HCl (Zofran) 4 mg PRN Q6HRS PRN IV NAUSEA/VOMITING; Start 08/02/17 at 16:15 Morphine Sulfate 2 mg PRN Q2HR PRN IV PAIN; Start 08/02/17 at 16:15; Status UNV Hydralazine HCl (Apresoline) 10 mg PRN Q4HRS PRN IVP ELEVATED BP, SEE COMMENTS ; Start 08/02/17 at 16:15 Docusate Sodium (Colace) 100 mg PRN DAILY PRN PO CONSTIPATION; Start 08/02/17 at 16:15 Insulin Aspart (NovoLOG) 0-9 UNITS TIDACHC SQ Last administered on 08/03/17t 12 :35; Start 08/02/17 at 21:15 Insulin Aspart (NovoLOG) 10 units 1X ONCE SQ ; Start 08/02/17 at 21:15; Stop at 21:16; Status DC Metoclopramide HCl (Reglan) 10 mg QIDACHS IV Last administered on 08/03/17t 12: 24; Start 08/03/17 at 11:30 Polyethylene Glycol (miraLAX PACKET) 17 gm PRN DAILY PRN PO CONSTIPATION; Start 08/03/17 at 13:45 Bisacodyl (Dulcolax Tab) 5 mg PRN DAILY PRN PO CONSTIPATION; Start 08/03/17 at 13:45 Active Scripts Active Naprosyn (Naproxen) 500 Mg Tablet 1 Tab PO BID Zofran Odt (Ondansetron) 4 Mg Tab.rapdis 4 Mg PO BID PRN 7 Days Bentyl (Dicyclomine Hcl) 10 Mg Capsule 1 Cap PO TID Miralax (Polyethylene Glycol 3350) 17 Gm Powd.pack 1 Packet PO DAILY PRN Senokot (Sennosides) 8.6 Mg Tablet 1 Tab PO BID Reported Pantoprazole Sodium 40 Mg Tablet.dr 1 Tab PO DAILY Cyclobenzaprine Hcl 10 Mg Tablet 1 Tab PO TID PRN Tramadol Hcl 50 Mg Tablet 1 Tab PO BID Percocet 10-325 Mg Tablet (Oxycodone/Acetaminophen) 1 Each Tablet 1 Tab PO TID Promethazine Hcl 25 Mg Tablet Unknown Dose PO Q6H PRN Prevacid (Lansoprazole) 30 Mg Capsule.dr 1 Cap PO DAILY Gabapentin 600 Mg Tablet 600 Mg PO TID Aspirin 81 Mg Tab.chew 1 Tab PO DAILY Novolog Flexpen (Insulin Aspart) 100 Unit/1 Ml Insuln.pen 0-10 SQ TIDAC Novolog (Insulin Aspart) 100 Unit/1 Ml Vial 6 Unit SQ TIDAC Simvastatin 20 Mg Tablet 20 Mg PO DAILY Ramipril 5 Mg Capsule 5 Mg PO DAILY Plavix (Clopidogrel Bisulfate) 75 Mg Tablet 75 Mg PO DAILY Metoprolol Succinate ( Xl ) (Metoprolol Succinate) 100 Mg Tab.er.24h 50 Mg PO DAILY16 Metoprolol Succinate ( Xl ) (Metoprolol Succinate) 100 Mg Tab.er.24h 100 Mg PO DAILY08 Vitals/I & O Vital Sign - Last 24 Hours 08/02/17 08/02/17 08/02/17 08/02/17 14:45 15:45 16:45 17:32 Temp 97.7 97.7 Pulse 100 103 101 99 Resp 18 18 18 18 B/P (MAP) 117/59 (78) 109/51 (70) 111/57 (75) 152/80 (104) Pulse Ox 100 99 100 100 O2 Delivery Room Air Room Air Room Air Room Air 08/02/17 08/02/17 08/02/17 08/02/17 18:26 19:00 20:00 20:00 Temp 98.1 98.1 Pulse 99 91 Resp 18 B/P (MAP) 152/80 127/61 (83) Pulse Ox 100 O2 Delivery Room Air Room Air Room Air 08/02/17 08/02/17 08/02/17 08/02/17 20:00 20:28 21:28 22:49 Temp 98.8 98.8 Pulse 89 Resp 18 B/P (MAP) 100/50 (67) Pulse Ox 100 100 97 O2 Delivery Room Air Room Air Room Air 08/03/17 08/03/17 08/03/17 08/03/17 02:57 07:00 08:24 08:25 Temp 98.6 98.2 98.6 98.2 Pulse 84 80 80 Resp 18 17 20 B/P (MAP) 112/56 (74) 122/60 (80) 122/60 Pulse Ox 98 97 98 O2 Delivery Room Air Room Air Room Air KEYUR RUSSELL MD Aug 03, 2017 13:54
[2017-08-03 15:00] VITALS: BP 125/69
[2017-08-03 19:05] VITALS: BP 122/73
[2017-08-03] MEDS: METOPROLOL SUCC 24HR ER 100 MG TAB.ER.24H. PO SCH (19:05)
[2017-08-03] MEDS: SIMVASTATIN 20 MG TABLET PO SCH (21:08)
[2017-08-03] MEDS: oxyCODONE/APAP 10/325 1 TAB TABLET PO PRN (21:09)
[2017-08-03 23:00] VITALS: BP 103/55
[2017-08-04 03:00] VITALS: BP 118/69
[2017-08-04 04:32] LABS: BASO # 0.1 x10^3/uL (0.0-0.2); BASO % 1 % (0-3); EOS % 1 % (0-3); HEMATOCRIT 34.6 % (36.0-47.0); HEMOGLOBIN 11.8 g/dL (12.0-15.5); LYMPH # 3.4 x10^3/uL (1.0-4.8); LYMPH % 51 % (24-48); MEAN CORPUSCULAR HEMOGLOBIN 31 pg (25-35); MEAN CORPUSCULAR HGB CONC 34 g/dL (31-37); MEAN CORPUSCULAR VOLUME 91 fL (79-100); MONO % 8 % (0-9); NEUT % 39 % (31-73); PLATELET COUNT 240 x10^3/uL (140-400); RED BLOOD COUNT 3.81 x10^6/uL (3.50-5.40); RED CELL DISTRIBUTION WIDTH 13.2 % (11.5-14.5); WHITE BLOOD COUNT 6.6 x10^3/uL (4.0-11.0)
[2017-08-04 04:45] LABS: CALCIUM 8.3 mg/dL (8.5-10.1); CREATININE 0.9 mg/dL (0.6-1.0); GFR 85.7; POTASSIUM 3.4 mmol/L (3.5-5.1)
[2017-08-04] MEDS: oxyCODONE/APAP 10/325 1 TAB TABLET PO PRN ×2 (05:01→12:51)
[2017-08-04] MEDS: CYCLOBENZAPRINE 10 MG TABLET. PO PRN (05:01)
[2017-08-04 07:00] VITALS: BP 125/69
[2017-08-04] MEDS: INSULIN ASPART 300 UNITS/3 ML INSULN.PEN SQ SCH ×3 (07:30→16:30)
[2017-08-04] MEDS: METOCLOPRAMIDE HCL 10 MG/2 ML VIAL. IV SCH ×3 (08:18→16:30)
[2017-08-04] MEDS: DICYCLOMINE HCL 10 MG CAPSULE PO SCH ×2 (09:00→14:00)
[2017-08-04] MEDS: LISINOPRIL 10 MG TABLET PO SCH (09:12)
[2017-08-04] MEDS: GABAPENTIN 300 MG CAPSULE. PO SCH ×2 (09:12→14:08)
[2017-08-04] MEDS: ASPIRIN CHEWABLE 81 MG TABLET. PO SCH (09:12)
[2017-08-04] MEDS: CLOPIDOGREL BISULFATE 75 MG TABLET PO SCH (09:13)
[2017-08-04] MEDS: PANTOPRAZOLE 40 MG TABLET.DR. PO SCH (09:13)
[2017-08-04 11:10] VITALS: BP 145/74
--- NOTE | 2017-08-04 11:13 | PDOC ---
PROGRESS NOTES Chief Complaint Chief Complaint intractable N/V ,epigastric abd pain, gastroparesis uncontrolled dm1 htn hld h/o CAD left eye blindness Leukocytosis ,reactive chronic lower back pain anxiety d/o History of Present Illness History of Present Illness GI consulted, GES + advance to full liquid lactaid for lactose intolerance long discussion with GI and me in the room together, 30 + minutes on pathophys, treatments, plan, symptom control, she would like to discuss surgical options as she had many questions ssi reglan to PO cont home meds gi ppx Vitals Vitals Vital Signs Date Time Temp Pulse Resp B/P (MAP) Pulse Ox O2 Delivery O2 Flow Rate FiO2 08/04/17 09:12 69 125/63 08/04/17 07:45 Room Air 08/04/17 07:00 98.1 18 99 98.1 Physical Exam General: Alert, Oriented X3, Cooperative, No acute distress Heart: Regular rate, Normal S1 Lungs: Clear Abdomen: Normal bowel sounds, Soft Extremities: No clubbing, No cyanosis Skin: No rashes, No breakdown Labs LABS Laboratory Tests Test 08/03/17 11:47 08/03/17 17:12 08/03/17 20:52 08/04/17 04:18 Glucose (Fingerstick) 244 mg/dL (70-99) 159 mg/dL (70-99) 224 mg/dL (70-99) White Blood Count 6.6 x10^3/uL (4.0-11.0) Red Blood Count 3.81 x10^6/uL (3.50-5.40) Hemoglobin 11.8 g/dL (12.0-15.5) Hematocrit 34.6 % (36.0-47.0) Mean Corpuscular Volume 91 fL (79-100) Mean Corpuscular Hemoglobin 31 pg (25-35) Mean Corpuscular Hemoglobin Concent 34 g/dL (31-37) Red Cell Distribution Width 13.2 % (11.5-14.5) Platelet Count 240 x10^3/uL (140-400) Neutrophils (%) (Auto) 39 % (31-73) Lymphocytes (%) (Auto) 51 % (24-48) Monocytes (%) (Auto) 8 % (0-9) Eosinophils (%) (Auto) 1 % (0-3) Basophils (%) (Auto) 1 % (0-3) Neutrophils # (Auto) 2.5 x10^3uL (1.8-7.7) Lymphocytes # (Auto) 3.4 x10^3/uL (1.0-4.8) Monocytes # (Auto) 0.5 x10^3/uL (0.0-1.1) Eosinophils # (Auto) 0.1 x10^3/uL (0.0-0.7) Basophils # (Auto) 0.1 x10^3/uL (0.0-0.2) Sodium Level 139 mmol/L (136-145) Potassium Level 3.4 mmol/L (3.5-5.1) Chloride Level 103 mmol/L (98-107) Carbon Dioxide Level 28 mmol/L (21-32) Anion Gap 8 (6-14) Blood Urea Nitrogen 9 mg/dL (7-20) Creatinine 0.9 mg/dL (0.6-1.0) Estimated GFR (Cockcroft-Gault) 85.7 Glucose Level 113 mg/dL (70-99) Calcium Level 8.3 mg/dL (8.5-10.1) Test 08/04/17 08:04 Glucose (Fingerstick) 146 mg/dL (70-99) Review of Systems Review of Systems no .v.d still nausea Assessment and Plan Assessmemt and Plan Problems Medical Problems: (1) Chronic abdominal pain Status: Acute (2) Vomiting and diarrhea Status: Acute Problems: Comment Review of Relevant I have reviewed the following items marina (where applicable) has been applied. Labs Laboratory Tests Test 08/02/17 13:45 08/02/17 13:50 08/02/17 17:21 08/02/17 20:51 White Blood Count 11.3 x10^3/uL (4.0-11.0) Red Blood Count 4.23 x10^6/uL (3.50-5.40) Hemoglobin 13.2 g/dL (12.0-15.5) Hematocrit 38.5 % (36.0-47.0) Mean Corpuscular Volume 91 fL (79-100) Mean Corpuscular Hemoglobin 31 pg (25-35) Mean Corpuscular Hemoglobin Concent 34 g/dL (31-37) Red Cell Distribution Width 13.1 % (11.5-14.5) Platelet Count 279 x10^3/uL (140-400) Neutrophils (%) (Auto) 89 % (31-73) Lymphocytes (%) (Auto) 8 % (24-48) Monocytes (%) (Auto) 3 % (0-9) Eosinophils (%) (Auto) 0 % (0-3) Basophils (%) (Auto) 1 % (0-3) Neutrophils # (Auto) 10.1 x10^3uL (1.8-7.7) Lymphocytes # (Auto) 0.9 x10^3/uL (1.0-4.8) Monocytes # (Auto) 0.3 x10^3/uL (0.0-1.1) Eosinophils # (Auto) 0.0 x10^3/uL (0.0-0.7) Basophils # (Auto) 0.1 x10^3/uL (0.0-0.2) Segmented Neutrophils % 93 % (35-66) Band Neutrophils % 1 % (0-9) Lymphocytes % 3 % (24-48) Monocytes % 3 % (0-10) Platelet Estimate Adequate (ADEQUATE) Platelet Clumps, EDTA Present Urine Collection Type Unknown Urine Color Yellow Urine Clarity Cloudy Urine pH 8.0 Urine Specific [place] 1.010 Urine Protein 100 mg/dL (NEG-TRACE) Urine Glucose (UA) Negative mg/dL (NEG) Urine Ketones (Stick) Negative mg/dL (NEG) Urine Blood Negative (NEG) Urine Nitrite Negative (NEG) Urine Bilirubin Negative (NEG) Urine Urobilinogen Dipstick 0.2 mg/dL (0.2 mg/dL) Urine Leukocyte Esterase Negative (NEG) Urine RBC 0 /HPF (0-2) Urine WBC 0 /HPF (0-4) Urine Bacteria Few /HPF (0-FEW) Sodium Level 139 mmol/L (136-145) Potassium Level 4.0 mmol/L (3.5-5.1) Chloride Level 100 mmol/L (98-107) Carbon Dioxide Level 25 mmol/L (21-32) Anion Gap 14 (6-14) Blood Urea Nitrogen 12 mg/dL (7-20) Creatinine 1.1 mg/dL (0.6-1.0) Estimated GFR (Cockcroft-Gault) 68.0 BUN/Creatinine Ratio 11 (6-20) Glucose Level 347 mg/dL (70-99) Calcium Level 9.3 mg/dL (8.5-10.1) Total Bilirubin 0.3 mg/dL (0.2-1.0) Aspartate Amino Transf (AST/SGOT) 17 U/L (15-37) Alanine Aminotransferase (ALT/SGPT) 20 U/L (14-59) Alkaline Phosphatase 105 U/L (46-116) Total Protein 8.3 g/dL (6.4-8.2) Albumin 3.7 g/dL (3.4-5.0) Albumin/Globulin Ratio 0.8 (1.0-1.7) Lipase 111 U/L (73-393) Urine Opiates Screen Pos (NEG) Urine Methadone Screen Neg (NEG) Urine Barbiturates Neg (NEG) Urine Phencyclidine Screen Neg (NEG) Urine Amphetamine/Methamphetamine Neg (NEG) Urine Benzodiazepines Screen Neg (NEG) Urine Cocaine Screen Neg (NEG) Urine Cannabinoids Screen Neg (NEG) Urine Ethyl Alcohol Neg (NEG) Bedside Urine HCG, Qualitative Hcg negative (Negative) Glucose (Fingerstick) 313 mg/dL (70-99) 324 mg/dL (70-99) Test 08/02/17 22:00 08/03/17 03:30 08/03/17 07:56 08/03/17 11:47 Troponin I Quantitative < 0.017 ng/mL (0.000-0.055) < 0.017 ng/mL (0.000-0.055) White Blood Count 8.7 x10^3/uL (4.0-11.0) Red Blood Count 3.69 x10^6/uL (3.50-5.40) Hemoglobin 11.6 g/dL (12.0-15.5) Hematocrit 33.4 % (36.0-47.0) Mean Corpuscular Volume 90 fL (79-100) Mean Corpuscular Hemoglobin 31 pg (25-35) Mean Corpuscular Hemoglobin Concent 35 g/dL (31-37) Red Cell Distribution Width 13.4 % (11.5-14.5) Platelet Count 234 x10^3/uL (140-400) Neutrophils (%) (Auto) 65 % (31-73) Lymphocytes (%) (Auto) 28 % (24-48) Monocytes (%) (Auto) 7 % (0-9) Eosinophils (%) (Auto) 0 % (0-3) Basophils (%) (Auto) 0 % (0-3) Neutrophils # (Auto) 5.6 x10^3uL (1.8-7.7) Lymphocytes # (Auto) 2.4 x10^3/uL (1.0-4.8) Monocytes # (Auto) 0.6 x10^3/uL (0.0-1.1) Eosinophils # (Auto) 0.0 x10^3/uL (0.0-0.7) Basophils # (Auto) 0.0 x10^3/uL (0.0-0.2) Sodium Level 140 mmol/L (136-145) Potassium Level 3.9 mmol/L (3.5-5.1) Chloride Level 103 mmol/L (98-107) Carbon Dioxide Level 28 mmol/L (21-32) Anion Gap 9 (6-14) Blood Urea Nitrogen 10 mg/dL (7-20) Creatinine 0.9 mg/dL (0.6-1.0) Estimated GFR (Cockcroft-Gault) 85.7 Glucose Level 208 mg/dL (70-99) Calcium Level 8.3 mg/dL (8.5-10.1) Glucose (Fingerstick) 170 mg/dL (70-99) 244 mg/dL (70-99) Test 08/03/17 17:12 08/03/17 20:52 08/04/17 04:18 08/04/17 08:04 Glucose (Fingerstick) 159 mg/dL (70-99) 224 mg/dL (70-99) 146 mg/dL (70-99) White Blood Count 6.6 x10^3/uL (4.0-11.0) Red Blood Count 3.81 x10^6/uL (3.50-5.40) Hemoglobin 11.8 g/dL (12.0-15.5) Hematocrit 34.6 % (36.0-47.0) Mean Corpuscular Volume 91 fL (79-100) Mean Corpuscular Hemoglobin 31 pg (25-35) Mean Corpuscular Hemoglobin Concent 34 g/dL (31-37) Red Cell Distribution Width 13.2 % (11.5-14.5) Platelet Count 240 x10^3/uL (140-400) Neutrophils (%) (Auto) 39 % (31-73) Lymphocytes (%) (Auto) 51 % (24-48) Monocytes (%) (Auto) 8 % (0-9) Eosinophils (%) (Auto) 1 % (0-3) Basophils (%) (Auto) 1 % (0-3) Neutrophils # (Auto) 2.5 x10^3uL (1.8-7.7) Lymphocytes # (Auto) 3.4 x10^3/uL (1.0-4.8) Monocytes # (Auto) 0.5 x10^3/uL (0.0-1.1) Eosinophils # (Auto) 0.1 x10^3/uL (0.0-0.7) Basophils # (Auto) 0.1 x10^3/uL (0.0-0.2) Sodium Level 139 mmol/L (136-145) Potassium Level 3.4 mmol/L (3.5-5.1) Chloride Level 103 mmol/L (98-107) Carbon Dioxide Level 28 mmol/L (21-32) Anion Gap 8 (6-14) Blood Urea Nitrogen 9 mg/dL (7-20) Creatinine 0.9 mg/dL (0.6-1.0) Estimated GFR (Cockcroft-Gault) 85.7 Glucose Level 113 mg/dL (70-99) Calcium Level 8.3 mg/dL (8.5-10.1) Laboratory Tests Test 08/03/17 11:47 08/03/17 17:12 08/03/17 20:52 08/04/17 04:18 Glucose (Fingerstick) 244 mg/dL (70-99) 159 mg/dL (70-99) 224 mg/dL (70-99) White Blood Count 6.6 x10^3/uL (4.0-11.0) Red Blood Count 3.81 x10^6/uL (3.50-5.40) Hemoglobin 11.8 g/dL (12.0-15.5) Hematocrit 34.6 % (36.0-47.0) Mean Corpuscular Volume 91 fL (79-100) Mean Corpuscular Hemoglobin 31 pg (25-35) Mean Corpuscular Hemoglobin Concent 34 g/dL (31-37) Red Cell Distribution Width 13.2 % (11.5-14.5) Platelet Count 240 x10^3/uL (140-400) Neutrophils (%) (Auto) 39 % (31-73) Lymphocytes (%) (Auto) 51 % (24-48) Monocytes (%) (Auto) 8 % (0-9) Eosinophils (%) (Auto) 1 % (0-3) Basophils (%) (Auto) 1 % (0-3) Neutrophils # (Auto) 2.5 x10^3uL (1.8-7.7) Lymphocytes # (Auto) 3.4 x10^3/uL (1.0-4.8) Monocytes # (Auto) 0.5 x10^3/uL (0.0-1.1) Eosinophils # (Auto) 0.1 x10^3/uL (0.0-0.7) Basophils # (Auto) 0.1 x10^3/uL (0.0-0.2) Sodium Level 139 mmol/L (136-145) Potassium Level 3.4 mmol/L (3.5-5.1) Chloride Level 103 mmol/L (98-107) Carbon Dioxide Level 28 mmol/L (21-32) Anion Gap 8 (6-14) Blood Urea Nitrogen 9 mg/dL (7-20) Creatinine 0.9 mg/dL (0.6-1.0) Estimated GFR (Cockcroft-Gault) 85.7 Glucose Level 113 mg/dL (70-99) Calcium Level 8.3 mg/dL (8.5-10.1) Test 08/04/17 08:04 Glucose (Fingerstick) 146 mg/dL (70-99) Medications Current Medications Sodium Chloride 1,000 ml @ 1,000 mls/hr 1X ONCE IV Last administered on 13:59; Start 08/02/17 at 13:15; Stop 08/02/17 at 14:14; Status DC Ondansetron HCl (Zofran) 4 mg 1X ONCE IV Last administered on 08/02/17 13:59 ; Start 08/02/17 at 13:45; Stop 08/02/17 at 13:46; Status DC Lorazepam (Ativan) 1 mg 1X ONCE PO Last administered on 08/02/17 15:27; Start 08/02/17 at 15:30; Stop 08/02/17 at 15:31; Status DC Metoclopramide HCl (Reglan) 10 mg 1X ONCE IV Last administered on 08/02/17 15 :28; Start 08/02/17 at 15:30; Stop 08/02/17 at 15:31; Status DC Ondansetron HCl (Zofran) 4 mg PRN Q8HRS PRN IV NAUSEA/VOMITING; Start 08/02/17 at 15:45; Stop 08/02/17 at 16:19; Status DC Insulin Aspart (NovoLOG) 0-9 UNITS TIDWMEALS SQ Last administered on 08/02/17 18:23; Start 08/02/17 at 17:00; Stop 08/02/17 at 21:11; Status DC Dextrose (Dextrose 50%-Water Syringe) 12.5 gm PRN Q15MIN PRN IV SEE COMMENTS; Start 08/02/17 at 16:15 Acetaminophen (Tylenol) 650 mg PRN Q6HRS PRN PO FEVER; Start 08/02/17 at 16:15 ; Stop 08/02/17 at 17:08; Status DC Ondansetron HCl (Zofran) 4 mg PRN Q6HRS PRN IV NAUSEA/VOMITING; Start 08/02/17 at 16:15; Stop 08/02/17 at 17:08; Status DC Hydralazine HCl (Apresoline) 10 mg PRN Q4HRS PRN IVP ELEVATED BP, SEE COMMENTS ; Start 08/02/17 at 16:15; Stop 08/02/17 at 17:08; Status DC Docusate Sodium (Colace) 100 mg PRN DAILY PRN PO CONSTIPATION; Start 08/02/17 at 16:15; Stop 08/02/17 at 17:08; Status DC Aspirin (Children'S Aspirin) 81 mg DAILY PO Last administered on 08/04/17 09: 12; Start 08/02/17 at 17:00 Clopidogrel Bisulfate (Plavix) 75 mg DAILY PO Last administered on 08/04/17 09 :13; Start 08/02/17 at 17:00 Cyclobenzaprine HCl (Flexeril) 10 mg PRN TID PRN PO MUSCLE SPASMS Last administered on 08/04/17 05:01; Start 08/02/17 at 16:15 Dicyclomine HCl (Bentyl) 10 mg TID PO Last administered on 08/03/17 08:23; Start 08/02/17 at 16:30 Metoprolol Succinate (Toprol Xl) 50 mg DAILY16 PO Last administered on 19:05; Start 08/03/17 at 17:00 Oxycodone/ Acetaminophen (Percocet 10/325) 1 tab TID PO Last administered on 16:07; Start 08/02/17 at 21:00; Stop 08/03/17 at 19:09; Status DC Pantoprazole Sodium (Protonix) 40 mg DAILY PO Last administered on 08/04/17 09 :13; Start 08/02/17 at 16:30 Simvastatin (Zocor) 20 mg QHS PO Last administered on 08/03/17 21:08; Start at 21:00 Gabapentin (Neurontin) 600 mg TID PO Last administered on 08/04/17 09:12; Start 08/02/17 at 21:00 Lisinopril (Prinivil) 10 mg DAILY PO Last administered on 08/04/17 09:12; Start 08/02/17 at 17:00 Metoclopramide HCl (Reglan) 10 mg TID IV Last administered on 08/02/17 20:27; Start 08/02/17 at 21:00; Stop 08/03/17 at 09:56; Status DC Acetaminophen (Tylenol) 650 mg PRN Q6HRS PRN PO FEVER; Start 08/02/17 at 16:15 Ondansetron HCl (Zofran) 4 mg PRN Q6HRS PRN IV NAUSEA/VOMITING; Start 08/02/17 at 16:15 Morphine Sulfate 2 mg PRN Q2HR PRN IV PAIN; Start 08/02/17 at 16:15; Status UNV Hydralazine HCl (Apresoline) 10 mg PRN Q4HRS PRN IVP ELEVATED BP, SEE COMMENTS ; Start 08/02/17 at 16:15 Docusate Sodium (Colace) 100 mg PRN DAILY PRN PO CONSTIPATION; Start 9/19/17 at 16:15 Insulin Aspart (NovoLOG) 0-9 UNITS TIDACHC SQ Last administered on 08/03/17 21 :17; Start 08/02/17 at 21:15 Insulin Aspart (NovoLOG) 10 units 1X ONCE SQ ; Start 08/02/17 at 21:15; Stop at 21:16; Status DC Metoclopramide HCl (Reglan) 10 mg QIDACHS IV Last administered on 08/04/17 08: 18; Start 08/03/17 at 11:30 Polyethylene Glycol (miraLAX PACKET) 17 gm PRN DAILY PRN PO CONSTIPATION; Start 08/03/17 at 13:45 Bisacodyl (Dulcolax Tab) 5 mg PRN DAILY PRN PO CONSTIPATION; Start 08/03/17 at 13:45 Oxycodone/ Acetaminophen (Percocet 10/325) 1 tab PRN Q8HRS PRN PO PAIN MOD TO SEV Last administered on 08/04/17 05:01; Start 08/03/17 at 22:00 Active Scripts Active Naprosyn (Naproxen) 500 Mg Tablet 1 Tab PO BID Zofran Odt (Ondansetron) 4 Mg Tab.rapdis 4 Mg PO BID PRN 7 Days Bentyl (Dicyclomine Hcl) 10 Mg Capsule 1 Cap PO TID Miralax (Polyethylene Glycol 3350) 17 Gm Powd.pack 1 Packet PO DAILY PRN Senokot (Sennosides) 8.6 Mg Tablet 1 Tab PO BID Reported Pantoprazole Sodium 40 Mg Tablet.dr 1 Tab PO DAILY Cyclobenzaprine Hcl 10 Mg Tablet 1 Tab PO TID PRN Tramadol Hcl 50 Mg Tablet 1 Tab PO BID Percocet 10-325 Mg Tablet (Oxycodone/Acetaminophen) 1 Each Tablet 1 Tab PO TID Promethazine Hcl 25 Mg Tablet Unknown Dose PO Q6H PRN Prevacid (Lansoprazole) 30 Mg Capsule.dr 1 Cap PO DAILY Gabapentin 600 Mg Tablet 600 Mg PO TID Aspirin 81 Mg Tab.chew 1 Tab PO DAILY Novolog Flexpen (Insulin Aspart) 100 Unit/1 Ml Insuln.pen 0-10 SQ TIDAC Novolog (Insulin Aspart) 100 Unit/1 Ml Vial 6 Unit SQ TIDAC Simvastatin 20 Mg Tablet 20 Mg PO DAILY Ramipril 5 Mg Capsule 5 Mg PO DAILY Plavix (Clopidogrel Bisulfate) 75 Mg Tablet 75 Mg PO DAILY Metoprolol Succinate ( Xl ) (Metoprolol Succinate) 100 Mg Tab.er.24h 50 Mg PO DAILY16 Metoprolol Succinate ( Xl ) (Metoprolol Succinate) 100 Mg Tab.er.24h 100 Mg PO DAILY08 Vitals/I & O Vital Sign - Last 24 Hours 08/03/17 08/03/17 08/03/17 08/03/17 15:00 16:07 19:00 19:05 Temp 97.5 97.5 Pulse 94 79 Resp 18 20 B/P (MAP) 125/69 (87) 122/73 Pulse Ox 98 98 98 O2 Delivery Room Air Room Air Room Air 08/03/17 08/03/17 08/03/17 08/03/17 19:05 20:00 21:09 23:00 Temp 98.4 97.9 98.4 97.9 Pulse 79 73 Resp 18 17 B/P (MAP) 122/73 (89) 103/55 (71) Pulse Ox 98 98 98 O2 Delivery Room Air Room Air Room Air Room Air 08/04/17 08/04/17 08/04/17 08/04/17 03:00 05:01 06:03 07:00 Temp 98.1 98.1 98.1 98.1 Pulse 75 69 Resp 16 18 B/P (MAP) 118/69 (85) 125/69 (87) Pulse Ox 98 98 98 99 O2 Delivery Room Air Room Air 08/04/17 08/04/17 07:45 09:12 Pulse 69 B/P (MAP) 125/63 O2 Delivery Room Air Intake and Output 08/04/17 08/04/17 08/05/17 15:00 23:00 07:00 Intake Total 240 ml Balance 240 ml TIAN MADDOX MD Aug 04, 2017 11:13
[2017-08-04] MEDS ORDERED: LACTASE 3,000 UNIT TABLET PO PRN (11:15)
[2017-08-04] MEDS ORDERED: ONDANSETRON ODT 4 MG TAB.RAPDIS. PO PRN (11:15)
[2017-08-04] MEDS ORDERED: POLY17PO29 PO (11:23)
[2017-08-04] MEDS ORDERED: LACT30003 PO (11:23)
[2017-08-04] MEDS ORDERED: ONDA4TAB10 PO (11:23)
[2017-08-04] MEDS ORDERED: METO10TA81 PO (11:23)
[2017-08-04] MEDS ORDERED: PANT40TA5 PO (11:29)
--- NOTE | 2017-08-04 12:10 | PDOC ---
Subjective: Subjective: Tolerating clears. Still has abd soreness. Feels like Bentyl slowed everything down, feels constipated. Objective: Vital Signs: Vital Signs Date Time Temp Pulse Resp B/P (MAP) Pulse Ox O2 Delivery O2 Flow Rate FiO2 08/04/17 11:10 97.7 70 18 145/74 (97) 98 Room Air 97.7 Labs: Laboratory Tests Test 08/03/17 17:12 08/03/17 20:52 08/04/17 04:18 08/04/17 08:04 Glucose (Fingerstick) 159 mg/dL 224 mg/dL 146 mg/dL White Blood Count 6.6 x10^3/uL Red Blood Count 3.81 x10^6/uL Hemoglobin 11.8 g/dL Hematocrit 34.6 % Mean Corpuscular Volume 91 fL Mean Corpuscular Hemoglobin 31 pg Mean Corpuscular Hemoglobin Concent 34 g/dL Red Cell Distribution Width 13.2 % Platelet Count 240 x10^3/uL Neutrophils (%) (Auto) 39 % Lymphocytes (%) (Auto) 51 % Monocytes (%) (Auto) 8 % Eosinophils (%) (Auto) 1 % Basophils (%) (Auto) 1 % Neutrophils # (Auto) 2.5 x10^3uL Lymphocytes # (Auto) 3.4 x10^3/uL Monocytes # (Auto) 0.5 x10^3/uL Eosinophils # (Auto) 0.1 x10^3/uL Basophils # (Auto) 0.1 x10^3/uL Sodium Level 139 mmol/L Potassium Level 3.4 mmol/L Chloride Level 103 mmol/L Carbon Dioxide Level 28 mmol/L Anion Gap 8 Blood Urea Nitrogen 9 mg/dL Creatinine 0.9 mg/dL Estimated GFR (Cockcroft-Gault) 85.7 Glucose Level 113 mg/dL Calcium Level 8.3 mg/dL Test 08/04/17 11:11 Glucose (Fingerstick) 222 mg/dL Imaging: GES 08/03/17 History: Nausea and vomiting Imaging of the abdomen out to one hour showed little if any gastric emptying. The time/activity curve is nearly flat. A markedly elongated T1/2 of 670 minutes was calculated. IMPRESSION: Markedly delayed gastric emptying. PE: GEN: NAD LUNGS: clear HEART: RRR ABD: soft, less tender NEURO/PSYCH: A & O 3 A/P: Gastroparesis ---> n/v, early satiety, abd pain IDDM, last A1c 8.3 GERD Constipation -- I spent at least 45 minutes in her room, Dr. Loza present for a significant amount of this time. She is very frustrated. I discussed gastroparesis diagnosis - which was also discussed with her yesterday in detail. I discussed treatment options ---> better control of DM, gastroparesis diet ( small frequent meals), prokinetics and associated risks (black box warning w/ Reglan, diarrhea/C Diff etc. w/ erythromycin), and avoidance of narcotic medications. Would also continue PPI QD. She is undecided re: Reglan (which she is currently tolerating IV) or erythromycin and plans to try Zofran ODT per Dr. Loza. She feels like diabetes is not the problem and doesn't appreciate the implication that it's contributing to GI symptoms. She also feels taking narcotics do not contribute to gastroparesis and feels she is being accused of drug-seeking behavior which she also does not appreciate. She feels like she would be better served at another, larger facility. She doesn't feel like treatment options presented to her at this facility are the answer - "you're not doing anything for me." We discussed further evaluation at or [facility]; our office would be happy to make this referral. She did have an appointment with (I believe primary care) yesterday (did not call to cancel/reschedule) which she missed because she was here. She was encouraged to call that office to reschedule. She says someone suggested she might need surgery or a gastric pacer and would like to explore these options. Dr. Best was consulted; I d/w Marie. She has Dulcolax and Miralax ordered PRN for constipation - "they're not giving me those." I called her RN Susan to discuss. Plans to ADAT and DC if tolerates. STEPHEN CLIFFORD Aug 04, 2017 12:10
--- NOTE | 2017-08-04 14:13 | PDOC2 ---
CONSULT Date of Consult Date of Consult DATE: 08/04/17 TIME: 14:08 Reason for Consult Reason for Consult: gastroparesis Referring Physician Referring Physician: Dr Sultana Identification/Chief Complaint Chief Complaint vomiting Problems: Source Source: Chart review, Patient History of Present Illness Reason for Visit: Reports gastroparetic symptoms for quite some time, has been getting worse the last few months. Vomiting more frequently, undigested food from days prior. Before now no formal testing and has not attempted any medications for gastroparesis Past Medical History Cardiovascular: HTN Endocrine: Diabetes Past Surgical History Past Surgical History: Cholecystectomy, Hysterectomy Family History Family History: Hypertension Social History No ALCOHOL: none Drugs: Marijuana Current Problem List Problem List Problems Medical Problems: (1) Chronic abdominal pain Status: Acute (2) Vomiting and diarrhea Status: Acute Current Medications Current Medications Current Medications Sodium Chloride 1,000 ml @ 1,000 mls/hr 1X ONCE IV Last administered on 13:59; Start 08/02/17 at 13:15; Stop 08/02/17 at 14:14; Status DC Ondansetron HCl (Zofran) 4 mg 1X ONCE IV Last administered on 08/02/17 13:59 ; Start 08/02/17 at 13:45; Stop 08/02/17 at 13:46; Status DC Lorazepam (Ativan) 1 mg 1X ONCE PO Last administered on 08/02/17 15:27; Start 08/02/17 at 15:30; Stop 08/02/17 at 15:31; Status DC Metoclopramide HCl (Reglan) 10 mg 1X ONCE IV Last administered on 08/02/17 15 :28; Start 08/02/17 at 15:30; Stop 08/02/17 at 15:31; Status DC Ondansetron HCl (Zofran) 4 mg PRN Q8HRS PRN IV NAUSEA/VOMITING; Start 08/02/17 at 15:45; Stop 08/02/17 at 16:19; Status DC Insulin Aspart (NovoLOG) 0-9 UNITS TIDWMEALS SQ Last administered on 08/02/17 18:23; Start 08/02/17 at 17:00; Stop 08/02/17 at 21:11; Status DC Dextrose (Dextrose 50%-Water Syringe) 12.5 gm PRN Q15MIN PRN IV SEE COMMENTS; Start 08/02/17 at 16:15 Acetaminophen (Tylenol) 650 mg PRN Q6HRS PRN PO FEVER; Start 08/02/17 at 16:15 ; Stop 08/02/17 at 17:08; Status DC Ondansetron HCl (Zofran) 4 mg PRN Q6HRS PRN IV NAUSEA/VOMITING; Start 08/02/17 at 16:15; Stop 08/02/17 at 17:08; Status DC Hydralazine HCl (Apresoline) 10 mg PRN Q4HRS PRN IVP ELEVATED BP, SEE COMMENTS ; Start 08/02/17 at 16:15; Stop 08/02/17 at 17:08; Status DC Docusate Sodium (Colace) 100 mg PRN DAILY PRN PO CONSTIPATION; Start 08/02/17 at 16:15; Stop 08/02/17 at 17:08; Status DC Aspirin (Children'S Aspirin) 81 mg DAILY PO Last administered on 08/04/17 09: 12; Start 08/02/17 at 17:00 Clopidogrel Bisulfate (Plavix) 75 mg DAILY PO Last administered on 08/04/17 09 :13; Start 08/02/17 at 17:00 Cyclobenzaprine HCl (Flexeril) 10 mg PRN TID PRN PO MUSCLE SPASMS Last administered on 08/04/17 05:01; Start 08/02/17 at 16:15 Dicyclomine HCl (Bentyl) 10 mg TID PO Last administered on 08/03/17 08:23; Start 08/02/17 at 16:30 Metoprolol Succinate (Toprol Xl) 50 mg DAILY16 PO Last administered on 19:05; Start 08/03/17 at 17:00 Oxycodone/ Acetaminophen (Percocet 10/325) 1 tab TID PO Last administered on 16:07; Start 08/02/17 at 21:00; Stop 08/03/17 at 19:09; Status DC Pantoprazole Sodium (Protonix) 40 mg DAILY PO Last administered on 08/04/17 09 :13; Start 08/02/17 at 16:30 Simvastatin (Zocor) 20 mg QHS PO Last administered on 08/03/17 21:08; Start at 21:00 Gabapentin (Neurontin) 600 mg TID PO Last administered on 08/04/17 09:12; Start 08/02/17 at 21:00 Lisinopril (Prinivil) 10 mg DAILY PO Last administered on 08/04/17 09:12; Start 08/02/17 at 17:00 Metoclopramide HCl (Reglan) 10 mg TID IV Last administered on 08/02/17 20:27; Start 08/02/17 at 21:00; Stop 08/03/17 at 09:56; Status DC Acetaminophen (Tylenol) 650 mg PRN Q6HRS PRN PO FEVER; Start 08/02/17 at 16:15 Ondansetron HCl (Zofran) 4 mg PRN Q6HRS PRN IV NAUSEA/VOMITING; Start 08/02/17 at 16:15 Morphine Sulfate 2 mg PRN Q2HR PRN IV PAIN; Start 08/02/17 at 16:15; Status UNV Hydralazine HCl (Apresoline) 10 mg PRN Q4HRS PRN IVP ELEVATED BP, SEE COMMENTS ; Start 08/02/17 at 16:15 Docusate Sodium (Colace) 100 mg PRN DAILY PRN PO CONSTIPATION Last administered on 08/04/17 12:51; Start 08/02/17 at 16:15 Insulin Aspart (NovoLOG) 0-9 UNITS TIDACHC SQ Last administered on 08/04/17 12 :07; Start 08/02/17 at 21:15 Insulin Aspart (NovoLOG) 10 units 1X ONCE SQ ; Start 08/02/17 at 21:15; Stop at 21:16; Status DC Metoclopramide HCl (Reglan) 10 mg QIDACHS IV Last administered on 08/04/17 12: 00; Start 08/03/17 at 11:30 Polyethylene Glycol (miraLAX PACKET) 17 gm PRN DAILY PRN PO CONSTIPATION Last administered on 08/04/17 12:51; Start 08/03/17 at 13:45 Bisacodyl (Dulcolax Tab) 5 mg PRN DAILY PRN PO CONSTIPATION; Start 08/03/17 at 13:45 Oxycodone/ Acetaminophen (Percocet 10/325) 1 tab PRN Q8HRS PRN PO PAIN MOD TO SEV Last administered on 08/04/17t 12:51; Start 08/03/17 at 22:00 Lactase (Lactaid) 3,000 unit PRN BFRMEAL PRN PO GI SYMPTOMS; Start 08/04/17 at 11:15 Ondansetron HCl (Zofran Odt) 4 mg PRN Q8HRS PRN PO NAUSEA/VOMITING; Start 08/04 at 11:15 Active Scripts Active Pantoprazole Sodium 40 Mg Tablet.dr 1 Tab PO DAILY Reglan (Metoclopramide Hcl) 10 Mg Tablet 1 Tab PO TID PRN Lactase 3,000 Unit Tablet 3,000 Unit PO PRN BFRMEAL PRN Zofran Odt (Ondansetron) 4 Mg Tab.rapdis 4 Mg PO BID PRN 7 Days Miralax (Polyethylene Glycol 3350) 17 Gm Powd.pack 1 Packet PO DAILY PRN Naprosyn (Naproxen) 500 Mg Tablet 1 Tab PO BID Bentyl (Dicyclomine Hcl) 10 Mg Capsule 1 Cap PO TID Senokot (Sennosides) 8.6 Mg Tablet 1 Tab PO BID Reported Cyclobenzaprine Hcl 10 Mg Tablet 1 Tab PO TID PRN Tramadol Hcl 50 Mg Tablet 1 Tab PO BID Promethazine Hcl 25 Mg Tablet Unknown Dose PO Q6H PRN Gabapentin 600 Mg Tablet 600 Mg PO TID Aspirin 81 Mg Tab.chew 1 Tab PO DAILY Novolog Flexpen (Insulin Aspart) 100 Unit/1 Ml Insuln.pen 0-10 SQ TIDAC Novolog (Insulin Aspart) 100 Unit/1 Ml Vial 6 Unit SQ TIDAC Simvastatin 20 Mg Tablet 20 Mg PO DAILY Ramipril 5 Mg Capsule 5 Mg PO DAILY Plavix (Clopidogrel Bisulfate) 75 Mg Tablet 75 Mg PO DAILY Metoprolol Succinate ( Xl ) (Metoprolol Succinate) 100 Mg Tab.er.24h 50 Mg PO DAILY16 Allergies Allergies: Coded Allergies: morphine (Verified Allergy, Severe, Shortness of Air, trouble breathing/ sweating, 07/14/16) tolerates DILAUDID, OXYCODONE ROS General: No: Chills, Other (fevers) PSYCHOLOGICAL ROS: No: Anxiety, Depression Eyes: No Blurry vision, No Double vision HEENT: No: Heacaches, Sore Throat Hematological and Lymphatic: YES: Bleeding Problems, No: Blood Clots Respiratory: No: Cough, Shortness of breath Cardiovascular: yes Chest Pain, No Palpitations Gastrointestinal: Yes Other (see hpi, + constipation) Genitourinary: No Dysuria, No Hematuria Musculoskeletal: No Joint Pain, No Muscle Pain Neurological: No Confusion, No Numbness/Tingling Skin: No Pruritus, No Rash Physical Exam General: Alert, Oriented X3, Cooperative, No acute distress HEENT: PERRLA, Mucous membr. moist/pink Lungs: Clear to auscultation, Normal air movement Heart: Regular rate, Normal S1, Normal S2, No murmurs Abdomen: Soft, Other (ND, epigastric tenderness ) Extremities: No clubbing, No cyanosis Skin: No rashes, No breakdown Neuro: Normal gait, Normal speech Psych/Mental Status: Mental status NL, Mood NL MUSCULOSKELETAL: No deformity, No swelling Vitals VITALS Vital Signs Date Time Temp Pulse Resp B/P (MAP) Pulse Ox O2 Delivery O2 Flow Rate FiO2 08/04/17 14:07 98 Room Air 08/04/17 11:10 97.7 70 18 145/74 (97) 97.7 Labs Labs Laboratory Tests Test 08/02/17 17:21 08/02/17 20:51 08/02/17 22:00 08/03/17 03:30 Glucose (Fingerstick) 313 mg/dL (70-99) 324 mg/dL (70-99) Troponin I Quantitative < 0.017 ng/mL (0.000-0.055) < 0.017 ng/mL (0.000-0.055) White Blood Count 8.7 x10^3/uL (4.0-11.0) Red Blood Count 3.69 x10^6/uL (3.50-5.40) Hemoglobin 11.6 g/dL (12.0-15.5) Hematocrit 33.4 % (36.0-47.0) Mean Corpuscular Volume 90 fL (79-100) Mean Corpuscular Hemoglobin 31 pg (25-35) Mean Corpuscular Hemoglobin Concent 35 g/dL (31-37) Red Cell Distribution Width 13.4 % (11.5-14.5) Platelet Count 234 x10^3/uL (140-400) Neutrophils (%) (Auto) 65 % (31-73) Lymphocytes (%) (Auto) 28 % (24-48) Monocytes (%) (Auto) 7 % (0-9) Eosinophils (%) (Auto) 0 % (0-3) Basophils (%) (Auto) 0 % (0-3) Neutrophils # (Auto) 5.6 x10^3uL (1.8-7.7) Lymphocytes # (Auto) 2.4 x10^3/uL (1.0-4.8) Monocytes # (Auto) 0.6 x10^3/uL (0.0-1.1) Eosinophils # (Auto) 0.0 x10^3/uL (0.0-0.7) Basophils # (Auto) 0.0 x10^3/uL (0.0-0.2) Sodium Level 140 mmol/L (136-145) Potassium Level 3.9 mmol/L (3.5-5.1) Chloride Level 103 mmol/L (98-107) Carbon Dioxide Level 28 mmol/L (21-32) Anion Gap 9 (6-14) Blood Urea Nitrogen 10 mg/dL (7-20) Creatinine 0.9 mg/dL (0.6-1.0) Estimated GFR (Cockcroft-Gault) 85.7 Glucose Level 208 mg/dL (70-99) Calcium Level 8.3 mg/dL (8.5-10.1) Test 08/03/17 07:56 08/03/17 11:47 08/03/17 17:12 08/03/17 20:52 Glucose (Fingerstick) 170 mg/dL (70-99) 244 mg/dL (70-99) 159 mg/dL (70-99) 224 mg/dL (70-99) Test 08/04/17 04:18 08/04/17 08:04 08/04/17 11:11 White Blood Count 6.6 x10^3/uL (4.0-11.0) Red Blood Count 3.81 x10^6/uL (3.50-5.40) Hemoglobin 11.8 g/dL (12.0-15.5) Hematocrit 34.6 % (36.0-47.0) Mean Corpuscular Volume 91 fL (79-100) Mean Corpuscular Hemoglobin 31 pg (25-35) Mean Corpuscular Hemoglobin Concent 34 g/dL (31-37) Red Cell Distribution Width 13.2 % (11.5-14.5) Platelet Count 240 x10^3/uL (140-400) Neutrophils (%) (Auto) 39 % (31-73) Lymphocytes (%) (Auto) 51 % (24-48) Monocytes (%) (Auto) 8 % (0-9) Eosinophils (%) (Auto) 1 % (0-3) Basophils (%) (Auto) 1 % (0-3) Neutrophils # (Auto) 2.5 x10^3uL (1.8-7.7) Lymphocytes # (Auto) 3.4 x10^3/uL (1.0-4.8) Monocytes # (Auto) 0.5 x10^3/uL (0.0-1.1) Eosinophils # (Auto) 0.1 x10^3/uL (0.0-0.7) Basophils # (Auto) 0.1 x10^3/uL (0.0-0.2) Sodium Level 139 mmol/L (136-145) Potassium Level 3.4 mmol/L (3.5-5.1) Chloride Level 103 mmol/L (98-107) Carbon Dioxide Level 28 mmol/L (21-32) Anion Gap 8 (6-14) Blood Urea Nitrogen 9 mg/dL (7-20) Creatinine 0.9 mg/dL (0.6-1.0) Estimated GFR (Cockcroft-Gault) 85.7 Glucose Level 113 mg/dL (70-99) Calcium Level 8.3 mg/dL (8.5-10.1) Glucose (Fingerstick) 146 mg/dL (70-99) 222 mg/dL (70-99) Laboratory Tests Test 08/03/17 17:12 08/03/17 20:52 08/04/17 04:18 08/04/17 08:04 Glucose (Fingerstick) 159 mg/dL (70-99) 224 mg/dL (70-99) 146 mg/dL (70-99) White Blood Count 6.6 x10^3/uL (4.0-11.0) Red Blood Count 3.81 x10^6/uL (3.50-5.40) Hemoglobin 11.8 g/dL (12.0-15.5) Hematocrit 34.6 % (36.0-47.0) Mean Corpuscular Volume 91 fL (79-100) Mean Corpuscular Hemoglobin 31 pg (25-35) Mean Corpuscular Hemoglobin Concent 34 g/dL (31-37) Red Cell Distribution Width 13.2 % (11.5-14.5) Platelet Count 240 x10^3/uL (140-400) Neutrophils (%) (Auto) 39 % (31-73) Lymphocytes (%) (Auto) 51 % (24-48) Monocytes (%) (Auto) 8 % (0-9) Eosinophils (%) (Auto) 1 % (0-3) Basophils (%) (Auto) 1 % (0-3) Neutrophils # (Auto) 2.5 x10^3uL (1.8-7.7) Lymphocytes # (Auto) 3.4 x10^3/uL (1.0-4.8) Monocytes # (Auto) 0.5 x10^3/uL (0.0-1.1) Eosinophils # (Auto) 0.1 x10^3/uL (0.0-0.7) Basophils # (Auto) 0.1 x10^3/uL (0.0-0.2) Sodium Level 139 mmol/L (136-145) Potassium Level 3.4 mmol/L (3.5-5.1) Chloride Level 103 mmol/L (98-107) Carbon Dioxide Level 28 mmol/L (21-32) Anion Gap 8 (6-14) Blood Urea Nitrogen 9 mg/dL (7-20) Creatinine 0.9 mg/dL (0.6-1.0) Estimated GFR (Cockcroft-Gault) 85.7 Glucose Level 113 mg/dL (70-99) Calcium Level 8.3 mg/dL (8.5-10.1) Test 08/04/17 11:11 Glucose (Fingerstick) 222 mg/dL (70-99) Assessment/Plan Assessment/Plan we discussed, medications--GI is starting erythromycin I discussed surgery is for refractory gastroparesis, however she is welcome to FU in office with Dr Best to discuss further SHERIE CRUZ APRN Aug 04, 2017 14:13
[2017-08-04 14:45] VITALS: BP 121/66
[2017-08-04] MEDS: METOPROLOL SUCC 24HR ER 100 MG TAB.ER.24H. PO SCH (16:00)
--- NOTE | 2017-08-05 14:24 | PDOC3 ---
Discharge Summary Visit Information Date of Admission: Aug 03, 2017 Date of Discharge: Aug 05, 2017 Admitting Diagnosis: nausea and vomiting Final Diagnosis intractable N/V ,epigastric abd pain, gastroparesis uncontrolled dm1 htn hld h/o CAD left eye blindness Leukocytosis ,reactive chronic lower back pain anxiety d/o Problems Medical Problems: (1) Chronic abdominal pain Status: Acute (2) Vomiting and diarrhea Status: Acute Brief Hospital Course Allergies Allergies Coded Allergies Type Severity Reaction Last Updated Verified morphine Allergy Severe Shortness of Air, trouble breathing/sweating 07/14/16 Yes Vital Signs Vital Signs Date Time Temp Pulse Resp B/P (MAP) Pulse Ox O2 Delivery O2 Flow Rate FiO2 08/04/17 14:45 98.1 91 18 121/66 (84) 97 Room Air 98.1 Lab Results Laboratory Tests Test 08/03/17 17:12 08/03/17 20:52 08/04/17 04:18 08/04/17 08:04 Glucose (Fingerstick) 159 mg/dL (70-99) 224 mg/dL (70-99) 146 mg/dL (70-99) White Blood Count 6.6 x10^3/uL (4.0-11.0) Red Blood Count 3.81 x10^6/uL (3.50-5.40) Hemoglobin 11.8 g/dL (12.0-15.5) Hematocrit 34.6 % (36.0-47.0) Mean Corpuscular Volume 91 fL (79-100) Mean Corpuscular Hemoglobin 31 pg (25-35) Mean Corpuscular Hemoglobin Concent 34 g/dL (31-37) Red Cell Distribution Width 13.2 % (11.5-14.5) Platelet Count 240 x10^3/uL (140-400) Neutrophils (%) (Auto) 39 % (31-73) Lymphocytes (%) (Auto) 51 % (24-48) Monocytes (%) (Auto) 8 % (0-9) Eosinophils (%) (Auto) 1 % (0-3) Basophils (%) (Auto) 1 % (0-3) Neutrophils # (Auto) 2.5 x10^3uL (1.8-7.7) Lymphocytes # (Auto) 3.4 x10^3/uL (1.0-4.8) Monocytes # (Auto) 0.5 x10^3/uL (0.0-1.1) Eosinophils # (Auto) 0.1 x10^3/uL (0.0-0.7) Basophils # (Auto) 0.1 x10^3/uL (0.0-0.2) Sodium Level 139 mmol/L (136-145) Potassium Level 3.4 mmol/L (3.5-5.1) Chloride Level 103 mmol/L (98-107) Carbon Dioxide Level 28 mmol/L (21-32) Anion Gap 8 (6-14) Blood Urea Nitrogen 9 mg/dL (7-20) Creatinine 0.9 mg/dL (0.6-1.0) Estimated GFR (Cockcroft-Gault) 85.7 Glucose Level 113 mg/dL (70-99) Calcium Level 8.3 mg/dL (8.5-10.1) Test 08/04/17 11:11 08/04/17 16:39 Glucose (Fingerstick) 222 mg/dL (70-99) 188 mg/dL (70-99) Laboratory Tests Test 08/04/17 16:39 Glucose (Fingerstick) 188 mg/dL (70-99) Brief Hospital Course Ms. Bryan is a 37 old female, admit for acute abd pain, nausea and vomiting, GI consulted, GES + - marked gastroparesis, education done, X2, Gi consult reiterated and discussed with me, risks of treatment, Gen surg discussed what options are if refractory condition patient was frustrated, but seemed to not have been given adequate education on condition previously, clara full liquid, lactaid for lactose intolerance, PRN Discharge Information Condition at Discharge: Improved Follow Up: Weeks Disposition/Orders: D/C to Home Scheduled Aspirin (Aspirin), 1 TAB PO DAILY, (Reported) Clopidogrel Bisulfate (Plavix), 75 MG PO DAILY, (Reported) Dicyclomine Hcl (Bentyl), 1 CAP PO TID Gabapentin (Gabapentin), 600 MG PO TID, (Reported) Insulin Aspart (Novolog), 6 UNIT SQ TIDAC, (Reported) Insulin Aspart (Novolog Flexpen), 0-10 SQ TIDAC, (Reported) Metoprolol Succinate (Metoprolol Succinate ( Xl )), 50 MG PO DAILY16, (Reported) Naproxen (Naprosyn), 1 TAB PO BID Pantoprazole Sodium (Pantoprazole Sodium), 1 TAB PO DAILY Ramipril (Ramipril), 5 MG PO DAILY, (Reported) Sennosides (Senokot), 1 TAB PO BID Simvastatin (Simvastatin), 20 MG PO DAILY, (Reported) Tramadol Hcl (Tramadol Hcl), 1 TAB PO BID, (Reported) Scheduled PRN Cyclobenzaprine Hcl (Cyclobenzaprine Hcl), 1 TAB PO TID PRN for MUSCLE SPASMS, ( Reported) Lactase (Lactase), 3,000 UNIT PO PRN BFRMEAL PRN for GI SYMPTOMS Metoclopramide Hcl (Reglan), 1 TAB PO TID PRN for abdomen pain, bloating Ondansetron (Zofran Odt), 4 MG PO BID PRN for NAUSEA/VOMITING Polyethylene Glycol 3350 (Miralax), 1 PACKET PO DAILY PRN for CONSTIPATION Promethazine Hcl (Promethazine Hcl), Unknown Dose PO Q6H PRN for NAUSEA/VOMITING , (Reported) Discontinued Medications Lansoprazole (Prevacid), 1 CAP PO DAILY, (Reported) Metoprolol Succinate (Metoprolol Succinate ( Xl )), 100 MG PO DAILY08, (Reported ) Oxycodone/Apap 10-325 (Percocet 10-325 Mg Tablet), 1 TAB PO TID, (Reported) Patient Instructions Patient Instructions radha, consider [facility] antonia, she plan to follow at for primary care, and [facility] for GI, > 30min TIAN MADDOX MD Aug 05, 2017 14:24
== END 2017-08-04 18:14 | disposition home or self-care (01) | DRG 74 ==
LOC: ER 12:41 → 5 NORTH 15:15 → OBSVTOIN 08-03 09:44
PROVIDERS: ADMIT Internal Medicine; ATTEND Internal Medicine
DX: E10.43 Type 1 diabetes mellitus with diabetic autonomic (poly)neuropathy (principal); E10.65 Type 1 diabetes mellitus with hyperglycemia; I10 Essential (primary) hypertension; K31.84 Gastroparesis; D72.829 Elevated white blood cell count, unspecified; E73.9 Lactose intolerance, unspecified; E78.00 Pure hypercholesterolemia, unspecified; E78.5 Hyperlipidemia, unspecified; F41.9 Anxiety disorder, unspecified; G89.29 Other chronic pain; H54.42 Blindness, left eye, normal vision right eye; I25.10 Atherosclerotic heart disease of native coronary artery without angina pectoris; I25.2 Old myocardial infarction; K21.9 Gastro-esophageal reflux disease without esophagitis; K59.00 Constipation, unspecified; M54.5 Low back pain; F12.10 Cannabis abuse, uncomplicated; K30 Functional dyspepsia; Z79.4 Long term (current) use of insulin; Z79.82 Long term (current) use of aspirin; Z82.49 Family history of ischemic heart disease and other diseases of the circulatory system; Z90.49 Acquired absence of other specified parts of digestive tract; Z90.710 Acquired absence of both cervix and uterus
CPT/HCPCS: 36415; 71010; 78264; 80048; 80053; 80307; 81001; 81025; 82962; 83690; 84484; 85007; 85025; 93005; 96361; 96374; A9541; G0378; G0379; J1815; J2405; J2765; J7030; 99285-25; G0479

== ENCOUNTER 2019-06-16 22:26 | Inpatient (IN) | payer MEDICARE ==
[~2019-06-16] VITALS: Ht 165.1 cm; Wt 68.0 kg
[~2019-06-16 22:26] MED LIST changes: -GABA600T2 PO; +GABA600T7 PO; +LACT30003 PO; +METO10TA81 PO; +NAPR-683 PO; -NAPR500T PO; -OXYC-323 PO; -OXYC-328 PO; +OXYC1TAB15 PO; +OXYC1TAB22 PO; -PANT40TA5 PO; +PANT40TA77 PO; -RAMI5CAP PO; +RAMI5CAP50 PO; -TIZA4TAB PO; +TIZA4TAB2 PO
[2019-06-16] MEDS ORDERED: IV NORMAL SALINE 1000ML BAG 1,000 ML IV ONE ×2 (23:00)
[2019-06-16] MEDS ORDERED: FAMOTIDINE 20 MG/2 ML VIAL IVP ONE (23:00)
[2019-06-16] MEDS ORDERED: INSULIN REGULAR 100 UNIT/ML 3ML VIAL. SQ ONE (23:00)
[2019-06-16] MEDS ORDERED: ONDANSETRON PF 4 MG/2 ML VIAL. IV ONE (23:00)
[2019-06-16 23:54] LABS: BASE EXCESS COOX 2 mmol/L (-3-3); HCO3 COOX 27 mmol/L (21-28); METHEMOGLOBIN 0.2 % (0.0-1.9); OXYHEMOGLOBIN 92.9 %; PCO2 COOX 45 mmHg (35-46); PO2 COOX 73 mmHg (85-108); SAT O2 COOX 93 % (92-99)
[2019-06-17] VITALS (15 sets, daily range): BP systolic 80–139; BP diastolic 46–78
[2019-06-17] MEDS ORDERED: INSULIN REGULAR VIAL 150 UNIT in 0.9 % SODIUM CHLORIDE 150ML 150 ML IV PRN ×2 (00:30→00:45)
[2019-06-17] MEDS ORDERED: ONDANSETRON PF 4 MG/2 ML VIAL. IV PRN (00:30)
[2019-06-17] MEDS ORDERED: POTASSIUM CHLORIDE 10MEQ 100 ML IV PRN ×2 (00:30)
[2019-06-17 00:31] LABS: BASO # 0.1 x10^3/uL (0.0-0.2); BASO % 1 % (0-3); EOS % 0 % (0-3); HEMATOCRIT 32.7 % (36.0-47.0); HEMOGLOBIN 10.2 g/dL (12.0-15.5); LYMPH % 9 % (24-48); MEAN CORPUSCULAR HEMOGLOBIN 29 pg (25-35); MEAN CORPUSCULAR HGB CONC 31 g/dL (31-37); MEAN CORPUSCULAR VOLUME 93 fL (79-100); MONO # 0.6 x10^3/uL (0.0-1.1); MONO % 5 % (0-9); NEUT # 9.4 x10^3/uL (1.8-7.7); NEUT % 85 % (31-73); PLATELET COUNT 407 x10^3/uL (140-400); RED BLOOD COUNT 3.51 x10^6/uL (3.50-5.40); RED CELL DISTRIBUTION WIDTH 13.8 % (11.5-14.5); WHITE BLOOD COUNT 11.1 x10^3/uL (4.0-11.0)
[2019-06-17 00:34] LABS: BILIRUBIN,URINE NEGATIVE (NEG); CLARITY,URINE CLEAR; COLOR,URINE YELLOW; NITRITE,URINE NEGATIVE (NEG); PROTEIN,URINE NEGATIVE (NEG-TRACE); UROBILINOGEN,URINE 0.2 mg/dL (0.2 mg/dL)
[2019-06-17 00:40] LABS: BARBITURATES NEG (NEG); BENZODIAZEPINES NEG (NEG); CANNABINOIDS POS (NEG); COCAINE NEG (NEG); METHADONE NEG (NEG); OPIATES NEG (NEG); PHENCYCLIDINE NEG (NEG)
[2019-06-17 00:42] LABS: AMPHETAMINE/METHAMPHETAMINE NEG (NEG)
[2019-06-17] MEDS ORDERED: fentaNYL PF VIAL 100 MCG/2 ML VIAL IV ONE (00:45)
[2019-06-17 00:49] LABS: ALBUMIN 2.3 g/dL (3.4-5.0); ALBUMIN/GLOBULIN RATIO 0.4 (1.0-1.7); CALCIUM 7.8 mg/dL (8.5-10.1); CREATININE 2.4 mg/dL (0.6-1.0); GFR 27.3; POTASSIUM 3.1 mmol/L (3.5-5.1); TOTAL BILIRUBIN 0.4 mg/dL (0.2-1.0); TOTAL PROTEIN 7.9 g/dL (6.4-8.2)
[2019-06-17 01:00] LABS: BACTERIA,URINE FEW /HPF (0-FEW); RBC,URINE OCC /HPF (0-2); SQUAMOUS EPITHELIAL CELL,UR OCC /LPF; WBC,URINE TNTC /HPF (0-4)
--- NOTE | 2019-06-17 01:01 | PHYS DOC ---
Past Medical History Past Medical History: CAD, Diabetes-Type I, High Cholesterol, Hypertension, AL, Other Additional Past Medical Histor: L EYE BLIND,CHRONIC PAIN , "abd issues" Past Surgical History: Cholecystectomy, Hysterectomy Additional Past Surgical Histo: "bone abscess", BX EYE Additional Information: Nonsmoker Alcohol Use: None Drug Use: None Adult General Chief Complaint Chief Complaint: BLOOD SUGAR PROBLEM HPI HPI 39-year-old female presents with report of generalized body pain with associated nausea and vomiting for the last week after patient ran out of her insulin. Patient reportedly had a "convulsion" at 2024 this evening. Patient reports she feels weak everywhere. Reports she is unable to keep anything down. Reports previously had a sore throat x 3 weeks. Denies . Denies fever/chills. Denies trauma. Patient's physician went out of town and patient didn't get a chance to notify her PCP. Reports her wanted to bring her to ED sooner but patient thought she would be admitted to hospital and therefore refused to come sooner. Review of Systems Review of Systems Constitutional: Denies fever or chills; reports generalized malaise Eyes: Denies redness or eye pain HENT: Denies nasal congestion or sore throat Respiratory: Denies cough or shortness of breath Cardiovascular: Denies chest pain or palpitations GI: Abdominal pain with associated nausea and vomiting : Denies dysuria or hematuria Musculoskeletal: Denies back pain or joint pain Integument: Denies rash or skin lesions Neurologic: Denies headache, focal weakness or sensory changes reports generalized weakness; Complete systems were reviewed and found to be within normal limits, except as documented in this note. Current Medications Current Medications Current Medications Medications (Trade) Dose Ordered Sig/Irina Start Time Stop Time Status Last Admin Dose Admin Famotidine (Pepcid Vial) 20 mg 1X ONCE 06/16/19 23:00 06/16/19 23:01 DC 06/17/19 00:40 20 MG Fentanyl Citrate (Fentanyl 2ml Vial) 50 mcg PRN Q2HRS PRN 06/17/19 00:30 Insulin Human Regular (HumuLIN R VIAL) 8 unit 1X ONCE 06/16/19 23:00 06/16/19 23:01 DC 06/16/19 23:31 8 UNIT Insulin Human Regular 150 unit/ Sodium Chloride 151.5 ml @ 0 mls/hr CONT PRN PRN 06/17/19 00:30 UNV Ondansetron HCl (Zofran) 4 mg PRN Q8HRS PRN 06/17/19 00:30 06/18/19 00:29 Potassium Chloride/Water 100 ml @ 100 mls/hr PRN Q1HR PRN 06/17/19 00:30 Sodium Chloride 1,000 ml @ 1,000 mls/hr 1X ONCE 06/16/19 23:00 06/16/19 23:59 DC 06/17/19 00:39 1,000 MLS/HR Allergies Allergies Allergies Coded Allergies Type Severity Reaction Last Updated Verified morphine Allergy Severe Shortness of Air, trouble breathing/sweating 07/14/16 Yes Physical Exam Physical Exam Constitutional: Well developed, well nourished, no acute distress, ill-appearing HENT: Normocephalic, atraumatic, oropharynx dry Eyes: PERRL, conjunctiva normal, no discharge Neck: Normal range of motion, no tenderness, supple, no meningeal signs Cardiovascular: Heart rate tachycardic, regular rhythm Lungs & Thorax: Bilateral breath sounds clear to auscultation, no wheezing Abdomen: Soft, diffuse tenderness Skin: Warm, dry, no erythema, no rash Back: No tenderness, no CVA tenderness Extremities: No tenderness, ROM intact, no edema Neurologic: Alert and oriented X 3, normal motor function, normal sensory function, no focal deficits noted Psychologic: Affect normal, judgement normal Current Patient Data Vital Signs Vital Signs Date Time Temp Pulse Resp B/P (MAP) Pulse Ox O2 Delivery O2 Flow Rate FiO2 06/17/19 00:31 114 20 147/65 (92) 96 Room Air 06/16/19 22:30 98.4 98.4 Lab Values Laboratory Tests Test 06/16/19 22:43 06/17/19 00:01 06/17/19 00:15 06/17/19 00:22 O2 Saturation 93 % (92-99) Arterial Blood pH 7.40 (7.35-7.45) Arterial Blood pCO2 at Patient Temp 45 mmHg (35-46) Arterial Blood pO2 at Patient Temp 73 mmHg (85-108) L Arterial Blood HCO3 27 mmol/L (21-28) Arterial Blood Base Excess 2 mmol/L (-3-3) Oxyhemoglobin 92.9 % Methemoglobin 0.2 % (0.0-1.9) Carbon Monoxide, Quantitative 0.1 % (0.0-1.9) Urine Collection Type Unknown Urine Color Yellow Urine Clarity Clear Urine pH 6.0 Urine Specific [place] 1.025 Urine Protein Negative mg/dL (NEG-TRACE) Urine Glucose (UA) >=1000 mg/dL (NEG) Urine Ketones (Stick) 15 mg/dL (NEG) Urine Blood Small (NEG) Urine Nitrite Negative (NEG) Urine Bilirubin Negative (NEG) Urine Urobilinogen Dipstick 0.2 mg/dL (0.2 mg/dL) Urine Leukocyte Esterase Moderate (NEG) Urine RBC Occ /HPF (0-2) Urine WBC Tntc /HPF (0-4) Urine Squamous Epithelial Cells Occ /LPF Urine Bacteria Few /HPF (0-FEW) Urine Mucus Slight /LPF Urine Opiates Screen Neg (NEG) Urine Methadone Screen Neg (NEG) Urine Barbiturates Neg (NEG) Urine Phencyclidine Screen Neg (NEG) Urine Amphetamine/Methamphetamine Neg (NEG) Urine Benzodiazepines Screen Neg (NEG) Urine Cocaine Screen Neg (NEG) Urine Cannabinoids Screen Pos (NEG) Urine Ethyl Alcohol Neg (NEG) White Blood Count 11.1 x10^3/uL (4.0-11.0) H Red Blood Count 3.51 x10^6/uL (3.50-5.40) Hemoglobin 10.2 g/dL (12.0-15.5) L Hematocrit 32.7 % (36.0-47.0) L Mean Corpuscular Volume 93 fL (79-100) Mean Corpuscular Hemoglobin 29 pg (25-35) Mean Corpuscular Hemoglobin Concent 31 g/dL (31-37) Red Cell Distribution Width 13.8 % (11.5-14.5) Platelet Count 407 x10^3/uL (140-400) H Neutrophils (%) (Auto) 85 % (31-73) H Lymphocytes (%) (Auto) 9 % (24-48) L Monocytes (%) (Auto) 5 % (0-9) Eosinophils (%) (Auto) 0 % (0-3) Basophils (%) (Auto) 1 % (0-3) Neutrophils # (Auto) 9.4 x10^3/uL (1.8-7.7) H Lymphocytes # (Auto) 1.0 x10^3/uL (1.0-4.8) Monocytes # (Auto) 0.6 x10^3/uL (0.0-1.1) Eosinophils # (Auto) 0.0 x10^3/uL (0.0-0.7) Basophils # (Auto) 0.1 x10^3/uL (0.0-0.2) Sodium Level 116 mmol/L (136-145) *L Potassium Level 3.1 mmol/L (3.5-5.1) L Chloride Level 74 mmol/L (98-107) L Carbon Dioxide Level 27 mmol/L (21-32) Anion Gap 15 (6-14) H Blood Urea Nitrogen 20 mg/dL (7-20) Creatinine 2.4 mg/dL (0.6-1.0) H Estimated GFR (Cockcroft-Gault) 27.3 BUN/Creatinine Ratio 8 (6-20) Glucose Level 1325 mg/dL (70-99) *H Lactic Acid Level 3.3 mmol/L (0.4-2.0) H Calcium Level 7.8 mg/dL (8.5-10.1) L Phosphorus Level 2.9 mg/dL (2.6-4.7) Magnesium Level 2.0 mg/dL (1.8-2.4) Total Bilirubin 0.4 mg/dL (0.2-1.0) Aspartate Amino Transferase (AST) 12 U/L (15-37) L Alanine Aminotransferase (ALT) 14 U/L (14-59) Alkaline Phosphatase 182 U/L (46-116) H Total Protein 7.9 g/dL (6.4-8.2) Albumin 2.3 g/dL (3.4-5.0) L Albumin/Globulin Ratio 0.4 (1.0-1.7) L Lipase 65 U/L (73-393) L Acetone Level Sm pos (NEG) POC Urine HCG, Qualitative Hcg negative (Negative) Laboratory Tests 06/17/19 00:15 Laboratory Tests 06/17/19 00:15 EKG EKG [] Radiology/Procedures Radiology/Procedures PROCEDURE: CT HEAD AND CERVICAL SPINE WO INDICATION: Status post fall COMPARISON: August 2008 CT head TECHNIQUE: Axial CT images obtained through the head and cervical spine without intravenous contrast. Coronal and sagittal reformats processed of cervical spine. One or more of the following individualized dose reduction techniques were utilized for this examination: 1. Automated exposure control; 2. Adjustment of the mA and/or kV according to patient size; 3. Use of iterative reconstruction technique. FINDINGS: Head: No intracranial hemorrhage. No midline shift. Basal cisterns patents. Ventricles and sulci are within normal limits. No acute osseous abnormality. Orbits and paranasal sinuses unremarkable. Cervical: No definite acute fracture. No dislocation. No evidence of perivertebral hematoma. Catheter partially visualized right internal jugular. IMPRESSION: 1. No acute intracranial hemorrhage. 2. No definite acute fracture or dislocation of the cervical spine. Electronically signed by: Hector Guillen MD (06/17/2019 2:01 AM) [facility] [place] CXR (preliminary interpretation by ED physician): No acute process. RIJ in good position to superior vena cava Course & Med Decision Making Course & Med Decision Making Pertinent Labs and Imaging studies reviewed. (See chart for details) Patient presents with HPI and physical exam concerning for hyperglycemic state. Accucheck reported as "high". Patient difficult to obtain blood work. Patient in bathroom to provide urine sample and family ended up yelling that patient had fallen to floor and was having "shaking" episode. IVF hydration given x 2 L of NS. Insulin SQ bolus given. Patient required central line placement. Central line placement to RIJ with good placement confirmed with CXR. CT head/cervical spine without acute process. Insulin gtt initiated. Labs obtained and posted to chart from central line. Corrected serum sodium 135. Potassium replacement ordered. Patient meets SIRS criteria with tachycardia and elevated WBC. UA with signs of infection. Empiric antibiotics given. Lactic acid elevated. IVF sepsis bolusing done. Patient requiring admission for further evaluation and treatment. Discussed with Dr. Brar (hospitalist) who is in agreement with ICU admission. Discussed findings and plan with patient and family, who acknowledge understanding and agreement. Dragon Disclaimer Dragon Disclaimer This electronic medical record was generated, in whole or in part, using a voice recognition dictation system. Central Line Central Line : Central Line Lumen: triple Central Line Procedure: sterile drapes applied, sterile dressing applied Central Line Postion: internal jugular (R) Anesthesia: Lidocaine (2%) cc's of anesthesia: 3 Complications: none Central Line Post Position: sutured, good blood return, position confirmed w/ CXR Progress Verbal consent obtained. Time out performed. Hand hygiene utilized. Wound cleaned with ChloraPrep. Anesthesia obtained via a 25-gauge hypodermic needle with (3) mL's of lidocaine 2% without epinephrine. Central line placed under direct visualization with bedside ultrasound. Patient tolerated procedure well and without difficulty. Dressing applied. Departure Departure Impression: Primary Impression: Hyperglycemic hyperosmolar nonketotic coma Additional Impressions: Hypokalemia UTI (urinary tract infection) Lactic acidosis Severe sepsis Disposition: ADMITTED INPATIENT Admitting Physician: KARIE Lovelace) Condition: GUARDED Referrals: NO PCP (PCP) Critical Care Time Critical care time was 30 minutes which includes time at bedside, spent in discussion of patient's care with specialists and/or family members, with interpretation of laboratory and/or radiological studies and is exclusive of procedures. Date and Time of Reassessment Date: Jun 17, 2019 Time: 00:30 Fluid Challenge Is the fluid challenge complet: No IBW Target Volume Used: No BMI > 30: No Vital Signs Vital Signs: Vital Signs Date Time Temp Pulse Resp B/P (MAP) Pulse Ox O2 Delivery O2 Flow Rate FiO2 06/17/19 00:31 114 20 147/65 (92) 96 Room Air 06/16/19 22:30 98.4 98.4 Temperature Source: Temporal Artery Scan Respirations Respiratory Effort: Normal Respiratory Pattern: Normal Cardiovascular Pulse Rhythm: Irregular (Tachycardia) Heart: No murmurs noted, No JVD Lung Sounds Breath Sounds: Clear Capillary Refil Capillary Refill: Rt Hand < 3 seconds Peripheral Pulse Pulse Location: Radial Pulse Strength: Normal (2+) Pulse Assessment Method: Palpation Integumentary Skin: Warm, Dry, No Rashes Skin Moisture: Dry Skin Turgor: Decreased Skin Color: warm, dry Fingernail Color: WNL Problem Qualifiers Additional Impressions: UTI (urinary tract infection) Urinary tract infection type: acute cystitis Hematuria presence: without hematuria Qualified Codes: N30.00 - Acute cystitis without hematuria TENNILLE YADAV DO Jun 17, 2019 01:00
[2019-06-17] MEDS ORDERED: cefTRIAXone IV Push 1 GM VIAL. IVP ONE (01:30)
--- NOTE | 2019-06-17 02:04 | RAD ---
INDICATION: Status post fall COMPARISON: August 2008 CT head TECHNIQUE: Axial CT images obtained through the head and cervical spine without intravenous contrast. Coronal and sagittal reformats processed of cervical spine. One or more of the following individualized dose reduction techniques were utilized for this examination: 1. Automated exposure control; 2. Adjustment of the mA and/or kV according to patient size; 3. Use of iterative reconstruction technique. FINDINGS: Head: No intracranial hemorrhage. No midline shift. Basal cisterns patents. Ventricles and sulci are within normal limits. No acute osseous abnormality. Orbits and paranasal sinuses unremarkable. Cervical: No definite acute fracture. No dislocation. No evidence of perivertebral hematoma. Catheter partially visualized right internal jugular. IMPRESSION: 1. No acute intracranial hemorrhage. 2. No definite acute fracture or dislocation of the cervical spine. Electronically signed by: Hector Guillen MD (06/17/2019 2:01 AM) [facility]
[2019-06-17] MEDS: POTASSIUM CL 20MEQ-0.45% NACL 1,000 ML IV SCH ×3 (02:20→06:24)
[2019-06-17] MEDS: POTASSIUM CHLORIDE 10MEQ 100 ML IV PRN ×2 (02:48→06:23)
[2019-06-17 06:07] LABS: CALCIUM 7.5 mg/dL (8.5-10.1); CREATININE 1.5 mg/dL (0.6-1.0)
[2019-06-17 06:13] LABS: POTASSIUM 2.5 mmol/L (3.5-5.1)
[2019-06-17] MEDS: POTASSIUM CHL 20MEQ PREMIX 50 ML IV SCH ×4 (07:29→11:19)
[2019-06-17] MEDS ORDERED: IV NORMAL SALINE 1000ML BAG 1,000 ML IV ONE (08:00)
[2019-06-17] MEDS: IV DEXTROSE 5 %-0.45 % NACL 1,000 ML IV SCH ×3 (08:06→20:00)
[2019-06-17] MEDS: fentaNYL PF VIAL 100 MCG/2 ML VIAL IV PRN ×3 (08:15→12:28)
--- NOTE | 2019-06-17 08:16 | RAD ---
Chest radiograph 06/17/2019 12:27 AM INDICATION: Right IJ central line placement COMPARISON: August 02, 2017 TECHNIQUE: Portable upright frontal view of the chest is provided. FINDINGS: The cardiomediastinal silhouette is within normal limits. Right IJ central venous catheter is identified with the distal tip terminating in the expected region of the superior vena cava. There are no pleural effusions. There is no pulmonary vascular congestion. There is no pneumothorax. The lungs are clear. No significant osseous abnormality is identified. IMPRESSION: No acute cardiopulmonary process. Right IJ central venous catheter is identified with the distal tip terminating in the expected region of the superior vena cava. No pneumothorax. Electronically signed by: Nasreen Linda MD (06/17/2019 8:13 AM) [facility]
[2019-06-17] MEDS ORDERED: MAGNESIUM SULFATE 4GM 100 ML IV SCH ×3 (09:00→12:00)
[2019-06-17] MEDS ORDERED: OXYM30TA PO (09:34)
[2019-06-17] MEDS ORDERED: OXYC15TA PO (09:34)
[2019-06-17] MEDS ORDERED: DEXTROSE 50% 25 GM / 50ML DISP.SYRIN. IV PRN (09:45)
[2019-06-17] MEDS ORDERED: IV DEXTROSE 5% 250 ML BAG. IV PRN (09:45)
[2019-06-17 09:55] LABS: CALCIUM 7.5 mg/dL (8.5-10.1); CREATININE 1.5 mg/dL (0.6-1.0); POTASSIUM 3.4 mmol/L (3.5-5.1)
[2019-06-17] MEDS: INSULIN LISPRO 300 UNITS/3 ML INSULN.PEN. SQ SCH ×3 (10:02→17:37)
[2019-06-17] MEDS: IV NORMAL SALINE 1000ML BAG 1,000 ML IV SCH ×2 (10:44→12:29)
[2019-06-17] MEDS ORDERED: MAGNESIUM SULFATE 2GM 50 ML IV ONE (12:00)
[2019-06-17] MEDS ORDERED: CYCLOBENZAPRINE 10 MG TABLET. PO PRN (12:00)
[2019-06-17] MEDS ORDERED: METOCLOPRAMIDE 10 MG TABLET. PO PRN (12:00)
[2019-06-17] MEDS ORDERED: POLYETHYLENE GLYCOL 3350 17 GM PACKET. PO PRN (12:10)
[2019-06-17] MEDS ORDERED: LACTASE 3,000 UNIT TABLET PO PRN (12:15)
--- NOTE | 2019-06-17 12:29 | HP ---
ADMIT DATE: 06/17/2019 CHIEF COMPLAINT: Hyperglycemia. HISTORY OF PRESENT ILLNESS: The patient is a pleasant middle-aged female who presented with hyperglycemia. She did run out of her insulin. She thought she may have even had a seizure. She has not been able to keep anything down. She has had a sore throat for a few weeks. While in the ER, she is noted to have hyperglycemic hyperosmolar state with a glucose of 1325. Her anion gap was high at 15 as well. She has been admitted to the ICU on a DKA protocol. PAST MEDICAL HISTORY: Noncompliance, chronic pain, diabetes, hypertension, hyperlipidemia, CAD, left eye blind, cholecystectomy, hysterectomy, some type of bone abscess, eye surgery, abdominal issues. ALLERGIES: MORPHINE. FAMILY HISTORY: Hypertension. SOCIAL HISTORY: She does not drink, smoke or take drugs. MEDICATIONS: Reviewed, please refer to the MRAD. REVIEW OF SYSTEMS: GENERAL: No history of weight change, weakness or fevers. SKIN: No bruising, hair changes or rashes. EYES: No blurred, double or loss of vision. NOSE AND THROAT: No history of nosebleeds, hoarseness or sore throat. HEART: No history of palpitations, chest pain or shortness of breath on exertion. LUNGS: Denies cough, hemoptysis, wheezing or shortness of breath. GASTROINTESTINAL: Denies changes in appetite, nausea, vomiting, diarrhea or constipation. GENITOURINARY: No history of frequency, urgency, hesitancy or nocturia. NEUROLOGIC: Denies history of numbness, tingling, tremor or weakness. PSYCHIATRIC: No history of panic, anxiety or depression. ENDOCRINE: No history of heat or cold intolerance, polyuria or polydipsia. EXTREMITIES: Denies muscle weakness, joint pain, pain on walking or stiffness. PHYSICAL EXAMINATION: VITALS: Within normal limits and are stable. GENERAL: No apparent distress. Alert and oriented. HEENT: Head is normocephalic, atraumatic, pupils were equally round and reactive to light and accommodation. NECK: Supple, no JVD, no thyromegaly was noted. LUNGS: Clear to auscultation in all lung gonzales without rhonchi or wheezing. HEART: RRR, S1, S2 present. Peripheral pulses intact, no obvious murmurs were noted. ABDOMEN: Soft, nontender. Positive bowel sounds no organomegaly, normal bowel sounds. EXTREMITIES: Without any cyanosis, clubbing, or edema. Pedal pulses intact, Homans sign is negative. NEUROLOGIC: Normal speech, normal tone. A and O x 3, moves all extremities, no obvious focal deficits. PSYCHIATRIC: Normal affect, normal mood. Stable. SKIN: No ulcerations or rashes, good skin turgor, no jaundice. VASCULAR: Good capillary refill, neurovascular bundle appears to be intact. LABORATORY DATA: Anion gap is now down to 10. Glucose is now down to 223. ASSESSMENT AND PLAN: Resolving diabetic ketoacidosis. The patient was admitted to the ICU overnight on insulin drip and fluids. Now, we are going to get her to the medical floor with subcutaneous insulin. Continue home meds, PT, OT, frequent labs, DVT prophylaxis. LIZY ERAZO DO DR: MOODY/dilcia JOB#: [id number] / [id number]
[2019-06-17] MEDS: LISINOPRIL 10 MG TABLET PO SCH (12:48)
[2019-06-17] MEDS: SENNOSIDES 8.6 MG TABLET PO SCH ×2 (12:48→22:05)
[2019-06-17] MEDS: PANTOPRAZOLE 40 MG TABLET.DR. PO SCH (12:48)
[2019-06-17] MEDS: ASPIRIN CHEWABLE 81 MG TABLET. PO SCH (12:49)
[2019-06-17] MEDS: ONDANSETRON ODT 4 MG TAB.RAPDIS. PO PRN (12:49)
[2019-06-17] MEDS: CLOPIDOGREL BISULFATE 75 MG TABLET PO SCH (12:49)
[2019-06-17] MEDS: oxyCODONE IR 5 MG TABLET PO PRN ×2 (13:54→20:14)
[2019-06-17] MEDS: cefTRIAXone IV Push 1 GM VIAL. IVP SCH (15:08)
[2019-06-17] MEDS: DICYCLOMINE HCL 10 MG CAPSULE PO SCH ×2 (16:18→22:10)
[2019-06-17] MEDS: METOPROLOL SUCC 24HR ER 50 MG TAB.ER.24H. PO SCH (16:19)
[2019-06-17] MEDS: GABAPENTIN 300 MG CAPSULE. PO SCH ×2 (16:19→22:09)
[2019-06-17] MEDS ORDERED: NON FORMULARY ITEM (Naproxen (Naprosyn) 1 TAB) PO SCH (21:00)
[2019-06-17] MEDS ORDERED: TRAMADOL HCL PO SCH (21:00)
[2019-06-17] MEDS: oxyCODONE ER 15 MG TAB.ER.12H PO SCH (22:04)
[2019-06-17] MEDS: SIMVASTATIN 20 MG TABLET PO SCH (22:10)
[2019-06-18 03:27] VITALS: BP 139/75
[2019-06-18] MEDS: IV DEXTROSE 5 %-0.45 % NACL 1,000 ML IV SCH ×3 (04:00→08:00)
[2019-06-18] MEDS: PANTOPRAZOLE 40 MG TABLET.DR. PO SCH (06:24)
[2019-06-18] MEDS: oxyCODONE IR 5 MG TABLET PO PRN ×2 (06:26→15:27)
[2019-06-18 07:00] VITALS: BP 115/62
[2019-06-18] MEDS: GABAPENTIN 300 MG CAPSULE. PO SCH ×3 (08:38→20:55)
[2019-06-18] MEDS: ASPIRIN CHEWABLE 81 MG TABLET. PO SCH (08:38)
[2019-06-18] MEDS: DICYCLOMINE HCL 10 MG CAPSULE PO SCH ×4 (08:38→20:56)
[2019-06-18] MEDS: SENNOSIDES 8.6 MG TABLET PO SCH ×2 (08:38→20:56)
[2019-06-18] MEDS: LISINOPRIL 10 MG TABLET PO SCH (08:38)
--- NOTE | 2019-06-18 08:38 | PDOC ---
PROGRESS NOTES Chief Complaint Chief Complaint HHS - Nausea and vomiting - known history of diabetic gastroparesis since 2017 Chronic pain Diabetes Hypertension Hyperlipidemia CAD Left eye blind History of Present Illness History of Present Illness Ms Bryan is a 39yo F w/ PMHx chronic pain, DM who ran out of her insulin and presented with intractable nausea and vomiting and HHS with a glucose of 1325. Her anion gap was high at 15 as well. Initially admitted to the ICU on a DKA protocol. Vomited x1 this morning, but has been eating jello without events. She notes she is not on basal insulin. Glucose up to 471 this morning. Vitals Vitals Vital Signs Date Time Temp Pulse Resp B/P (MAP) Pulse Ox O2 Delivery O2 Flow Rate FiO2 06/18/19 06:26 Room Air 06/18/19 03:27 98.0 96 18 139/75 (96) 93 98.0 Physical Exam General: Alert, Oriented X3, Cooperative Heart: Regular rate, Normal S1, Normal S2 Lungs: Clear Abdomen: Normal bowel sounds, Soft Extremities: No clubbing, No cyanosis, No edema, Normal pulses Labs LABS Laboratory Tests Test 06/17/19 08:49 06/17/19 09:00 06/17/19 09:20 06/17/19 12:07 Glucose (Fingerstick) 216 mg/dL (70-99) 207 mg/dL (70-99) Lactic Acid Level 4.2 mmol/L (0.4-2.0) Sodium Level 134 mmol/L (136-145) Potassium Level 3.4 mmol/L (3.5-5.1) Chloride Level 93 mmol/L (98-107) Carbon Dioxide Level 31 mmol/L (21-32) Anion Gap 10 (6-14) Blood Urea Nitrogen 11 mg/dL (7-20) Creatinine 1.5 mg/dL (0.6-1.0) Estimated GFR (Cockcroft-Gault) 47.0 Glucose Level 223 mg/dL (70-99) Calcium Level 7.5 mg/dL (8.5-10.1) Magnesium Level 1.5 mg/dL (1.8-2.4) Test 06/17/19 15:00 06/17/19 17:22 06/17/19 21:27 06/18/19 08:00 Lactic Acid Level 0.9 mmol/L (0.4-2.0) Glucose (Fingerstick) 282 mg/dL (70-99) 237 mg/dL (70-99) 423 mg/dL (70-99) Test 06/18/19 08:02 Glucose (Fingerstick) 471 mg/dL (70-99) Assessment and Plan Assessmemt and Plan Problems Medical Problems: (1) DKA (diabetic ketoacidoses) Status: Acute (2) Hyperglycemic hyperosmolar nonketotic coma Status: Acute (3) Hypokalemia Status: Acute (4) Lactic acidosis Status: Acute (5) Severe sepsis Status: Acute (6) UTI (urinary tract infection) Status: Acute Comment Review of Relevant I have reviewed the following items marina (where applicable) has been applied. Labs Laboratory Tests Test 06/16/19 22:43 06/17/19 00:01 06/17/19 00:15 06/17/19 00:22 O2 Saturation 93 % (92-99) Arterial Blood pH 7.40 (7.35-7.45) Arterial Blood pCO2 at Patient Temp 45 mmHg (35-46) Arterial Blood pO2 at Patient Temp 73 mmHg (85-108) Arterial Blood HCO3 27 mmol/L (21-28) Arterial Blood Base Excess 2 mmol/L (-3-3) Oxyhemoglobin 92.9 % Methemoglobin 0.2 % (0.0-1.9) Carbon Monoxide, Quantitative 0.1 % (0.0-1.9) Urine Collection Type Unknown Urine Color Yellow Urine Clarity Clear Urine pH 6.0 Urine Specific [place] 1.025 Urine Protein Negative mg/dL (NEG-TRACE) Urine Glucose (UA) >=1000 mg/dL (NEG) Urine Ketones (Stick) 15 mg/dL (NEG) Urine Blood Small (NEG) Urine Nitrite Negative (NEG) Urine Bilirubin Negative (NEG) Urine Urobilinogen Dipstick 0.2 mg/dL (0.2 mg/dL) Urine Leukocyte Esterase Moderate (NEG) Urine RBC Occ /HPF (0-2) Urine WBC Tntc /HPF (0-4) Urine Squamous Epithelial Cells Occ /LPF Urine Bacteria Few /HPF (0-FEW) Urine Mucus Slight /LPF Urine Opiates Screen Neg (NEG) Urine Methadone Screen Neg (NEG) Urine Barbiturates Neg (NEG) Urine Phencyclidine Screen Neg (NEG) Urine Amphetamine/Methamphetamine Neg (NEG) Urine Benzodiazepines Screen Neg (NEG) Urine Cocaine Screen Neg (NEG) Urine Cannabinoids Screen Pos (NEG) Urine Ethyl Alcohol Neg (NEG) White Blood Count 11.1 x10^3/uL (4.0-11.0) Red Blood Count 3.51 x10^6/uL (3.50-5.40) Hemoglobin 10.2 g/dL (12.0-15.5) Hematocrit 32.7 % (36.0-47.0) Mean Corpuscular Volume 93 fL (79-100) Mean Corpuscular Hemoglobin 29 pg (25-35) Mean Corpuscular Hemoglobin Concent 31 g/dL (31-37) Red Cell Distribution Width 13.8 % (11.5-14.5) Platelet Count 407 x10^3/uL (140-400) Neutrophils (%) (Auto) 85 % (31-73) Lymphocytes (%) (Auto) 9 % (24-48) Monocytes (%) (Auto) 5 % (0-9) Eosinophils (%) (Auto) 0 % (0-3) Basophils (%) (Auto) 1 % (0-3) Neutrophils # (Auto) 9.4 x10^3/uL (1.8-7.7) Lymphocytes # (Auto) 1.0 x10^3/uL (1.0-4.8) Monocytes # (Auto) 0.6 x10^3/uL (0.0-1.1) Eosinophils # (Auto) 0.0 x10^3/uL (0.0-0.7) Basophils # (Auto) 0.1 x10^3/uL (0.0-0.2) Sodium Level 116 mmol/L (136-145) Potassium Level 3.1 mmol/L (3.5-5.1) Chloride Level 74 mmol/L (98-107) Carbon Dioxide Level 27 mmol/L (21-32) Anion Gap 15 (6-14) Blood Urea Nitrogen 20 mg/dL (7-20) Creatinine 2.4 mg/dL (0.6-1.0) Estimated GFR (Cockcroft-Gault) 27.3 BUN/Creatinine Ratio 8 (6-20) Glucose Level 1325 mg/dL (70-99) Lactic Acid Level 3.3 mmol/L (0.4-2.0) Calcium Level 7.8 mg/dL (8.5-10.1) Phosphorus Level 2.9 mg/dL (2.6-4.7) Magnesium Level 2.0 mg/dL (1.8-2.4) Total Bilirubin 0.4 mg/dL (0.2-1.0) Aspartate Amino Transf (AST/SGOT) 12 U/L (15-37) Alanine Aminotransferase (ALT/SGPT) 14 U/L (14-59) Alkaline Phosphatase 182 U/L (46-116) Total Protein 7.9 g/dL (6.4-8.2) Albumin 2.3 g/dL (3.4-5.0) Albumin/Globulin Ratio 0.4 (1.0-1.7) Lipase 65 U/L (73-393) Acetone Level Sm pos (NEG) Bedside Urine HCG, Qualitative Hcg negative (Negative) Test 06/17/19 02:20 06/17/19 02:23 06/17/19 03:15 06/17/19 04:29 Glucose Level 820 mg/dL (70-99) 652 mg/dL (70-99) Nasal Screen MRSA (PCR) Negative (Negative) Glucose (Fingerstick) 448 mg/dL (70-99) Test 06/17/19 05:35 06/17/19 05:37 06/17/19 06:42 06/17/19 07:45 Sodium Level 134 mmol/L (136-145) Potassium Level 2.5 mmol/L (3.5-5.1) Chloride Level 94 mmol/L (98-107) Carbon Dioxide Level 32 mmol/L (21-32) Anion Gap 8 (6-14) Blood Urea Nitrogen 14 mg/dL (7-20) Creatinine 1.5 mg/dL (0.6-1.0) Estimated GFR (Cockcroft-Gault) 47.0 Glucose Level 340 mg/dL (70-99) Calcium Level 7.5 mg/dL (8.5-10.1) Glucose (Fingerstick) 356 mg/dL (70-99) 262 mg/dL (70-99) 198 mg/dL (70-99) Test 06/17/19 08:49 06/17/19 09:00 8/4/19 09:20 06/17/19 12:07 Glucose (Fingerstick) 216 mg/dL (70-99) 207 mg/dL (70-99) Lactic Acid Level 4.2 mmol/L (0.4-2.0) Sodium Level 134 mmol/L (136-145) Potassium Level 3.4 mmol/L (3.5-5.1) Chloride Level 93 mmol/L (98-107) Carbon Dioxide Level 31 mmol/L (21-32) Anion Gap 10 (6-14) Blood Urea Nitrogen 11 mg/dL (7-20) Creatinine 1.5 mg/dL (0.6-1.0) Estimated GFR (Cockcroft-Gault) 47.0 Glucose Level 223 mg/dL (70-99) Calcium Level 7.5 mg/dL (8.5-10.1) Magnesium Level 1.5 mg/dL (1.8-2.4) Test 06/17/19 15:00 06/17/19 17:22 06/17/19 21:27 06/18/19 08:00 Lactic Acid Level 0.9 mmol/L (0.4-2.0) Glucose (Fingerstick) 282 mg/dL (70-99) 237 mg/dL (70-99) 423 mg/dL (70-99) Test 06/18/19 08:02 Glucose (Fingerstick) 471 mg/dL (70-99) Laboratory Tests Test 06/17/19 08:49 06/17/19 09:00 06/17/19 09:20 06/17/19 12:07 Glucose (Fingerstick) 216 mg/dL (70-99) 207 mg/dL (70-99) Lactic Acid Level 4.2 mmol/L (0.4-2.0) Sodium Level 134 mmol/L (136-145) Potassium Level 3.4 mmol/L (3.5-5.1) Chloride Level 93 mmol/L (98-107) Carbon Dioxide Level 31 mmol/L (21-32) Anion Gap 10 (6-14) Blood Urea Nitrogen 11 mg/dL (7-20) Creatinine 1.5 mg/dL (0.6-1.0) Estimated GFR (Cockcroft-Gault) 47.0 Glucose Level 223 mg/dL (70-99) Calcium Level 7.5 mg/dL (8.5-10.1) Magnesium Level 1.5 mg/dL (1.8-2.4) Test 06/17/19 15:00 06/17/19 17:22 06/17/19 21:27 06/18/19 08:00 Lactic Acid Level 0.9 mmol/L (0.4-2.0) Glucose (Fingerstick) 282 mg/dL (70-99) 237 mg/dL (70-99) 423 mg/dL (70-99) Test 06/18/19 08:02 Glucose (Fingerstick) 471 mg/dL (70-99) Microbiology 06/17/19 Blood Culture - Preliminary, Resulted NO GROWTH AFTER 1 DAY Medications Current Medications Ondansetron HCl (Zofran) 4 mg 1X ONCE IV Last administered on 06/17/19at 00:40; Start 06/16/19 at 23:00; Stop 06/16/19 at 23:01; Status DC Famotidine (Pepcid Vial) 20 mg 1X ONCE IVP Last administered on 06/17/19at 00:40; Start 06/16/19 at 23:00; Stop 06/16/19 at 23:01; Status DC Sodium Chloride 1,000 ml @ 1,000 mls/hr 1X ONCE IV Last administered on 06/16/19at 23:51; Start 06/16/19 at 23:00; Stop 06/16/19 at 23:59; Status DC Sodium Chloride 1,000 ml @ 1,000 mls/hr 1X ONCE IV Last administered on 06/17/19at 00:39; Start 06/16/19 at 23:00; Stop 06/16/19 at 23:59; Status DC Insulin Human Regular (HumuLIN R VIAL) 8 unit 1X ONCE SQ Last administered on 06/16/19at 23:31; Start 06/16/19 at 23:00; Stop 06/16/19 at 23:01; Status DC Fentanyl Citrate (Fentanyl 2ml Vial) 50 mcg 1X ONCE IV Last administered on 06/17/19at 00:47; Start 06/17/19 at 00:45; Stop 06/17/19 at 00:46; Status DC Insulin Human Regular 150 unit/ Sodium Chloride 151.5 ml @ 0 mls/hr CONT PRN PRN IV PER PROTOCOL; Start 06/17/19 at 00:30; Status UNV Potassium Chloride/Water 100 ml @ 100 mls/hr PRN Q1HR PRN IV SEE COMMENTS Last administered on 06/17/19at 06:23; Start 06/17/19 at 00:30 Potassium Chloride/Water 100 ml @ 100 mls/hr PRN Q1HR PRN IV SEE COMMENTS; Start 06/17/19 at 00:30 Potassium Chloride/Water 100 ml @ 100 mls/hr PRN Q1HR PRN IV SEE COMMENTS; Start 06/17/19 at 00:30 Magnesium Sulfate/ Dextrose 100 ml @ 25 mls/hr DAILY IV ; Start 06/17/19 at 09:00; Stop 06/20/19 at 08:59; Status Cancel Ondansetron HCl (Zofran) 4 mg PRN Q8HRS PRN IV NAUSEA/VOMITING 1ST CHOICE; Start 06/17/19 at 00:30; Stop 06/18/19 at 00:29; Status DC Fentanyl Citrate (Fentanyl 2ml Vial) 50 mcg PRN Q2HRS PRN IV SEVERE PAIN 7-10 Last administered on 06/17/19at 12:28; Start 06/17/19 at 00:30 Insulin Human Regular 150 unit/ Sodium Chloride 151.5 ml @ 0 mls/hr CONT PRN PRN IV PER PROTOCOL Last administered on 06/17/19at 01:14; Start 06/17/19 at 00:45 Ceftriaxone Sodium (Rocephin) 1 gm 1X ONCE IVP Last administered on 06/17/19at 01:37; Start 06/17/19 at 01:30; Stop 06/17/19 at 01:31; Status DC Potassium Chloride/Sodium Chloride 1,000 ml @ 250 mls/hr Q4H IV Last administered on 06/17/19at 06:24; Start 06/17/19 at 02:00; Stop 06/17/19 at 07:18; Status DC Sodium Chloride 1,000 ml @ 250 mls/hr 1X ONCE IV Last administered on at 07:29; Start 06/17/19 at 08:00; Stop 06/17/19 at 11:59; Status DC Potassium Chloride/Water 50 ml @ 50 mls/hr Q1H IV Last administered on 06/17/19at 11:19; Start 06/17/19 at 08:00; Stop 06/17/19 at 11:59; Status DC Dextrose/Sodium Chloride 1,000 ml @ 250 mls/hr Q4H IV Last administered on 06/17/19at 12:06; Start 06/17/19 at 12:00 Insulin Human Lispro (HumaLOG) 6 units TIDWMEALS SQ Last administered on 06/17/19at 17:37; Start 06/17/19 at 12:00 Dextrose (Dextrose 50%-Water Syringe) 12.5 gm PRN Q15MIN PRN IV SEE COMMENTS; Start 06/17/19 at 09:45 Dextrose 250 ml PRN Q15MIN PRN IV SEE COMMENTS; Start 06/17/19 at 09:45 Sodium Chloride 1,000 ml @ 0 mls/hr Q1HR IV Last administered on 06/17/19at 12:29; Start 06/17/19 at 11:00; Stop 06/17/19 at 12:00; Status DC Magnesium Sulfate/ Dextrose 100 ml @ 25 mls/hr DAILY IV ; Start 06/17/19 at 12:00; Stop 06/17/19 at 12:00; Status Cancel Magnesium Sulfate/ Dextrose 100 ml @ 25 mls/hr DAILY IV ; Start 06/17/19 at 12:00; Status UNV Magnesium Sulfate 50 ml @ 25 mls/hr 1X ONCE IV Last administered on 06/17/19at 12:06; Start 06/17/19 at 12:00; Stop 06/17/19 at 13:59; Status DC Aspirin (Children'S Aspirin) 81 mg DAILY PO Last administered on 06/17/19at 12:49; Start 06/17/19 at 13:00 Clopidogrel Bisulfate (Plavix) 75 mg DAILY PO Last administered on 06/17/19at 12:49; Start 06/17/19 at 13:00 Cyclobenzaprine HCl (Flexeril) 10 mg PRN TID PRN PO MUSCLE SPASMS; Start at 12:00 Dicyclomine HCl (Bentyl) 10 mg TID PO Last administered on 06/17/19at 22:10; Start 06/17/19 at 14:00 Metoclopramide HCl (Reglan) 10 mg PRN TID PRN PO abdomen pain, bloating; Start 06/17/19 at 12:00 Metoprolol Succinate (Toprol Xl) 50 mg DAILY16 PO Last administered on 06/17/19 16:19; Start 06/17/19 at 16:00 Ondansetron HCl (Zofran Odt) 4 mg PRN BID PRN PO NAUSEA/VOMITING Last administered on 06/17/19 12:49; Start 06/17/19 at 12:00 Pantoprazole Sodium (Protonix) 40 mg DAILY07 PO Last administered on 06/18/19 06:24; Start 06/17/19 at 13:00 Gabapentin (Neurontin) 600 mg TID PO Last administered on 06/17/19 22:09; Start 06/17/19 at 14:00 Lactase (Lactaid) 3,000 unit PRN BFRMEAL PRN PO GI SYMPTOMS; Start 06/17/19 at 12:15 Non-Formulary Medication (Naproxen (Naprosyn)) 1 tab BID PO ; Start 06/17/19 at 21:00; Status UNV Oxycodone HCl (Roxicodone) 15 mg PRN Q6HRS PRN PO PAIN BREAKTHROUGH Last administered on 06/18/19 06:26; Start 06/17/19 at 12:15 Oxycodone HCl (OxyCONTIN) 60 mg Q12HR PO Last administered on 06/17/19 22:04; Start 06/17/19 at 21:00 Polyethylene Glycol (miraLAX PACKET) 17 gm PRN DAILY PRN PO CONSTIPATION 1ST CHOICE; Start 06/17/19 at 12:10 Lisinopril (Prinivil) 10 mg DAILY PO Last administered on 06/17/19 12:48; Start 06/17/19 at 13:00 Sennosides (Senna) 8.6 mg BID PO Last administered on 06/17/19 22:05; Start 06/17/19 at 13:00 Simvastatin (Zocor) 20 mg HS PO Last administered on 06/17/19 22:10; Start 06/17/19 at 21:00 Non-Formulary Medication (Tramadol Hcl ) 1 tab BID PO ; Start 06/17/19 at 21:00; Stop 06/17/19 at 21:00; Status DC Ceftriaxone Sodium (Rocephin) 1 gm Q24H IVP Last administered on 8/4/19at 15:08; Start 06/17/19 at 13:00 Active Scripts Active Pantoprazole Sodium (Pantoprazole Sodium) 40 Mg Tablet.dr 1 Tab PO DAILY Reglan (Metoclopramide Hcl) 10 Mg Tablet 1 Tab PO TID PRN Lactase 3,000 Unit Tablet 3,000 Unit PO PRN BFRMEAL PRN Zofran Odt (Ondansetron) 4 Mg Tab.rapdis 4 Mg PO BID PRN 7 Days Miralax (Polyethylene Glycol 3350) 17 Gm Powd.pack 1 Packet PO DAILY PRN Naprosyn (Naproxen) 500 Mg Tablet 1 Tab PO BID Bentyl (Dicyclomine Hcl) 10 Mg Capsule 1 Cap PO TID Senokot (Sennosides) 8.6 Mg Tablet 1 Tab PO BID Reported Oxymorphone Hcl 30 Mg Tab.er.12h 30 Mg PO Q12HR PRN Oxycodone Hcl Immed.release (Oxycodone Hcl) 15 Mg Tablet 15 Mg PO PRN Q6HRS PRN Cyclobenzaprine Hcl 10 Mg Tablet 1 Tab PO TID PRN Tramadol Hcl 50 Mg Tablet 1 Tab PO BID Promethazine Hcl 25 Mg Tablet Unknown Dose PO Q6H PRN Gabapentin 600 Mg Tablet 600 Mg PO TID Aspirin 81 Mg Tab.chew 1 Tab PO DAILY Novolog Flexpen (Insulin Aspart) 100 Unit/1 Ml Insuln.pen 0-10 SQ TIDAC Novolog (Insulin Aspart) 100 Unit/1 Ml Vial 6 Unit SQ TIDAC Simvastatin 20 Mg Tablet 20 Mg PO DAILY Ramipril 5 Mg Capsule 5 Mg PO DAILY Plavix (Clopidogrel Bisulfate) 75 Mg Tablet 75 Mg PO DAILY Metoprolol Succinate ( Xl ) (Metoprolol Succinate) 100 Mg Tab.er.24h 50 Mg PO DAILY16 Vitals/I & O Vital Sign - Last 24 Hours 06/17/19 06/17/19 06/17/19 06/17/19 09:00 10:05 11:00 12:00 Pulse 110 102 101 Resp 18 18 18 B/P (MAP) 136/64 (88) 123/67 (85) 112/62 (79) Pulse Ox 98 99 100 O2 Delivery Room Air Room Air Room Air Room Air 06/17/19 06/17/19 06/17/19 06/17/19 12:00 12:48 13:25 13:54 Temp 98.5 98.7 98.5 98.7 Pulse 99 99 104 Resp 28 16 20 B/P (MAP) 114/56 (75) 114/56 139/77 (97) Pulse Ox 97 96 97 O2 Delivery Room Air Room Air Room Air 06/17/19 06/17/19 06/17/19 06/17/19 14:00 15:00 15:15 16:19 Pulse 104 Resp 21 B/P (MAP) 139/77 Pulse Ox 97 O2 Delivery Room Air Room Air Room Air 06/17/19 06/17/19 06/17/19 06/17/19 17:47 19:20 19:50 20:14 Temp 98.1 98.1 98.1 98.1 Pulse 91 92 Resp 18 18 B/P (MAP) 116/72 (87) 133/78 (96) Pulse Ox 98 99 O2 Delivery Room Air Room Air Room Air Room Air 06/17/19 06/17/19 06/18/19 06/18/19 22:04 23:20 03:27 06:26 Temp 99.0 98.0 99.0 98.0 Pulse 89 96 Resp 18 18 B/P (MAP) 107/65 (79) 139/75 (96) Pulse Ox 97 93 O2 Delivery Room Air Room Air Room Air Room Air Intake and Output 06/17/19 06/17/19 06/18/19 14:59 22:59 06:59 Intake Total 2190 ml 200 ml 360 ml Output Total 80 ml Balance 2110 ml 200 ml 360 ml LILIANA ROSA MD Jun 18, 2019 08:38
[2019-06-18] MEDS ORDERED: INSULIN LISPRO 300 UNITS/3 ML INSULN.PEN. SQ ONE ×2 (09:15→14:00)
[2019-06-18] MEDS: ONDANSETRON ODT 4 MG TAB.RAPDIS. PO PRN (09:50)
[2019-06-18] MEDS: CLOPIDOGREL BISULFATE 75 MG TABLET PO SCH (09:50)
[2019-06-18] MEDS: INSULIN GLARGINE 300 UNITS/3 ML INSULN.PEN. SQ SCH ×2 (09:54→21:07)
[2019-06-18] MEDS: oxyCODONE ER 15 MG TAB.ER.12H PO SCH ×2 (10:11→20:56)
[2019-06-18 11:00] VITALS: BP 114/54
[2019-06-18 11:56] LABS: BASO # 0.1 x10^3/uL (0.0-0.2); BASO % 1 % (0-3); EOS # 0.1 x10^3/uL (0.0-0.7); EOS % 1 % (0-3); HEMATOCRIT 28.6 % (36.0-47.0); HEMOGLOBIN 9.7 g/dL (12.0-15.5); LYMPH # 1.4 x10^3/uL (1.0-4.8); LYMPH % 13 % (24-48); MEAN CORPUSCULAR HEMOGLOBIN 29 pg (25-35); MEAN CORPUSCULAR HGB CONC 34 g/dL (31-37); MEAN CORPUSCULAR VOLUME 85 fL (79-100); MONO # 0.4 x10^3/uL (0.0-1.1); MONO % 4 % (0-9); NEUT # 9.1 x10^3/uL (1.8-7.7); NEUT % 82 % (31-73); PLATELET COUNT 352 x10^3/uL (140-400); RED BLOOD COUNT 3.38 x10^6/uL (3.50-5.40); RED CELL DISTRIBUTION WIDTH 13.2 % (11.5-14.5); WHITE BLOOD COUNT 11.1 x10^3/uL (4.0-11.0)
[2019-06-18] MEDS: IV NORMAL SALINE 1000ML BAG 1,000 ML IV SCH ×2 (11:59→23:28)
[2019-06-18 12:00] LABS: CALCIUM 7.5 mg/dL (8.5-10.1); CREATININE 1.4 mg/dL (0.6-1.0); GFR 50.9; POTASSIUM 3.9 mmol/L (3.5-5.1)
[2019-06-18] MEDS ORDERED: DEXTROSE 50% 25 GM / 50ML DISP.SYRIN. IV PRN (12:00)
[2019-06-18] MEDS ORDERED: IV DEXTROSE 5% 250 ML BAG. IV PRN (12:00)
[2019-06-18] MEDS ORDERED: METOCLOPRAMIDE HCL 10 MG/2 ML VIAL. IV PRN (12:00)
[2019-06-18] MEDS: INSULIN LISPRO 300 UNITS/3 ML INSULN.PEN. SQ SCH ×6 (12:08→21:06)
[2019-06-18] MEDS: cefTRIAXone IV Push 1 GM VIAL. IVP SCH (13:40)
[2019-06-18] MEDS ORDERED: IV NORMAL SALINE 1000ML BAG 1,000 ML IV ONE (14:00)
--- NOTE | 2019-06-18 14:05 | NUR ---
SS following for discharge planning. SS reviewed pt chart. Pt is from home with spouse and is currently on room air. No discharge needs noted at this time. SS will continue to follow for discharge planning.
[2019-06-18 15:00] VITALS: BP 133/67
[2019-06-18] MEDS: METOPROLOL SUCC 24HR ER 50 MG TAB.ER.24H. PO SCH (15:27)
[2019-06-18] MEDS ORDERED: INSULIN LISPRO 300 UNITS/3 ML INSULN.PEN. SQ SCH (17:00)
[2019-06-18 19:00] VITALS: BP 100/56
[2019-06-18] MEDS: SIMVASTATIN 20 MG TABLET PO SCH (20:55)
[2019-06-18 23:00] VITALS: BP 110/55
[2019-06-19] MEDS: oxyCODONE IR 5 MG TABLET PO PRN ×2 (02:33→13:12)
[2019-06-19 03:00] VITALS: BP 126/54
[2019-06-19 04:28] LABS: BASO # 0.1 x10^3/uL (0.0-0.2); BASO % 1 % (0-3); EOS # 0.2 x10^3/uL (0.0-0.7); EOS % 2 % (0-3); HEMATOCRIT 23.8 % (36.0-47.0); HEMOGLOBIN 8.4 g/dL (12.0-15.5); LYMPH # 1.9 x10^3/uL (1.0-4.8); LYMPH % 20 % (24-48); MEAN CORPUSCULAR HEMOGLOBIN 30 pg (25-35); MEAN CORPUSCULAR HGB CONC 35 g/dL (31-37); MEAN CORPUSCULAR VOLUME 83 fL (79-100); MONO # 0.6 x10^3/uL (0.0-1.1); MONO % 7 % (0-9); NEUT # 6.6 x10^3/uL (1.8-7.7); NEUT % 70 % (31-73); PLATELET COUNT 299 x10^3/uL (140-400); RED BLOOD COUNT 2.86 x10^6/uL (3.50-5.40); RED CELL DISTRIBUTION WIDTH 13.2 % (11.5-14.5); WHITE BLOOD COUNT 9.4 x10^3/uL (4.0-11.0)
[2019-06-19] MEDS: PANTOPRAZOLE 40 MG TABLET.DR. PO SCH (07:00)
[2019-06-19] MEDS: POTASSIUM CHL 20MEQ PREMIX 50 ML IV SCH ×3 (07:00→11:09)
[2019-06-19] MEDS: INSULIN LISPRO 300 UNITS/3 ML INSULN.PEN. SQ SCH ×8 (07:30→21:55)
[2019-06-19 07:52] LABS: CALCIUM 7.1 mg/dL (8.5-10.1); CREATININE 1.3 mg/dL (0.6-1.0); GFR 55.5; PHOSPHORUS 0.8 mg/dL (2.6-4.7)
[2019-06-19] MEDS: IV NORMAL SALINE 1000ML BAG 1,000 ML IV SCH ×2 (08:00→18:00)
[2019-06-19 08:06] LABS: POTASSIUM 2.9 mmol/L (3.5-5.1)
--- NOTE | 2019-06-19 08:49 | PDOC ---
PROGRESS NOTES Chief Complaint Chief Complaint HHS - Nausea and vomiting - known history of diabetic gastroparesis since 2017 Chronic pain Diabetes Hypertension Hyperlipidemia CAD Left eye blind History of Present Illness History of Present Illness Ms Bryan is a 39yo F w/ PMHx chronic pain, DM who ran out of her insulin and presented with intractable nausea and vomiting and HHS with a glucose of 1325. Her anion gap was high at 15 as well. Initially admitted to the ICU on a DKA protocol. She notes she is not on basal insulin. Glucose in 200s this morning. Potassium 2.9. Phos 0.8 this morning. Mag level 1.5. She is apparently interfering with her IV use per nursing staff. Vitals Vitals Vital Signs Date Time Temp Pulse Resp B/P (MAP) Pulse Ox O2 Delivery O2 Flow Rate FiO2 06/19/19 03:33 Room Air 06/19/19 03:00 98.7 99 16 126/54 (78) 99 98.7 Physical Exam General: Alert, Oriented X3, Cooperative Heart: Regular rate, Normal S1, Normal S2 Lungs: Clear Abdomen: Normal bowel sounds, Soft Extremities: No clubbing, No cyanosis, No edema, Normal pulses Labs LABS Laboratory Tests Test 06/18/19 09:24 06/18/19 11:40 06/18/19 13:51 06/18/19 16:28 Glucose (Fingerstick) 405 mg/dL (70-99) 487 mg/dL (70-99) 570 mg/dL (70-99) 453 mg/dL (70-99) White Blood Count 11.1 x10^3/uL (4.0-11.0) Red Blood Count 3.38 x10^6/uL (3.50-5.40) Hemoglobin 9.7 g/dL (12.0-15.5) Hematocrit 28.6 % (36.0-47.0) Mean Corpuscular Volume 85 fL (79-100) Mean Corpuscular Hemoglobin 29 pg (25-35) Mean Corpuscular Hemoglobin Concent 34 g/dL (31-37) Red Cell Distribution Width 13.2 % (11.5-14.5) Platelet Count 352 x10^3/uL (140-400) Neutrophils (%) (Auto) 82 % (31-73) Lymphocytes (%) (Auto) 13 % (24-48) Monocytes (%) (Auto) 4 % (0-9) Eosinophils (%) (Auto) 1 % (0-3) Basophils (%) (Auto) 1 % (0-3) Neutrophils # (Auto) 9.1 x10^3/uL (1.8-7.7) Lymphocytes # (Auto) 1.4 x10^3/uL (1.0-4.8) Monocytes # (Auto) 0.4 x10^3/uL (0.0-1.1) Eosinophils # (Auto) 0.1 x10^3/uL (0.0-0.7) Basophils # (Auto) 0.1 x10^3/uL (0.0-0.2) Sodium Level 132 mmol/L (136-145) Potassium Level 3.9 mmol/L (3.5-5.1) Chloride Level 95 mmol/L (98-107) Carbon Dioxide Level 24 mmol/L (21-32) Anion Gap 13 (6-14) Blood Urea Nitrogen 9 mg/dL (7-20) Creatinine 1.4 mg/dL (0.6-1.0) Estimated GFR (Cockcroft-Gault) 50.9 Glucose Level 484 mg/dL (70-99) Calcium Level 7.5 mg/dL (8.5-10.1) Test 06/18/19 20:43 06/19/19 04:00 06/19/19 04:18 06/19/19 07:29 Glucose (Fingerstick) 353 mg/dL (70-99) 269 mg/dL (70-99) 249 mg/dL (70-99) White Blood Count 9.4 x10^3/uL (4.0-11.0) Red Blood Count 2.86 x10^6/uL (3.50-5.40) Hemoglobin 8.4 g/dL (12.0-15.5) Hematocrit 23.8 % (36.0-47.0) Mean Corpuscular Volume 83 fL (79-100) Mean Corpuscular Hemoglobin 30 pg (25-35) Mean Corpuscular Hemoglobin Concent 35 g/dL (31-37) Red Cell Distribution Width 13.2 % (11.5-14.5) Platelet Count 299 x10^3/uL (140-400) Neutrophils (%) (Auto) 70 % (31-73) Lymphocytes (%) (Auto) 20 % (24-48) Monocytes (%) (Auto) 7 % (0-9) Eosinophils (%) (Auto) 2 % (0-3) Basophils (%) (Auto) 1 % (0-3) Neutrophils # (Auto) 6.6 x10^3/uL (1.8-7.7) Lymphocytes # (Auto) 1.9 x10^3/uL (1.0-4.8) Monocytes # (Auto) 0.6 x10^3/uL (0.0-1.1) Eosinophils # (Auto) 0.2 x10^3/uL (0.0-0.7) Basophils # (Auto) 0.1 x10^3/uL (0.0-0.2) Sodium Level 137 mmol/L (136-145) Potassium Level 2.9 mmol/L (3.5-5.1) Chloride Level 101 mmol/L (98-107) Carbon Dioxide Level 27 mmol/L (21-32) Anion Gap 9 (6-14) Blood Urea Nitrogen 8 mg/dL (7-20) Creatinine 1.3 mg/dL (0.6-1.0) Estimated GFR (Cockcroft-Gault) 55.5 Glucose Level 275 mg/dL (70-99) Calcium Level 7.1 mg/dL (8.5-10.1) Phosphorus Level 0.8 mg/dL (2.6-4.7) Assessment and Plan Assessmemt and Plan Problems Medical Problems: (1) DKA (diabetic ketoacidoses) Status: Acute (2) Hyperglycemic hyperosmolar nonketotic coma Status: Acute (3) Hypokalemia Status: Acute (4) Lactic acidosis Status: Acute (5) Severe sepsis Status: Acute (6) UTI (urinary tract infection) Status: Acute Comment Review of Relevant I have reviewed the following items marina (where applicable) has been applied. Labs Laboratory Tests Test 06/17/19 08:49 06/17/19 09:00 06/17/19 09:20 06/17/19 12:07 Glucose (Fingerstick) 216 mg/dL (70-99) 207 mg/dL (70-99) Lactic Acid Level 4.2 mmol/L (0.4-2.0) Sodium Level 134 mmol/L (136-145) Potassium Level 3.4 mmol/L (3.5-5.1) Chloride Level 93 mmol/L (98-107) Carbon Dioxide Level 31 mmol/L (21-32) Anion Gap 10 (6-14) Blood Urea Nitrogen 11 mg/dL (7-20) Creatinine 1.5 mg/dL (0.6-1.0) Estimated GFR (Cockcroft-Gault) 47.0 Glucose Level 223 mg/dL (70-99) Calcium Level 7.5 mg/dL (8.5-10.1) Magnesium Level 1.5 mg/dL (1.8-2.4) Test 06/17/19 15:00 06/17/19 17:22 06/17/19 21:27 06/18/19 08:00 Lactic Acid Level 0.9 mmol/L (0.4-2.0) Glucose (Fingerstick) 282 mg/dL (70-99) 237 mg/dL (70-99) 423 mg/dL (70-99) Test 06/18/19 08:02 06/18/19 09:24 06/18/19 11:40 06/18/19 13:51 Glucose (Fingerstick) 471 mg/dL (70-99) 405 mg/dL (70-99) 487 mg/dL (70-99) 570 mg/dL (70-99) White Blood Count 11.1 x10^3/uL (4.0-11.0) Red Blood Count 3.38 x10^6/uL (3.50-5.40) Hemoglobin 9.7 g/dL (12.0-15.5) Hematocrit 28.6 % (36.0-47.0) Mean Corpuscular Volume 85 fL (79-100) Mean Corpuscular Hemoglobin 29 pg (25-35) Mean Corpuscular Hemoglobin Concent 34 g/dL (31-37) Red Cell Distribution Width 13.2 % (11.5-14.5) Platelet Count 352 x10^3/uL (140-400) Neutrophils (%) (Auto) 82 % (31-73) Lymphocytes (%) (Auto) 13 % (24-48) Monocytes (%) (Auto) 4 % (0-9) Eosinophils (%) (Auto) 1 % (0-3) Basophils (%) (Auto) 1 % (0-3) Neutrophils # (Auto) 9.1 x10^3/uL (1.8-7.7) Lymphocytes # (Auto) 1.4 x10^3/uL (1.0-4.8) Monocytes # (Auto) 0.4 x10^3/uL (0.0-1.1) Eosinophils # (Auto) 0.1 x10^3/uL (0.0-0.7) Basophils # (Auto) 0.1 x10^3/uL (0.0-0.2) Sodium Level 132 mmol/L (136-145) Potassium Level 3.9 mmol/L (3.5-5.1) Chloride Level 95 mmol/L (98-107) Carbon Dioxide Level 24 mmol/L (21-32) Anion Gap 13 (6-14) Blood Urea Nitrogen 9 mg/dL (7-20) Creatinine 1.4 mg/dL (0.6-1.0) Estimated GFR (Cockcroft-Gault) 50.9 Glucose Level 484 mg/dL (70-99) Calcium Level 7.5 mg/dL (8.5-10.1) Test 06/18/19 16:28 06/18/19 20:43 06/19/19 04:00 06/19/19 04:18 Glucose (Fingerstick) 453 mg/dL (70-99) 353 mg/dL (70-99) 269 mg/dL (70-99) White Blood Count 9.4 x10^3/uL (4.0-11.0) Red Blood Count 2.86 x10^6/uL (3.50-5.40) Hemoglobin 8.4 g/dL (12.0-15.5) Hematocrit 23.8 % (36.0-47.0) Mean Corpuscular Volume 83 fL (79-100) Mean Corpuscular Hemoglobin 30 pg (25-35) Mean Corpuscular Hemoglobin Concent 35 g/dL (31-37) Red Cell Distribution Width 13.2 % (11.5-14.5) Platelet Count 299 x10^3/uL (140-400) Neutrophils (%) (Auto) 70 % (31-73) Lymphocytes (%) (Auto) 20 % (24-48) Monocytes (%) (Auto) 7 % (0-9) Eosinophils (%) (Auto) 2 % (0-3) Basophils (%) (Auto) 1 % (0-3) Neutrophils # (Auto) 6.6 x10^3/uL (1.8-7.7) Lymphocytes # (Auto) 1.9 x10^3/uL (1.0-4.8) Monocytes # (Auto) 0.6 x10^3/uL (0.0-1.1) Eosinophils # (Auto) 0.2 x10^3/uL (0.0-0.7) Basophils # (Auto) 0.1 x10^3/uL (0.0-0.2) Sodium Level 137 mmol/L (136-145) Potassium Level 2.9 mmol/L (3.5-5.1) Chloride Level 101 mmol/L (98-107) Carbon Dioxide Level 27 mmol/L (21-32) Anion Gap 9 (6-14) Blood Urea Nitrogen 8 mg/dL (7-20) Creatinine 1.3 mg/dL (0.6-1.0) Estimated GFR (Cockcroft-Gault) 55.5 Glucose Level 275 mg/dL (70-99) Calcium Level 7.1 mg/dL (8.5-10.1) Phosphorus Level 0.8 mg/dL (2.6-4.7) Test 06/19/19 07:29 Glucose (Fingerstick) 249 mg/dL (70-99) Laboratory Tests Test 06/18/19 09:24 06/18/19 11:40 06/18/19 13:51 06/18/19 16:28 Glucose (Fingerstick) 405 mg/dL (70-99) 487 mg/dL (70-99) 570 mg/dL (70-99) 453 mg/dL (70-99) White Blood Count 11.1 x10^3/uL (4.0-11.0) Red Blood Count 3.38 x10^6/uL (3.50-5.40) Hemoglobin 9.7 g/dL (12.0-15.5) Hematocrit 28.6 % (36.0-47.0) Mean Corpuscular Volume 85 fL (79-100) Mean Corpuscular Hemoglobin 29 pg (25-35) Mean Corpuscular Hemoglobin Concent 34 g/dL (31-37) Red Cell Distribution Width 13.2 % (11.5-14.5) Platelet Count 352 x10^3/uL (140-400) Neutrophils (%) (Auto) 82 % (31-73) Lymphocytes (%) (Auto) 13 % (24-48) Monocytes (%) (Auto) 4 % (0-9) Eosinophils (%) (Auto) 1 % (0-3) Basophils (%) (Auto) 1 % (0-3) Neutrophils # (Auto) 9.1 x10^3/uL (1.8-7.7) Lymphocytes # (Auto) 1.4 x10^3/uL (1.0-4.8) Monocytes # (Auto) 0.4 x10^3/uL (0.0-1.1) Eosinophils # (Auto) 0.1 x10^3/uL (0.0-0.7) Basophils # (Auto) 0.1 x10^3/uL (0.0-0.2) Sodium Level 132 mmol/L (136-145) Potassium Level 3.9 mmol/L (3.5-5.1) Chloride Level 95 mmol/L (98-107) Carbon Dioxide Level 24 mmol/L (21-32) Anion Gap 13 (6-14) Blood Urea Nitrogen 9 mg/dL (7-20) Creatinine 1.4 mg/dL (0.6-1.0) Estimated GFR (Cockcroft-Gault) 50.9 Glucose Level 484 mg/dL (70-99) Calcium Level 7.5 mg/dL (8.5-10.1) Test 06/18/19 20:43 06/19/19 04:00 06/19/19 04:18 06/19/19 07:29 Glucose (Fingerstick) 353 mg/dL (70-99) 269 mg/dL (70-99) 249 mg/dL (70-99) White Blood Count 9.4 x10^3/uL (4.0-11.0) Red Blood Count 2.86 x10^6/uL (3.50-5.40) Hemoglobin 8.4 g/dL (12.0-15.5) Hematocrit 23.8 % (36.0-47.0) Mean Corpuscular Volume 83 fL (79-100) Mean Corpuscular Hemoglobin 30 pg (25-35) Mean Corpuscular Hemoglobin Concent 35 g/dL (31-37) Red Cell Distribution Width 13.2 % (11.5-14.5) Platelet Count 299 x10^3/uL (140-400) Neutrophils (%) (Auto) 70 % (31-73) Lymphocytes (%) (Auto) 20 % (24-48) Monocytes (%) (Auto) 7 % (0-9) Eosinophils (%) (Auto) 2 % (0-3) Basophils (%) (Auto) 1 % (0-3) Neutrophils # (Auto) 6.6 x10^3/uL (1.8-7.7) Lymphocytes # (Auto) 1.9 x10^3/uL (1.0-4.8) Monocytes # (Auto) 0.6 x10^3/uL (0.0-1.1) Eosinophils # (Auto) 0.2 x10^3/uL (0.0-0.7) Basophils # (Auto) 0.1 x10^3/uL (0.0-0.2) Sodium Level 137 mmol/L (136-145) Potassium Level 2.9 mmol/L (3.5-5.1) Chloride Level 101 mmol/L (98-107) Carbon Dioxide Level 27 mmol/L (21-32) Anion Gap 9 (6-14) Blood Urea Nitrogen 8 mg/dL (7-20) Creatinine 1.3 mg/dL (0.6-1.0) Estimated GFR (Cockcroft-Gault) 55.5 Glucose Level 275 mg/dL (70-99) Calcium Level 7.1 mg/dL (8.5-10.1) Phosphorus Level 0.8 mg/dL (2.6-4.7) Microbiology 06/17/19 Blood Culture - Preliminary, Resulted NO GROWTH AFTER 1 DAY Medications Current Medications Ondansetron HCl (Zofran) 4 mg 1X ONCE IV Last administered on 06/17/19at 00:40; Start 06/16/19 at 23:00; Stop 06/16/19 at 23:01; Status DC Famotidine (Pepcid Vial) 20 mg 1X ONCE IVP Last administered on 06/17/19at 00:40; Start 06/16/19 at 23:00; Stop 06/16/19 at 23:01; Status DC Sodium Chloride 1,000 ml @ 1,000 mls/hr 1X ONCE IV Last administered on 06/16/19at 23:51; Start 06/16/19 at 23:00; Stop 06/16/19 at 23:59; Status DC Sodium Chloride 1,000 ml @ 1,000 mls/hr 1X ONCE IV Last administered on 06/17/19at 00:39; Start 06/16/19 at 23:00; Stop 06/16/19 at 23:59; Status DC Insulin Human Regular (HumuLIN R VIAL) 8 unit 1X ONCE SQ Last administered on 06/16/19at 23:31; Start 06/16/19 at 23:00; Stop 06/16/19 at 23:01; Status DC Fentanyl Citrate (Fentanyl 2ml Vial) 50 mcg 1X ONCE IV Last administered on 06/17/19at 00:47; Start 06/17/19 at 00:45; Stop 06/17/19 at 00:46; Status DC Insulin Human Regular 150 unit/ Sodium Chloride 151.5 ml @ 0 mls/hr CONT PRN PRN IV PER PROTOCOL; Start 06/17/19 at 00:30; Status UNV Potassium Chloride/Water 100 ml @ 100 mls/hr PRN Q1HR PRN IV SEE COMMENTS Last administered on 06/17/19at 06:23; Start 06/17/19 at 00:30 Potassium Chloride/Water 100 ml @ 100 mls/hr PRN Q1HR PRN IV SEE COMMENTS; Start 06/17/19 at 00:30 Potassium Chloride/Water 100 ml @ 100 mls/hr PRN Q1HR PRN IV SEE COMMENTS; Start 06/17/19 at 00:30 Magnesium Sulfate/ Dextrose 100 ml @ 25 mls/hr DAILY IV ; Start 06/17/19 at 09:00; Stop 06/20/19 at 08:59; Status Cancel Ondansetron HCl (Zofran) 4 mg PRN Q8HRS PRN IV NAUSEA/VOMITING 1ST CHOICE; Start 06/17/19 at 00:30; Stop 06/18/19 at 00:29; Status DC Fentanyl Citrate (Fentanyl 2ml Vial) 50 mcg PRN Q2HRS PRN IV SEVERE PAIN 7-10 Last administered on 06/17/19at 12:28; Start 06/17/19 at 00:30; Stop 06/18/19 at 08:36; Status DC Insulin Human Regular 150 unit/ Sodium Chloride 151.5 ml @ 0 mls/hr CONT PRN PRN IV PER PROTOCOL Last administered on 06/17/19at 01:14; Start 06/17/19 at 00:45; Stop 06/18/19 at 08:36; Status DC Ceftriaxone Sodium (Rocephin) 1 gm 1X ONCE IVP Last administered on 06/17/19at 01:37; Start 06/17/19 at 01:30; Stop 06/17/19 at 01:31; Status DC Potassium Chloride/Sodium Chloride 1,000 ml @ 250 mls/hr Q4H IV Last administered on 06/17/19at 06:24; Start 06/17/19 at 02:00; Stop 06/17/19 at 07:18; Status DC Sodium Chloride 1,000 ml @ 250 mls/hr 1X ONCE IV Last administered on 06/17/19at 07:29; Start 06/17/19 at 08:00; Stop 06/17/19 at 11:59; Status DC Potassium Chloride/Water 50 ml @ 50 mls/hr Q1H IV Last administered on 06/17/19at 11:19; Start 06/17/19 at 08:00; Stop 06/17/19 at 11:59; Status DC Dextrose/Sodium Chloride 1,000 ml @ 250 mls/hr Q4H IV Last administered on 06/17/19at 12:06; Start 06/17/19 at 12:00; Stop 06/18/19 at 11:55; Status DC Insulin Human Lispro (HumaLOG) 6 units TIDWMEALS SQ Last administered on 06/18/19at 12:08; Start 06/17/19 at 12:00; Stop 06/18/19 at 14:03; Status DC Dextrose (Dextrose 50%-Water Syringe) 12.5 gm PRN Q15MIN PRN IV SEE COMMENTS; Start 06/17/19 at 09:45 Dextrose 250 ml PRN Q15MIN PRN IV SEE COMMENTS; Start 06/17/19 at 09:45 Sodium Chloride 1,000 ml @ 0 mls/hr Q1HR IV Last administered on 06/17/19 12:29; Start 06/17/19 at 11:00; Stop 06/17/19 at 12:00; Status DC Magnesium Sulfate/ Dextrose 100 ml @ 25 mls/hr DAILY IV ; Start 06/17/19 at 12:00; Stop 06/17/19 at 12:00; Status Cancel Magnesium Sulfate/ Dextrose 100 ml @ 25 mls/hr DAILY IV ; Start 06/17/19 at 12:00; Status UNV Magnesium Sulfate 50 ml @ 25 mls/hr 1X ONCE IV Last administered on 06/17/19 12:06; Start 06/17/19 at 12:00; Stop 06/17/19 at 13:59; Status DC Aspirin (Children'S Aspirin) 81 mg DAILY PO Last administered on 06/18/19 08:38; Start 06/17/19 at 13:00 Clopidogrel Bisulfate (Plavix) 75 mg DAILY PO Last administered on 06/18/19 09:50; Start 06/17/19 at 13:00 Cyclobenzaprine HCl (Flexeril) 10 mg PRN TID PRN PO MUSCLE SPASMS; Start 06/17/19 at 12:00 Dicyclomine HCl (Bentyl) 10 mg TID PO Last administered on 06/18/19 20:56; Start 06/17/19 at 14:00 Metoclopramide HCl (Reglan) 10 mg PRN TID PRN PO abdomen pain, bloating; Start 06/17/19 at 12:00 Metoprolol Succinate (Toprol Xl) 50 mg DAILY16 PO Last administered on 06/18/19 15:27; Start 06/17/19 at 16:00 Ondansetron HCl (Zofran Odt) 4 mg PRN BID PRN PO NAUSEA/VOMITING Last administered on 06/18/19 09:50; Start 06/17/19 at 12:00 Pantoprazole Sodium (Protonix) 40 mg DAILY07 PO Last administered on 06/18/19 06:24; Start 06/17/19 at 13:00 Gabapentin (Neurontin) 600 mg TID PO Last administered on 06/18/19 20:55; Start 06/17/19 at 14:00 Lactase (Lactaid) 3,000 unit PRN BFRMEAL PRN PO GI SYMPTOMS; Start 06/17/19 at 12:15 Non-Formulary Medication (Naproxen (Naprosyn)) 1 tab BID PO ; Start 06/17/19 at 21:00; Status UNV Oxycodone HCl (Roxicodone) 15 mg PRN Q6HRS PRN PO PAIN BREAKTHROUGH Last administered on 06/19/19 02:33; Start 06/17/19 at 12:15 Oxycodone HCl (OxyCONTIN) 60 mg Q12HR PO Last administered on 06/18/19 20:56; Start 06/17/19 at 21:00 Polyethylene Glycol (miraLAX PACKET) 17 gm PRN DAILY PRN PO CONSTIPATION 1ST CHOICE; Start 06/17/19 at 12:10 Lisinopril (Prinivil) 10 mg DAILY PO Last administered on 06/18/19 08:38; Start 06/17/19 at 13:00 Sennosides (Senna) 8.6 mg BID PO Last administered on 06/18/19 20:56; Start 06/17/19 at 13:00 Simvastatin (Zocor) 20 mg HS PO Last administered on 06/18/19 20:55; Start 06/17/19 at 21:00 Non-Formulary Medication (Tramadol Hcl ) 1 tab BID PO ; Start 06/17/19 at 21:00; Stop 06/17/19 at 21:00; Status DC Ceftriaxone Sodium (Rocephin) 1 gm Q24H IVP Last administered on 06/18/19 13:40; Start 06/17/19 at 13:00 Insulin Glargine (Lantus) 12 units QHS SQ Last administered on 06/18/19 21:07; Start 06/18/19 at 09:00 Insulin Human Lispro (HumaLOG) 9 units 1X ONCE SQ Last administered on 06/18/19 09:19; Start 06/18/19 at 09:15; Stop 06/18/19 at 09:16; Status DC Metoclopramide HCl (Reglan Vial) 10 mg PRN Q6HRS PRN IV NAUSEA/VOMITING Last administered on 06/18/19 15:27; Start 06/18/19 at 12:00 Insulin Human Lispro (HumaLOG) 0-9 UNITS TIDWMEALHC SQ Last administered on 06/18/19at 17:11; Start 06/18/19 at 12:00 Dextrose (Dextrose 50%-Water Syringe) 12.5 gm PRN Q15MIN PRN IV SEE COMMENTS; Start 06/18/19 at 12:00 Dextrose 250 ml PRN Q15MIN PRN IV SEE COMMENTS; Start 06/18/19 at 12:00 Sodium Chloride 1,000 ml @ 100 mls/hr Q10H IV Last administered on 06/18/19at 23:28; Start 06/18/19 at 12:00 Insulin Human Lispro (HumaLOG) 10 units TIDWMEALS SQ ; Start 06/18/19 at 17:00; Stop 06/18/19 at 17:03; Status DC Sodium Chloride 1,000 ml @ 1,000 mls/hr 1X ONCE IV Last administered on 06/18/19at 14:55; Start 06/18/19 at 14:00; Stop 06/18/19 at 14:59; Status DC Insulin Human Lispro (HumaLOG) 11 units 1X ONCE SQ Last administered on 06/18/19at 15:15; Start 06/18/19 at 14:00; Stop 06/18/19 at 14:05; Status DC Insulin Human Lispro (HumaLOG) 18 units TIDACHC SQ Last administered on 06/18/19at 21:06; Start 06/18/19 at 17:30 Potassium Chloride/Water 50 ml @ 50 mls/hr Q1H IV ; Start 06/19/19 at 07:00; Stop 06/19/19 at 09:59 Active Scripts Active Pantoprazole Sodium (Pantoprazole Sodium) 40 Mg Tablet.dr 1 Tab PO DAILY Reglan (Metoclopramide Hcl) 10 Mg Tablet 1 Tab PO TID PRN Lactase 3,000 Unit Tablet 3,000 Unit PO PRN BFRMEAL PRN Zofran Odt (Ondansetron) 4 Mg Tab.rapdis 4 Mg PO BID PRN 7 Days Miralax (Polyethylene Glycol 3350) 17 Gm Powd.pack 1 Packet PO DAILY PRN Naprosyn (Naproxen) 500 Mg Tablet 1 Tab PO BID Bentyl (Dicyclomine Hcl) 10 Mg Capsule 1 Cap PO TID Senokot (Sennosides) 8.6 Mg Tablet 1 Tab PO BID Reported Oxymorphone Hcl 30 Mg Tab.er.12h 30 Mg PO Q12HR PRN Oxycodone Hcl Immed.release (Oxycodone Hcl) 15 Mg Tablet 15 Mg PO PRN Q6HRS PRN Cyclobenzaprine Hcl 10 Mg Tablet 1 Tab PO TID PRN Tramadol Hcl 50 Mg Tablet 1 Tab PO BID Promethazine Hcl 25 Mg Tablet Unknown Dose PO Q6H PRN Gabapentin 600 Mg Tablet 600 Mg PO TID Aspirin 81 Mg Tab.chew 1 Tab PO DAILY Novolog Flexpen (Insulin Aspart) 100 Unit/1 Ml Insuln.pen 0-10 SQ TIDAC Novolog (Insulin Aspart) 100 Unit/1 Ml Vial 6 Unit SQ TIDAC Simvastatin 20 Mg Tablet 20 Mg PO DAILY Ramipril 5 Mg Capsule 5 Mg PO DAILY Plavix (Clopidogrel Bisulfate) 75 Mg Tablet 75 Mg PO DAILY Metoprolol Succinate ( Xl ) (Metoprolol Succinate) 100 Mg Tab.er.24h 50 Mg PO DAILY16 Vitals/I & O Vital Sign - Last 24 Hours 06/18/19 06/18/19 06/18/19 06/18/19 10:11 11:00 15:00 15:27 Temp 98.4 98.4 98.4 98.4 Pulse 101 114 114 Resp 18 18 B/P (MAP) 114/54 (74) 133/67 (89) 133/67 Pulse Ox 96 97 O2 Delivery Room Air Room Air Room Air 06/18/19 06/18/19 06/18/19 06/18/19 15:27 19:00 19:55 20:56 Temp 98.1 98.1 Pulse 99 Resp 18 B/P (MAP) 100/56 (71) Pulse Ox 96 O2 Delivery Room Air Room Air Room Air Room Air 06/18/19 06/19/19 06/19/19 06/19/19 23:00 00:56 02:33 03:00 Temp 99.4 98.7 99.4 98.7 Pulse 103 99 Resp 18 16 B/P (MAP) 110/55 (73) 126/54 (78) Pulse Ox 100 100 99 O2 Delivery Room Air Room Air Room Air Room Air 06/19/19 03:33 O2 Delivery Room Air LILIANA ROSA MD Jun 19, 2019 08:49
[2019-06-19] MEDS: CLOPIDOGREL BISULFATE 75 MG TABLET PO SCH (09:00)
[2019-06-19] MEDS: oxyCODONE ER 15 MG TAB.ER.12H PO SCH ×2 (09:00→20:19)
[2019-06-19] MEDS: DICYCLOMINE HCL 10 MG CAPSULE PO SCH ×4 (09:00→21:42)
[2019-06-19] MEDS: LISINOPRIL 10 MG TABLET PO SCH (09:00)
[2019-06-19] MEDS: GABAPENTIN 300 MG CAPSULE. PO SCH ×3 (09:00→21:42)
[2019-06-19] MEDS: SENNOSIDES 8.6 MG TABLET PO SCH ×2 (09:00→21:42)
[2019-06-19] MEDS: ASPIRIN CHEWABLE 81 MG TABLET. PO SCH (09:00)
[2019-06-19] MEDS: POTASSIUM PHOSPHATE DIBASIC 13.6 MMOL in IV DEXTROSE 5% 100ML 100 ML IV SCH ×2 (10:06→12:41)
[2019-06-19 10:59] VITALS: BP 140/81
[2019-06-19] MEDS ORDERED: MAGNESIUM SULFATE 4GM 100 ML IV ONE (11:00)
[2019-06-19] MEDS: cefTRIAXone IV Push 1 GM VIAL. IVP SCH (12:39)
[2019-06-19 15:01] VITALS: BP 112/53
[2019-06-19] MEDS: METOPROLOL SUCC 24HR ER 50 MG TAB.ER.24H. PO SCH (16:00)
[2019-06-19 19:20] VITALS: BP 132/71
[2019-06-19] MEDS: SIMVASTATIN 20 MG TABLET PO SCH (21:42)
[2019-06-19] MEDS: INSULIN GLARGINE 300 UNITS/3 ML INSULN.PEN. SQ SCH (21:53)
[2019-06-19 23:09] VITALS: BP 126/74
[2019-06-20] MEDS: oxyCODONE IR 5 MG TABLET PO PRN ×2 (00:23→13:37)
[2019-06-20] MEDS: IV NORMAL SALINE 1000ML BAG 1,000 ML IV SCH ×3 (03:15→23:03)
[2019-06-20 03:43] VITALS: BP 111/54
[2019-06-20 05:32] LABS: BASO # 0.1 x10^3/uL (0.0-0.2); BASO % 1 % (0-3); EOS # 0.2 x10^3/uL (0.0-0.7); EOS % 2 % (0-3); LYMPH # 1.8 x10^3/uL (1.0-4.8); LYMPH % 20 % (24-48); MEAN CORPUSCULAR HEMOGLOBIN 29 pg (25-35); MEAN CORPUSCULAR HGB CONC 35 g/dL (31-37); MEAN CORPUSCULAR VOLUME 85 fL (79-100); MONO # 0.5 x10^3/uL (0.0-1.1); MONO % 6 % (0-9); NEUT # 6.7 x10^3/uL (1.8-7.7); NEUT % 72 % (31-73); PLATELET COUNT 282 x10^3/uL (140-400); RED BLOOD COUNT 2.72 x10^6/uL (3.50-5.40); RED CELL DISTRIBUTION WIDTH 13.5 % (11.5-14.5); WHITE BLOOD COUNT 9.2 x10^3/uL (4.0-11.0)
[2019-06-20 06:11] LABS: CALCIUM 7.1 mg/dL (8.5-10.1); CREATININE 1.3 mg/dL (0.6-1.0); GFR 55.5; POTASSIUM 3.6 mmol/L (3.5-5.1)
[2019-06-20 07:00] VITALS: BP 151/66
--- NOTE | 2019-06-20 08:16 | PDOC ---
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 Her anion gap was high at 15 as well. Initially admitted to the ICU on a DKA protocol. 06/19: She notes she is not on basal insulin. Glucose in 200s this morning. Potassium 2.9. Phos 0.8 this morning. Mag level 1.5. She is apparently interf ering with her IV use per nursing staff. This morning drank a few juices after breakfast and her blood sugar jumped into the 400s again. Labs improving overall. Mag still 1.8, phos 2. Cr back down Vitals Vitals Vital Signs Date Time Temp Pulse Resp B/P (MAP) Pulse Ox O2 Delivery O2 Flow Rate FiO2 06/20/19 03:43 98.0 99 18 111/54 (73) 100 Room Air 98.0 Physical Exam General: Alert, Oriented X3, Cooperative Heart: Regular rate, Normal S1, Normal S2 Lungs: Clear Abdomen: Normal bowel sounds, Soft Extremities: No clubbing, No cyanosis, No edema, Normal pulses Labs LABS Laboratory Tests Test 06/19/19 11:37 06/19/19 16:33 06/19/19 20:58 06/20/19 05:25 Glucose (Fingerstick) 261 mg/dL (70-99) 129 mg/dL (70-99) 298 mg/dL (70-99) White Blood Count 9.2 x10^3/uL (4.0-11.0) Red Blood Count 2.72 x10^6/uL (3.50-5.40) Hemoglobin 8.0 g/dL (12.0-15.5) Hematocrit 23.0 % (36.0-47.0) Mean Corpuscular Volume 85 fL (79-100) Mean Corpuscular Hemoglobin 29 pg (25-35) Mean Corpuscular Hemoglobin Concent 35 g/dL (31-37) Red Cell Distribution Width 13.5 % (11.5-14.5) Platelet Count 282 x10^3/uL (140-400) Neutrophils (%) (Auto) 72 % (31-73) Lymphocytes (%) (Auto) 20 % (24-48) Monocytes (%) (Auto) 6 % (0-9) Eosinophils (%) (Auto) 2 % (0-3) Basophils (%) (Auto) 1 % (0-3) Neutrophils # (Auto) 6.7 x10^3/uL (1.8-7.7) Lymphocytes # (Auto) 1.8 x10^3/uL (1.0-4.8) Monocytes # (Auto) 0.5 x10^3/uL (0.0-1.1) Eosinophils # (Auto) 0.2 x10^3/uL (0.0-0.7) Basophils # (Auto) 0.1 x10^3/uL (0.0-0.2) Sodium Level 139 mmol/L (136-145) Potassium Level 3.6 mmol/L (3.5-5.1) Chloride Level 104 mmol/L (98-107) Carbon Dioxide Level 28 mmol/L (21-32) Anion Gap 7 (6-14) Blood Urea Nitrogen 13 mg/dL (7-20) Creatinine 1.3 mg/dL (0.6-1.0) Estimated GFR (Cockcroft-Gault) 55.5 Glucose Level 386 mg/dL (70-99) Calcium Level 7.1 mg/dL (8.5-10.1) Test 06/20/19 07:37 Glucose (Fingerstick) 390 mg/dL (70-99) Assessment and Plan Assessmemt and Plan Problems Medical Problems: (1) DKA (diabetic ketoacidoses) Status: Acute (2) Hyperglycemic hyperosmolar nonketotic coma Status: Acute (3) Hypokalemia Status: Acute (4) Lactic acidosis Status: Acute (5) Severe sepsis Status: Acute (6) UTI (urinary tract infection) Status: Acute Comment Review of Relevant I have reviewed the following items marina (where applicable) has been applied. Labs Laboratory Tests Test 06/18/19 09:24 06/18/19 11:40 06/18/19 13:51 06/18/19 16:28 Glucose (Fingerstick) 405 mg/dL (70-99) 487 mg/dL (70-99) 570 mg/dL (70-99) 453 mg/dL (70-99) White Blood Count 11.1 x10^3/uL (4.0-11.0) Red Blood Count 3.38 x10^6/uL (3.50-5.40) Hemoglobin 9.7 g/dL (12.0-15.5) Hematocrit 28.6 % (36.0-47.0) Mean Corpuscular Volume 85 fL (79-100) Mean Corpuscular Hemoglobin 29 pg (25-35) Mean Corpuscular Hemoglobin Concent 34 g/dL (31-37) Red Cell Distribution Width 13.2 % (11.5-14.5) Platelet Count 352 x10^3/uL (140-400) Neutrophils (%) (Auto) 82 % (31-73) Lymphocytes (%) (Auto) 13 % (24-48) Monocytes (%) (Auto) 4 % (0-9) Eosinophils (%) (Auto) 1 % (0-3) Basophils (%) (Auto) 1 % (0-3) Neutrophils # (Auto) 9.1 x10^3/uL (1.8-7.7) Lymphocytes # (Auto) 1.4 x10^3/uL (1.0-4.8) Monocytes # (Auto) 0.4 x10^3/uL (0.0-1.1) Eosinophils # (Auto) 0.1 x10^3/uL (0.0-0.7) Basophils # (Auto) 0.1 x10^3/uL (0.0-0.2) Sodium Level 132 mmol/L (136-145) Potassium Level 3.9 mmol/L (3.5-5.1) Chloride Level 95 mmol/L (98-107) Carbon Dioxide Level 24 mmol/L (21-32) Anion Gap 13 (6-14) Blood Urea Nitrogen 9 mg/dL (7-20) Creatinine 1.4 mg/dL (0.6-1.0) Estimated GFR (Cockcroft-Gault) 50.9 Glucose Level 484 mg/dL (70-99) Calcium Level 7.5 mg/dL (8.5-10.1) Test 06/18/19 20:43 8/6/19 04:00 06/19/19 04:18 06/19/19 07:29 Glucose (Fingerstick) 353 mg/dL (70-99) 269 mg/dL (70-99) 249 mg/dL (70-99) White Blood Count 9.4 x10^3/uL (4.0-11.0) Red Blood Count 2.86 x10^6/uL (3.50-5.40) Hemoglobin 8.4 g/dL (12.0-15.5) Hematocrit 23.8 % (36.0-47.0) Mean Corpuscular Volume 83 fL (79-100) Mean Corpuscular Hemoglobin 30 pg (25-35) Mean Corpuscular Hemoglobin Concent 35 g/dL (31-37) Red Cell Distribution Width 13.2 % (11.5-14.5) Platelet Count 299 x10^3/uL (140-400) Neutrophils (%) (Auto) 70 % (31-73) Lymphocytes (%) (Auto) 20 % (24-48) Monocytes (%) (Auto) 7 % (0-9) Eosinophils (%) (Auto) 2 % (0-3) Basophils (%) (Auto) 1 % (0-3) Neutrophils # (Auto) 6.6 x10^3/uL (1.8-7.7) Lymphocytes # (Auto) 1.9 x10^3/uL (1.0-4.8) Monocytes # (Auto) 0.6 x10^3/uL (0.0-1.1) Eosinophils # (Auto) 0.2 x10^3/uL (0.0-0.7) Basophils # (Auto) 0.1 x10^3/uL (0.0-0.2) Sodium Level 137 mmol/L (136-145) Potassium Level 2.9 mmol/L (3.5-5.1) Chloride Level 101 mmol/L (98-107) Carbon Dioxide Level 27 mmol/L (21-32) Anion Gap 9 (6-14) Blood Urea Nitrogen 8 mg/dL (7-20) Creatinine 1.3 mg/dL (0.6-1.0) Estimated GFR (Cockcroft-Gault) 55.5 Glucose Level 275 mg/dL (70-99) Calcium Level 7.1 mg/dL (8.5-10.1) Phosphorus Level 0.8 mg/dL (2.6-4.7) Magnesium Level 1.5 mg/dL (1.8-2.4) Lactate Dehydrogenase 180 U/L (81-234) Test 06/19/19 11:37 06/19/19 16:33 06/19/19 20:58 06/20/19 05:25 Glucose (Fingerstick) 261 mg/dL (70-99) 129 mg/dL (70-99) 298 mg/dL (70-99) White Blood Count 9.2 x10^3/uL (4.0-11.0) Red Blood Count 2.72 x10^6/uL (3.50-5.40) Hemoglobin 8.0 g/dL (12.0-15.5) Hematocrit 23.0 % (36.0-47.0) Mean Corpuscular Volume 85 fL (79-100) Mean Corpuscular Hemoglobin 29 pg (25-35) Mean Corpuscular Hemoglobin Concent 35 g/dL (31-37) Red Cell Distribution Width 13.5 % (11.5-14.5) Platelet Count 282 x10^3/uL (140-400) Neutrophils (%) (Auto) 72 % (31-73) Lymphocytes (%) (Auto) 20 % (24-48) Monocytes (%) (Auto) 6 % (0-9) Eosinophils (%) (Auto) 2 % (0-3) Basophils (%) (Auto) 1 % (0-3) Neutrophils # (Auto) 6.7 x10^3/uL (1.8-7.7) Lymphocytes # (Auto) 1.8 x10^3/uL (1.0-4.8) Monocytes # (Auto) 0.5 x10^3/uL (0.0-1.1) Eosinophils # (Auto) 0.2 x10^3/uL (0.0-0.7) Basophils # (Auto) 0.1 x10^3/uL (0.0-0.2) Sodium Level 139 mmol/L (136-145) Potassium Level 3.6 mmol/L (3.5-5.1) Chloride Level 104 mmol/L (98-107) Carbon Dioxide Level 28 mmol/L (21-32) Anion Gap 7 (6-14) Blood Urea Nitrogen 13 mg/dL (7-20) Creatinine 1.3 mg/dL (0.6-1.0) Estimated GFR (Cockcroft-Gault) 55.5 Glucose Level 386 mg/dL (70-99) Calcium Level 7.1 mg/dL (8.5-10.1) Test 06/20/19 07:37 Glucose (Fingerstick) 390 mg/dL (70-99) Laboratory Tests Test 06/19/19 11:37 06/19/19 16:33 06/19/19 20:58 06/20/19 05:25 Glucose (Fingerstick) 261 mg/dL (70-99) 129 mg/dL (70-99) 298 mg/dL (70-99) White Blood Count 9.2 x10^3/uL (4.0-11.0) Red Blood Count 2.72 x10^6/uL (3.50-5.40) Hemoglobin 8.0 g/dL (12.0-15.5) Hematocrit 23.0 % (36.0-47.0) Mean Corpuscular Volume 85 fL (79-100) Mean Corpuscular Hemoglobin 29 pg (25-35) Mean Corpuscular Hemoglobin Concent 35 g/dL (31-37) Red Cell Distribution Width 13.5 % (11.5-14.5) Platelet Count 282 x10^3/uL (140-400) Neutrophils (%) (Auto) 72 % (31-73) Lymphocytes (%) (Auto) 20 % (24-48) Monocytes (%) (Auto) 6 % (0-9) Eosinophils (%) (Auto) 2 % (0-3) Basophils (%) (Auto) 1 % (0-3) Neutrophils # (Auto) 6.7 x10^3/uL (1.8-7.7) Lymphocytes # (Auto) 1.8 x10^3/uL (1.0-4.8) Monocytes # (Auto) 0.5 x10^3/uL (0.0-1.1) Eosinophils # (Auto) 0.2 x10^3/uL (0.0-0.7) Basophils # (Auto) 0.1 x10^3/uL (0.0-0.2) Sodium Level 139 mmol/L (136-145) Potassium Level 3.6 mmol/L (3.5-5.1) Chloride Level 104 mmol/L (98-107) Carbon Dioxide Level 28 mmol/L (21-32) Anion Gap 7 (6-14) Blood Urea Nitrogen 13 mg/dL (7-20) Creatinine 1.3 mg/dL (0.6-1.0) Estimated GFR (Cockcroft-Gault) 55.5 Glucose Level 386 mg/dL (70-99) Calcium Level 7.1 mg/dL (8.5-10.1) Test 06/20/19 07:37 Glucose (Fingerstick) 390 mg/dL (70-99) Microbiology 06/17/19 Blood Culture - Preliminary, Resulted NO GROWTH AFTER 2 DAYS Medications Current Medications Ondansetron HCl (Zofran) 4 mg 1X ONCE IV Last administered on 06/17/19 00:40; Start 06/16/19 at 23:00; Stop 06/16/19 at 23:01; Status DC Famotidine (Pepcid Vial) 20 mg 1X ONCE IVP Last administered on 06/17/19at 00:40; Start 06/16/19 at 23:00; Stop 06/16/19 at 23:01; Status DC Sodium Chloride 1,000 ml @ 1,000 mls/hr 1X ONCE IV Last administered on 06/16/19at 23:51; Start 06/16/19 at 23:00; Stop 06/16/19 at 23:59; Status DC Sodium Chloride 1,000 ml @ 1,000 mls/hr 1X ONCE IV Last administered on 06/17/19at 00:39; Start 06/16/19 at 23:00; Stop 06/16/19 at 23:59; Status DC Insulin Human Regular (HumuLIN R VIAL) 8 unit 1X ONCE SQ Last administered on 06/16/19at 23:31; Start 06/16/19 at 23:00; Stop 06/16/19 at 23:01; Status DC Fentanyl Citrate (Fentanyl 2ml Vial) 50 mcg 1X ONCE IV Last administered on 06/17/19at 00:47; Start 06/17/19 at 00:45; Stop 06/17/19 at 00:46; Status DC Insulin Human Regular 150 unit/ Sodium Chloride 151.5 ml @ 0 mls/hr CONT PRN PRN IV PER PROTOCOL; Start 06/17/19 at 00:30; Status UNV Potassium Chloride/Water 100 ml @ 100 mls/hr PRN Q1HR PRN IV SEE COMMENTS Last administered on 06/17/19at 06:23; Start 06/17/19 at 00:30 Potassium Chloride/Water 100 ml @ 100 mls/hr PRN Q1HR PRN IV SEE COMMENTS; Start 06/17/19 at 00:30 Potassium Chloride/Water 100 ml @ 100 mls/hr PRN Q1HR PRN IV SEE COMMENTS; Start 06/17/19 at 00:30 Magnesium Sulfate/ Dextrose 100 ml @ 25 mls/hr DAILY IV ; Start 06/17/19 at 09:00; Stop 06/20/19 at 08:59; Status Cancel Ondansetron HCl (Zofran) 4 mg PRN Q8HRS PRN IV NAUSEA/VOMITING 1ST CHOICE; Start 06/17/19 at 00:30; Stop 06/18/19 at 00:29; Status DC Fentanyl Citrate (Fentanyl 2ml Vial) 50 mcg PRN Q2HRS PRN IV SEVERE PAIN 7-10 Last administered on 06/17/19at 12:28; Start 06/17/19 at 00:30; Stop 06/18/19 at 08:36; Status DC Insulin Human Regular 150 unit/ Sodium Chloride 151.5 ml @ 0 mls/hr CONT PRN PRN IV PER PROTOCOL Last administered on 06/17/19at 01:14; Start 06/17/19 at 00:45; Stop 06/18/19 at 08:36; Status DC Ceftriaxone Sodium (Rocephin) 1 gm 1X ONCE IVP Last administered on 06/17/19at 01:37; Start 06/17/19 at 01:30; Stop 06/17/19 at 01:31; Status DC Potassium Chloride/Sodium Chloride 1,000 ml @ 250 mls/hr Q4H IV Last administered on 06/17/19at 06:24; Start 06/17/19 at 02:00; Stop 06/17/19 at 07:18; Status DC Sodium Chloride 1,000 ml @ 250 mls/hr 1X ONCE IV Last administered on 06/17/19at 07:29; Start 06/17/19 at 08:00; Stop 06/17/19 at 11:59; Status DC Potassium Chloride/Water 50 ml @ 50 mls/hr Q1H IV Last administered on 06/17/19at 11:19; Start 06/17/19 at 08:00; Stop 06/17/19 at 11:59; Status DC Dextrose/Sodium Chloride 1,000 ml @ 250 mls/hr Q4H IV Last administered on 06/17/19at 12:06; Start 06/17/19 at 12:00; Stop 06/18/19 at 11:55; Status DC Insulin Human Lispro (HumaLOG) 6 units TIDWMEALS SQ Last administered on 06/18/19at 12:08; Start 06/17/19 at 12:00; Stop 06/18/19 at 14:03; Status DC Dextrose (Dextrose 50%-Water Syringe) 12.5 gm PRN Q15MIN PRN IV SEE COMMENTS; Start 06/17/19 at 09:45 Dextrose 250 ml PRN Q15MIN PRN IV SEE COMMENTS; Start 06/17/19 at 09:45 Sodium Chloride 1,000 ml @ 0 mls/hr Q1HR IV Last administered on 06/17/19at 12:29; Start 06/17/19 at 11:00; Stop 06/17/19 at 12:00; Status DC Magnesium Sulfate/ Dextrose 100 ml @ 25 mls/hr DAILY IV ; Start 06/17/19 at 12:00; Stop 06/17/19 at 12:00; Status Cancel Magnesium Sulfate/ Dextrose 100 ml @ 25 mls/hr DAILY IV ; Start 06/17/19 at 12:00; Status UNV Magnesium Sulfate 50 ml @ 25 mls/hr 1X ONCE IV Last administered on 06/17/19at 12:06; Start 06/17/19 at 12:00; Stop 06/17/19 at 13:59; Status DC Aspirin (Children'S Aspirin) 81 mg DAILY PO Last administered on 06/18/19at 08:38; Start 06/17/19 at 13:00 Clopidogrel Bisulfate (Plavix) 75 mg DAILY PO Last administered on 06/18/19at 09:50; Start 06/17/19 at 13:00 Cyclobenzaprine HCl (Flexeril) 10 mg PRN TID PRN PO MUSCLE SPASMS; Start 8/4/19 at 12:00 Dicyclomine HCl (Bentyl) 10 mg TID PO Last administered on 06/18/19 20:56; Start 06/17/19 at 14:00 Metoclopramide HCl (Reglan) 10 mg PRN TID PRN PO abdomen pain, bloating Last administered on 06/20/19 05:19; Start 06/17/19 at 12:00 Metoprolol Succinate (Toprol Xl) 50 mg DAILY16 PO Last administered on 06/18/19 15:27; Start 06/17/19 at 16:00 Ondansetron HCl (Zofran Odt) 4 mg PRN BID PRN PO NAUSEA/VOMITING Last administered on 06/18/19 09:50; Start 06/17/19 at 12:00 Pantoprazole Sodium (Protonix) 40 mg DAILY07 PO Last administered on 06/18/19 06:24; Start 06/17/19 at 13:00 Gabapentin (Neurontin) 600 mg TID PO Last administered on 06/19/19 21:43; Start 06/17/19 at 14:00 Lactase (Lactaid) 3,000 unit PRN BFRMEAL PRN PO GI SYMPTOMS; Start 06/17/19 at 12:15 Non-Formulary Medication (Naproxen (Naprosyn)) 1 tab BID PO ; Start 06/17/19 at 21:00; Status UNV Oxycodone HCl (Roxicodone) 15 mg PRN Q6HRS PRN PO PAIN BREAKTHROUGH Last administered on 06/20/19 00:24; Start 06/17/19 at 12:15 Oxycodone HCl (OxyCONTIN) 60 mg Q12HR PO Last administered on 06/19/19 20:27; Start 06/17/19 at 21:00 Polyethylene Glycol (miraLAX PACKET) 17 gm PRN DAILY PRN PO CONSTIPATION 1ST CHOICE; Start 06/17/19 at 12:10 Lisinopril (Prinivil) 10 mg DAILY PO Last administered on 06/18/19 08:38; Start 06/17/19 at 13:00 Sennosides (Senna) 8.6 mg BID PO Last administered on 06/19/19 21:43; Start 06/17/19 at 13:00 Simvastatin (Zocor) 20 mg HS PO Last administered on 06/19/19 21:43; Start 06/17/19 at 21:00 Non-Formulary Medication (Tramadol Hcl ) 1 tab BID PO ; Start 06/17/19 at 21:00; Stop 06/17/19 at 21:00; Status DC Ceftriaxone Sodium (Rocephin) 1 gm Q24H IVP Last administered on 06/19/19at 12:41; Start 06/17/19 at 13:00 Insulin Glargine (Lantus) 12 units QHS SQ Last administered on 06/19/19 21:55; Start 06/18/19 at 09:00 Insulin Human Lispro (HumaLOG) 9 units 1X ONCE SQ Last administered on 06/18/19 09:19; Start 06/18/19 at 09:15; Stop 06/18/19 at 09:16; Status DC Metoclopramide HCl (Reglan Vial) 10 mg PRN Q6HRS PRN IV NAUSEA/VOMITING Last administered on 06/18/19 15:27; Start 06/18/19 at 12:00 Insulin Human Lispro (HumaLOG) 0-9 UNITS TIDWMEALHC SQ Last administered on 06/19/19 21:55; Start 06/18/19 at 12:00 Dextrose (Dextrose 50%-Water Syringe) 12.5 gm PRN Q15MIN PRN IV SEE COMMENTS; Start 06/18/19 at 12:00; Status Cancel Dextrose 250 ml PRN Q15MIN PRN IV SEE COMMENTS; Start 06/18/19 at 12:00; Status Cancel Sodium Chloride 1,000 ml @ 100 mls/hr Q10H IV Last administered on 06/20/19at 03:18; Start 06/18/19 at 12:00 Insulin Human Lispro (HumaLOG) 10 units TIDWMEALS SQ ; Start 06/18/19 at 17:00; Stop 06/18/19 at 17:03; Status DC Sodium Chloride 1,000 ml @ 1,000 mls/hr 1X ONCE IV Last administered on 06/18/19at 14:55; Start 06/18/19 at 14:00; Stop 06/18/19 at 14:59; Status DC Insulin Human Lispro (HumaLOG) 11 units 1X ONCE SQ Last administered on 8/5/19at 15:15; Start 06/18/19 at 14:00; Stop 06/18/19 at 14:05; Status DC Insulin Human Lispro (HumaLOG) 18 units TIDACHC SQ Last administered on 06/19/19at 12:11; Start 06/18/19 at 17:30 Potassium Chloride/Water 50 ml @ 50 mls/hr Q1H IV Last administered on 06/19/19at 11:37; Start 06/19/19 at 07:00; Stop 06/19/19 at 09:59; Status DC Potassium Phosphate 13.6 mmol/Dextrose 104.5333 ml @ 52.267 m... Q2H IV Last administered on 06/19/19at 12:41; Start 06/19/19 at 10:00; Stop 06/19/19 at 13:59; Status DC Magnesium Sulfate/ Dextrose 100 ml @ 25 mls/hr 1X ONCE IV Last administered on 06/19/19at 12:41; Start 06/19/19 at 11:00; Stop 06/19/19 at 14:59; Status DC Active Scripts Active Pantoprazole Sodium (Pantoprazole Sodium) 40 Mg Tablet.dr 1 Tab PO DAILY Reglan (Metoclopramide Hcl) 10 Mg Tablet 1 Tab PO TID PRN Lactase 3,000 Unit Tablet 3,000 Unit PO PRN BFRMEAL PRN Zofran Odt (Ondansetron) 4 Mg Tab.rapdis 4 Mg PO BID PRN 7 Days Miralax (Polyethylene Glycol 3350) 17 Gm Powd.pack 1 Packet PO DAILY PRN Naprosyn (Naproxen) 500 Mg Tablet 1 Tab PO BID Bentyl (Dicyclomine Hcl) 10 Mg Capsule 1 Cap PO TID Senokot (Sennosides) 8.6 Mg Tablet 1 Tab PO BID Reported Oxymorphone Hcl 30 Mg Tab.er.12h 30 Mg PO Q12HR PRN Oxycodone Hcl Immed.release (Oxycodone Hcl) 15 Mg Tablet 15 Mg PO PRN Q6HRS PRN Cyclobenzaprine Hcl 10 Mg Tablet 1 Tab PO TID PRN Tramadol Hcl 50 Mg Tablet 1 Tab PO BID Promethazine Hcl 25 Mg Tablet Unknown Dose PO Q6H PRN Gabapentin 600 Mg Tablet 600 Mg PO TID Aspirin 81 Mg Tab.chew 1 Tab PO DAILY Novolog Flexpen (Insulin Aspart) 100 Unit/1 Ml Insuln.pen 0-10 SQ TIDAC Novolog (Insulin Aspart) 100 Unit/1 Ml Vial 6 Unit SQ TIDAC Simvastatin 20 Mg Tablet 20 Mg PO DAILY Ramipril 5 Mg Capsule 5 Mg PO DAILY Plavix (Clopidogrel Bisulfate) 75 Mg Tablet 75 Mg PO DAILY Metoprolol Succinate ( Xl ) (Metoprolol Succinate) 100 Mg Tab.er.24h 50 Mg PO DAILY16 Vitals/I & O Vital Sign - Last 24 Hours 06/19/19 06/19/19 06/19/19 06/19/19 10:18 10:59 13:12 14:29 Temp 98.7 98.7 Pulse 76 Resp 20 B/P (MAP) 140/81 (100) Pulse Ox 97 O2 Delivery Room Air Room Air Room Air Room Air 06/19/19 06/19/19 06/19/19 06/19/19 15:01 16:37 19:20 20:27 Temp 99.1 98.2 99.1 98.2 Pulse 108 108 106 Resp 20 18 20 B/P (MAP) 112/53 (72) 112/53 132/71 (91) Pulse Ox 94 99 O2 Delivery Room Air Room Air Room Air 06/19/19 06/19/19 06/20/19 06/20/19 20:30 23:09 00:24 02:08 Temp 98.3 98.3 Pulse 100 Resp 16 20 B/P (MAP) 126/74 (91) Pulse Ox 99 92 92 O2 Delivery Room Air Room Air Room Air Room Air 06/20/19 06/20/19 02:08 03:43 Temp 98.0 98.0 Pulse 99 Resp 18 B/P (MAP) 111/54 (73) Pulse Ox 92 100 O2 Delivery Room Air Room Air Intake and Output 06/19/19 06/19/19 06/20/19 15:00 23:00 07:00 Intake Total 720 ml 720 ml Output Total 2850 ml Balance 720 ml -2130 ml LILIANA ROSA MD Jun 20, 2019 08:16
[2019-06-20] MEDS: INSULIN LISPRO 300 UNITS/3 ML INSULN.PEN. SQ SCH ×8 (08:20→21:00)
[2019-06-20] MEDS: PANTOPRAZOLE 40 MG TABLET.DR. PO SCH (08:35)
[2019-06-20] MEDS: GABAPENTIN 300 MG CAPSULE. PO SCH ×3 (08:36→20:04)
[2019-06-20] MEDS: CLOPIDOGREL BISULFATE 75 MG TABLET PO SCH (08:36)
[2019-06-20] MEDS: SENNOSIDES 8.6 MG TABLET PO SCH ×2 (08:36→20:05)
[2019-06-20] MEDS: ASPIRIN CHEWABLE 81 MG TABLET. PO SCH (08:36)
[2019-06-20] MEDS: LISINOPRIL 10 MG TABLET PO SCH (08:36)
[2019-06-20] MEDS: DICYCLOMINE HCL 10 MG CAPSULE PO SCH ×3 (09:00→20:04)
[2019-06-20] MEDS: oxyCODONE ER 15 MG TAB.ER.12H PO SCH ×2 (09:00→20:04)
[2019-06-20 09:19] LABS: MAGNESIUM 1.8 mg/dL (1.8-2.4)
[2019-06-20 11:00] VITALS: BP 114/56
--- NOTE | 2019-06-20 12:21 | NUR ---
SS following up with discharge planning. Pt is currently on room air and declining PT. No discharge needs noted at this time. SS will continue to follow for discharge planning.
[2019-06-20] MEDS ORDERED: MAGNESIUM SULFATE 2GM 50 ML IV ONE (13:00)
[2019-06-20] MEDS: cefTRIAXone IV Push 1 GM VIAL. IVP SCH (13:35)
[2019-06-20 15:00] VITALS: BP 111/52
[2019-06-20] MEDS: METOPROLOL SUCC 24HR ER 50 MG TAB.ER.24H. PO SCH (15:53)
[2019-06-20 19:00] VITALS: BP 121/67
[2019-06-20] MEDS: SIMVASTATIN 20 MG TABLET PO SCH (20:04)
[2019-06-20] MEDS: INSULIN GLARGINE 300 UNITS/3 ML INSULN.PEN. SQ SCH (20:31)
--- NOTE | 2019-06-20 21:09 | NUR ---
Patient given 7 units of subq insulin LISPRO as ordered. Duplicate order for same medication not given at this time. Will continue to monitor.
[2019-06-20 23:00] VITALS: BP 105/50
[2019-06-21] MEDS: oxyCODONE IR 5 MG TABLET PO PRN ×2 (03:23→13:23)
[2019-06-21 03:35] VITALS: BP 141/80
[2019-06-21 05:05] LABS: BASO # 0.1 x10^3/uL (0.0-0.2); BASO % 1 % (0-3); EOS # 0.1 x10^3/uL (0.0-0.7); EOS % 2 % (0-3); HEMATOCRIT 23.2 % (36.0-47.0); HEMOGLOBIN 8.2 g/dL (12.0-15.5); LYMPH # 2.6 x10^3/uL (1.0-4.8); LYMPH % 27 % (24-48); MEAN CORPUSCULAR HEMOGLOBIN 30 pg (25-35); MEAN CORPUSCULAR HGB CONC 35 g/dL (31-37); MEAN CORPUSCULAR VOLUME 86 fL (79-100); MONO # 0.6 x10^3/uL (0.0-1.1); MONO % 6 % (0-9); NEUT # 6.2 x10^3/uL (1.8-7.7); NEUT % 65 % (31-73); PLATELET COUNT 317 x10^3/uL (140-400); RED BLOOD COUNT 2.72 x10^6/uL (3.50-5.40); RED CELL DISTRIBUTION WIDTH 13.5 % (11.5-14.5); WHITE BLOOD COUNT 9.6 x10^3/uL (4.0-11.0)
[2019-06-21 05:11] LABS: CALCIUM 7.7 mg/dL (8.5-10.1); CREATININE 1.2 mg/dL (0.6-1.0); GFR 60.8; POTASSIUM 3.7 mmol/L (3.5-5.1)
[2019-06-21] MEDS: PANTOPRAZOLE 40 MG TABLET.DR. PO SCH ×2 (05:34→08:18)
[2019-06-21 07:00] VITALS: BP 118/64
[2019-06-21] MEDS: ASPIRIN CHEWABLE 81 MG TABLET. PO SCH (08:18)
[2019-06-21] MEDS: CLOPIDOGREL BISULFATE 75 MG TABLET PO SCH (08:18)
[2019-06-21] MEDS: SENNOSIDES 8.6 MG TABLET PO SCH (08:18)
[2019-06-21] MEDS: oxyCODONE ER 15 MG TAB.ER.12H PO SCH (08:18)
[2019-06-21] MEDS: GABAPENTIN 300 MG CAPSULE. PO SCH ×2 (08:19→13:23)
[2019-06-21] MEDS: DICYCLOMINE HCL 10 MG CAPSULE PO SCH ×2 (08:19→13:22)
[2019-06-21] MEDS: LISINOPRIL 10 MG TABLET PO SCH (08:25)
[2019-06-21] MEDS: IV NORMAL SALINE 1000ML BAG 1,000 ML IV SCH (08:26)
--- NOTE | 2019-06-21 08:33 | PDOC ---
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 Her anion gap was high at 15 as well. Initially admitted to the ICU on a DKA protocol. 06/19: She notes she is not on basal insulin. Glucose in 200s this morning. Potassium 2.9. Phos 0.8 this morning. Mag level 1.5. She is apparently interf ering with her IV use per nursing staff. This morning drank a few juices after breakfast and her blood sugar jumped into the 400s again. Labs improving overall. Mag still 1.8, phos 2. Cr back down Vitals Vitals Vital Signs Date Time Temp Pulse Resp B/P (MAP) Pulse Ox O2 Delivery O2 Flow Rate FiO2 06/21/19 07:00 98.3 109 20 118/64 (82) 90 Room Air 98.3 Physical Exam General: Alert, Oriented X3, Cooperative Heart: Regular rate, Normal S1, Normal S2 Lungs: Clear Abdomen: Normal bowel sounds, Soft Extremities: No clubbing, No cyanosis, No edema, Normal pulses Labs LABS Laboratory Tests Test 06/20/19 10:31 06/20/19 12:29 06/20/19 16:58 06/20/19 20:21 Glucose (Fingerstick) 443 mg/dL (70-99) 309 mg/dL (70-99) 81 mg/dL (70-99) 284 mg/dL (70-99) Test 06/21/19 03:30 06/21/19 07:41 White Blood Count 9.6 x10^3/uL (4.0-11.0) Red Blood Count 2.72 x10^6/uL (3.50-5.40) Hemoglobin 8.2 g/dL (12.0-15.5) Hematocrit 23.2 % (36.0-47.0) Mean Corpuscular Volume 86 fL (79-100) Mean Corpuscular Hemoglobin 30 pg (25-35) Mean Corpuscular Hemoglobin Concent 35 g/dL (31-37) Red Cell Distribution Width 13.5 % (11.5-14.5) Platelet Count 317 x10^3/uL (140-400) Neutrophils (%) (Auto) 65 % (31-73) Lymphocytes (%) (Auto) 27 % (24-48) Monocytes (%) (Auto) 6 % (0-9) Eosinophils (%) (Auto) 2 % (0-3) Basophils (%) (Auto) 1 % (0-3) Neutrophils # (Auto) 6.2 x10^3/uL (1.8-7.7) Lymphocytes # (Auto) 2.6 x10^3/uL (1.0-4.8) Monocytes # (Auto) 0.6 x10^3/uL (0.0-1.1) Eosinophils # (Auto) 0.1 x10^3/uL (0.0-0.7) Basophils # (Auto) 0.1 x10^3/uL (0.0-0.2) Sodium Level 138 mmol/L (136-145) Potassium Level 3.7 mmol/L (3.5-5.1) Chloride Level 104 mmol/L (98-107) Carbon Dioxide Level 28 mmol/L (21-32) Anion Gap 6 (6-14) Blood Urea Nitrogen 10 mg/dL (7-20) Creatinine 1.2 mg/dL (0.6-1.0) Estimated GFR (Cockcroft-Gault) 60.8 Glucose Level 287 mg/dL (70-99) Calcium Level 7.7 mg/dL (8.5-10.1) Glucose (Fingerstick) 345 mg/dL (70-99) Assessment and Plan Assessmemt and Plan Problems Medical Problems: (1) DKA (diabetic ketoacidoses) Status: Acute (2) Hyperglycemic hyperosmolar nonketotic coma Status: Acute (3) Hypokalemia Status: Acute (4) Lactic acidosis Status: Acute (5) Severe sepsis Status: Acute (6) UTI (urinary tract infection) Status: Acute Comment Review of Relevant I have reviewed the following items marina (where applicable) has been applied. Labs Laboratory Tests Test 06/19/19 11:37 06/19/19 16:33 06/19/19 20:58 06/20/19 05:25 Glucose (Fingerstick) 261 mg/dL (70-99) 129 mg/dL (70-99) 298 mg/dL (70-99) White Blood Count 9.2 x10^3/uL (4.0-11.0) Red Blood Count 2.72 x10^6/uL (3.50-5.40) Hemoglobin 8.0 g/dL (12.0-15.5) Hematocrit 23.0 % (36.0-47.0) Mean Corpuscular Volume 85 fL (79-100) Mean Corpuscular Hemoglobin 29 pg (25-35) Mean Corpuscular Hemoglobin Concent 35 g/dL (31-37) Red Cell Distribution Width 13.5 % (11.5-14.5) Platelet Count 282 x10^3/uL (140-400) Neutrophils (%) (Auto) 72 % (31-73) Lymphocytes (%) (Auto) 20 % (24-48) Monocytes (%) (Auto) 6 % (0-9) Eosinophils (%) (Auto) 2 % (0-3) Basophils (%) (Auto) 1 % (0-3) Neutrophils # (Auto) 6.7 x10^3/uL (1.8-7.7) Lymphocytes # (Auto) 1.8 x10^3/uL (1.0-4.8) Monocytes # (Auto) 0.5 x10^3/uL (0.0-1.1) Eosinophils # (Auto) 0.2 x10^3/uL (0.0-0.7) Basophils # (Auto) 0.1 x10^3/uL (0.0-0.2) Sodium Level 139 mmol/L (136-145) Potassium Level 3.6 mmol/L (3.5-5.1) Chloride Level 104 mmol/L (98-107) Carbon Dioxide Level 28 mmol/L (21-32) Anion Gap 7 (6-14) Blood Urea Nitrogen 13 mg/dL (7-20) Creatinine 1.3 mg/dL (0.6-1.0) Estimated GFR (Cockcroft-Gault) 55.5 Glucose Level 386 mg/dL (70-99) Calcium Level 7.1 mg/dL (8.5-10.1) Phosphorus Level 2.0 mg/dL (2.6-4.7) Magnesium Level 1.8 mg/dL (1.8-2.4) Test 06/20/19 07:37 06/20/19 08:31 06/20/19 10:31 06/20/19 12:29 Glucose (Fingerstick) 390 mg/dL (70-99) 467 mg/dL (70-99) 443 mg/dL (70-99) 309 mg/dL (70-99) Test 06/20/19 16:58 06/20/19 20:21 06/21/19 03:30 06/21/19 07:41 Glucose (Fingerstick) 81 mg/dL (70-99) 284 mg/dL (70-99) 345 mg/dL (70-99) White Blood Count 9.6 x10^3/uL (4.0-11.0) Red Blood Count 2.72 x10^6/uL (3.50-5.40) Hemoglobin 8.2 g/dL (12.0-15.5) Hematocrit 23.2 % (36.0-47.0) Mean Corpuscular Volume 86 fL (79-100) Mean Corpuscular Hemoglobin 30 pg (25-35) Mean Corpuscular Hemoglobin Concent 35 g/dL (31-37) Red Cell Distribution Width 13.5 % (11.5-14.5) Platelet Count 317 x10^3/uL (140-400) Neutrophils (%) (Auto) 65 % (31-73) Lymphocytes (%) (Auto) 27 % (24-48) Monocytes (%) (Auto) 6 % (0-9) Eosinophils (%) (Auto) 2 % (0-3) Basophils (%) (Auto) 1 % (0-3) Neutrophils # (Auto) 6.2 x10^3/uL (1.8-7.7) Lymphocytes # (Auto) 2.6 x10^3/uL (1.0-4.8) Monocytes # (Auto) 0.6 x10^3/uL (0.0-1.1) Eosinophils # (Auto) 0.1 x10^3/uL (0.0-0.7) Basophils # (Auto) 0.1 x10^3/uL (0.0-0.2) Sodium Level 138 mmol/L (136-145) Potassium Level 3.7 mmol/L (3.5-5.1) Chloride Level 104 mmol/L (98-107) Carbon Dioxide Level 28 mmol/L (21-32) Anion Gap 6 (6-14) Blood Urea Nitrogen 10 mg/dL (7-20) Creatinine 1.2 mg/dL (0.6-1.0) Estimated GFR (Cockcroft-Gault) 60.8 Glucose Level 287 mg/dL (70-99) Calcium Level 7.7 mg/dL (8.5-10.1) Laboratory Tests Test 06/20/19 10:31 06/20/19 12:29 06/20/19 16:58 06/20/19 20:21 Glucose (Fingerstick) 443 mg/dL (70-99) 309 mg/dL (70-99) 81 mg/dL (70-99) 284 mg/dL (70-99) Test 06/21/19 03:30 06/21/19 07:41 White Blood Count 9.6 x10^3/uL (4.0-11.0) Red Blood Count 2.72 x10^6/uL (3.50-5.40) Hemoglobin 8.2 g/dL (12.0-15.5) Hematocrit 23.2 % (36.0-47.0) Mean Corpuscular Volume 86 fL (79-100) Mean Corpuscular Hemoglobin 30 pg (25-35) Mean Corpuscular Hemoglobin Concent 35 g/dL (31-37) Red Cell Distribution Width 13.5 % (11.5-14.5) Platelet Count 317 x10^3/uL (140-400) Neutrophils (%) (Auto) 65 % (31-73) Lymphocytes (%) (Auto) 27 % (24-48) Monocytes (%) (Auto) 6 % (0-9) Eosinophils (%) (Auto) 2 % (0-3) Basophils (%) (Auto) 1 % (0-3) Neutrophils # (Auto) 6.2 x10^3/uL (1.8-7.7) Lymphocytes # (Auto) 2.6 x10^3/uL (1.0-4.8) Monocytes # (Auto) 0.6 x10^3/uL (0.0-1.1) Eosinophils # (Auto) 0.1 x10^3/uL (0.0-0.7) Basophils # (Auto) 0.1 x10^3/uL (0.0-0.2) Sodium Level 138 mmol/L (136-145) Potassium Level 3.7 mmol/L (3.5-5.1) Chloride Level 104 mmol/L (98-107) Carbon Dioxide Level 28 mmol/L (21-32) Anion Gap 6 (6-14) Blood Urea Nitrogen 10 mg/dL (7-20) Creatinine 1.2 mg/dL (0.6-1.0) Estimated GFR (Cockcroft-Gault) 60.8 Glucose Level 287 mg/dL (70-99) Calcium Level 7.7 mg/dL (8.5-10.1) Glucose (Fingerstick) 345 mg/dL (70-99) Microbiology 06/17/19 Blood Culture - Preliminary, Resulted NO GROWTH AFTER 3 DAYS 06/17/19 Urine Culture - Final, Complete 06/17/19 Urine Culture Result 1 (MARLIN) - Final, Complete Medications Current Medications Ondansetron HCl (Zofran) 4 mg 1X ONCE IV Last administered on 06/17/19at 00:40; Start 06/16/19 at 23:00; Stop 06/16/19 at 23:01; Status DC Famotidine (Pepcid Vial) 20 mg 1X ONCE IVP Last administered on 06/17/19at 00:40; Start 06/16/19 at 23:00; Stop 06/16/19 at 23:01; Status DC Sodium Chloride 1,000 ml @ 1,000 mls/hr 1X ONCE IV Last administered on 06/16/19at 23:51; Start 06/16/19 at 23:00; Stop 06/16/19 at 23:59; Status DC Sodium Chloride 1,000 ml @ 1,000 mls/hr 1X ONCE IV Last administered on 06/17/19at 00:39; Start 06/16/19 at 23:00; Stop 06/16/19 at 23:59; Status DC Insulin Human Regular (HumuLIN R VIAL) 8 unit 1X ONCE SQ Last administered on 06/16/19at 23:31; Start 06/16/19 at 23:00; Stop 06/16/19 at 23:01; Status DC Fentanyl Citrate (Fentanyl 2ml Vial) 50 mcg 1X ONCE IV Last administered on 06/17/19at 00:47; Start 06/17/19 at 00:45; Stop 06/17/19 at 00:46; Status DC Insulin Human Regular 150 unit/ Sodium Chloride 151.5 ml @ 0 mls/hr CONT PRN PRN IV PER PROTOCOL; Start 06/17/19 at 00:30; Status UNV Potassium Chloride/Water 100 ml @ 100 mls/hr PRN Q1HR PRN IV SEE COMMENTS Last administered on 06/17/19at 06:23; Start 06/17/19 at 00:30 Potassium Chloride/Water 100 ml @ 100 mls/hr PRN Q1HR PRN IV SEE COMMENTS; S tart 06/17/19 at 00:30 Potassium Chloride/Water 100 ml @ 100 mls/hr PRN Q1HR PRN IV SEE COMMENTS; Start 06/17/19 at 00:30 Magnesium Sulfate/ Dextrose 100 ml @ 25 mls/hr DAILY IV ; Start 06/17/19 at 09:00; Stop 06/20/19 at 08:59; Status Cancel Ondansetron HCl (Zofran) 4 mg PRN Q8HRS PRN IV NAUSEA/VOMITING 1ST CHOICE; Start 06/17/19 at 00:30; Stop 06/18/19 at 00:29; Status DC Fentanyl Citrate (Fentanyl 2ml Vial) 50 mcg PRN Q2HRS PRN IV SEVERE PAIN 7-10 Last administered on 06/17/19at 12:28; Start 06/17/19 at 00:30; Stop 06/18/19 at 08:36; Status DC Insulin Human Regular 150 unit/ Sodium Chloride 151.5 ml @ 0 mls/hr CONT PRN PRN IV PER PROTOCOL Last administered on 06/17/19at 01:14; Start 06/17/19 at 00:45; Stop 06/18/19 at 08:36; Status DC Ceftriaxone Sodium (Rocephin) 1 gm 1X ONCE IVP Last administered on 06/17/19at 01:37; Start 06/17/19 at 01:30; Stop 06/17/19 at 01:31; Status DC Potassium Chloride/Sodium Chloride 1,000 ml @ 250 mls/hr Q4H IV Last administered on 06/17/19at 06:24; Start 06/17/19 at 02:00; Stop 06/17/19 at 07:18; Status DC Sodium Chloride 1,000 ml @ 250 mls/hr 1X ONCE IV Last administered on 06/17/19at 07:29; Start 06/17/19 at 08:00; Stop 06/17/19 at 11:59; Status DC Potassium Chloride/Water 50 ml @ 50 mls/hr Q1H IV Last administered on 06/17/19at 11:19; Start 06/17/19 at 08:00; Stop 06/17/19 at 11:59; Status DC Dextrose/Sodium Chloride 1,000 ml @ 250 mls/hr Q4H IV Last administered on 06/17/19at 12:06; Start 06/17/19 at 12:00; Stop 06/18/19 at 11:55; Status DC Insulin Human Lispro (HumaLOG) 6 units TIDWMEALS SQ Last administered on 06/18/19at 12:08; Start 06/17/19 at 12:00; Stop 06/18/19 at 14:03; Status DC Dextrose (Dextrose 50%-Water Syringe) 12.5 gm PRN Q15MIN PRN IV SEE COMMENTS; Start 06/17/19 at 09:45 Dextrose 250 ml PRN Q15MIN PRN IV SEE COMMENTS; Start 06/17/19 at 09:45 Sodium Chloride 1,000 ml @ 0 mls/hr Q1HR IV Last administered on 06/17/19at 12:29; Start 06/17/19 at 11:00; Stop 06/17/19 at 12:00; Status DC Magnesium Sulfate/ Dextrose 100 ml @ 25 mls/hr DAILY IV ; Start 06/17/19 at 12:00; Stop 06/17/19 at 12:00; Status Cancel Magnesium Sulfate/ Dextrose 100 ml @ 25 mls/hr DAILY IV ; Start 06/17/19 at 12:00; Status UNV Magnesium Sulfate 50 ml @ 25 mls/hr 1X ONCE IV Last administered on 06/17/19at 12:06; Start 06/17/19 at 12:00; Stop 06/17/19 at 13:59; Status DC Aspirin (Children'S Aspirin) 81 mg DAILY PO Last administered on 06/20/19at 08:58; Start 06/17/19 at 13:00 Clopidogrel Bisulfate (Plavix) 75 mg DAILY PO Last administered on 06/20/19 08:58; Start 06/17/19 at 13:00 Cyclobenzaprine HCl (Flexeril) 10 mg PRN TID PRN PO MUSCLE SPASMS Last administered on 06/20/19 23:03; Start 06/17/19 at 12:00 Dicyclomine HCl (Bentyl) 10 mg TID PO Last administered on 06/20/19 20:07; Start 06/17/19 at 14:00 Metoclopramide HCl (Reglan) 10 mg PRN TID PRN PO abdomen pain, bloating Last administered on 06/20/19 05:19; Start 06/17/19 at 12:00 Metoprolol Succinate (Toprol Xl) 50 mg DAILY16 PO Last administered on 06/20/19 15:53; Start 06/17/19 at 16:00 Ondansetron HCl (Zofran Odt) 4 mg PRN BID PRN PO NAUSEA/VOMITING Last adm inistered on 06/18/19 09:50; Start 06/17/19 at 12:00 Pantoprazole Sodium (Protonix) 40 mg DAILY07 PO Last administered on 06/20/19 08:58; Start 06/17/19 at 13:00 Gabapentin (Neurontin) 600 mg TID PO Last administered on 06/20/19 20:07; Start 06/17/19 at 14:00 Lactase (Lactaid) 3,000 unit PRN BFRMEAL PRN PO GI SYMPTOMS; Start 06/17/19 at 12:15 Non-Formulary Medication (Naproxen (Naprosyn)) 1 tab BID PO ; Start 06/17/19 at 21:00; Status UNV Oxycodone HCl (Roxicodone) 15 mg PRN Q6HRS PRN PO PAIN BREAKTHROUGH Last administered on 06/21/19 03:23; Start 06/17/19 at 12:15 Oxycodone HCl (OxyCONTIN) 60 mg Q12HR PO Last administered on 06/20/19 20:07; Start 06/17/19 at 21:00 Polyethylene Glycol (miraLAX PACKET) 17 gm PRN DAILY PRN PO CONSTIPATION 1ST CHOICE; Start 06/17/19 at 12:10 Lisinopril (Prinivil) 10 mg DAILY PO Last administered on 06/20/19 08:58; Start 06/17/19 at 13:00 Sennosides (Senna) 8.6 mg BID PO Last administered on 06/20/19 20:07; Start 06/17/19 at 13:00 Simvastatin (Zocor) 20 mg HS PO Last administered on 06/20/19 20:07; Start 06/17/19 at 21:00 Non-Formulary Medication (Tramadol Hcl ) 1 tab BID PO ; Start 06/17/19 at 21:00; Stop 06/17/19 at 21:00; Status DC Ceftriaxone Sodium (Rocephin) 1 gm Q24H IVP Last administered on 06/20/19 13:38; Start 06/17/19 at 13:00 Insulin Glargine (Lantus) 12 units QHS SQ Last administered on 06/20/19 20:33; Start 06/18/19 at 09:00 Insulin Human Lispro (HumaLOG) 9 units 1X ONCE SQ Last administered on 06/18/19 09:19; Start 06/18/19 at 09:15; Stop 06/18/19 at 09:16; Status DC Metoclopramide HCl (Reglan Vial) 10 mg PRN Q6HRS PRN IV NAUSEA/VOMITING Last administered on 06/18/19 15:27; Start 06/18/19 at 12:00 Insulin Human Lispro (HumaLOG) 0-9 UNITS TIDWMEALHC SQ Last administered on 06/20/19 20:33; Start 06/18/19 at 12:00 Dextrose (Dextrose 50%-Water Syringe) 12.5 gm PRN Q15MIN PRN IV SEE COMMENTS; Start 06/18/19 at 12:00; Status Cancel Dextrose 250 ml PRN Q15MIN PRN IV SEE COMMENTS; Start 06/18/19 at 12:00; Status Cancel Sodium Chloride 1,000 ml @ 100 mls/hr Q10H IV Last administered on 06/20/19 23:03; Start 06/18/19 at 12:00 Insulin Human Lispro (HumaLOG) 10 units TIDWMEALS SQ ; Start 06/18/19 at 17:00; Stop 06/18/19 at 17:03; Status DC Sodium Chloride 1,000 ml @ 1,000 mls/hr 1X ONCE IV Last administered on 06/18/19at 14:55; Start 06/18/19 at 14:00; Stop 06/18/19 at 14:59; Status DC Insulin Human Lispro (HumaLOG) 11 units 1X ONCE SQ Last administered on 06/18/19at 15:15; Start 06/18/19 at 14:00; Stop 06/18/19 at 14:05; Status DC Insulin Human Lispro (HumaLOG) 18 units TIDACHC SQ Last administered on 06/20/19at 12:33; Start 06/18/19 at 17:30 Potassium Chloride/Water 50 ml @ 50 mls/hr Q1H IV Last administered on 06/19/19at 11:37; Start 06/19/19 at 07:00; Stop 06/19/19 at 09:59; Status DC Potassium Phosphate 13.6 mmol/Dextrose 104.5333 ml @ 52.267 m... Q2H IV Last administered on 06/19/19at 12:41; Start 06/19/19 at 10:00; Stop 06/19/19 at 13:59; Status DC Magnesium Sulfate/ Dextrose 100 ml @ 25 mls/hr 1X ONCE IV Last administered on 06/19/19at 12:41; Start 06/19/19 at 11:00; Stop 06/19/19 at 14:59; Status DC Magnesium Sulfate 50 ml @ 25 mls/hr 1X ONCE IV Last administered on 06/20/19at 13:38; Start 06/20/19 at 13:00; Stop 06/20/19 at 14:59; Status DC Active Scripts Active Pantoprazole Sodium (Pantoprazole Sodium) 40 Mg Tablet.dr 1 Tab PO DAILY Reglan (Metoclopramide Hcl) 10 Mg Tablet 1 Tab PO TID PRN Lactase 3,000 Unit Tablet 3,000 Unit PO PRN BFRMEAL PRN Zofran Odt (Ondansetron) 4 Mg Tab.rapdis 4 Mg PO BID PRN 7 Days Miralax (Polyethylene Glycol 3350) 17 Gm Powd.pack 1 Packet PO DAILY PRN Naprosyn (Naproxen) 500 Mg Tablet 1 Tab PO BID Bentyl (Dicyclomine Hcl) 10 Mg Capsule 1 Cap PO TID Senokot (Sennosides) 8.6 Mg Tablet 1 Tab PO BID Reported Oxymorphone Hcl 30 Mg Tab.er.12h 30 Mg PO Q12HR PRN Oxycodone Hcl Immed.release (Oxycodone Hcl) 15 Mg Tablet 15 Mg PO PRN Q6HRS PRN Cyclobenzaprine Hcl 10 Mg Tablet 1 Tab PO TID PRN Tramadol Hcl 50 Mg Tablet 1 Tab PO BID Promethazine Hcl 25 Mg Tablet Unknown Dose PO Q6H PRN Gabapentin 600 Mg Tablet 600 Mg PO TID Aspirin 81 Mg Tab.chew 1 Tab PO DAILY Novolog Flexpen (Insulin Aspart) 100 Unit/1 Ml Insuln.pen 0-10 SQ TIDAC Novolog (Insulin Aspart) 100 Unit/1 Ml Vial 6 Unit SQ TIDAC Simvastatin 20 Mg Tablet 20 Mg PO DAILY Ramipril 5 Mg Capsule 5 Mg PO DAILY Plavix (Clopidogrel Bisulfate) 75 Mg Tablet 75 Mg PO DAILY Metoprolol Succinate ( Xl ) (Metoprolol Succinate) 100 Mg Tab.er.24h 50 Mg PO DAILY16 Vitals/I & O Vital Sign - Last 24 Hours 06/20/19 06/20/19 06/20/19 06/20/19 08:58 09:00 11:00 13:38 Temp 97.7 97.7 Pulse 108 109 Resp 17 B/P (MAP) 151/66 114/56 (75) Pulse Ox 98 O2 Delivery Room Air Room Air Room Air 06/20/19 06/20/19 06/20/19 06/20/19 13:38 15:00 15:07 15:53 Temp 98.9 98.9 Pulse 111 109 Resp 16 B/P (MAP) 111/52 (71) 114/56 Pulse Ox 99 O2 Delivery Room Air Room Air Room Air 06/20/19 06/20/19 06/20/19 06/20/19 19:00 20:00 20:07 23:00 Temp 98.2 98.4 98.2 98.4 Pulse 105 96 Resp 18 16 18 B/P (MAP) 121/67 (85) 105/50 (68) Pulse Ox 93 99 94 O2 Delivery Room Air Room Air Room Air Room Air 06/21/19 06/21/19 06/21/19 06/21/19 00:16 03:23 03:35 04:27 Temp 98.4 98.4 Pulse 97 Resp 15 22 16 22 B/P (MAP) 141/80 (100) Pulse Ox 94 94 99 99 O2 Delivery Room Air Room Air Room Air Room Air 06/21/19 07:00 Temp 98.3 98.3 Pulse 109 Resp 20 B/P (MAP) 118/64 (82) Pulse Ox 90 O2 Delivery Room Air Intake and Output 06/20/19 06/20/19 06/21/19 14:59 22:59 06:59 Intake Total 100 ml 220 ml 220 ml Balance 100 ml 220 ml 220 ml LILIANA ROSA MD Jun 21, 2019 08:33
[2019-06-21] MEDS: INSULIN LISPRO 300 UNITS/3 ML INSULN.PEN. SQ SCH ×4 (08:35→12:00)
[2019-06-21 11:00] VITALS: BP 113/63
[2019-06-21] MEDS ORDERED: INSU100I13 SQ (11:52)
[2019-06-21] MEDS ORDERED: INSU100I11 SQ (11:52)
--- NOTE | 2019-06-21 11:56 | PDOC3 ---
Discharge Summary Visit Information Date of Admission: Jun 17, 2019 Date of Discharge: Jun 21, 2019 Admitting Diagnosis: DKA Final Diagnosis Problems Medical Problems: (1) DKA (diabetic ketoacidoses) Status: Acute (2) Hyperglycemic hyperosmolar nonketotic coma Status: Acute (3) Hypokalemia Status: Acute (4) Lactic acidosis Status: Acute (5) Severe sepsis Status: Acute (6) UTI (urinary tract infection) Status: Acute Brief Hospital Course Allergies Allergies Coded Allergies Type Severity Reaction Last Updated Verified morphine Allergy Severe Shortness of Air, trouble breathing/sweating 07/14/16 Yes Vital Signs Vital Signs Date Time Temp Pulse Resp B/P (MAP) Pulse Ox O2 Delivery O2 Flow Rate FiO2 06/21/19 08:35 104 118/64 06/21/19 08:35 Room Air 06/21/19 07:00 98.3 20 90 98.3 Lab Results Laboratory Tests Test 06/19/19 16:33 06/19/19 20:58 06/20/19 05:25 06/20/19 07:37 Glucose (Fingerstick) 129 mg/dL (70-99) 298 mg/dL (70-99) 390 mg/dL (70-99) White Blood Count 9.2 x10^3/uL (4.0-11.0) Red Blood Count 2.72 x10^6/uL (3.50-5.40) Hemoglobin 8.0 g/dL (12.0-15.5) Hematocrit 23.0 % (36.0-47.0) Mean Corpuscular Volume 85 fL (79-100) Mean Corpuscular Hemoglobin 29 pg (25-35) Mean Corpuscular Hemoglobin Concent 35 g/dL (31-37) Red Cell Distribution Width 13.5 % (11.5-14.5) Platelet Count 282 x10^3/uL (140-400) Neutrophils (%) (Auto) 72 % (31-73) Lymphocytes (%) (Auto) 20 % (24-48) Monocytes (%) (Auto) 6 % (0-9) Eosinophils (%) (Auto) 2 % (0-3) Basophils (%) (Auto) 1 % (0-3) Neutrophils # (Auto) 6.7 x10^3/uL (1.8-7.7) Lymphocytes # (Auto) 1.8 x10^3/uL (1.0-4.8) Monocytes # (Auto) 0.5 x10^3/uL (0.0-1.1) Eosinophils # (Auto) 0.2 x10^3/uL (0.0-0.7) Basophils # (Auto) 0.1 x10^3/uL (0.0-0.2) Sodium Level 139 mmol/L (136-145) Potassium Level 3.6 mmol/L (3.5-5.1) Chloride Level 104 mmol/L (98-107) Carbon Dioxide Level 28 mmol/L (21-32) Anion Gap 7 (6-14) Blood Urea Nitrogen 13 mg/dL (7-20) Creatinine 1.3 mg/dL (0.6-1.0) Estimated GFR (Cockcroft-Gault) 55.5 Glucose Level 386 mg/dL (70-99) Calcium Level 7.1 mg/dL (8.5-10.1) Phosphorus Level 2.0 mg/dL (2.6-4.7) Magnesium Level 1.8 mg/dL (1.8-2.4) Test 06/20/19 08:31 06/20/19 10:31 06/20/19 12:29 06/20/19 16:58 Glucose (Fingerstick) 467 mg/dL (70-99) 443 mg/dL (70-99) 309 mg/dL (70-99) 81 mg/dL (70-99) Test 06/20/19 20:21 06/21/19 03:30 06/21/19 07:41 06/21/19 10:42 Glucose (Fingerstick) 284 mg/dL (70-99) 345 mg/dL (70-99) 272 mg/dL (70-99) White Blood Count 9.6 x10^3/uL (4.0-11.0) Red Blood Count 2.72 x10^6/uL (3.50-5.40) Hemoglobin 8.2 g/dL (12.0-15.5) Hematocrit 23.2 % (36.0-47.0) Mean Corpuscular Volume 86 fL (79-100) Mean Corpuscular Hemoglobin 30 pg (25-35) Mean Corpuscular Hemoglobin Concent 35 g/dL (31-37) Red Cell Distribution Width 13.5 % (11.5-14.5) Platelet Count 317 x10^3/uL (140-400) Neutrophils (%) (Auto) 65 % (31-73) Lymphocytes (%) (Auto) 27 % (24-48) Monocytes (%) (Auto) 6 % (0-9) Eosinophils (%) (Auto) 2 % (0-3) Basophils (%) (Auto) 1 % (0-3) Neutrophils # (Auto) 6.2 x10^3/uL (1.8-7.7) Lymphocytes # (Auto) 2.6 x10^3/uL (1.0-4.8) Monocytes # (Auto) 0.6 x10^3/uL (0.0-1.1) Eosinophils # (Auto) 0.1 x10^3/uL (0.0-0.7) Basophils # (Auto) 0.1 x10^3/uL (0.0-0.2) Sodium Level 138 mmol/L (136-145) Potassium Level 3.7 mmol/L (3.5-5.1) Chloride Level 104 mmol/L (98-107) Carbon Dioxide Level 28 mmol/L (21-32) Anion Gap 6 (6-14) Blood Urea Nitrogen 10 mg/dL (7-20) Creatinine 1.2 mg/dL (0.6-1.0) Estimated GFR (Cockcroft-Gault) 60.8 Glucose Level 287 mg/dL (70-99) Calcium Level 7.7 mg/dL (8.5-10.1) Laboratory Tests Test 06/20/19 12:29 06/20/19 16:58 06/20/19 20:21 06/21/19 03:30 Glucose (Fingerstick) 309 mg/dL (70-99) 81 mg/dL (70-99) 284 mg/dL (70-99) White Blood Count 9.6 x10^3/uL (4.0-11.0) Red Blood Count 2.72 x10^6/uL (3.50-5.40) Hemoglobin 8.2 g/dL (12.0-15.5) Hematocrit 23.2 % (36.0-47.0) Mean Corpuscular Volume 86 fL (79-100) Mean Corpuscular Hemoglobin 30 pg (25-35) Mean Corpuscular Hemoglobin Concent 35 g/dL (31-37) Red Cell Distribution Width 13.5 % (11.5-14.5) Platelet Count 317 x10^3/uL (140-400) Neutrophils (%) (Auto) 65 % (31-73) Lymphocytes (%) (Auto) 27 % (24-48) Monocytes (%) (Auto) 6 % (0-9) Eosinophils (%) (Auto) 2 % (0-3) Basophils (%) (Auto) 1 % (0-3) Neutrophils # (Auto) 6.2 x10^3/uL (1.8-7.7) Lymphocytes # (Auto) 2.6 x10^3/uL (1.0-4.8) Monocytes # (Auto) 0.6 x10^3/uL (0.0-1.1) Eosinophils # (Auto) 0.1 x10^3/uL (0.0-0.7) Basophils # (Auto) 0.1 x10^3/uL (0.0-0.2) Sodium Level 138 mmol/L (136-145) Potassium Level 3.7 mmol/L (3.5-5.1) Chloride Level 104 mmol/L (98-107) Carbon Dioxide Level 28 mmol/L (21-32) Anion Gap 6 (6-14) Blood Urea Nitrogen 10 mg/dL (7-20) Creatinine 1.2 mg/dL (0.6-1.0) Estimated GFR (Cockcroft-Gault) 60.8 Glucose Level 287 mg/dL (70-99) Calcium Level 7.7 mg/dL (8.5-10.1) Test 06/21/19 07:41 06/21/19 10:42 Glucose (Fingerstick) 345 mg/dL (70-99) 272 mg/dL (70-99) Brief Hospital Course Ms Bryan is a 39yo F w/ PMHx chronic pain, DM who ran out of her insulin and presented with intractable nausea and vomiting and HHS with a glucose of 1325. Her anion gap was high at 15 as well. Initially admitted to the ICU on a DKA protocol. 06/19: She notes she is not on basal insulin. Glucose in 200s this morning. Potassium 2.9. Phos 0.8 this morning. Mag level 1.5. She is apparently interfering with her IV use per nursing staff. 06/20: This morning drank a few juices after breakfast and her blood sugar jumped into the 400s again. Labs improving overall. Mag still 1.8, phos 2. Cr back down Had stay complicated by difficult glycemic control, hypophosphatemia, hypomagnesemia. Has endocrinology referral for outpatient. [facility] - Nausea and vomiting - known history of diabetic gastroparesis since 2017 JESSICA - likely vasomotor nephropathy from [facility] Chronic pain Diabetes Hypertension Hyperlipidemia CAD Left eye blind Greater than 30 minutes spent on d/c Discharge Information Condition at Discharge: Improved Follow Up: Weeks Disposition/Orders: D/C to Home Scheduled Aspirin (Aspirin) 81 Mg Tab.chew, 1 TAB PO DAILY, #30 Ref 3 (Reported) Entered as Reported by: LEELEE SORIA on 04/24/17 1458 Last Action: Continued on 06/17/191200 by CARIN WOODALL Clopidogrel Bisulfate (Plavix) 75 Mg Tablet, 75 MG PO DAILY, (Reported) Entered as Reported by: CASSIE KILGORE on 03/15/14 1006 Last Action: Continued on 06/17/19 120 by CARIN WOODALL Dicyclomine Hcl (Bentyl) 10 Mg Capsule, 1 CAP PO TID, #30 Ref 3 Prescribed by: KYLE STONE MD on 07/17/17 1454 Last Action: Continued on 06/17/191200 by CARIN WOODALL Gabapentin (Gabapentin) 600 Mg Tablet, 600 MG PO TID, (Reported) Entered as Reported by: LEELEE SORIA on 04/24/17 1458 Last Action: Converted on 06/17/19 1201 by CARIN WOODALL Insulin Aspart (Novolog) 100 Unit/1 Ml Vial, 6 UNIT SQ TIDAC, (Reported) Entered as Reported by: CASSIE KILGORE on 03/15/14 1006 Last Action: Reviewed on 06/17/19 0259 by PEACE SNOW RN Insulin Aspart (Novolog Flexpen) 100 Unit/1 Ml Insuln.pen, 0-10 SQ TIDAC, (Reported) Entered as Reported by: LEELEE SORIA on 04/24/17 1428 Last Action: Reviewed on 06/17/19 0259 by PEACE SNOW RN Insulin Glargine,Hum.rec.anlog (Lantus Solostar) 100 Unit/1 Ml Insuln.pen, 25 UNITS SQ QHS for E11.9 for 30 Days, #1 Ref 2 CAN SUB WITH BASAGLAR or other covered glargine insulin per insurance. Please dispense insulin pen needles #100 sized to patient comfort, could be 4mm 31g or similar Prescribed by: LILIANA ROSA MD on 06/21/19 1152 Insulin Lispro (Humalog) 100 Unit/1 Ml Insuln.pen, 18 UNITS SQ TIDACHC for E11.9 for 30 Days, #1 Ref 2 Prescribed by: LILIANA ROSA MD on 06/21/19 1152 Metoprolol Succinate (Metoprolol Succinate ( Xl )) 100 Mg Tab.er.24h, 50 MG PO DAILY16, (Reported) Entered as Reported by: CASSIE KILGORE on 03/15/14 1006 Last Action: Continued on 06/17/191200 by CARIN WOODALL Naproxen (Naprosyn) 500 Mg Tablet, 1 TAB PO BID, #14 Ref 1 Prescribed by: KYLE STONE MD on 07/17/17 1454 Last Action: Converted on 06/17/191200 by CARIN WOODALL Pantoprazole Sodium (Pantoprazole Sodium ) 40 Mg Tablet.dr, 1 TAB PO DAILY, #30 Prescribed by: TIAN MADDOX on 08/04/17 1129 Last Action: Continued on 06/17/191200 by CARIN WOODALL Ramipril (Ramipril) 5 Mg Capsule, 5 MG PO DAILY, (Reported) Entered as Reported by: CASSIE KILGORE on 03/15/14 1006 Last Action: Converted on 06/17/191200 by CARIN WOODALL Sennosides (Senokot) 8.6 Mg Tablet, 1 TAB PO BID, #14 Prescribed by: GERI RICE on 06/29/172019 Last Action: Converted on 06/17/191200 by CARIN WOODALL Simvastatin (Simvastatin) 20 Mg Tablet, 20 MG PO DAILY, (Reported) Entered as Reported by: CASSIE KILGORE on 03/15/14 1006 Last Action: Converted on 06/17/191200 by CARIN WOODALL Tramadol Hcl (Tramadol Hcl) 50 Mg Tablet, 1 TAB PO BID for PAIN, #20 (Reported) Entered as Reported by: LEELEE SORIA on 04/27/17 1232 Last Action: Converted on 06/17/191200 by CARIN WOODALL Scheduled PRN Cyclobenzaprine Hcl (Cyclobenzaprine Hcl) 10 Mg Tablet, 1 TAB PO TID PRN for MUSCLE SPASMS, #20 (Reported) Entered as Reported by: LEELEE SORIA on 04/27/17 1233 Last Action: Continued on 06/17/191200 by CARIN WOODALL Lactase (Lactase) 3,000 Unit Tablet, 3,000 UNIT PO PRN BFRMEAL PRN for GI SYMPTOMS, #60 Prescribed by: TIAN MADDOX on 08/04/17 1123 Last Action: Converted on 06/17/191200 by CARIN WOODALL Metoclopramide Hcl (Reglan) 10 Mg Tablet, 1 TAB PO TID PRN for abdomen pain, bloating, #60 Prescribed by: TIAN MADDOX on 08/04/17 1123 Last Action: Continued on 06/17/191200 by CARIN WOODALL Ondansetron (Zofran Odt) 4 Mg Tab.rapdis, 4 MG PO BID PRN for NAUSEA/VOMITING for 7 Days, #20 Prescribed by: TIAN MADDOX on 08/04/17 1123 Last Action: Continued on 06/17/191200 by CARIN WOODALL Oxycodone Hcl (Oxycodone Hcl Immed.release) 15 Mg Tablet, 15 MG PO PRN Q6HRS PRN for PAIN, Ref 0 (Reported) Entered as Reported by: CARIN WOODALL on 06/17/19933 Last Action: Converted on 06/17/191200 by CARIN WODOALL Oxymorphone Hcl (Oxymorphone Hcl) 30 Mg Tab.er.12h, 30 MG PO Q12HR PRN for prn, (Reported) Entered as Reported by: CARIN WOODALL on 06/17/19933 Last Action: Converted on 06/17/191200 by CARIN WOODALL Polyethylene Glycol 3350 (Miralax) 17 Gm Powd.pack, 1 PACKET PO DAILY PRN for CONSTIPATION, #30 Prescribed by: TIAN MADDOX on 08/04/17 1123 Last Action: Converted on 06/17/19 1201 by CARIN WOODALL Promethazine Hcl (Promethazine Hcl) 25 Mg Tablet, Unknown Dose PO Q6H PRN for NAUSEA/VOMITING, (Reported) Entered as Reported by: LEELEE SORIA on 04/24/17 5918 Last Action: Reviewed on 06/17/19 0259 by PAUL PEREZ CHRISTOPHER S MD Jun 21, 2019 11:56
[2019-06-21] MEDS: cefTRIAXone IV Push 1 GM VIAL. IVP SCH (13:00)
--- NOTE | 2019-06-21 14:30 | NUR ---
This nurse taking over PAUL Benitez, pt is waiting for her ride to dc home. Discharge instructions have already been given by previous nurse. Will monitor until dc.
--- NOTE | 2019-06-21 15:40 | NUR ---
Pt dc home accompanied by dtr, escorted to entrance by SHADI Mantilla. Belong with pt at time of dc.
== END 2019-06-21 15:42 | disposition home or self-care (01) | DRG 871 ==
LOC: ER 22:26 → 1 WEST ICU 06-17 00:40 → 4 NORTH 06-17 13:26
PROVIDERS: ADMIT Internal Medicine; ATTEND Internal Medicine
PROC: 02HV33Z Insertion of Infusion Device into Superior Vena Cava, Percutaneous Approach (ICD-10-PCS; principal; 2019-06-17)
DX: A41.9 Sepsis, unspecified organism (principal); N17.0 Acute kidney failure with tubular necrosis; E10.10 Type 1 diabetes mellitus with ketoacidosis without coma; N39.0 Urinary tract infection, site not specified; I10 Essential (primary) hypertension; R65.20 Severe sepsis without septic shock; I25.10 Atherosclerotic heart disease of native coronary artery without angina pectoris; E78.00 Pure hypercholesterolemia, unspecified; H54.62 Unqualified visual loss, left eye, normal vision right eye; G89.29 Other chronic pain; E87.6 Hypokalemia; E78.5 Hyperlipidemia, unspecified; E83.42 Hypomagnesemia; R56.9 Unspecified convulsions; E83.39 Other disorders of phosphorus metabolism; Z90.710 Acquired absence of both cervix and uterus; Z91.19 Patient's noncompliance with other medical treatment and regimen; Z82.49 Family history of ischemic heart disease and other diseases of the circulatory system; Z79.4 Long term (current) use of insulin; I25.2 Old myocardial infarction; Z88.5 Allergy status to narcotic agent
CPT/HCPCS: 36415; 36556; 36600; 70450; 71045; 72125; 80048; 80053; 80307; 81001; 81025; 82010; 82805; 82947; 82962; 83605; 83615; 83690; 83735; 83930; 84100; 85025; 87040; 87086; 87641; 96365; 96372; 96375; J0696; J1815; J2405; J2765; J3010; J3475; J3480; J3490; J7030; J8597; Q0162; 99291-25; G0378

== ENCOUNTER 2019-06-23 15:33 | Inpatient (IN) | payer MEDICARE ==
[~2019-06-23] VITALS: Ht 157.5 cm; Wt 86.4 kg
[2019-06-23] VITALS (10 sets, daily range): BP systolic 107–125; BP diastolic 62–159
[~2019-06-23 15:33] MED LIST changes: +INSU100I11 SQ; +INSU100I13 SQ; +OXYC15TA PO; +OXYM30TA PO
[2019-06-23] MEDS ORDERED: IV NORMAL SALINE 1000ML BAG 1,000 ML IV SCH (15:53)
--- NOTE | 2019-06-23 16:54 | EKG ---
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
[2019-06-23 16:56] LABS: BASO % 1 % (0-3); EOS % 0 % (0-3); HEMATOCRIT 21.6 % (36.0-47.0); HEMOGLOBIN 7.5 g/dL (12.0-15.5); LYMPH # 1.6 x10^3/uL (1.0-4.8); LYMPH % 16 % (24-48); MEAN CORPUSCULAR HEMOGLOBIN 30 pg (25-35); MEAN CORPUSCULAR HGB CONC 35 g/dL (31-37); MEAN CORPUSCULAR VOLUME 86 fL (79-100); MONO % 11 % (0-9); NEUT # 7.1 x10^3/uL (1.8-7.7); NEUT % 72 % (31-73); PLATELET COUNT 404 x10^3/uL (140-400); RED BLOOD COUNT 2.52 x10^6/uL (3.50-5.40); RED CELL DISTRIBUTION WIDTH 14.1 % (11.5-14.5); WHITE BLOOD COUNT 9.8 x10^3/uL (4.0-11.0)
[2019-06-23 17:10] LABS: CALCIUM 8.7 mg/dL (8.5-10.1); CREATININE 1.3 mg/dL (0.6-1.0); GFR 55.5; POTASSIUM 3.7 mmol/L (3.5-5.1)
[2019-06-23] MEDS ORDERED: ONDANSETRON PF 4 MG/2 ML VIAL. IV ONE (17:15)
[2019-06-23] MEDS ORDERED: fentaNYL PF VIAL 100 MCG/2 ML VIAL IV ONE (17:15)
--- NOTE | 2019-06-23 17:16 | PHYS DOC ---
Past Medical History Past Medical History: CAD, Diabetes-Type I, High Cholesterol, Hypertension, OK, Other Additional Past Medical Histor: L EYE BLIND,CHRONIC PAIN , "abd issues" Past Surgical History: Cholecystectomy, Hysterectomy Additional Past Surgical Histo: "bone abscess", BX EYE Alcohol Use: None Drug Use: None Adult General Chief Complaint Chief Complaint: SHORTNESS OF BREATH HPI HPI Patient is a 39 year old female who presents with complaining of right knee and shoulder pain. Patient had recent hospitalization with hyperosmolar hyperglycemia and had right jugular central line placement patient complaining of pain in right side of her neck at the area of the central line placement with radiation to the shoulder as a constant sharp pain since yesterday and rated her pain 10 over 10. Patient also complaining of shortness of breath and generalized weakness and lower extremity edema. Patient denies chest pain, cough, vomiting and diarrhea, urinary symptom. Review of Systems Review of Systems Constitutional: Denies fever or chills [] Eyes: Denies change in visual acuity, redness, or eye pain [] HENT: Denies nasal congestion or sore throat [] Respiratory: Reports shortness of breath Cardiovascular: No additional information not addressed in HPI [] GI: Denies abdominal pain, nausea, vomiting, bloody stools or diarrhea [] : Denies dysuria or hematuria [] Musculoskeletal: Denies back pain, reports neck and shoulder pain Integument: Denies rash or skin lesions [] Neurologic: Denies headache, focal weakness or sensory changes [] Endocrine: Denies polyuria or polydipsia [] All other systems were reviewed and found to be within normal limits, except as documented in this note. Current Medications Current Medications Current Medications Medications (Trade) Dose Ordered Sig/Irina Start Time Stop Time Status Last Admin Dose Admin Fentanyl Citrate (Fentanyl 2ml Vial) 50 mcg 1X ONCE 06/23/19 17:15 06/23/19 17:16 DC 06/23/19 17:37 50 MCG Ondansetron HCl (Zofran) 4 mg 1X ONCE 06/23/19 17:15 06/23/19 17:16 DC 06/23/19 17:37 4 MG Sodium Chloride 1,000 ml @ 1,000 mls/hr Q1H 06/23/19 15:53 06/23/19 16:52 DC 06/23/19 16:18 1,000 MLS/HR Allergies Allergies Allergies Coded Allergies Type Severity Reaction Last Updated Verified morphine Allergy Severe Shortness of Air, trouble breathing/sweating 07/14/16 Yes Physical Exam Physical Exam Constitutional: Well developed, moderate distress, non-toxic appearance,ill looking, pale. [] HENT: Normocephalic, atraumatic, oropharynx moist. Eyes:Conjunctiva normal, no discharge. [] Neck: Normal range of motion, no tenderness, supple, no stridor. [] Cardiovascular:Heart rate regular rhythm, no murmur [] Lungs & Thorax: Bilateral breath sounds clear to auscultation [] Abdomen: Bowel sounds normal, soft, no tenderness, no masses, no pulsatile masses. [] Skin: Warm, dry, no erythema, no rash. [] Back: No tenderness, no CVA tenderness. [] Extremities: No tenderness, no cyanosis, no clubbing, ROM intact, no edema. [] Neurologic: Alert and oriented X 3, normal motor function, normal sensory function, no focal deficits noted. [] Psychologic: Affect normal, judgement normal, mood normal. [] Current Patient Data Vital Signs Vital Signs Date Time Temp Pulse Resp B/P (MAP) Pulse Ox O2 Delivery O2 Flow Rate FiO2 06/23/19 17:30 126 18 128/65 (86) 94 Room Air 06/23/19 15:51 99.1 99.1 Lab Values Laboratory Tests Test 06/23/19 15:44 06/23/19 16:40 Glucose (Fingerstick) 201 mg/dL (70-99) H White Blood Count 9.8 x10^3/uL (4.0-11.0) Red Blood Count 2.52 x10^6/uL (3.50-5.40) L Hemoglobin 7.5 g/dL (12.0-15.5) L Hematocrit 21.6 % (36.0-47.0) L Mean Corpuscular Volume 86 fL (79-100) Mean Corpuscular Hemoglobin 30 pg (25-35) Mean Corpuscular Hemoglobin Concent 35 g/dL (31-37) Red Cell Distribution Width 14.1 % (11.5-14.5) Platelet Count 404 x10^3/uL (140-400) H Neutrophils (%) (Auto) 72 % (31-73) Lymphocytes (%) (Auto) 16 % (24-48) L Monocytes (%) (Auto) 11 % (0-9) H Eosinophils (%) (Auto) 0 % (0-3) Basophils (%) (Auto) 1 % (0-3) Neutrophils # (Auto) 7.1 x10^3/uL (1.8-7.7) Lymphocytes # (Auto) 1.6 x10^3/uL (1.0-4.8) Monocytes # (Auto) 1.0 x10^3/uL (0.0-1.1) Eosinophils # (Auto) 0.0 x10^3/uL (0.0-0.7) Basophils # (Auto) 0.0 x10^3/uL (0.0-0.2) Sodium Level 142 mmol/L (136-145) Potassium Level 3.7 mmol/L (3.5-5.1) Chloride Level 104 mmol/L (98-107) Carbon Dioxide Level 26 mmol/L (21-32) Anion Gap 12 (6-14) Blood Urea Nitrogen 15 mg/dL (7-20) Creatinine 1.3 mg/dL (0.6-1.0) H Estimated GFR (Cockcroft-Gault) 55.5 BUN/Creatinine Ratio 12 (6-20) Glucose Level 207 mg/dL (70-99) H Lactic Acid Level 1.7 mmol/L (0.4-2.0) Calcium Level 8.7 mg/dL (8.5-10.1) Magnesium Level 1.4 mg/dL (1.8-2.4) L Total Bilirubin 0.2 mg/dL (0.2-1.0) Aspartate Amino Transferase (AST) 110 U/L (15-37) H Alanine Aminotransferase (ALT) 17 U/L (14-59) Alkaline Phosphatase 134 U/L (46-116) H Creatine Kinase 994 U/L (26-192) H Creatine Kinase MB (Mass) 102.0 ng/mL (0.0-3.6) H Creatine Kinase MB Relative Index 10.3 % (0-4) H Troponin I Quantitative 20.354 ng/mL (0.000-0.055) QC-Etu-J-Type Natriuretic Peptide 8669 pg/mL (0-124) H Total Protein 7.1 g/dL (6.4-8.2) Albumin 1.9 g/dL (3.4-5.0) L Albumin/Globulin Ratio 0.4 (1.0-1.7) L Lipase 40 U/L (73-393) L Thyroid Stimulating Hormone (TSH) 1.592 uIU/mL (0.358-3.74) Laboratory Tests 06/23/19 16:40 Laboratory Tests 06/23/19 16:40 EKG EKG EKG interpreted by me. EKG at 1616 showed sinus tachycardia at rate of 127, right fourth axis, poor R-wave progress in anteroseptal leads, no acute ST and T-wave abnormalities. Radiology/Procedures Radiology/Procedures [][facility] [address] [place] [address] IMAGING REPORT Signed PATIENT: BOZENA CLARK RACCOUNT: [id number] : 1980 LOCATION: [facility] ICU AGE: 39 SEX: F EXAM STATUS: ADM IN ORD. PHYSICIAN: DAWSON MULTANI MD REASON: shortness of breath and generalized weakness PROCEDURE: PORTABLE CHEST 1V AP chest. HISTORY: Short of breath AP view was taken of the chest. Heart is upper normal in size. There are interstitial infiltrates or interstitial pulmonary edema with worsening compared to the study from June 17. IMPRESSION: 1. Development of interstitial infiltrates or pulmonary edema with worsening compared to the recent study. Electronically signed by: Parminder Brown MD (06/23/2019 5:54 PM) [id number] DICTATED and SIGNED BY: PARMINDER BROWN MD DATE: 06/23/19 1750 Course & Med Decision Making Course & Med Decision Making Pertinent Labs and Imaging studies reviewed. (See chart for details) Evaluation of patient in ER showed 39-year-old male patient with recent hospitalization and discharged home 2 days ago presented to ER with complaining of right neck pain at the area of central line placement and shortness of breath. Patient is not stated she had 2-3 episodes of vomiting this morning with nausea at arrival to ER. Patient was pale and tachycardic without hypotension. Patient had temperature of 99 and treated with sepsis protocol with IV fluid and antibiotic. Patient had troponin of 7.5 with mild drop from recent hospitalization. Patient had troponin of more than 20 denies chest pain at arrival to ER and when asking about chest pain, stated she woke up at 5:30 today because of chest pain and had 2-3 episodes of vomiting and pain was a severe pain and resolved spontaneously after a few hours. Dr. Savage on-call senior sustainability consultant was consulted at 1729 and recommended to admit patient to hospitalist.Patient requiring admission for further evaluation and treatment. Discussed with Dr. Guzman who is in agreement with admission. Discussed findings and plan with patient and family, who acknowledge understanding and agreement. Dragon Disclaimer Dragon Disclaimer This electronic medical record was generated, in whole or in part, using a voice recognition dictation system. Departure Departure Impression: Primary Impression: NSTEMI (non-ST elevated myocardial infarction) Additional Impressions: Anemia Hypomagnesemia Renal insufficiency Acute CHF Hyperglycemia Hypoalbuminemia Disposition: ADMITTED INPATIENT (at 1745) Admitting Physician: HIMS (Dr. Guzman accepted admission at 1745) Condition: GUARDED Referrals: NO PCP (PCP) Critical Care Time Critical care time was 70 minutes exclusive of procedures. The HEART Score for CP Pts HEART Score for Chest Pain: HEART Score for Chest Pain Response (Comments) Value History Moderately Suspicious 1 ECG Nonspecific Repolarizatio 1 Age < 45 0 Risk Factors >3 Risk Factors or Hx CAD 2 Troponin >3 x Normal Limit 2 Total 6 Risk Factors: Risk Factors: DM, Current or recent (<one month) smoker, HTN, HLP, family history of CAD, obesity. Risk Scores: Score 0 - 3: 2.5% MACE over next 6 weeks - Discharge Home Score 4 - 6: 20.3% MACE over next 6 weeks - Admit for Clinical Observation Score 7 - 10: 72.7% MACE over next 6 weeks - Early Invasive Strategies Problem Qualifiers Additional Impressions: Anemia Anemia type: unspecified type Qualified Codes: D64.9 - Anemia, unspecified Acute CHF Heart failure type: unspecified Qualified Codes: I50.9 - Heart failure, unspecified DAWSON MULTANI MD Jun 23, 2019 17:16
[2019-06-23 17:27] LABS: ALBUMIN 1.9 g/dL (3.4-5.0); ALBUMIN/GLOBULIN RATIO 0.4 (1.0-1.7); MAGNESIUM 1.4 mg/dL (1.8-2.4); TOTAL BILIRUBIN 0.2 mg/dL (0.2-1.0); TOTAL PROTEIN 7.1 g/dL (6.4-8.2)
--- NOTE | 2019-06-23 17:57 | RAD ---
AP chest. HISTORY: Short of breath AP view was taken of the chest. Heart is upper normal in size. There are interstitial infiltrates or interstitial pulmonary edema with worsening compared to the study from June 17. IMPRESSION: 1. Development of interstitial infiltrates or pulmonary edema with worsening compared to the recent study. Electronically signed by: Parminder Brown MD (06/23/2019 5:54 PM) [id number]
[2019-06-23] MEDS ORDERED: ASPIRIN CHEWABLE 81 MG TABLET. PO ONE (18:00)
--- NOTE | 2019-06-23 18:24 | RAD ---
Right upper extremity venous Doppler ultrasound History: History of recent central line, right upper extremity pain. Comparison: None. Procedure: Color flow Doppler, Doppler spectral analysis, and 2D images are obtained with and without compression in the jugular vein, subclavian vein, axillary vein, brachial vein, radial vein, ulnar vein, and basilic and cephalic veins. Findings: There is normal color flow, augmentation, and compressibility of all visualized vein segments. No evidence of deep venous thrombus is present. IMPRESSION: No evidence of right upper extremity deep venous thrombosis. Electronically signed by: Negrito Clark MD (06/23/2019 6:22 PM) [facility]
[2019-06-23] MEDS ORDERED: CLOPIDOGREL BISULFATE 75 MG TABLET PO ONE (19:30)
[2019-06-23] MEDS: HEPARIN 25,000UTS/500ML PREMIX 500 ML IV PRN (19:32)
[2019-06-23] MEDS ORDERED: HEPARIN for IV BOLUS 10,000 UNIT/10 ML VIAL. IV ONE (20:00)
[2019-06-23] MEDS ORDERED: ONDANSETRON PF 4 MG/2 ML VIAL. IV PRN (20:00)
[2019-06-23] MEDS: fentaNYL PF VIAL 100 MCG/2 ML VIAL IV PRN (20:06)
[2019-06-23] MEDS ORDERED: LACTASE 3,000 UNIT TABLET PO PRN (20:15)
[2019-06-23] MEDS ORDERED: METOCLOPRAMIDE 10 MG TABLET. PO PRN (20:15)
[2019-06-23] MEDS ORDERED: POLYETHYLENE GLYCOL 3350 17 GM PACKET. PO PRN (20:15)
[2019-06-23] MEDS ORDERED: IV DEXTROSE 5% 250 ML BAG. IV PRN (20:15)
[2019-06-23] MEDS ORDERED: ONDANSETRON ODT 4 MG TAB.RAPDIS. PO PRN (20:15)
[2019-06-23] MEDS ORDERED: CYCLOBENZAPRINE 10 MG TABLET. PO PRN (20:15)
--- NOTE | 2019-06-23 20:28 | PDOC1 ---
History and Physical Date of Admission Date of Admission DATE: 06/23/19 TIME: 20:16 Identification/Chief Complaint Chief Complaint neck pain, shoulder pain Problems: (1) NSTEMI (non-ST elevated myocardial infarction) Source Source: Patient History of Present Illness History of Present Illness 39yo F w/ PMHx chronic pain, DM last a1c 8.3%, Nausea and vomiting secondary to Diabetic gastroparesis, CAD, HTN, HLD, left eye blindness who was recently hospitalized from 06/17 to 06/21 for DKA bc ran out of meds. was admitted to ICU and central line was placed. patient discharged on home insulin. states she felt fine but stated today started to experience right sided neck pain whre CVL was inserted. pain traveled to her chest. she tried to rub her chest to relive pain but no improvement. reports SOB with chest pain. bc of neck pain and chest pain, patient came to ED for further evaluation. troponin found to be 20. creatine 1.3. EKG without any obvious ST or T wave changes. patient admitted to ICU for further management. Past Medical History Cardiovascular: HTN Endocrine: Diabetes Past Surgical History Past Surgical History: Cholecystectomy, Hysterectomy Family History Family History: Hypertension Social History Smoke: No ALCOHOL: none Drugs: Marijuana Current Problem List Problem List Problems Medical Problems: (1) NSTEMI (non-ST elevated myocardial infarction) Status: Acute Current Medications Current Medications Current Medications Sodium Chloride 1,000 ml @ 1,000 mls/hr Q1H IV Last administered on 06/23/19at 16:18; Start 06/23/19 at 15:53; Stop 06/23/19 at 16:52; Status DC Ondansetron HCl (Zofran) 4 mg 1X ONCE IV Last administered on 06/23/19at 17:37; Start 06/23/19 at 17:15; Stop 06/23/19 at 17:16; Status DC Fentanyl Citrate (Fentanyl 2ml Vial) 50 mcg 1X ONCE IV Last administered on 06/23/19at 17:37; Start 06/23/19 at 17:15; Stop 06/23/19 at 17:16; Status DC Aspirin (Children'S Aspirin) 324 mg 1X ONCE PO Last administered on 06/23/19at 17:42; Start 06/23/19 at 18:00; Stop 06/23/19 at 18:01; Status DC Heparin Sodium/ Dextrose 500 ml @ 0 mls/hr CONT PRN IV CHEST PAIN Last administered on 06/23/19at 19:32; Start 06/23/19 at 19:00 Heparin Sodium (Porcine) (Heparin Sodium) 1,700 unit PRN Q6HRS PRN IV FOR UFH LEVEL LESS THAN 0.2; Start 06/23/19 at 19:00 Clopidogrel Bisulfate (Plavix) 600 mg 1X ONCE PO Last administered on 06/23/19at 19:59; Start 06/23/19 at 19:30; Stop 06/23/19 at 19:31; Status DC Heparin Sodium (Porcine) (Heparin Sodium) 4,000 unit 1X ONCE IV ; Start 06/23/19 at 20:00; Stop 06/23/19 at 20:01; Status DC Fentanyl Citrate (Fentanyl 2ml Vial) 50 mcg PRN Q2HR PRN IV PAIN; Start 06/23/19 at 19:45 Active Scripts Active Humalog (Insulin Lispro) 100 Unit/1 Ml Insuln.pen 18 Units SQ TIDACHC 30 Days Lantus Solostar (Insulin Glargine,Hum.rec.anlog) 100 Unit/1 Ml Insuln.pen 25 Units SQ QHS 30 Days CAN SUB WITH BASAGLAR or other covered glargine insulin per insurance. Please dispense insulin pen needles #100 sized to patient comfort, could be 4mm 31g or similar Pantoprazole Sodium (Pantoprazole Sodium) 40 Mg Tablet.dr 1 Tab PO DAILY Reglan (Metoclopramide Hcl) 10 Mg Tablet 1 Tab PO TID PRN Lactase 3,000 Unit Tablet 3,000 Unit PO PRN BFRMEAL PRN Zofran Odt (Ondansetron) 4 Mg Tab.rapdis 4 Mg PO BID PRN 7 Days Miralax (Polyethylene Glycol 3350) 17 Gm Powd.pack 1 Packet PO DAILY PRN Naprosyn (Naproxen) 500 Mg Tablet 1 Tab PO BID Bentyl (Dicyclomine Hcl) 10 Mg Capsule 1 Cap PO TID Senokot (Sennosides) 8.6 Mg Tablet 1 Tab PO BID Reported Oxymorphone Hcl 30 Mg Tab.er.12h 30 Mg PO Q12HR PRN Oxycodone Hcl Immed.release (Oxycodone Hcl) 15 Mg Tablet 15 Mg PO PRN Q6HRS PRN Cyclobenzaprine Hcl 10 Mg Tablet 1 Tab PO TID PRN Tramadol Hcl 50 Mg Tablet 1 Tab PO BID Promethazine Hcl 25 Mg Tablet Unknown Dose PO Q6H PRN Gabapentin 600 Mg Tablet 600 Mg PO TID Aspirin 81 Mg Tab.chew 1 Tab PO DAILY Novolog Flexpen (Insulin Aspart) 100 Unit/1 Ml Insuln.pen 0-10 SQ TIDAC Novolog (Insulin Aspart) 100 Unit/1 Ml Vial 6 Unit SQ TIDAC Simvastatin 20 Mg Tablet 20 Mg PO DAILY Ramipril 5 Mg Capsule 5 Mg PO DAILY Plavix (Clopidogrel Bisulfate) 75 Mg Tablet 75 Mg PO DAILY Metoprolol Succinate ( Xl ) (Metoprolol Succinate) 100 Mg Tab.er.24h 50 Mg PO DAILY16 Allergies Allergies: Coded Allergies: morphine (Verified Allergy, Severe, Shortness of Air, trouble breathing/sweating, 07/14/16) tolerates DILAUDID, OXYCODONE ROS Review of System CONSTITUTIONAL: No fever or chills EYES: No recent changes SKIN: No rash or itching CARDIOVASCULAR: No chest pain, syncope, palpitations, or edema RESPIRATORY: No SOB or cough GASTROINTESTINAL: No nausea, vomiting or abdominal pain NEUROLOGICAL: No headaches or weakness ENDOCRINE: No cold or heat intolerance GENITOURINARY: No urgency or frequency of urination MUSCULOSKELETAL: No back pain or joint pain LYMPHATICS: No enlarged lymph nodes PSYCHIATRIC: No anxiety or depression Physical Exam Physical Exam GENERAL: No apparent distress. Alert and oriented. HEENT: Head normocephalic, atraumatic. NECK: Supple LUNGS: Clear to auscultation. HEART: RRR, S1, S2 present, pulses intact ABDOMEN: Soft, positive bowel sounds. EXTREMITIES: No cyanosis or edema. NEUROLOGIC: Normal speech, normal tone PSYCHIATRIC: Normal affect, normal mood. SKIN: No ulceration. Vitals Vitals Vital Signs Date Time Temp Pulse Resp B/P (MAP) Pulse Ox O2 Delivery O2 Flow Rate FiO2 06/23/19 17:37 12 97 Room Air 06/23/19 17:30 126 128/65 (86) 06/23/19 15:51 99.1 99.1 Labs Labs Laboratory Tests Test 06/23/19 15:44 06/23/19 16:40 Glucose (Fingerstick) 201 mg/dL (70-99) White Blood Count 9.8 x10^3/uL (4.0-11.0) Red Blood Count 2.52 x10^6/uL (3.50-5.40) Hemoglobin 7.5 g/dL (12.0-15.5) Hematocrit 21.6 % (36.0-47.0) Mean Corpuscular Volume 86 fL (79-100) Mean Corpuscular Hemoglobin 30 pg (25-35) Mean Corpuscular Hemoglobin Concent 35 g/dL (31-37) Red Cell Distribution Width 14.1 % (11.5-14.5) Platelet Count 404 x10^3/uL (140-400) Neutrophils (%) (Auto) 72 % (31-73) Lymphocytes (%) (Auto) 16 % (24-48) Monocytes (%) (Auto) 11 % (0-9) Eosinophils (%) (Auto) 0 % (0-3) Basophils (%) (Auto) 1 % (0-3) Neutrophils # (Auto) 7.1 x10^3/uL (1.8-7.7) Lymphocytes # (Auto) 1.6 x10^3/uL (1.0-4.8) Monocytes # (Auto) 1.0 x10^3/uL (0.0-1.1) Eosinophils # (Auto) 0.0 x10^3/uL (0.0-0.7) Basophils # (Auto) 0.0 x10^3/uL (0.0-0.2) Sodium Level 142 mmol/L (136-145) Potassium Level 3.7 mmol/L (3.5-5.1) Chloride Level 104 mmol/L (98-107) Carbon Dioxide Level 26 mmol/L (21-32) Anion Gap 12 (6-14) Blood Urea Nitrogen 15 mg/dL (7-20) Creatinine 1.3 mg/dL (0.6-1.0) Estimated GFR (Cockcroft-Gault) 55.5 BUN/Creatinine Ratio 12 (6-20) Glucose Level 207 mg/dL (70-99) Lactic Acid Level 1.7 mmol/L (0.4-2.0) Calcium Level 8.7 mg/dL (8.5-10.1) Magnesium Level 1.4 mg/dL (1.8-2.4) Total Bilirubin 0.2 mg/dL (0.2-1.0) Aspartate Amino Transf (AST/SGOT) 110 U/L (15-37) Alanine Aminotransferase (ALT/SGPT) 17 U/L (14-59) Alkaline Phosphatase 134 U/L (46-116) Creatine Kinase 994 U/L (26-192) Creatine Kinase MB (Mass) 102.0 ng/mL (0.0-3.6) Creatine Kinase MB Relative Index 10.3 % (0-4) Troponin I Quantitative 20.354 ng/mL (0.000-0.055) BV-Nfq-D-Type Natriuretic Peptide 8669 pg/mL (0-124) Total Protein 7.1 g/dL (6.4-8.2) Albumin 1.9 g/dL (3.4-5.0) Albumin/Globulin Ratio 0.4 (1.0-1.7) Lipase 40 U/L (73-393) Thyroid Stimulating Hormone (TSH) 1.592 uIU/mL (0.358-3.74) Laboratory Tests Test 06/23/19 15:44 06/23/19 16:40 Glucose (Fingerstick) 201 mg/dL (70-99) White Blood Count 9.8 x10^3/uL (4.0-11.0) Red Blood Count 2.52 x10^6/uL (3.50-5.40) Hemoglobin 7.5 g/dL (12.0-15.5) Hematocrit 21.6 % (36.0-47.0) Mean Corpuscular Volume 86 fL (79-100) Mean Corpuscular Hemoglobin 30 pg (25-35) Mean Corpuscular Hemoglobin Concent 35 g/dL (31-37) Red Cell Distribution Width 14.1 % (11.5-14.5) Platelet Count 404 x10^3/uL (140-400) Neutrophils (%) (Auto) 72 % (31-73) Lymphocytes (%) (Auto) 16 % (24-48) Monocytes (%) (Auto) 11 % (0-9) Eosinophils (%) (Auto) 0 % (0-3) Basophils (%) (Auto) 1 % (0-3) Neutrophils # (Auto) 7.1 x10^3/uL (1.8-7.7) Lymphocytes # (Auto) 1.6 x10^3/uL (1.0-4.8) Monocytes # (Auto) 1.0 x10^3/uL (0.0-1.1) Eosinophils # (Auto) 0.0 x10^3/uL (0.0-0.7) Basophils # (Auto) 0.0 x10^3/uL (0.0-0.2) Sodium Level 142 mmol/L (136-145) Potassium Level 3.7 mmol/L (3.5-5.1) Chloride Level 104 mmol/L (98-107) Carbon Dioxide Level 26 mmol/L (21-32) Anion Gap 12 (6-14) Blood Urea Nitrogen 15 mg/dL (7-20) Creatinine 1.3 mg/dL (0.6-1.0) Estimated GFR (Cockcroft-Gault) 55.5 BUN/Creatinine Ratio 12 (6-20) Glucose Level 207 mg/dL (70-99) Lactic Acid Level 1.7 mmol/L (0.4-2.0) Calcium Level 8.7 mg/dL (8.5-10.1) Magnesium Level 1.4 mg/dL (1.8-2.4) Total Bilirubin 0.2 mg/dL (0.2-1.0) Aspartate Amino Transf (AST/SGOT) 110 U/L (15-37) Alanine Aminotransferase (ALT/SGPT) 17 U/L (14-59) Alkaline Phosphatase 134 U/L (46-116) Creatine Kinase 994 U/L (26-192) Creatine Kinase MB (Mass) 102.0 ng/mL (0.0-3.6) Creatine Kinase MB Relative Index 10.3 % (0-4) Troponin I Quantitative 20.354 ng/mL (0.000-0.055) BU-Zek-Y-Type Natriuretic Peptide 8669 pg/mL (0-124) Total Protein 7.1 g/dL (6.4-8.2) Albumin 1.9 g/dL (3.4-5.0) Albumin/Globulin Ratio 0.4 (1.0-1.7) Lipase 40 U/L (73-393) Thyroid Stimulating Hormone (TSH) 1.592 uIU/mL (0.358-3.74) VTE Prophylaxis Ordered VTE Prophylaxis Devices: Yes VTE Pharmacological Prophylaxi: Yes Assessment/Plan Assessment/Plan ASSESSMENT NSTEMI hx of CAD Anemia with Hb 7.5. was 10.2 on 8 DM, a1c 8.3% Gastroparesis LE swelling HLD HTN Chronic Pain JESSICA PLAN admit to ICU load with plavix start heparin drip resume home ASA and plavix as previously prescribed continue BB as BP tolerates hold IVONNE-I given soft BP and slight elevation of creatine at 1.3 transfuse 1 unit of blood now IV fentanyl for pain control Reglan prn for gastroparesis symptoms continue statin therapy continue home insulin therapy apprec cards dvt ppx: heparin drip full code NPO past midnight labs in AM anticipate cath in AM per cards JON RODRÍGUEZ MD Jun 23, 2019 20:27
[2019-06-23] MEDS: SENNOSIDES 8.6 MG TABLET PO SCH (21:00)
[2019-06-23] MEDS: DICYCLOMINE HCL 10 MG CAPSULE PO SCH (21:00)
[2019-06-23] MEDS: GABAPENTIN 300 MG CAPSULE. PO SCH (21:00)
[2019-06-23] MEDS: INSULIN LISPRO 300 UNITS/3 ML INSULN.PEN. SQ SCH (21:12)
[2019-06-23] MEDS: INSULIN GLARGINE 300 UNITS/3 ML INSULN.PEN. SQ SCH (21:13)
[2019-06-23] MEDS: MORPHINE ER 30 MG TABLET.ER PO SCH (22:09)
[2019-06-23] MEDS: oxyCODONE IR 5 MG TABLET PO PRN (22:09)
[2019-06-24] VITALS (15 sets, daily range): BP systolic 91–123; BP diastolic 51–77
[2019-06-24] MEDS: HEPARIN for IV BOLUS 10,000 UNIT/10 ML VIAL. IV PRN ×2 (02:12→12:54)
[2019-06-24] MEDS: INSULIN LISPRO 300 UNITS/3 ML INSULN.PEN. SQ SCH ×7 (07:30→20:46)
[2019-06-24] MEDS: PANTOPRAZOLE 40 MG TABLET.DR. PO SCH (07:37)
[2019-06-24] MEDS: CLOPIDOGREL BISULFATE 75 MG TABLET PO SCH (07:38)
[2019-06-24] MEDS: DICYCLOMINE HCL 10 MG CAPSULE PO SCH ×3 (07:39→20:43)
[2019-06-24] MEDS: GABAPENTIN 300 MG CAPSULE. PO SCH ×3 (07:39→20:43)
[2019-06-24] MEDS: SENNOSIDES 8.6 MG TABLET PO SCH ×2 (07:39→20:43)
[2019-06-24] MEDS: oxyCODONE IR 5 MG TABLET PO PRN ×3 (07:39→20:44)
[2019-06-24] MEDS: DEXTROSE 50% 25 GM / 50ML DISP.SYRIN. IV PRN (08:12)
[2019-06-24 09:04] LABS: HEMATOCRIT 22.6 % (36.0-47.0); HEMOGLOBIN 7.9 g/dL (12.0-15.5); RED BLOOD COUNT 2.67 x10^6/uL (3.50-5.40); RED CELL DISTRIBUTION WIDTH 13.9 % (11.5-14.5); WHITE BLOOD COUNT 9.6 x10^3/uL (4.0-11.0)
[2019-06-24 09:20] LABS: CALCIUM 7.5 mg/dL (8.5-10.1); CREATININE 1.2 mg/dL (0.6-1.0); GFR 60.8; POTASSIUM 3.1 mmol/L (3.5-5.1)
[2019-06-24] MEDS ORDERED: IV NORMAL SALINE 1000ML BAG 1,000 ML IV SCH (09:30)
[2019-06-24] MEDS: IV NORMAL SALINE 500ML BAG 500 ML IV SCH ×2 (09:53→16:40)
[2019-06-24] MEDS: METOPROLOL SUCC 24HR ER 50 MG TAB.ER.24H. PO SCH (10:15)
[2019-06-24] MEDS: ATORVASTATIN CALCIUM 40 MG TABLET. PO SCH ×2 (10:16→20:43)
[2019-06-24] MEDS: ASPIRIN CHEWABLE 81 MG TABLET. PO SCH (10:16)
[2019-06-24] MEDS: MORPHINE ER 30 MG TABLET.ER PO SCH ×2 (10:16→20:43)
--- NOTE | 2019-06-24 10:18 | CONS ---
DATE OF CONSULTATION: 06/24/2019 REASON FOR CONSULTATION: [id number] myocardial infarction. HISTORY OF PRESENT ILLNESS: The patient is a pleasant 39-year-old woman with past medical history as noted below, who comes to the hospital in the setting of chest discomfort. She apparently was discharged here after admission for an episode of hyperosmolar hyperglycemic state and subsequent to that was discharged. She had a central line placed and when she came into the ER, apparently was describing some pain associated near the central site, but ultimately also describes some epigastric discomfort and troponin was noted to be elevated at 20. She was admitted for further evaluation and treatment. Compounding her issues with a hemoglobin of 7.5, but no obvious aneudy hematuria, hematochezia or hematemesis at this time. She was admitted to the ICU and given a Plavix load and given 1 unit of blood and after stabilization and ensuring that there were no bleeding issues, she was also started on heparin drip overnight. PAST MEDICAL HISTORY: 1. Hypertension. 2. Coronary artery disease with a remote [place] in 2009 and at that time was told that she has multivessel disease. 3. Severe diabetes since the age of 10. 4. Chronic pain. 5. Dyslipidemia. 6. Left eye blindness. SOCIAL HISTORY: The patient denies any alcohol or tobacco use. No illicit drug use except for marijuana. ALLERGIES: MORPHINE. FAMILY HISTORY: Noncontributory. CURRENT CARDIOVASCULAR MEDICATIONS: 1. Toprol-XL 50 mg daily. 2. Plavix 75 mg daily. 3. Heparin drip. 4. Aspirin 81 mg daily. REVIEW OF SYSTEMS: Negative for 10 out of 14 systems reviewed, unless otherwise mentioned above in HPI. PHYSICAL EXAMINATION: VITAL SIGNS: Afebrile, 116, 16, 91/52, 93% on room air. GENERAL: She is alert and oriented, in mild distress from pain. HEAD AND NECK: Unremarkable except for mild pain at the right IJ insertion site from previous. HEART: Heart tones are regular. No obvious murmurs. LUNGS: Clear to auscultation. ABDOMEN: Soft, obese, nontender. EXTREMITIES: No clubbing, cyanosis or edema with 1+ pulses. NEUROLOGIC: No focal deficits. MUSCULOSKELETAL: No obvious trauma. DIAGNOSTIC STUDIES: Hemoglobin 7.9 after 1 unit. Creatinine 1.3. Troponin peaked at 22.194. Chest x-ray is notable for some pulmonary edema. Upper extremity ultrasound is unremarkable for any DVT. EKG demonstrates sinus tachycardia with possible mild global ischemia. IMPRESSION: Din-OP-[id number] myocardial infarction in the setting of multiple cardiovascular comorbidities with a prior history of nonobstructive coronary artery disease. The etiology is likely either a stress-induced cardiomyopathy versus true plaque rupture. Complicating her issues is her severe anemia and mild chronic kidney disease. RECOMMENDATIONS: 1. Obtain echocardiogram and based on her left ventricular function, we will pursue a more aggressive invasive strategy versus conservative management with a delayed cardiac catheterization planned in the next 24-48 hours given her issues. 2. Continue aspirin, Plavix and heparin drip and ensure that she tolerates this and there is no further bleeding issues. Thank you for this consultation. Discussed with primary hospitalist. DANIELA JIMENEZ MD DR: RUSS/dilcia JOB#: [id number] / [id number]
--- NOTE | 2019-06-24 11:35 | PDOC ---
PROGRESS NOTES Chief Complaint Chief Complaint ASSESSMENT NSTEMI in setting of prior history of nonobstructive coronary artery disease. Anemia with Hb 7.5 on admission, s/p 1 unit of blood. was 10.2 on 06/17 DM, a1c 8.3% Gastroparesis LE swelling HLD HTN Chronic Pain JESSICA hypokalemia PLAN monitor in ICU continue plavix and ASA continue heparin drip check TTE continue BB as BP tolerates hold IVONNE-I given soft BP and slight elevation of creatine at 1.3. will give 500 cc of fluid today to hydrate patient. s/p 1 unit of blood 06/23. Hb 7.5 to 7.9 after 1 unit of blood. no signs of active bleeding IV fentanyl for pain control prn. continue home pain regimen Reglan prn for gastroparesis symptoms continue statin therapy continue home insulin therapy apprec cards dvt ppx: heparin drip full code NPO past midnight for cath in AM labs in AM including H and H, BMP daughter requested note for work which i signed and gave to her. Vitals Vitals Vital Signs Date Time Temp Pulse Resp B/P (MAP) Pulse Ox O2 Delivery O2 Flow Rate FiO2 06/24/19 10:16 95 Room Air 06/24/19 10:16 109 106/58 06/24/19 10:00 14 06/24/19 08:00 99.2 99.2 Physical Exam Lungs: Clear Labs LABS Laboratory Tests Test 06/23/19 15:44 06/23/19 16:40 06/23/19 19:45 06/23/19 21:11 Glucose (Fingerstick) 201 mg/dL (70-99) 216 mg/dL (70-99) White Blood Count 9.8 x10^3/uL (4.0-11.0) Red Blood Count 2.52 x10^6/uL (3.50-5.40) Hemoglobin 7.5 g/dL (12.0-15.5) Hematocrit 21.6 % (36.0-47.0) Mean Corpuscular Volume 86 fL (79-100) Mean Corpuscular Hemoglobin 30 pg (25-35) Mean Corpuscular Hemoglobin Concent 35 g/dL (31-37) Red Cell Distribution Width 14.1 % (11.5-14.5) Platelet Count 404 x10^3/uL (140-400) Neutrophils (%) (Auto) 72 % (31-73) Lymphocytes (%) (Auto) 16 % (24-48) Monocytes (%) (Auto) 11 % (0-9) Eosinophils (%) (Auto) 0 % (0-3) Basophils (%) (Auto) 1 % (0-3) Neutrophils # (Auto) 7.1 x10^3/uL (1.8-7.7) Lymphocytes # (Auto) 1.6 x10^3/uL (1.0-4.8) Monocytes # (Auto) 1.0 x10^3/uL (0.0-1.1) Eosinophils # (Auto) 0.0 x10^3/uL (0.0-0.7) Basophils # (Auto) 0.0 x10^3/uL (0.0-0.2) Sodium Level 142 mmol/L (136-145) Potassium Level 3.7 mmol/L (3.5-5.1) Chloride Level 104 mmol/L (98-107) Carbon Dioxide Level 26 mmol/L (21-32) Anion Gap 12 (6-14) Blood Urea Nitrogen 15 mg/dL (7-20) Creatinine 1.3 mg/dL (0.6-1.0) Estimated GFR (Cockcroft-Gault) 55.5 BUN/Creatinine Ratio 12 (6-20) Glucose Level 207 mg/dL (70-99) Lactic Acid Level 1.7 mmol/L (0.4-2.0) Calcium Level 8.7 mg/dL (8.5-10.1) Magnesium Level 1.4 mg/dL (1.8-2.4) Total Bilirubin 0.2 mg/dL (0.2-1.0) Aspartate Amino Transf (AST/SGOT) 110 U/L (15-37) Alanine Aminotransferase (ALT/SGPT) 17 U/L (14-59) Alkaline Phosphatase 134 U/L (46-116) Creatine Kinase 994 U/L (26-192) Creatine Kinase MB (Mass) 102.0 ng/mL (0.0-3.6) Creatine Kinase MB Relative Index 10.3 % (0-4) Troponin I Quantitative 20.354 ng/mL (0.000-0.055) 22.194 ng/mL (0.000-0.055) UD-Blr-K-Type Natriuretic Peptide 8669 pg/mL (0-124) Total Protein 7.1 g/dL (6.4-8.2) Albumin 1.9 g/dL (3.4-5.0) Albumin/Globulin Ratio 0.4 (1.0-1.7) Lipase 40 U/L (73-393) Thyroid Stimulating Hormone (TSH) 1.592 uIU/mL (0.358-3.74) Test 06/24/19 00:30 06/24/19 08:08 06/24/19 08:25 06/24/19 08:26 Heparin Anti-Xa Act, Unfractionated 0.18 IU/mL (0.30-0.70) 0.17 IU/mL (0.30-0.70) Troponin I Quantitative 22.099 ng/mL (0.000-0.055) Glucose (Fingerstick) 62 mg/dL (70-99) 133 mg/dL (70-99) White Blood Count 9.6 x10^3/uL (4.0-11.0) Red Blood Count 2.67 x10^6/uL (3.50-5.40) Hemoglobin 7.9 g/dL (12.0-15.5) Hematocrit 22.6 % (36.0-47.0) Mean Corpuscular Volume 85 fL (79-100) Mean Corpuscular Hemoglobin 30 pg (25-35) Mean Corpuscular Hemoglobin Concent 35 g/dL (31-37) Red Cell Distribution Width 13.9 % (11.5-14.5) Platelet Count 386 x10^3/uL (140-400) Sodium Level 143 mmol/L (136-145) Potassium Level 3.1 mmol/L (3.5-5.1) Chloride Level 106 mmol/L (98-107) Carbon Dioxide Level 28 mmol/L (21-32) Anion Gap 9 (6-14) Blood Urea Nitrogen 10 mg/dL (7-20) Creatinine 1.2 mg/dL (0.6-1.0) Estimated GFR (Cockcroft-Gault) 60.8 Glucose Level 127 mg/dL (70-99) Calcium Level 7.5 mg/dL (8.5-10.1) Assessment and Plan Assessmemt and Plan Problems Medical Problems: (1) NSTEMI (non-ST elevated myocardial infarction) Status: Acute Comment Review of Relevant I have reviewed the following items marina (where applicable) has been applied. Labs Laboratory Tests Test 06/23/19 15:44 06/23/19 16:40 06/23/19 19:45 06/23/19 21:11 Glucose (Fingerstick) 201 mg/dL (70-99) 216 mg/dL (70-99) White Blood Count 9.8 x10^3/uL (4.0-11.0) Red Blood Count 2.52 x10^6/uL (3.50-5.40) Hemoglobin 7.5 g/dL (12.0-15.5) Hematocrit 21.6 % (36.0-47.0) Mean Corpuscular Volume 86 fL (79-100) Mean Corpuscular Hemoglobin 30 pg (25-35) Mean Corpuscular Hemoglobin Concent 35 g/dL (31-37) Red Cell Distribution Width 14.1 % (11.5-14.5) Platelet Count 404 x10^3/uL (140-400) Neutrophils (%) (Auto) 72 % (31-73) Lymphocytes (%) (Auto) 16 % (24-48) Monocytes (%) (Auto) 11 % (0-9) Eosinophils (%) (Auto) 0 % (0-3) Basophils (%) (Auto) 1 % (0-3) Neutrophils # (Auto) 7.1 x10^3/uL (1.8-7.7) Lymphocytes # (Auto) 1.6 x10^3/uL (1.0-4.8) Monocytes # (Auto) 1.0 x10^3/uL (0.0-1.1) Eosinophils # (Auto) 0.0 x10^3/uL (0.0-0.7) Basophils # (Auto) 0.0 x10^3/uL (0.0-0.2) Sodium Level 142 mmol/L (136-145) Potassium Level 3.7 mmol/L (3.5-5.1) Chloride Level 104 mmol/L (98-107) Carbon Dioxide Level 26 mmol/L (21-32) Anion Gap 12 (6-14) Blood Urea Nitrogen 15 mg/dL (7-20) Creatinine 1.3 mg/dL (0.6-1.0) Estimated GFR (Cockcroft-Gault) 55.5 BUN/Creatinine Ratio 12 (6-20) Glucose Level 207 mg/dL (70-99) Lactic Acid Level 1.7 mmol/L (0.4-2.0) Calcium Level 8.7 mg/dL (8.5-10.1) Magnesium Level 1.4 mg/dL (1.8-2.4) Total Bilirubin 0.2 mg/dL (0.2-1.0) Aspartate Amino Transf (AST/SGOT) 110 U/L (15-37) Alanine Aminotransferase (ALT/SGPT) 17 U/L (14-59) Alkaline Phosphatase 134 U/L (46-116) Creatine Kinase 994 U/L (26-192) Creatine Kinase MB (Mass) 102.0 ng/mL (0.0-3.6) Creatine Kinase MB Relative Index 10.3 % (0-4) Troponin I Quantitative 20.354 ng/mL (0.000-0.055) 22.194 ng/mL (0.000-0.055) FX-Iux-N-Type Natriuretic Peptide 8669 pg/mL (0-124) Total Protein 7.1 g/dL (6.4-8.2) Albumin 1.9 g/dL (3.4-5.0) Albumin/Globulin Ratio 0.4 (1.0-1.7) Lipase 40 U/L (73-393) Thyroid Stimulating Hormone (TSH) 1.592 uIU/mL (0.358-3.74) Test 06/24/19 00:30 06/24/19 08:08 06/24/19 08:25 06/24/19 08:26 Heparin Anti-Xa Act, Unfractionated 0.18 IU/mL (0.30-0.70) 0.17 IU/mL (0.30-0.70) Troponin I Quantitative 22.099 ng/mL (0.000-0.055) Glucose (Fingerstick) 62 mg/dL (70-99) 133 mg/dL (70-99) White Blood Count 9.6 x10^3/uL (4.0-11.0) Red Blood Count 2.67 x10^6/uL (3.50-5.40) Hemoglobin 7.9 g/dL (12.0-15.5) Hematocrit 22.6 % (36.0-47.0) Mean Corpuscular Volume 85 fL (79-100) Mean Corpuscular Hemoglobin 30 pg (25-35) Mean Corpuscular Hemoglobin Concent 35 g/dL (31-37) Red Cell Distribution Width 13.9 % (11.5-14.5) Platelet Count 386 x10^3/uL (140-400) Sodium Level 143 mmol/L (136-145) Potassium Level 3.1 mmol/L (3.5-5.1) Chloride Level 106 mmol/L (98-107) Carbon Dioxide Level 28 mmol/L (21-32) Anion Gap 9 (6-14) Blood Urea Nitrogen 10 mg/dL (7-20) Creatinine 1.2 mg/dL (0.6-1.0) Estimated GFR (Cockcroft-Gault) 60.8 Glucose Level 127 mg/dL (70-99) Calcium Level 7.5 mg/dL (8.5-10.1) Laboratory Tests Test 06/23/19 15:44 06/23/19 16:40 06/23/19 19:45 06/23/19 21:11 Glucose (Fingerstick) 201 mg/dL (70-99) 216 mg/dL (70-99) White Blood Count 9.8 x10^3/uL (4.0-11.0) Red Blood Count 2.52 x10^6/uL (3.50-5.40) Hemoglobin 7.5 g/dL (12.0-15.5) Hematocrit 21.6 % (36.0-47.0) Mean Corpuscular Volume 86 fL (79-100) Mean Corpuscular Hemoglobin 30 pg (25-35) Mean Corpuscular Hemoglobin Concent 35 g/dL (31-37) Red Cell Distribution Width 14.1 % (11.5-14.5) Platelet Count 404 x10^3/uL (140-400) Neutrophils (%) (Auto) 72 % (31-73) Lymphocytes (%) (Auto) 16 % (24-48) Monocytes (%) (Auto) 11 % (0-9) Eosinophils (%) (Auto) 0 % (0-3) Basophils (%) (Auto) 1 % (0-3) Neutrophils # (Auto) 7.1 x10^3/uL (1.8-7.7) Lymphocytes # (Auto) 1.6 x10^3/uL (1.0-4.8) Monocytes # (Auto) 1.0 x10^3/uL (0.0-1.1) Eosinophils # (Auto) 0.0 x10^3/uL (0.0-0.7) Basophils # (Auto) 0.0 x10^3/uL (0.0-0.2) Sodium Level 142 mmol/L (136-145) Potassium Level 3.7 mmol/L (3.5-5.1) Chloride Level 104 mmol/L (98-107) Carbon Dioxide Level 26 mmol/L (21-32) Anion Gap 12 (6-14) Blood Urea Nitrogen 15 mg/dL (7-20) Creatinine 1.3 mg/dL (0.6-1.0) Estimated GFR (Cockcroft-Gault) 55.5 BUN/Creatinine Ratio 12 (6-20) Glucose Level 207 mg/dL (70-99) Lactic Acid Level 1.7 mmol/L (0.4-2.0) Calcium Level 8.7 mg/dL (8.5-10.1) Magnesium Level 1.4 mg/dL (1.8-2.4) Total Bilirubin 0.2 mg/dL (0.2-1.0) Aspartate Amino Transf (AST/SGOT) 110 U/L (15-37) Alanine Aminotransferase (ALT/SGPT) 17 U/L (14-59) Alkaline Phosphatase 134 U/L (46-116) Creatine Kinase 994 U/L (26-192) Creatine Kinase MB (Mass) 102.0 ng/mL (0.0-3.6) Creatine Kinase MB Relative Index 10.3 % (0-4) Troponin I Quantitative 20.354 ng/mL (0.000-0.055) 22.194 ng/mL (0.000-0.055) CX-Ecs-N-Type Natriuretic Peptide 8669 pg/mL (0-124) Total Protein 7.1 g/dL (6.4-8.2) Albumin 1.9 g/dL (3.4-5.0) Albumin/Globulin Ratio 0.4 (1.0-1.7) Lipase 40 U/L (73-393) Thyroid Stimulating Hormone (TSH) 1.592 uIU/mL (0.358-3.74) Test 06/24/19 00:30 06/24/19 08:08 06/24/19 08:25 06/24/19 08:26 Heparin Anti-Xa Act, Unfractionated 0.18 IU/mL (0.30-0.70) 0.17 IU/mL (0.30-0.70) Troponin I Quantitative 22.099 ng/mL (0.000-0.055) Glucose (Fingerstick) 62 mg/dL (70-99) 133 mg/dL (70-99) White Blood Count 9.6 x10^3/uL (4.0-11.0) Red Blood Count 2.67 x10^6/uL (3.50-5.40) Hemoglobin 7.9 g/dL (12.0-15.5) Hematocrit 22.6 % (36.0-47.0) Mean Corpuscular Volume 85 fL (79-100) Mean Corpuscular Hemoglobin 30 pg (25-35) Mean Corpuscular Hemoglobin Concent 35 g/dL (31-37) Red Cell Distribution Width 13.9 % (11.5-14.5) Platelet Count 386 x10^3/uL (140-400) Sodium Level 143 mmol/L (136-145) Potassium Level 3.1 mmol/L (3.5-5.1) Chloride Level 106 mmol/L (98-107) Carbon Dioxide Level 28 mmol/L (21-32) Anion Gap 9 (6-14) Blood Urea Nitrogen 10 mg/dL (7-20) Creatinine 1.2 mg/dL (0.6-1.0) Estimated GFR (Cockcroft-Gault) 60.8 Glucose Level 127 mg/dL (70-99) Calcium Level 7.5 mg/dL (8.5-10.1) Medications Current Medications Sodium Chloride 1,000 ml @ 1,000 mls/hr Q1H IV Last administered on 06/23/19at 16:18; Start 06/23/19 at 15:53; Stop 06/23/19 at 16:52; Status DC Ondansetron HCl (Zofran) 4 mg 1X ONCE IV Last administered on 06/23/19at 17:37; Start 06/23/19 at 17:15; Stop 06/23/19 at 17:16; Status DC Fentanyl Citrate (Fentanyl 2ml Vial) 50 mcg 1X ONCE IV Last administered on 06/23/19at 17:37; Start 06/23/19 at 17:15; Stop 06/23/19 at 17:16; Status DC Aspirin (Children'S Aspirin) 324 mg 1X ONCE PO Last administered on 06/23/19at 17:42; Start 06/23/19 at 18:00; Stop 06/23/19 at 18:01; Status DC Heparin Sodium/ Dextrose 500 ml @ 0 mls/hr CONT PRN IV CHEST PAIN Last administered on 06/23/19at 19:32; Start 06/23/19 at 19:00 Heparin Sodium (Porcine) (Heparin Sodium) 1,700 unit PRN Q6HRS PRN IV FOR UFH LEVEL LESS THAN 0.2 Last administered on 06/24/19at 02:12; Start 06/23/19 at 19:00 Clopidogrel Bisulfate (Plavix) 600 mg 1X ONCE PO Last administered on 06/23/19 19:59; Start 06/23/19 at 19:30; Stop 06/23/19 at 19:31; Status DC Heparin Sodium (Porcine) (Heparin Sodium) 4,000 unit 1X ONCE IV Last administered on 06/23/19at 20:11; Start 06/23/19 at 20:00; Stop 06/23/19 at 20:01; Status DC Fentanyl Citrate (Fentanyl 2ml Vial) 50 mcg PRN Q2HR PRN IV PAIN Last administered on 06/23/19at 20:11; Start 06/23/19 at 19:45 Insulin Human Lispro (HumaLOG) 0-7 UNITS TIDWMEALS SQ ; Start 06/24/19 at 08:00 Dextrose (Dextrose 50%-Water Syringe) 12.5 gm PRN Q15MIN PRN IV SEE COMMENTS Last administered on 06/24/19at 08:12; Start 06/23/19 at 20:15 Dextrose 250 ml PRN Q15MIN PRN IV SEE COMMENTS; Start 06/23/19 at 20:15 Clopidogrel Bisulfate (Plavix) 75 mg DAILY PO Last administered on 06/24/19 07:39; Start 06/24/19 at 09:00 Cyclobenzaprine HCl (Flexeril) 10 mg PRN TID PRN PO MUSCLE SPASMS; Start 06/23/19 at 20:15 Dicyclomine HCl (Bentyl) 10 mg TID PO Last administered on 06/24/19 07:39; Start 06/23/19 at 21:00 Insulin Glargine (Lantus) 25 units QHS SQ Last administered on 06/23/19 21:13; Start 06/23/19 at 21:00 Insulin Human Lispro (HumaLOG) 18 units TIDACHC SQ Last administered on 06/23/19 21:13; Start 06/23/19 at 21:00 Lactase (Lactaid) 3,000 unit PRN BFRMEAL PRN PO GI SYMPTOMS; Start 06/23/19 at 20:15 Metoclopramide HCl (Reglan) 10 mg PRN TID PRN PO abdomen pain, bloating; Start 06/23/19 at 20:15 Metoprolol Succinate (Toprol Xl) 50 mg DAILY PO Last administered on 06/24/19 10:16; Start 06/24/19 at 09:00 Ondansetron HCl (Zofran Odt) 4 mg PRN BID PRN PO NAUSEA/VOMITING; Start 06/23/19 at 20:15 Pantoprazole Sodium (Protonix) 40 mg DAILYAC PO Last administered on 06/24/19 07:39; Start 06/24/19 at 07:30 Polyethylene Glycol (miraLAX PACKET) 17 gm PRN DAILY PRN PO CONSTIPATION; Start 06/23/19 at 20:15 Sennosides (Senna) 8.6 mg BID PO Last administered on 06/24/19 07:39; Start 06/23/19 at 21:00 Gabapentin (Neurontin) 600 mg TID PO Last administered on 06/24/19 07:39; Start 06/23/19 at 21:00 Ondansetron HCl (Zofran) 4 mg PRN Q6HRS PRN IV NAUSEA/VOMITING; Start 06/23/19 at 20:00 Morphine Sulfate (Ms Contin) 30 mg BID PO Last administered on 8/11/19at 10:16; Start 06/23/19 at 22:00 Oxycodone HCl (Roxicodone) 15 mg PRN Q6HRS PRN PO PAIN Last administered on 06/24/19at 07:39; Start 06/23/19 at 21:45 Sodium Chloride 1,000 ml @ 0 mls/hr Q0M IV ; Start 06/24/19 at 09:30; Stop 06/24/19 at 09:50; Status DC Aspirin (Children'S Aspirin) 81 mg DAILYWBKFT PO Last administered on 06/24/19at 10:16; Start 06/24/19 at 09:30 Atorvastatin Calcium (Lipitor) 40 mg QHS PO Last administered on 06/24/19at 10:16; Start 06/24/19 at 09:30 Sodium Chloride 500 ml @ 75 mls/hr Q6H40M IV Last administered on 06/24/19at 09:53; Start 06/24/19 at 10:00 Active Scripts Active Humalog (Insulin Lispro) 100 Unit/1 Ml Insuln.pen 18 Units SQ TIDACHC 30 Days Lantus Solostar (Insulin Glargine,Hum.rec.anlog) 100 Unit/1 Ml Insuln.pen 25 Units SQ QHS 30 Days CAN SUB WITH BASAGLAR or other covered glargine insulin per insurance. Please dispense insulin pen needles #100 sized to patient comfort, could be 4mm 31g or similar Pantoprazole Sodium (Pantoprazole Sodium) 40 Mg Tablet.dr 1 Tab PO DAILY Reglan (Metoclopramide Hcl) 10 Mg Tablet 1 Tab PO TID PRN Lactase 3,000 Unit Tablet 3,000 Unit PO PRN BFRMEAL PRN Zofran Odt (Ondansetron) 4 Mg Tab.rapdis 4 Mg PO BID PRN 7 Days Miralax (Polyethylene Glycol 3350) 17 Gm Powd.pack 1 Packet PO DAILY PRN Naprosyn (Naproxen) 500 Mg Tablet 1 Tab PO BID Bentyl (Dicyclomine Hcl) 10 Mg Capsule 1 Cap PO TID Senokot (Sennosides) 8.6 Mg Tablet 1 Tab PO BID Reported Oxymorphone Hcl 30 Mg Tab.er.12h 30 Mg PO Q12HR PRN Oxycodone Hcl Immed.release (Oxycodone Hcl) 15 Mg Tablet 15 Mg PO PRN Q6HRS PRN Cyclobenzaprine Hcl 10 Mg Tablet 1 Tab PO TID PRN Tramadol Hcl 50 Mg Tablet 1 Tab PO BID Promethazine Hcl 25 Mg Tablet Unknown Dose PO Q6H PRN Gabapentin 600 Mg Tablet 600 Mg PO TID Aspirin 81 Mg Tab.chew 1 Tab PO DAILY Novolog Flexpen (Insulin Aspart) 100 Unit/1 Ml Insuln.pen 0-10 SQ TIDAC Novolog (Insulin Aspart) 100 Unit/1 Ml Vial 6 Unit SQ TIDAC Simvastatin 20 Mg Tablet 20 Mg PO DAILY Ramipril 5 Mg Capsule 5 Mg PO DAILY Plavix (Clopidogrel Bisulfate) 75 Mg Tablet 75 Mg PO DAILY Metoprolol Succinate ( Xl ) (Metoprolol Succinate) 100 Mg Tab.er.24h 50 Mg PO DAILY16 Vitals/I & O Vital Sign - Last 24 Hours 06/23/19 06/23/19 06/23/19 06/23/19 15:51 16:30 17:00 17:30 Temp 99.1 99.1 Pulse 133 123 128 126 Resp 16 16 16 18 B/P (MAP) 139/72 (94) 139/72 (94) 131/76 (94) 128/65 (86) Pulse Ox 98 99 98 94 O2 Delivery Room Air Room Air Room Air Room Air 06/23/19 06/23/19 06/23/19 06/23/19 17:37 19:00 19:15 19:30 Temp 99.4 99.4 Pulse 122 122 120 Resp 12 18 18 11 B/P (MAP) 107/69 (82) 112/68 (83) 109/67 (81) Pulse Ox 97 95 94 94 O2 Delivery Room Air Room Air Room Air Room Air 06/23/19 06/23/19 06/23/19 06/23/19 19:45 20:00 20:00 20:11 Pulse 122 128 Resp 08 31 19 B/P (MAP) 118/159 (145) 125/79 (94) Pulse Ox 95 97 98 O2 Delivery Room Air Room Air Room Air Room Air 06/23/19 06/23/19 06/23/19 06/23/19 20:50 21:00 21:21 21:30 Temp 99.7 99.2 99.7 99.2 Pulse 124 122 120 Resp 27 17 19 30 B/P (MAP) 120/67 (84) 111/62 121/72 Pulse Ox 95 95 O2 Delivery Room Air Room Air 06/23/19 06/23/19 06/23/19 06/23/19 22:00 22:09 22:09 23:00 Pulse 121 120 Resp 13 17 18 12 B/P (MAP) 117/75 (89) 120/67 (84) Pulse Ox 98 99 99 97 O2 Delivery Room Air Room Air Room Air Room Air 06/23/19 06/24/19 06/24/19 06/24/19 23:55 00:00 00:00 01:00 Temp 98.9 98.9 Pulse 116 115 Resp 14 12 20 B/P (MAP) 109/64 (79) 100/61 (74) Pulse Ox 97 95 97 O2 Delivery Room Air Room Air Room Air Room Air 06/24/19 06/24/19 06/24/19 06/24/19 02:00 02:58 03:00 04:00 Pulse 112 118 Resp 12 15 14 B/P (MAP) 98/64 (75) 106/61 (76) Pulse Ox 97 95 97 O2 Delivery Room Air Room Air Room Air 06/24/19 06/24/19 06/24/19 06/24/19 04:00 05:00 06:00 07:00 Temp 99.0 99.0 Pulse 115 110 109 116 Resp 24 24 15 22 B/P (MAP) 99/57 (71) 97/55 (69) 108/51 (70) 91/52 (65) Pulse Ox 97 92 92 96 O2 Delivery Room Air Room Air Room Air Room Air 06/24/19 06/24/19 06/24/19 06/24/19 07:39 08:00 08:00 09:00 Temp 99.2 99.2 Pulse 111 116 Resp 16 12 11 B/P (MAP) 93/59 (70) 104/62 (76) Pulse Ox 92 100 100 O2 Delivery Room Air Room Air Room Air Room Air 06/24/19 06/24/19 06/24/19 06/24/19 09:59 10:00 10:16 10:16 Pulse 109 109 Resp 14 14 B/P (MAP) 106/58 (74) 106/58 Pulse Ox 100 95 95 O2 Delivery Room Air Room Air Room Air Intake and Output 06/23/19 06/23/19 06/24/19 15:00 23:00 07:00 Intake Total 300 ml Output Total 0 ml Balance 300 ml 0 ml JON RODRÍGUEZ MD Jun 24, 2019 11:35
[2019-06-24] MEDS ORDERED: POTASSIUM CHLORIDE 20 MEQ TABLET.ER. PO ONE (14:00)
[2019-06-24] MEDS ORDERED: MAGNESIUM SULFATE 2GM 50 ML IV ONE (15:30)
--- NOTE | 2019-06-24 15:37 | CARD ---
MR#: [id number] Date of Study: 06/24/2019 Ordering Physician: DANIELA JIMENEZ, Referring Physician: JON RODRÍGUEZ Tech: Sharron Gallo RICARDO APPROVED REPORT EXAM: Two-dimensional and M-mode echocardiogram with Doppler and color Doppler. Other Information Quality : GoodHR: 109bpm Rhythm : TachycardiaTechnically limited study due to body habitus. INDICATION Non STEMI 2D DIMENSIONS Left Atrium(2D)3.2 (1.6-4.0cm)IVSd0.9 (0.7-1.1cm) Aortic Root(2D)2.3 (2.0-3.7cm)LVDd3.9 (3.9-5.9cm) LVOT Diameter2.0 (1.8-2.4cm)PWd0.9 (0.7-1.1cm) LVDs3.4 (2.5-4.0cm)FS (%) 0.9 % SV1.4 mlLVEF(%)50.0 (>50%) Aortic Valve AoV Peak Efra.118.3cm/sAoV VTI16.9cm AO Peak GR.5.6mmHgLVOT Peak Efra.86.8cm/s LVOT VTI 2.00cmAO Mean GR.3mmHg CONCHITA (VMAX)1.19fw8JPL (VTI)3.00cm2 Mitral Valve MV E Qummmggo89.7cm/sMV DECEL [id number] MV A Alvaxybi87.3cm/sE/A Ratio2.3 MV A [id number] Tricuspid Valve TR P. Yeboyyvo950iw/sRAP [id number] TR Peak Gr.75lcGwAIVH43ujUd Pulmonary Vein S1 Ywthotvh96.3cm/sD2 Agnckpya42.1cm/s LEFT VENTRICLE The left ventricle is normal size. There is normal left ventricular wall thickness. The systolic func tion is mildly to moderately impaired. EF 40%. The septum and anterior wall are severely hypokinetic. Tissue Doppler imaging reveals moderate left ventricular diastolic dysfunction. RIGHT VENTRICLE The right ventricle is normal size. There is normal right ventricular wall thickness. The right ventr icular systolic function is normal. ATRIA The left atrium size is normal. The right atrium size is normal. The interatrial septum is intact wit h no evidence for an atrial septal defect or patent foramen ovale as noted on 2-D or Doppler imaging. AORTIC VALVE The aortic valve is normal in structure and function. Doppler and Color Flow revealed no significant aortic regurgitation. There is no significant aortic valvular stenosis. There is no aortic valvular v egetation. MITRAL VALVE The mitral valve is normal in structure and function. There is no evidence of mitral valve prolapse. There is no mitral valve stenosis. Doppler and Color-flow revealed mild mitral regurgitation. TRICUSPID VALVE The tricuspid valve is normal in structure and function. Doppler and Color Flow revealed mild tricusp id regurgitation. There is no tricuspid valve prolapse or vegetation. There is no tricuspid valve tolu nosis. PULMONIC VALVE Doppler and Color Flow revealed no pulmonic valvular regurgitation. There is no pulmonic valvular tolu nosis. GREAT VESSELS The aortic root is normal in size. The IVC is normal in size and collapses >50% with inspiration. PERICARDIAL EFFUSION There is no pleural effusion. There is no evidence of significant pericardial effusion. Critical Notification Critical Value: No <Conclusion> The septum and anterior wall are severely hypokinetic. The systolic function is mildly to moderately impaired. EF 40%. Signed by : Daniela Jimenez, Electronically Approved : 06/24/2019 15:37:13
[2019-06-24] MEDS: HEPARIN 25,000UTS/500ML PREMIX 500 ML IV PRN (20:42)
[2019-06-24] MEDS: INSULIN GLARGINE 300 UNITS/3 ML INSULN.PEN. SQ SCH (20:45)
[2019-06-25] VITALS (11 sets, daily range): BP systolic 80–116; BP diastolic 54–76
[2019-06-25] MEDS: IV NORMAL SALINE 500ML BAG 500 ML IV SCH ×3 (01:24→07:25)
[2019-06-25] MEDS: oxyCODONE IR 5 MG TABLET PO PRN ×2 (03:54→13:55)
[2019-06-25] MEDS: fentaNYL PF VIAL 100 MCG/2 ML VIAL IV PRN (07:12)
[2019-06-25] MEDS: INSULIN LISPRO 300 UNITS/3 ML INSULN.PEN. SQ SCH ×4 (07:24→16:30)
[2019-06-25] MEDS: PANTOPRAZOLE 40 MG TABLET.DR. PO SCH (07:24)
[2019-06-25] MEDS: ASPIRIN CHEWABLE 81 MG TABLET. PO SCH (07:31)
[2019-06-25] MEDS: DICYCLOMINE HCL 10 MG CAPSULE PO SCH ×2 (07:31→12:38)
[2019-06-25] MEDS: GABAPENTIN 300 MG CAPSULE. PO SCH ×2 (07:31→12:38)
[2019-06-25] MEDS: CLOPIDOGREL BISULFATE 75 MG TABLET PO SCH (07:32)
[2019-06-25] MEDS: SENNOSIDES 8.6 MG TABLET PO SCH (07:32)
[2019-06-25] MEDS: METOPROLOL SUCC 24HR ER 50 MG TAB.ER.24H. PO SCH (07:33)
[2019-06-25] MEDS ORDERED: LIDOCAINE 1% PF 2 ML VIAL. ONE (07:36)
[2019-06-25] MEDS ORDERED: IODIXANOL 320 MG/ML 100 ML VIAL. ONE (07:36)
[2019-06-25] MEDS ORDERED: HEPARIN for ARTERIAL LINE 1,500 ML ONE (07:36)
[2019-06-25] MEDS ORDERED: NITROGLYCERIN 200 MCG/2 ML SYRINGE FOR CATH/VASC LAB. ONE (08:18)
[2019-06-25] MEDS ORDERED: VERAPAMIL 5 MG/2 ML VIAL. ONE (08:18)
[2019-06-25] MEDS ORDERED: fentaNYL PF VIAL 100 MCG/2 ML VIAL ONE (08:18)
[2019-06-25] MEDS ORDERED: HEPARIN for IV BOLUS 10,000 UNIT/10 ML VIAL. ONE (08:18)
[2019-06-25] MEDS ORDERED: MIDAZOLAM HCL/PF 2 MG/2 ML VIAL. ONE ×2 (08:18→09:14)
[2019-06-25] MEDS ORDERED: ANTI-COAG MONITOR BY PHARMACY. MC PRN (08:30)
[2019-06-25] MEDS: MORPHINE ER 30 MG TABLET.ER PO SCH (09:00)
[2019-06-25] MEDS ORDERED: HEPARIN for IV BOLUS 10,000 UNIT/10 ML VIAL. IART ONE (09:30)
[2019-06-25] MEDS ORDERED: LIDOCAINE 1% PF 2 ML VIAL. INJ ONE (09:30)
[2019-06-25] MEDS ORDERED: NITROGLYCERIN 200 MCG/2 ML SYRINGE FOR CATH/VASC LAB. IART ONE (09:30)
[2019-06-25] MEDS ORDERED: fentaNYL PF VIAL 100 MCG/2 ML VIAL IV ONE (09:30)
[2019-06-25] MEDS ORDERED: MIDAZOLAM HCL/PF 2 MG/2 ML VIAL. IV ONE (09:30)
[2019-06-25] MEDS ORDERED: VERAPAMIL 5 MG/2 ML VIAL. IART ONE (09:30)
[2019-06-25] MEDS ORDERED: IODIXANOL 320 MG/ML 100 ML VIAL. IART ONE (09:30)
[2019-06-25] MEDS ORDERED: DEXTROSE 50% 25 GM / 50ML DISP.SYRIN. IV ONE (09:36)
[2019-06-25] MEDS: DEXTROSE 50% 25 GM / 50ML DISP.SYRIN. IV PRN (09:38)
[2019-06-25] MEDS ORDERED: ACETAMINOPHEN 500 MG TABLET PO PRN (09:45)
[2019-06-25] MEDS ORDERED: ONDANSETRON PF 4 MG/2 ML VIAL. IV PRN (09:45)
[2019-06-25] MEDS ORDERED: FUROSEMIDE 40 MG/4 ML VIAL. ONE (10:03)
[2019-06-25] MEDS ORDERED: IV NORMAL SALINE 500ML BAG 500 ML IV PRN (10:15)
[2019-06-25] MEDS ORDERED: DEXMEDETOMIDINE 400 MCG in IV NORMAL SALINE 100ML 96 ML IV PRN (10:15)
[2019-06-25] MEDS ORDERED: ATROPINE 0.5 MG/5 ML DISP.SYRINGE. IV PRN (10:15)
[2019-06-25] MEDS ORDERED: FUROSEMIDE 40 MG/4 ML VIAL. IVP ONE (10:30)
--- NOTE | 2019-06-25 10:36 | CARD ---
MR#: [id number] Date of Study: 06/25/2019 Ordering Physician: DANIELA SAVAGE, Referring Physician: JON RODRÍGUEZ Tech: RIMMA CARRILLO RTR APPROVED REPORT Technologist: RIMMA CARRILLO RTR Nurse: Bety Ramirez R.N. Procedure(s) performed: MODERATE SEDATION TIME: 47 minutes FLUORO TIME: 12.8 MIN DOSE: 62 GYCM2 CONTRAST:79cc [facility], Coronary angiography HISTORY The patient is a 39 year-old female with a history of : diabetes mellitus with treatment, coronary ar shelbie disease, hypertension, dyslipidemia. INDICATION The indication(s) include : non-STEMI . [facility] Clinical Frailty Scale [facility] Clinical Frailty Scale: Mildly Frail Heart Failure Heart Failure: Yes If Yes, Newly Diagnosed: No If Yes, HF Type: Systolic If Yes, NYHA Class: Class II PROCEDURE NARRATIVE INFORMED CONSENT: After explaining the risks and benefits of the procedure and alternatives, informed consent was obtained. The patient was brought electively to the cardiac catheterization lab. A timeout was performed confi rming the patient's name, date of , procedure, and site of procedure. All necessary personnel w ere wearing the appropriate protective equipment and radiation monitor devices. (See nursing notes for medications administered). ACCESS: The right wrist was sterilely prepped and draped in the usual fashion. The right wrist was infiltrat ed with 1 mL of 2% lidocaine for subcutaneous anesthesia. A 6 Irish Terumo glide sheath was inserte d into the right radial artery and there was resistance to the sheath insertion due to spasm and smal l caliber vessel size. The sheath was inserted only to the mid way point. CORONARY ANGIOGRAPHY: Right and left coronary angiography was performed using a 5fr Shmuel catheter and a 5Fr EBU 3.0 guide catheter. Left ventricular end diastolic pressure was obtained with a Shmuel catheter and pullback w as performed. All catheter exchanges and advancements were performed over a guidewire. CLOSURE: At case completion the right radial sheath was removed and a Terumo radial band was applied with 10 m l of air. COMPLICATIONS: The patient tolerated the procedure well and there were no immediate complications. After the procedu re was completed the patient had an acute panic attack leading to hypoxia and tachypnea. This resolve d with supplemental oxygen and precedex therapy in the ICU. Patient's family informed of her critical disease. FINDINGS: HEMODYNAMICS: LVEDP 28 mm Hg No gradient on LV to aortic pullback. AO: 128/78 LEFT VENTRICULOGRAM: Deferred due to renal insufficiency. CORONARY ANGIOGRAPHY: LM is a large caliber vessel with normal angiographic appearance. LAD is a small caliber diffusely negatively remodeled vessel with a proximal 70% stenosis and a mid t o distal 50% stenosis. Ramus is a small caliber vessel with an ostial/proximal 80% stenosis. LCx is a small caliber vessel with ostial proximal 90% stenosis. OM1 is a small caliber vessel with an ostial/proximal 80% stenosis. RCA is a small to moderate caliber negatively remodeled vessel with a mid to distal focal 90% stenosi s. RPDA and RPL are small caliber vessels with mild diffuse disease of up to 30%. Due to severe multivessel disease with small caliber vessels in the setting of bleeding issues, [facility] intervention was deferred in favor of a CABG consult with discussion of high risk PCI. Conclusion 1. Acute on chronic systolic/diastolic HF LVEDP 28 mm Hg 2. Severe three vessel coronary artery disease. Recommendations 1. CABG consult versus high risk RCA PCI with anesthesia support due to patient anxiety issues. Signed by : Daniela Savage, Electronically Approved : 06/25/2019 10:36:13
[2019-06-25] MEDS ORDERED: METOPROLOL TARTRATE 5 MG/5 ML VIAL. IVP ONE (10:45)
--- NOTE | 2019-06-25 11:14 | PDOC ---
Provider Note Provider Note Severe three vessel cad with suboptimal targets Will discuss with patient and family regarding options: Medical therapy, high risk PCI of the RCA versus cabg. Continue medical therapy for now. DANIELA JIMENEZ MD Jun 25, 2019 11:14
--- NOTE | 2019-06-25 11:39 | RAD ---
EXAM: CHEST 1 VIEW History: Post cath shortness of breath COMPARISON: 06/23/2019 TECHNIQUE: Single portable radiograph of the chest FINDINGS: Moderate cardiomegaly. Diffuse prominent appearing bilateral interstitial lung markings particularly in the perihilar region likely diffuse congestive changes. Bibasilar lung airspace opacities likely atelectasis or infiltrates Impression: 1. Severe lung congestive changes. 2. Bibasilar lung airspace opacities likely atelectasis or infiltrates. Electronically signed by: Eric Arrington MD (06/25/2019 11:36 AM) [facility]
--- NOTE | 2019-06-25 11:59 | PDOC ---
PROGRESS NOTES Chief Complaint Chief Complaint Severe three vessel cad with suboptimal targets NSTEMI in setting of prior history of nonobstructive coronary artery disease. Anemia with Hb 7.5 on admission, s/p 1 unit of blood. DM, a1c 8.3% Gastroparesis LE swelling HLD HTN Chronic Pain JESSICA hypokalemia Anxiety NOS obesity History of Present Illness History of Present Illness Severely anxious today Just had LHC and had post anesthesia hypoxia To start precedex now per cards Seen in ICU with family, cards and RNs at bedside pLAN: NEeds CABG, vs high risk PTC vs medical mx - cards will dw with fam TRial of xanax and IV ativan prn COnt the rest Starte don precedex gtt Keep in icu Vitals Vitals Vital Signs Date Time Temp Pulse Resp B/P (MAP) Pulse Ox O2 Delivery O2 Flow Rate FiO2 06/25/19 11:04 20 85 Room Air 6.0 06/25/19 10:56 116 116/76 06/25/19 07:00 99.5 99.5 Physical Exam General: Other (severely anxious, hyperventilating) Heart: Other (sinus tachycardia) Lungs: Clear Abdomen: Normal bowel sounds, Soft, No tenderness Extremities: No clubbing, No cyanosis, No edema, Normal pulses Skin: No rashes, No breakdown, No significant lesion Labs LABS Laboratory Tests Test 06/24/19 12:33 06/24/19 17:34 06/24/19 19:30 06/24/19 20:28 Glucose (Fingerstick) 125 mg/dL (70-99) 63 mg/dL (70-99) 212 mg/dL (70-99) Heparin Anti-Xa Act, Unfractionated 0.32 IU/mL (0.30-0.70) Test 06/25/19 00:40 06/25/19 07:22 06/25/19 07:30 06/25/19 09:35 Heparin Anti-Xa Act, Unfractionated 0.22 IU/mL (0.30-0.70) 0.34 IU/mL (0.30-0.70) Glucose (Fingerstick) 98 mg/dL (70-99) 84 mg/dL (70-99) Test 06/25/19 11:33 Glucose (Fingerstick) 199 mg/dL (70-99) Assessment and Plan Assessmemt and Plan Problems Medical Problems: (1) Acute CHF Status: Acute (2) JESSICA (acute kidney injury) Status: Acute (3) Anemia Status: Acute (4) Gastroparesis Status: Acute (5) HLD (hyperlipidemia) Status: Chronic (6) HTN (hypertension) Status: Chronic (7) Hyperglycemia Status: Acute (8) Hypoalbuminemia Status: Acute (9) Hypokalemia Status: Acute (10) Hypomagnesemia Status: Acute (11) NSTEMI (non-ST elevated myocardial infarction) Status: Acute (12) Renal insufficiency Status: Acute Comment Review of Relevant I have reviewed the following items marina (where applicable) has been applied. Labs Laboratory Tests Test 06/23/19 15:44 06/23/19 16:40 06/23/19 19:45 06/23/19 21:11 Glucose (Fingerstick) 201 mg/dL (70-99) 216 mg/dL (70-99) White Blood Count 9.8 x10^3/uL (4.0-11.0) Red Blood Count 2.52 x10^6/uL (3.50-5.40) Hemoglobin 7.5 g/dL (12.0-15.5) Hematocrit 21.6 % (36.0-47.0) Mean Corpuscular Volume 86 fL (79-100) Mean Corpuscular Hemoglobin 30 pg (25-35) Mean Corpuscular Hemoglobin Concent 35 g/dL (31-37) Red Cell Distribution Width 14.1 % (11.5-14.5) Platelet Count 404 x10^3/uL (140-400) Neutrophils (%) (Auto) 72 % (31-73) Lymphocytes (%) (Auto) 16 % (24-48) Monocytes (%) (Auto) 11 % (0-9) Eosinophils (%) (Auto) 0 % (0-3) Basophils (%) (Auto) 1 % (0-3) Neutrophils # (Auto) 7.1 x10^3/uL (1.8-7.7) Lymphocytes # (Auto) 1.6 x10^3/uL (1.0-4.8) Monocytes # (Auto) 1.0 x10^3/uL (0.0-1.1) Eosinophils # (Auto) 0.0 x10^3/uL (0.0-0.7) Basophils # (Auto) 0.0 x10^3/uL (0.0-0.2) Sodium Level 142 mmol/L (136-145) Potassium Level 3.7 mmol/L (3.5-5.1) Chloride Level 104 mmol/L (98-107) Carbon Dioxide Level 26 mmol/L (21-32) Anion Gap 12 (6-14) Blood Urea Nitrogen 15 mg/dL (7-20) Creatinine 1.3 mg/dL (0.6-1.0) Estimated GFR (Cockcroft-Gault) 55.5 BUN/Creatinine Ratio 12 (6-20) Glucose Level 207 mg/dL (70-99) Lactic Acid Level 1.7 mmol/L (0.4-2.0) Calcium Level 8.7 mg/dL (8.5-10.1) Magnesium Level 1.4 mg/dL (1.8-2.4) Total Bilirubin 0.2 mg/dL (0.2-1.0) Aspartate Amino Transf (AST/SGOT) 110 U/L (15-37) Alanine Aminotransferase (ALT/SGPT) 17 U/L (14-59) Alkaline Phosphatase 134 U/L (46-116) Creatine Kinase 994 U/L (26-192) Creatine Kinase MB (Mass) 102.0 ng/mL (0.0-3.6) Creatine Kinase MB Relative Index 10.3 % (0-4) Troponin I Quantitative 20.354 ng/mL (0.000-0.055) 22.194 ng/mL (0.000-0.055) UX-Vny-L-Type Natriuretic Peptide 8669 pg/mL (0-124) Total Protein 7.1 g/dL (6.4-8.2) Albumin 1.9 g/dL (3.4-5.0) Albumin/Globulin Ratio 0.4 (1.0-1.7) Lipase 40 U/L (73-393) Thyroid Stimulating Hormone (TSH) 1.592 uIU/mL (0.358-3.74) Test 06/24/19 00:30 06/24/19 08:08 06/24/19 08:25 06/24/19 08:26 Heparin Anti-Xa Act, Unfractionated 0.18 IU/mL (0.30-0.70) 0.17 IU/mL (0.30-0.70) Troponin I Quantitative 22.099 ng/mL (0.000-0.055) Glucose (Fingerstick) 62 mg/dL (70-99) 133 mg/dL (70-99) White Blood Count 9.6 x10^3/uL (4.0-11.0) Red Blood Count 2.67 x10^6/uL (3.50-5.40) Hemoglobin 7.9 g/dL (12.0-15.5) Hematocrit 22.6 % (36.0-47.0) Mean Corpuscular Volume 85 fL (79-100) Mean Corpuscular Hemoglobin 30 pg (25-35) Mean Corpuscular Hemoglobin Concent 35 g/dL (31-37) Red Cell Distribution Width 13.9 % (11.5-14.5) Platelet Count 386 x10^3/uL (140-400) Sodium Level 143 mmol/L (136-145) Potassium Level 3.1 mmol/L (3.5-5.1) Chloride Level 106 mmol/L (98-107) Carbon Dioxide Level 28 mmol/L (21-32) Anion Gap 9 (6-14) Blood Urea Nitrogen 10 mg/dL (7-20) Creatinine 1.2 mg/dL (0.6-1.0) Estimated GFR (Cockcroft-Gault) 60.8 Glucose Level 127 mg/dL (70-99) Calcium Level 7.5 mg/dL (8.5-10.1) Test 06/24/19 12:33 06/24/19 17:34 06/24/19 19:30 06/24/19 20:28 Glucose (Fingerstick) 125 mg/dL (70-99) 63 mg/dL (70-99) 212 mg/dL (70-99) Heparin Anti-Xa Act, Unfractionated 0.32 IU/mL (0.30-0.70) Test 06/25/19 00:40 06/25/19 07:22 06/25/19 07:30 06/25/19 09:35 Heparin Anti-Xa Act, Unfractionated 0.22 IU/mL (0.30-0.70) 0.34 IU/mL (0.30-0.70) Glucose (Fingerstick) 98 mg/dL (70-99) 84 mg/dL (70-99) Test 06/25/19 11:33 Glucose (Fingerstick) 199 mg/dL (70-99) Laboratory Tests Test 06/24/19 12:33 06/24/19 17:34 06/24/19 19:30 06/24/19 20:28 Glucose (Fingerstick) 125 mg/dL (70-99) 63 mg/dL (70-99) 212 mg/dL (70-99) Heparin Anti-Xa Act, Unfractionated 0.32 IU/mL (0.30-0.70) Test 06/25/19 00:40 06/25/19 07:22 06/25/19 07:30 06/25/19 09:35 Heparin Anti-Xa Act, Unfractionated 0.22 IU/mL (0.30-0.70) 0.34 IU/mL (0.30-0.70) Glucose (Fingerstick) 98 mg/dL (70-99) 84 mg/dL (70-99) Test 06/25/19 11:33 Glucose (Fingerstick) 199 mg/dL (70-99) Microbiology 06/23/19 Blood Culture - Preliminary, Resulted NO GROWTH AFTER 1 DAY Medications Current Medications Sodium Chloride 1,000 ml @ 1,000 mls/hr Q1H IV Last administered on 06/23/19at 16:18; Start 06/23/19 at 15:53; Stop 06/23/19 at 16:52; Status DC Ondansetron HCl (Zofran) 4 mg 1X ONCE IV Last administered on 06/23/19at 17:37; Start 06/23/19 at 17:15; Stop 06/23/19 at 17:16; Status DC Fentanyl Citrate (Fentanyl 2ml Vial) 50 mcg 1X ONCE IV Last administered on 06/23/19at 17:37; Start 06/23/19 at 17:15; Stop 06/23/19 at 17:16; Status DC Aspirin (Children'S Aspirin) 324 mg 1X ONCE PO Last administered on 06/23/19at 17:42; Start 06/23/19 at 18:00; Stop 06/23/19 at 18:01; Status DC Heparin Sodium/ Dextrose 500 ml @ 0 mls/hr CONT PRN IV CHEST PAIN Last administered on 06/24/19 20:46; Start 06/23/19 at 19:00 Heparin Sodium (Porcine) (Heparin Sodium) 1,700 unit PRN Q6HRS PRN IV FOR UFH LEVEL LESS THAN 0.2 Last administered on 06/24/19 12:58; Start 06/23/19 at 19:00 Clopidogrel Bisulfate (Plavix) 600 mg 1X ONCE PO Last administered on 06/23/19 19:59; Start 06/23/19 at 19:30; Stop 06/23/19 at 19:31; Status DC Heparin Sodium (Porcine) (Heparin Sodium) 4,000 unit 1X ONCE IV Last administered on 06/23/19 20:11; Start 06/23/19 at 20:00; Stop 06/23/19 at 20:01; Status DC Fentanyl Citrate (Fentanyl 2ml Vial) 50 mcg PRN Q2HR PRN IV PAIN Last administered on 06/25/19 07:12; Start 06/23/19 at 19:45 Insulin Human Lispro (HumaLOG) 0-7 UNITS TIDWMEALS SQ ; Start 06/24/19 at 08:00 Dextrose (Dextrose 50%-Water Syringe) 12.5 gm PRN Q15MIN PRN IV SEE COMMENTS Last administered on 06/25/19 11:00; Start 06/23/19 at 20:15 Dextrose 250 ml PRN Q15MIN PRN IV SEE COMMENTS; Start 06/23/19 at 20:15 Clopidogrel Bisulfate (Plavix) 75 mg DAILY PO Last administered on 06/24/19at 07:39; Start 06/24/19 at 09:00 Cyclobenzaprine HCl (Flexeril) 10 mg PRN TID PRN PO MUSCLE SPASMS; Start 06/23/19 at 20:15 Dicyclomine HCl (Bentyl) 10 mg TID PO Last administered on 06/24/19 20:46; Start 06/23/19 at 21:00 Insulin Glargine (Lantus) 25 units QHS SQ Last administered on 06/24/19 20:46; Start 06/23/19 at 21:00 Insulin Human Lispro (HumaLOG) 18 units TIDACHC SQ Last administered on 06/24/19 20:46; Start 06/23/19 at 21:00 Lactase (Lactaid) 3,000 unit PRN BFRMEAL PRN PO GI SYMPTOMS; Start 06/23/19 at 20:15 Metoclopramide HCl (Reglan) 10 mg PRN TID PRN PO abdomen pain, bloating; Start 06/23/19 at 20:15 Metoprolol Succinate (Toprol Xl) 50 mg DAILY PO Last administered on 06/24/19 10:16; Start 06/24/19 at 09:00 Ondansetron HCl (Zofran Odt) 4 mg PRN BID PRN PO NAUSEA/VOMITING; Start 06/23/19 at 20:15 Pantoprazole Sodium (Protonix) 40 mg DAILYAC PO Last administered on 06/24/19 07:39; Start 06/24/19 at 07:30 Polyethylene Glycol (miraLAX PACKET) 17 gm PRN DAILY PRN PO CONSTIPATION; Start 06/23/19 at 20:15 Sennosides (Senna) 8.6 mg BID PO Last administered on 06/24/19at 20:46; Start 06/23/19 at 21:00 Gabapentin (Neurontin) 600 mg TID PO Last administered on 06/24/19 20:46; Start 06/23/19 at 21:00 Ondansetron HCl (Zofran) 4 mg PRN Q6HRS PRN IV NAUSEA/VOMITING; Start 06/23/19 at 20:00 Morphine Sulfate (Ms Contin) 30 mg BID PO Last administered on 06/24/19at 20:46; Start 06/23/19 at 22:00 Oxycodone HCl (Roxicodone) 15 mg PRN Q6HRS PRN PO PAIN Last administered on 06/25/19at 03:54; Start 06/23/19 at 21:45 Sodium Chloride 1,000 ml @ 0 mls/hr Q0M IV ; Start 06/24/19 at 09:30; Stop 06/24/19 at 09:50; Status DC Aspirin (Children'S Aspirin) 81 mg DAILYWBKFT PO Last administered on 06/24/19 10:16; Start 06/24/19 at 09:30 Atorvastatin Calcium (Lipitor) 40 mg QHS PO Last administered on 06/24/19 20:46; Start 06/24/19 at 09:30 Sodium Chloride 500 ml @ 75 mls/hr Q6H40M IV Last administered on 06/25/19at 07:25; Start 06/24/19 at 10:00 Potassium Chloride (Klor-Con) 40 meq 1X ONCE PO Last administered on 06/24/19at 14:32; Start 06/24/19 at 14:00; Stop 06/24/19 at 14:08; Status DC Magnesium Sulfate 50 ml @ 25 mls/hr 1X ONCE IV Last administered on 06/24/19at 16:58; Start 06/24/19 at 15:30; Stop 06/24/19 at 17:29; Status DC Iodixanol (Visipaque 320) 100 ml STK-MED ONCE .ROUTE ; Start 06/25/19 at 07:36; Stop 06/25/19 at 07:36; Status DC Lidocaine HCl (Xylocaine-Mpf 1% 2ml Vial) 2 ml STK-MED ONCE .ROUTE ; Start 06/25/19 at 07:36; Stop 06/25/19 at 07:37; Status DC Heparin Sodium/ Sodium Chloride 1,500 ml @ As Directed STK-MED ONCE .ROUTE ; Start 06/25/19 at 07:36; Stop 06/25/19 at 07:37; Status DC Midazolam HCl (Versed) 2 mg STK-MED ONCE .ROUTE ; Start 06/25/19 at 08:18; Stop 06/25/19 at 08:18; Status DC Fentanyl Citrate (Fentanyl 2ml Vial) 100 mcg STK-MED ONCE .ROUTE ; Start 06/25/19 at 08:18; Stop 06/25/19 at 08:18; Status DC Verapamil HCl (Verapamil) 5 mg STK-MED ONCE .ROUTE ; Start 06/25/19 at 08:18; Stop 06/25/19 at 08:18; Status DC Heparin Sodium (Porcine) (Heparin Sodium) 10,000 unit STK-MED ONCE .ROUTE ; Start 06/25/19 at 08:18; Stop 06/25/19 at 08:18; Status DC Nitroglycerin (Nitroglycerin) 200 mcg STK-MED ONCE .ROUTE ; Start 06/25/19 at 08:18; Stop 06/25/19 at 08:18; Status DC Info (Anti-Coagulation Monitoring By Pharmacy) 1 each PRN DAILY PRN MC SEE COMMENTS; Start 06/25/19 at 08:30 Midazolam HCl (Versed) 2 mg STK-MED ONCE .ROUTE ; Start 06/25/19 at 09:14; Stop 06/25/19 at 09:14; Status DC Nitroglycerin (Nitroglycerin) 200 mcg 1X ONCE IART Last administered on 06/25/19 10:56; Start 06/25/19 at 09:30; Stop 06/25/19 at 09:31; Status DC Verapamil HCl (Verapamil) 2.5 mg 1X ONCE IART Last administered on 06/25/19 10:56; Start 06/25/19 at 09:30; Stop 06/25/19 at 09:31; Status DC Heparin Sodium (Porcine) (Heparin Sodium) 2,500 unit 1X ONCE IART Last administered on 06/25/19 10:56; Start 06/25/19 at 09:30; Stop 06/25/19 at 09:31; Status DC Heparin Sodium/ Sodium Chloride (HEPARIN for ARTERIAL LINE FLUSH) 1,000 unit 1X ONCE IART Last administered on 06/25/19 10:56; Start 06/25/19 at 09:30; Stop 06/25/19 at 09:31; Status DC Heparin Sodium/ Sodium Chloride (HEPARIN for ARTERIAL LINE FLUSH) 1,000 unit 1X ONCE IART Last administered on 06/25/19 10:56; Start 06/25/19 at 09:30; Stop 06/25/19 at 09:31; Status DC Midazolam HCl (Versed) 2 mg 1X ONCE IV Last administered on 06/25/19 10:56; Start 06/25/19 at 09:30; Stop 06/25/19 at 09:31; Status DC Fentanyl Citrate (Fentanyl 2ml Vial) 100 mcg 1X ONCE IV Last administered on 06/25/19 10:56; Start 06/25/19 at 09:30; Stop 06/25/19 at 09:31; Status DC Iodixanol (Visipaque 320) 100 ml 1X ONCE IART Last administered on 06/25/19 10:56; Start 06/25/19 at 09:30; Stop 06/25/19 at 09:31; Status DC Lidocaine HCl (Xylocaine-Mpf 1% 2ml Vial) 2 ml 1X ONCE INJ Last administered on 8/12/19at 10:56; Start 06/25/19 at 09:30; Stop 06/25/19 at 09:31; Status DC Dextrose (Dextrose 50%-Water Syringe) 25 gm STK-MED ONCE IV ; Start 06/25/19 at 09:36; Stop 06/25/19 at 09:37; Status DC Acetaminophen (Tylenol) 500 mg PRN Q6HRS PRN PO MILD PAIN / TEMP; Start 06/25/19 at 09:45 Ondansetron HCl (Zofran) 4 mg PRN Q6HRS PRN IV NAUSEA/VOMITING; Start 06/25/19 at 09:45 Furosemide (Lasix) 40 mg STK-MED ONCE .ROUTE ; Start 06/25/19 at 10:03; Stop at 10:03; Status DC Furosemide (Lasix) 40 mg 1X ONCE IVP Last administered on 06/25/19at 10:09; Start 06/25/19 at 10:30; Stop 06/25/19 at 10:31; Status DC Dexmedetomidine HCl 400 mcg/ Sodium Chloride 100 ml @ 0 mls/hr CONT PRN IV SEE COMMENTS Last administered on 06/25/19at 10:30; Start 06/25/19 at 10:15 Sodium Chloride 500 ml @ 500 mls/hr 1X PRN PRN IV SEE I/O RECORD; Start 06/25/19 at 10:15 Atropine Sulfate (ATROPINE 0.5mg SYRINGE) 0.5 mg PRN Q5MIN PRN IV SEE COMMENTS; Start 06/25/19 at 10:15 Metoprolol Tartrate (Lopressor Vial) 5 mg 1X ONCE IVP Last administered on 06/25/19at 10:14; Start 06/25/19 at 10:45; Stop 06/25/19 at 10:46; Status DC Active Scripts Active Humalog (Insulin Lispro) 100 Unit/1 Ml Insuln.pen 18 Units SQ TIDACHC 30 Days Lantus Solostar (Insulin Glargine,Hum.rec.anlog) 100 Unit/1 Ml Insuln.pen 25 Units SQ QHS 30 Days CAN SUB WITH BASAGLAR or other covered glargine insulin per insurance. Please dispense insulin pen needles #100 sized to patient comfort, could be 4mm 31g or similar Pantoprazole Sodium (Pantoprazole Sodium) 40 Mg Tablet.dr 1 Tab PO DAILY Reglan (Metoclopramide Hcl) 10 Mg Tablet 1 Tab PO TID PRN Lactase 3,000 Unit Tablet 3,000 Unit PO PRN BFRMEAL PRN Zofran Odt (Ondansetron) 4 Mg Tab.rapdis 4 Mg PO BID PRN 7 Days Miralax (Polyethylene Glycol 3350) 17 Gm Powd.pack 1 Packet PO DAILY PRN Naprosyn (Naproxen) 500 Mg Tablet 1 Tab PO BID Bentyl (Dicyclomine Hcl) 10 Mg Capsule 1 Cap PO TID Senokot (Sennosides) 8.6 Mg Tablet 1 Tab PO BID Reported Oxymorphone Hcl 30 Mg Tab.er.12h 30 Mg PO Q12HR PRN Oxycodone Hcl Immed.release (Oxycodone Hcl) 15 Mg Tablet 15 Mg PO PRN Q6HRS PRN Cyclobenzaprine Hcl 10 Mg Tablet 1 Tab PO TID PRN Tramadol Hcl 50 Mg Tablet 1 Tab PO BID Promethazine Hcl 25 Mg Tablet Unknown Dose PO Q6H PRN Gabapentin 600 Mg Tablet 600 Mg PO TID Aspirin 81 Mg Tab.chew 1 Tab PO DAILY Novolog Flexpen (Insulin Aspart) 100 Unit/1 Ml Insuln.pen 0-10 SQ TIDAC Novolog (Insulin Aspart) 100 Unit/1 Ml Vial 6 Unit SQ TIDAC Simvastatin 20 Mg Tablet 20 Mg PO DAILY Ramipril 5 Mg Capsule 5 Mg PO DAILY Plavix (Clopidogrel Bisulfate) 75 Mg Tablet 75 Mg PO DAILY Metoprolol Succinate ( Xl ) (Metoprolol Succinate) 100 Mg Tab.er.24h 50 Mg PO DAILY16 Vitals/I & O Vital Sign - Last 24 Hours 06/24/19 06/24/19 06/24/19 06/24/19 14:32 14:34 15:00 17:03 Temp 98.7 98.7 Pulse 110 Resp 17 B/P (MAP) 119/72 (88) Pulse Ox 95 95 95 O2 Delivery Room Air Room Air Room Air Room Air 06/24/19 06/24/19 06/24/19 06/24/19 19:30 19:30 20:46 20:46 Temp 99.5 99.5 Pulse 106 Resp 18 B/P (MAP) 100/61 (74) Pulse Ox 97 O2 Delivery Room Air Room Air Room Air Room Air 06/24/19 06/24/19 06/25/19 06/25/19 22:29 23:45 01:31 03:30 Temp 99.7 99.0 99.7 99.0 Pulse 114 118 Resp 30 13 B/P (MAP) 111/68 (82) 108/70 (83) Pulse Ox 96 97 O2 Delivery Room Air Nasal Cannula Room Air Room Air 06/25/19 06/25/19 06/25/19 06/25/19 03:54 04:54 07:00 07:12 Temp 99.5 99.5 Pulse 108 Resp 21 18 11 B/P (MAP) 97/58 (71) Pulse Ox 98 O2 Delivery Room Air Room Air Room Air Room Air 06/25/19 06/25/19 06/25/19 06/25/19 07:33 07:33 07:45 10:14 Pulse 108 118 Resp 20 B/P (MAP) 97/58 137/82 Pulse Ox 98 O2 Delivery Room Air Room Air 06/25/19 06/25/19 06/25/19 06/25/19 10:34 10:56 10:56 10:56 Pulse 113 114 116 Resp 27 21 21 B/P (MAP) 110/76 (87) 116/76 Pulse Ox 93 85 85 O2 Delivery Venturi Mask Nasal Cannula Nasal Cannula O2 Flow Rate 6.0 4.0 06/25/19 11:04 Resp 20 Pulse Ox 85 O2 Delivery Room Air O2 Flow Rate 6.0 Intake and Output 0 06/24/19 06/24/19 06/25/19 15:00 23:00 07:00 Intake Total 150 ml 1607 ml 0 ml Output Total 0 ml Balance 150 ml 1607 ml 0 ml MORGAN WELLS MD Jun 25, 2019 11:59
[2019-06-25] MEDS ORDERED: ALPRAZolam 1 MG TABLET PO PRN (12:00)
--- NOTE | 2019-06-25 15:29 | PDOC ---
Provider Note Provider Note Patient is critically ill with flash pulm edema and multivessel coronary disease with NSTEMI She is a poor candidate for PCI and has poor targets She is at high risk for difficulty weaning off pump due to her acute issues. Will plan for transfer to [facility] Discussed with Dr. Mckee at [facility] DANIELA JIMENEZ MD Jun 25, 2019 15:29
== END 2019-06-26 | disposition short-term general hospital (02) | DRG 280 ==
LOC: ER 15:33 → 1 WEST ICU 17:34
PROVIDERS: ADMIT Internal Medicine; ATTEND Internal Medicine
PROC: 30233N1 Transfusion of Nonautologous Red Blood Cells into Peripheral Vein, Percutaneous Approach (ICD-10-PCS; 2019-06-23)
PROC: 4A023N7 Measurement of Cardiac Sampling and Pressure, Left Heart, Percutaneous Approach (ICD-10-PCS; principal; 2019-06-25)
PROC: B2111ZZ Fluoroscopy of Multiple Coronary Arteries using Low Osmolar Contrast (ICD-10-PCS; 2019-06-25)
DX: I21.4 Non-ST elevation (NSTEMI) myocardial infarction (principal); I50.43 Acute on chronic combined systolic (congestive) and diastolic (congestive) heart failure; R65.11 Systemic inflammatory response syndrome (SIRS) of non-infectious origin with acute organ dysfunction; N17.9 Acute kidney failure, unspecified; I13.0 Hypertensive heart and chronic kidney disease with heart failure and stage 1 through stage 4 chronic kidney disease, or unspecified chronic kidney disease; E83.42 Hypomagnesemia; E10.65 Type 1 diabetes mellitus with hyperglycemia; E10.43 Type 1 diabetes mellitus with diabetic autonomic (poly)neuropathy; K31.84 Gastroparesis; E10.22 Type 1 diabetes mellitus with diabetic chronic kidney disease; I25.10 Atherosclerotic heart disease of native coronary artery without angina pectoris; E78.00 Pure hypercholesterolemia, unspecified; G89.29 Other chronic pain; I25.2 Old myocardial infarction; H54.62 Unqualified visual loss, left eye, normal vision right eye; D64.9 Anemia, unspecified; E78.5 Hyperlipidemia, unspecified; E87.6 Hypokalemia; E66.9 Obesity, unspecified; F41.9 Anxiety disorder, unspecified; R09.02 Hypoxemia; N18.9 Chronic kidney disease, unspecified; Z79.4 Long term (current) use of insulin; Z90.710 Acquired absence of both cervix and uterus; Z90.49 Acquired absence of other specified parts of digestive tract; Z88.5 Allergy status to narcotic agent; Z82.49 Family history of ischemic heart disease and other diseases of the circulatory system; Z68.34 Body mass index [BMI] 34.0-34.9, adult
CPT/HCPCS: 36415; 71045; 80048; 80053; 82553; 82962; 83605; 83690; 83735; 83880; 84443; 84484; 85025; 85027; 85520; 86850; 86900; 86901; 86920; 87040; 93005; 93306; 93458; 93971; 99152; 99153; C1769; C1887; C1892; J1644; J1815; J1940; J2060; J2250; J2405; J3010; J3475; J3490; J7030; J7040; J7042; P9016; Q9967; G0378

== ENCOUNTER 2019-09-10 08:02 | Emergency (ER) | payer MEDICARE ==
[~2019-09-10] VITALS: Ht 157.5 cm; Wt 76.2 kg
[~2019-09-10 08:02] MED LIST changes: -NITR0.4T SL; +NITR0.4T24 SL; +OMEP40CA45 PO; -OMEP40CA5 PO
[2019-09-10] MEDS ORDERED: fentaNYL PF VIAL 100 MCG/2 ML VIAL IV ONE (08:45)
--- NOTE | 2019-09-10 09:02 | PHYS DOC ---
Past Medical History Past Medical History: CAD, Diabetes-Type I, High Cholesterol, Hypertension, AR, UTI, Other Additional Past Medical Histor: L EYE BLIND,CHRONIC PAIN , "abd issues" Past Surgical History: Cholecystectomy, Coronary Bypass Surgery, Hysterectomy Additional Past Surgical Histo: "bone abscess", BX EYE Alcohol Use: None Drug Use: Marijuana Adult General Chief Complaint Chief Complaint: FLANK PAIN HPI HPI Patient is a 39 year old female with history of type 1 diabetes mellitus, coronary artery disease status post CABG, hypertension, dyslipidemia and chronic pain who presents with a feeling of right flank pain. Patient states she had right flank pain starting on August 02 and seen by her primary care physician on July 2017 and treated for UTI with improvement of her patient complaining of starting right flank pain again 4 days ago as an intermittent sharp pain with radiation to the suprapubic area that last for several hours and continued pain 10 over 10. Patient complaining of urinary frequency and dysuria without hematuria, fever and chills, nausea and vomiting. Patient states she takes Percocet 20 mg for chronic pain but today took 2 pills of Percocet without change of her pain. Review of Systems Review of Systems Constitutional: Denies fever or chills [] Eyes: Denies change in visual acuity, redness, or eye pain [] HENT: Denies nasal congestion or sore throat [] Respiratory: Denies cough or shortness of breath [] Cardiovascular: No additional information not addressed in HPI [] GI: Reports abdominal pain, denies nausea, vomiting, bloody stools or diarrhea [] : Denies hematuria , reports dysuria and frequency[] Musculoskeletal: Denies back pain or joint pain [] Integument: Denies rash or skin lesions [] Neurologic: Denies headache, focal weakness or sensory changes [] Endocrine: Denies polyuria or polydipsia [] All other systems were reviewed and found to be within normal limits, except as documented in this note. Current Medications Current Medications Current Medications Medications (Trade) Dose Ordered Sig/Irina Start Time Stop Time Status Last Admin Dose Admin Ceftriaxone Sodium (Rocephin) 1 gm 1X ONCE 09/10/19 09:45 09/10/19 09:51 DC Fentanyl Citrate (Fentanyl 2ml Vial) 50 mcg 1X ONCE 09/10/19 08:45 09/10/19 08:46 DC 09/10/19 09:21 50 MCG Allergies Allergies Allergies Coded Allergies Type Severity Reaction Last Updated Verified morphine Allergy Severe Shortness of Air, trouble breathing/sweating 07/14/16 Yes Physical Exam Physical Exam Constitutional: Well developed, well nourished, mild distress, non-toxic appearance. [] HENT: Normocephalic, atraumatic. Eyes: PERRLA, EOMI, conjunctiva normal, no discharge. [] Neck: Normal range of motion, no tenderness, supple, no stridor. [] Cardiovascular:Heart rate regular rhythm, no murmur [] Lungs & Thorax: Bilateral breath sounds clear to auscultation [] Abdomen: Bowel sounds normal, soft, no tenderness, no masses, no pulsatile masses. [] Skin: Warm, dry, no erythema, no rash. [] Back: No tenderness, no CVA tenderness. [] Extremities: No tenderness, no cyanosis, no clubbing, ROM intact, no edema. [] Neurologic: Alert and oriented X 3, no focal deficits noted. [] Psychologic: Affect normal, judgement normal, mood normal. [] Current Patient Data Vital Signs Vital Signs Date Time Temp Pulse Resp B/P (MAP) Pulse Ox O2 Delivery O2 Flow Rate FiO2 09/10/19 08:23 98.0 96 16 135/67 (89) 99 Room Air 98.0 Lab Values Laboratory Tests Test 09/10/19 08:40 09/10/19 09:16 Urine Collection Type Unknown Urine Color Yellow Urine Clarity Clear Urine pH 6.0 Urine Specific [place] 1.010 Urine Protein 30 mg/dL (NEG-TRACE) Urine Glucose (UA) Negative mg/dL (NEG) Urine Ketones (Stick) Negative mg/dL (NEG) Urine Blood Moderate (NEG) Urine Nitrite Negative (NEG) Urine Bilirubin Negative (NEG) Urine Urobilinogen Dipstick 0.2 mg/dL (0.2 mg/dL) Urine Leukocyte Esterase Large (NEG) Urine RBC 3-5 /HPF (0-2) Urine WBC >40 /HPF (0-4) Urine Squamous Epithelial Cells Occ /LPF Urine Bacteria Moderate /HPF (0-FEW) White Blood Count 13.0 x10^3/uL (4.0-11.0) H Red Blood Count 4.22 x10^6/uL (3.50-5.40) Hemoglobin 11.8 g/dL (12.0-15.5) L Hematocrit 35.9 % (36.0-47.0) L Mean Corpuscular Volume 85 fL (79-100) Mean Corpuscular Hemoglobin 28 pg (25-35) Mean Corpuscular Hemoglobin Concent 33 g/dL (31-37) Red Cell Distribution Width 16.3 % (11.5-14.5) H Platelet Count 308 x10^3/uL (140-400) Neutrophils (%) (Auto) 82 % (31-73) H Lymphocytes (%) (Auto) 8 % (24-48) L Monocytes (%) (Auto) 7 % (0-9) Eosinophils (%) (Auto) 2 % (0-3) Basophils (%) (Auto) 1 % (0-3) Neutrophils # (Auto) 10.7 x10^3/uL (1.8-7.7) H Lymphocytes # (Auto) 1.1 x10^3/uL (1.0-4.8) Monocytes # (Auto) 0.9 x10^3/uL (0.0-1.1) Eosinophils # (Auto) 0.3 x10^3/uL (0.0-0.7) Basophils # (Auto) 0.1 x10^3/uL (0.0-0.2) Sodium Level 140 mmol/L (136-145) Potassium Level 4.5 mmol/L (3.5-5.1) Chloride Level 102 mmol/L (98-107) Carbon Dioxide Level 29 mmol/L (21-32) Anion Gap 9 (6-14) Blood Urea Nitrogen 23 mg/dL (7-20) H Creatinine 1.7 mg/dL (0.6-1.0) H Estimated GFR (Cockcroft-Gault) 40.7 BUN/Creatinine Ratio 14 (6-20) Glucose Level 85 mg/dL (70-99) Calcium Level 9.4 mg/dL (8.5-10.1) Total Bilirubin 0.1 mg/dL (0.2-1.0) L Aspartate Amino Transferase (AST) 23 U/L (15-37) Alanine Aminotransferase (ALT) 21 U/L (14-59) Alkaline Phosphatase 127 U/L (46-116) H Total Protein 9.5 g/dL (6.4-8.2) H Albumin 3.1 g/dL (3.4-5.0) L Albumin/Globulin Ratio 0.5 (1.0-1.7) L Lipase 60 U/L (73-393) L Laboratory Tests 09/10/19 09:16 Laboratory Tests 09/10/19 09:16 EKG EKG [] Radiology/Procedures Radiology/Procedures [][facility] [address] [place] [address] IMAGING REPORT Signed PATIENT: BOZENA CLARK RACCOUNT: [id number] : 1980 LOCATION: ER AGE: 39 SEX: F EXAM STATUS: REG ER ORD. PHYSICIAN: DAWSON MULTANI MD REASON: right flank PROCEDURE: CT ABDOMEN PELVIS WO CONTRAST CT Abdomen and Pelvis without contrast History: Right flank pain Technique: Noncontrast CT imaging was performed of the abdomen and pelvis. Multiplanar images are reviewed. Exposure: One or more of the following individualized dose reduction techniques were utilized for this examination: 1. Automated exposure control 2. Adjustment of the mA and/or kV according to patient size 3. Use of iterative reconstruction technique. Comparison: July 17, 2017 Findings: There is mild proximal right hydroureter although no renal calculus or significant hydronephrosis of either kidney. Distal right ureter is difficult to visualize in its entirety in the pelvis and there are phleboliths and vascular calcification. There has been median sternotomy. Accurate evaluation of abdominal visceral organs is limited without intravenous contrast. There is no obvious abnormality of the spleen, liver, or pancreas. There has been cholecystectomy, common bile duct caliber probably somewhat decreased about 0.9 cm. There is no adrenal nodularity. Accurate evaluation of bowel is limited without oral contrast. There is no significant free air, free fluid, bowel dilatation. Appendix caliber of 0.5 cm is considered within normal limits. There is retained stool greater of the right colon but also seen in the descending colon. There is degree of osteoarthritic change of the hips bilaterally. Impression: 1. There is no significant hydronephrosis although there is mild proximal right hydroureter, difficult to accurately evaluate the distal ureters due to pelvic phleboliths and vascular calcification. 2. There is no convincing evidence of acute appendicitis. 3. There is retained stool greater of the right colon. 4. There is vascular calcification. Electronically signed by: Tomas Guerrero MD (09/10/2019 9:11 AM) [id number] DICTATED and SIGNED BY: TOMAS GUERRERO MD DATE: 09/10/19 0911 Course & Med Decision Making Course & Med Decision Making Pertinent Labs and Imaging studies reviewed. (See chart for details) Evaluation of patient in ER showed 39-year-old female patient with complaining of right flank pain for the last 4 days and urinary frequency and dysuria. Patient has history of UTI with the same symptoms last month. Patient had stable vital signs and unremarkable physical exam. Labs showed chronic renal insufficiency and more than 40 WBC and UA. Patient treated with fentanyl and Rocephin in ER and was advised to continue her home pain medication. Prescription for Cipro and Pyridium was given. I've spoken with the patient and/or caregivers. I've explained the patient's condition, diagnosis and treatment plan based on information available to me at this time. I've answered the patient's and/or caregivers questions and addressed any concerns. The patient and/or caregivers have a good understanding the patient's diagnosis, condition and treatment plan as can be expected at this point. Vital signs have been stabilized. The patient's condition is stable for discharge from the emergency department. The patient will pursue further outpatient evaluation with her primary care provider or other designated consulting physician as outlined in the discharge instructions. Patient and/or caregivers are agreeable to this plan of care and follow-up instructions have been explained in detail. The patient and/or car egivers have received these instructions in written format and expressed understanding of these discharge instructions. The patient and her caregivers are aware that if any significant change in condition or worsening of symptoms should prompt him to immediately return to this of the closest emergency department. If an emergent department is not readily available I would encourage him to call 911. Jesus Disclaimer Jesus Disclaimer This electronic medical record was generated, in whole or in part, using a voice recognition dictation system. Departure Departure Impression: Primary Impression: Urinary tract infection Additional Impressions: Right flank pain Chronic renal insufficiency Chronic anemia Hypoalbuminemia Disposition: HOME, SELF-CARE (at 1034) Condition: IMPROVED Referrals: UNKNOWN PCP NAME (PCP) Patient Instructions: Flank Pain, Urinary Tract Infection Additional Instructions: Continue home pain medication Follow-up with your primary care physician in 3-5 days Return to ER if not getting better Scripts Phenazopyridine Hcl (PYRIDIUM) 100 Mg Tablet 100 MG PO TID for dysuria, #15 TAB Prov: DAWSON MULTANI MD 09/10/19 Ciprofloxacin Hcl (CIPRO) 250 Mg Tablet 1 TAB PO BID for infection, #14 TAB Prov: DAWSON MULTANI MD 09/10/19 Problem Qualifiers Primary Impression: Urinary tract infection Urinary tract infection type: acute cystitis Hematuria presence: with hematuria Qualified Codes: N30.01 - Acute cystitis with hematuria Additional Impressions: Chronic renal insufficiency Chronic kidney disease stage: unspecified stage Qualified Codes: N18.9 - Chronic kidney disease, unspecified DAWSON MULTANI MD Sep 10, 2019 09:02
[2019-09-10 09:07] LABS: BILIRUBIN,URINE NEGATIVE (NEG); CLARITY,URINE CLEAR; COLOR,URINE YELLOW; NITRITE,URINE NEGATIVE (NEG); PROTEIN,URINE 30 mg/dL (NEG-TRACE); UROBILINOGEN,URINE 0.2 mg/dL (0.2 mg/dL)
--- NOTE | 2019-09-10 09:14 | RAD ---
CT Abdomen and Pelvis without contrast History: Right flank pain Technique: Noncontrast CT imaging was performed of the abdomen and pelvis. Multiplanar images are reviewed. Exposure: One or more of the following individualized dose reduction techniques were utilized for this examination: 1. Automated exposure control 2. Adjustment of the mA and/or kV according to patient size 3. Use of iterative reconstruction technique. Comparison: July 17, 2017 Findings: There is mild proximal right hydroureter although no renal calculus or significant hydronephrosis of either kidney. Distal right ureter is difficult to visualize in its entirety in the pelvis and there are phleboliths and vascular calcification. There has been median sternotomy. Accurate evaluation of abdominal visceral organs is limited without intravenous contrast. There is no obvious abnormality of the spleen, liver, or pancreas. There has been cholecystectomy, common bile duct caliber probably somewhat decreased about 0.9 cm. There is no adrenal nodularity. Accurate evaluation of bowel is limited without oral contrast. There is no significant free air, free fluid, bowel dilatation. Appendix caliber of 0.5 cm is considered within normal limits. There is retained stool greater of the right colon but also seen in the descending colon. There is degree of osteoarthritic change of the hips bilaterally. Impression: 1. There is no significant hydronephrosis although there is mild proximal right hydroureter, difficult to accurately evaluate the distal ureters due to pelvic phleboliths and vascular calcification. 2. There is no convincing evidence of acute appendicitis. 3. There is retained stool greater of the right colon. 4. There is vascular calcification. Electronically signed by: Ever Ramires MD (09/10/2019 9:11 AM) [id number]
[2019-09-10 09:15] LABS: BACTERIA,URINE MODERATE /HPF (0-FEW); SQUAMOUS EPITHELIAL CELL,UR OCC /LPF; WBC,URINE >40 /HPF (0-4)
[2019-09-10 09:26] LABS: BASO # 0.1 x10^3/uL (0.0-0.2); BASO % 1 % (0-3); EOS # 0.3 x10^3/uL (0.0-0.7); EOS % 2 % (0-3); HEMATOCRIT 35.9 % (36.0-47.0); HEMOGLOBIN 11.8 g/dL (12.0-15.5); LYMPH # 1.1 x10^3/uL (1.0-4.8); LYMPH % 8 % (24-48); MEAN CORPUSCULAR HEMOGLOBIN 28 pg (25-35); MEAN CORPUSCULAR HGB CONC 33 g/dL (31-37); MEAN CORPUSCULAR VOLUME 85 fL (79-100); MONO # 0.9 x10^3/uL (0.0-1.1); MONO % 7 % (0-9); NEUT # 10.7 x10^3/uL (1.8-7.7); NEUT % 82 % (31-73); PLATELET COUNT 308 x10^3/uL (140-400); RED BLOOD COUNT 4.22 x10^6/uL (3.50-5.40); RED CELL DISTRIBUTION WIDTH 16.3 % (11.5-14.5)
[2019-09-10 09:37] LABS: CALCIUM 9.4 mg/dL (8.5-10.1); CREATININE 1.7 mg/dL (0.6-1.0); GFR 40.7; POTASSIUM 4.5 mmol/L (3.5-5.1)
[2019-09-10 09:41] LABS: ALBUMIN 3.1 g/dL (3.4-5.0); ALBUMIN/GLOBULIN RATIO 0.5 (1.0-1.7); TOTAL BILIRUBIN 0.1 mg/dL (0.2-1.0); TOTAL PROTEIN 9.5 g/dL (6.4-8.2)
[2019-09-10] MEDS ORDERED: cefTRIAXone IV Push 1 GM VIAL. IVP ONE (09:45)
[2019-09-10] MEDS ORDERED: CIPR250T30 PO ×2 (10:35→10:57)
[2019-09-10] MEDS ORDERED: PHEN100T82 PO ×2 (10:35→10:57)
[2019-09-10 11:17] VITALS: BP 121/66
== END 2019-09-10 11:21 | disposition home or self-care (01) ==
LOC: ER 08:02
DX: I12.9 Hypertensive chronic kidney disease with stage 1 through stage 4 chronic kidney disease, or unspecified chronic kidney disease (principal); N18.9 Chronic kidney disease, unspecified; E10.22 Type 1 diabetes mellitus with diabetic chronic kidney disease; D64.89 Other specified anemias; E88.09 Other disorders of plasma-protein metabolism, not elsewhere classified; N30.01 Acute cystitis with hematuria; I25.10 Atherosclerotic heart disease of native coronary artery without angina pectoris; I25.2 Old myocardial infarction; G89.29 Other chronic pain; Z90.49 Acquired absence of other specified parts of digestive tract; Z90.710 Acquired absence of both cervix and uterus; Z95.1 Presence of aortocoronary bypass graft; Z88.5 Allergy status to narcotic agent
CPT/HCPCS: 36415; 74176; 80053; 81001; 83690; 85025; 87086; 96374; 96375; 99285; J0696; J3010

== ENCOUNTER 2019-11-08 04:17 | Emergency (ER) | payer MEDICARE ==
[~2019-11-08] VITALS: Ht 157.5 cm; Wt 77.1 kg
[~2019-11-08 04:17] MED LIST changes: +CIPR250T30 PO; +PHEN100T82 PO; +SIMV20TA18 PO; -SIMV20TA3 PO
[2019-11-08] MEDS ORDERED: KETOROLAC 30 MG/ML VIAL. IVP ONE (05:00)
[2019-11-08] MEDS ORDERED: IV NORMAL SALINE 1000ML BAG 1,000 ML IV ONE (05:00)
[2019-11-08] MEDS ORDERED: ONDANSETRON PF 4 MG/2 ML VIAL. IV ONE (05:00)
--- NOTE | 2019-11-08 05:02 | PHYS DOC ---
Past Medical History Past Medical History: CAD, Diabetes-Type I, High Cholesterol, Hypertension, [place], UTI, Other Additional Past Medical Histor: L EYE BLIND,CHRONIC PAIN , "abd issues" (ETD HILLMAN MD) Past Surgical History: Cholecystectomy, Coronary Bypass Surgery, Hysterectomy Additional Past Surgical Histo: "bone abscess", BX EYE (TED HILLMAN MD) Alcohol Use: None Drug Use: Marijuana (TED HILLMAN MD) Adult General Chief Complaint Chief Complaint: ABDOMINAL PAIN HPI HPI 39-year-old female presents to the emergency department with complaints of left flank, left lower quadrant pain. Patient states pain started around 1:30 wo rsening, she is been ongoing for the last 3-4 days. Describes vomiting, nausea. She denies any diarrhea, fever. She was recently at within the last month after a CABG. Patient denies any chest pain, shortness of breath. Nothing makes her symptoms worse, nothing makes her symptoms better. (TED HILLMAN MD) Review of Systems Review of Systems Constitutional: Denies fever or chills [] Respiratory: Denies cough or shortness of breath [] Cardiovascular: No additional information not addressed in HPI [] GI: left flank, left lower quadrant pain, nausea, vomiting, no bloody stools or diarrhea [] : Denies dysuria or hematuria [] Musculoskeletal: left flank Integument: Denies rash or skin lesions [] All other systems were reviewed and found to be within normal limits, except as documented in this note. (TED HILLMAN MD) Current Medications Current Medications Current Medications Medications (Trade) Dose Ordered Sig/[facility] Start Time Stop Time Status Last Admin Dose Admin Fentanyl Citrate (Fentanyl 2ml Vial) 50 mcg 1X ONCE 11/08/19 07:30 11/08/19 07:31 Ketorolac Tromethamine (Toradol 30mg Vial) 30 mg 1X ONCE 11/08/19 05:00 11/08/19 05:02 DC 11/08/19 05:00 30 MG Ondansetron HCl (Zofran) 4 mg 1X ONCE 11/08/19 05:00 11/08/19 05:02 DC 11/08/19 05:00 4 MG Sodium Chloride 1,000 ml @ 1,000 mls/hr 1X ONCE 11/08/19 05:00 11/08/19 05:59 DC 11/08/19 05:00 1,000 MLS/HR (DAWSON MULTANI MD) Allergies Allergies Allergies Coded Allergies Type Severity Reaction Last Updated Verified morphine Allergy Severe Shortness of Air, trouble breathing/sweating 07/14/16 Yes (DAWSON MULTANI MD) Physical Exam Physical Exam Constitutional: Well developed, well nourished, distress 2/2 pain, non-toxic appearance. [] Cardiovascular:Heart rate regular rhythm, no murmur [] Lungs & Thorax: Bilateral breath sounds clear to auscultation [] Abdomen: Bowel sounds normal, soft, no tenderness, no masses, no pulsatile masses. [] Skin: Warm, dry, no erythema, no rash. [] Back: No tenderness, + Left CVA tenderness Extremities: No tenderness, no edema. [] Neurologic: Alert and oriented X 3, no focal deficits noted. [] Psychologic: Affect normal, judgement normal, mood normal. [] (TED HILLMAN MD) Current Patient Data Vital Signs Vital Signs Date Time Temp Pulse Resp B/P (MAP) Pulse Ox O2 Delivery O2 Flow Rate FiO2 11/08/19 06:00 91 17 136/67 (90) 99 Room Air 11/08/19 04:20 98.2 98.2 (DAWSON MULTANI MD) Lab Values Laboratory Tests Test 11/08/19 04:30 11/08/19 05:00 Urine Collection Type Unknown Urine Color Yellow Urine Clarity Clear Urine pH 7.5 Urine Specific Badger 1.010 Urine Protein Negative mg/dL (NEG-TRACE) Urine Glucose (UA) 100 mg/dL (NEG) Urine Ketones (Stick) Negative mg/dL (NEG) Urine Blood Trace (NEG) Urine Nitrite Negative (NEG) Urine Bilirubin Negative (NEG) Urine Urobilinogen Dipstick 0.2 mg/dL (0.2 mg/dL) Urine Leukocyte Esterase Small (NEG) Urine RBC Rare /HPF (0-2) Urine WBC 1-4 /HPF (0-4) Urine Squamous Epithelial Cells Many /LPF Urine Bacteria 0 /HPF (0-FEW) White Blood Count 9.3 x10^3/uL (4.0-11.0) Red Blood Count 4.35 x10^6/uL (3.50-5.40) Hemoglobin 11.9 g/dL (12.0-15.5) L Hematocrit 35.6 % (36.0-47.0) L Mean Corpuscular Volume 82 fL (79-100) Mean Corpuscular Hemoglobin 28 pg (25-35) Mean Corpuscular Hemoglobin Concent 34 g/dL (31-37) Red Cell Distribution Width 17.0 % (11.5-14.5) H Platelet Count 253 x10^3/uL (140-400) Neutrophils (%) (Auto) 67 % (31-73) Lymphocytes (%) (Auto) 22 % (24-48) L Monocytes (%) (Auto) 7 % (0-9) Eosinophils (%) (Auto) 4 % (0-3) H Basophils (%) (Auto) 1 % (0-3) Neutrophils # (Auto) 6.2 x10^3/uL (1.8-7.7) Lymphocytes # (Auto) 2.1 x10^3/uL (1.0-4.8) Monocytes # (Auto) 0.6 x10^3/uL (0.0-1.1) Eosinophils # (Auto) 0.3 x10^3/uL (0.0-0.7) Basophils # (Auto) 0.1 x10^3/uL (0.0-0.2) Sodium Level 142 mmol/L (136-145) Potassium Level 3.7 mmol/L (3.5-5.1) Chloride Level 106 mmol/L (98-107) Carbon Dioxide Level 29 mmol/L (21-32) Anion Gap 7 (6-14) Blood Urea Nitrogen 34 mg/dL (7-20) H Creatinine 2.1 mg/dL (0.6-1.0) H Estimated GFR (Cockcroft-Gault) 31.9 BUN/Creatinine Ratio 16 (6-20) Glucose Level 173 mg/dL (70-99) H Calcium Level 8.5 mg/dL (8.5-10.1) Total Bilirubin 0.2 mg/dL (0.2-1.0) Aspartate Amino Transferase (AST) 21 U/L (15-37) Alanine Aminotransferase (ALT) 24 U/L (14-59) Alkaline Phosphatase 179 U/L (46-116) H Total Protein 8.2 g/dL (6.4-8.2) Albumin 3.0 g/dL (3.4-5.0) L Albumin/Globulin Ratio 0.6 (1.0-1.7) L Laboratory Tests 11/08/19 05:00 Laboratory Tests 11/08/19 05:00 (DAWSON MULTANI MD) Lab Values Laboratory Tests Test 11/08/19 04:30 11/08/19 05:00 Urine Collection Type Unknown Urine Color Yellow Urine Clarity Clear Urine pH 7.5 Urine Specific Badger 1.010 Urine Protein Negative mg/dL (NEG-TRACE) Urine Glucose (UA) 100 mg/dL (NEG) Urine Ketones (Stick) Negative mg/dL (NEG) Urine Blood Trace (NEG) Urine Nitrite Negative (NEG) Urine Bilirubin Negative (NEG) Urine Urobilinogen Dipstick 0.2 mg/dL (0.2 mg/dL) Urine Leukocyte Esterase Small (NEG) Urine RBC Rare /HPF (0-2) Urine WBC 1-4 /HPF (0-4) Urine Squamous Epithelial Cells Many /LPF Urine Bacteria 0 /HPF (0-FEW) White Blood Count 9.3 x10^3/uL (4.0-11.0) Red Blood Count 4.35 x10^6/uL (3.50-5.40) Hemoglobin 11.9 g/dL (12.0-15.5) L Hematocrit 35.6 % (36.0-47.0) L Mean Corpuscular Volume 82 fL (79-100) Mean Corpuscular Hemoglobin 28 pg (25-35) Mean Corpuscular Hemoglobin Concent 34 g/dL (31-37) Red Cell Distribution Width 17.0 % (11.5-14.5) H Platelet Count 253 x10^3/uL (140-400) Neutrophils (%) (Auto) 67 % (31-73) Lymphocytes (%) (Auto) 22 % (24-48) L Monocytes (%) (Auto) 7 % (0-9) Eosinophils (%) (Auto) 4 % (0-3) H Basophils (%) (Auto) 1 % (0-3) Neutrophils # (Auto) 6.2 x10^3/uL (1.8-7.7) Lymphocytes # (Auto) 2.1 x10^3/uL (1.0-4.8) Monocytes # (Auto) 0.6 x10^3/uL (0.0-1.1) Eosinophils # (Auto) 0.3 x10^3/uL (0.0-0.7) Basophils # (Auto) 0.1 x10^3/uL (0.0-0.2) Sodium Level 142 mmol/L (136-145) Potassium Level 3.7 mmol/L (3.5-5.1) Chloride Level 106 mmol/L (98-107) Carbon Dioxide Level 29 mmol/L (21-32) Anion Gap 7 (6-14) Blood Urea Nitrogen 34 mg/dL (7-20) H Creatinine 2.1 mg/dL (0.6-1.0) H Estimated GFR (Cockcroft-Gault) 31.9 BUN/Creatinine Ratio 16 (6-20) Glucose Level 173 mg/dL (70-99) H Calcium Level 8.5 mg/dL (8.5-10.1) Total Bilirubin 0.2 mg/dL (0.2-1.0) Aspartate Amino Transferase (AST) 21 U/L (15-37) Alanine Aminotransferase (ALT) 24 U/L (14-59) Alkaline Phosphatase 179 U/L (46-116) H Total Protein 8.2 g/dL (6.4-8.2) Albumin 3.0 g/dL (3.4-5.0) L Albumin/Globulin Ratio 0.6 (1.0-1.7) L Laboratory Tests 11/08/19 05:00 Laboratory Tests 11/08/19 05:00 (TED HILLMAN MD) EKG EKG [] (TED HILLMAN MD) Radiology/Procedures Radiology/Procedures [] (TED HILLMAN MD) Radiology/Procedures [facility] [address] [facility] [place] [address] IMAGING REPORT Signed PATIENT: BOZENA CLARKCOUNT: [id number] : 1980 LOCATION: ER AGE: 39 SEX: F EXAM STATUS: REG ER ORD. PHYSICIAN: TED HILLMAN MD REASON: stone protocol, left flank pain PROCEDURE: CT ABDOMEN PELVIS WO CONTRAST Exam: CT abdomen and pelvis without contrast INDICATION: Left flank pain TECHNIQUE: Sequential axial images through the abdomen and pelvis obtained without IV contrast. Sagittal and coronal reformatted images were reconstructed from the axial data and reviewed. Comparisons: 09/10/2019 FINDINGS: Heart size is normal. No pericardial effusion. Visualized lung bases are clear. No pleural effusion. Evaluation of solid organs limited secondary to noncontrast technique. Liver, spleen, pancreas and adrenals are unremarkable. Moderate right-sided hydronephrosis and perinephric inflammation. No obstructing calculus identified. No ureteral calculi are identified. Bladder is distended and appears thin-walled. Uterus is not enlarged. No abnormal adnexal mass. Large and small bowel are unremarkable. Appendix is normal. No free intra-abdominal air or fluid. Abdominal aorta has a normal course and caliber. No enlarged abdominal lymph nodes are identified. No suspicious osseous lesions or acute fractures. IMPRESSION: Moderate left-sided hydronephrosis and perinephric inflammation. An obstructing ureteral calculus is not identified. Findings may relate to a recently passed stone and/or pyelonephritis. Correlate with urinalysis. Exposure: One or more of the following in the visualized dose reduction techniques were utilized for this examination: 1. Automated exposure control 2. Adjustment of the MA and/or KV according to patient size 3. Use of iterative of reconstructive technique Electronically signed by: Yue Metcalf MD (11/08/2019 6:10 AM) [facility] DICTATED and SIGNED BY: YUE METCALF MD DATE: 11/08/19 0610 (DAWSON MULTANI MD) Course & Med Decision Making Course & Med Decision Making Pertinent Labs and Imaging studies reviewed. (See chart for details) []39-year-old female presents to the emergency department with complaints of left flank, left lower quadrant pain. Patient states pain started around 1:30 worsening, she is been ongoing for the last 3-4 days. Describes vomiting, nausea. She denies any diarrhea, fever. She was recently at within the last month after a CABG. Patient denies any chest pain, shortness of breath. Nothing makes her symptoms worse, nothing makes her symptoms better. Labs pending, CT pending to rule out renal stone IVF x1 NS, Toradol 30mg IV, Zofran 4mg IV Discussed case with Dr. Multani at 0600 regarding patient presentation and follow up CT. (TED HILLMAN MD) Course & Med Decision Making Patient care transferred to nd at 0600. Patient treated with Toradol without change of his her pain and one dose of fentanyl was given. The patient possibly passed a stone recently. UA showed very mild UTI. Patient was advised to continue home quadrant and increase fluid intake and follow up with her primary care physician or urologist. Prescription for Keflex was given. I've spoken with the patient and/or caregivers. I've explained the patient's condition, diagnosis and treatment plan based on information available to me at this time. I've answered the patient's and/or caregivers questions and addressed any concerns. The patient and/or caregivers have a good understanding the patient's diagnosis, condition and treatment plan as can be expected at this po int. Vital signs have been stabilized. The patient's condition is stable for discharge from the emergency department. The patient will pursue further outpatient evaluation with her primary care provider or other designated consulting physician as outlined in the discharge instructions. Patient and/or caregivers are agreeable to this plan of care and follow-up instructions have been explained in detail. The patient and/or caregivers have received these instructions in written format and expressed understanding of these discharge instructions. The patient and her caregivers are aware that if any significant change in condition or worsening of symptoms should prompt him to immediately return to this of the closest emergency department. If an emergent department is not readily available I would encourage him to call 911. (DAWSON MULTANI MD) Dragon Disclaimer Dragon Disclaimer This electronic medical record was generated, in whole or in part, using a voice recognition dictation system. (TED HILLMAN MD) Departure Departure Impression: Primary Impression: Flank pain Additional Impressions: Hydronephrosis UTI (urinary tract infection) Chronic renal failure Disposition: HOME, SELF-CARE (at 0719) Condition: IMPROVED Referrals: UNKNOWN PCP NAME (PCP) Patient Instructions: Diet for Kidney Stones, Kidney Stones, Urinary Tract Infection Additional Instructions: Drink more liquids Follow-up with your primary care physician in 2-3 days Return to ER if not getting better Continue home pain medications Thank you for visiting [facility]. We appreciate you trusting us with your care. If any additional problems come up don't hesitate to return to visit us. Please follow up with your primary care provider so they can plan additional care if needed and know about the problem that you had. If symptoms worsen come back to the Emergency Department. Any concerning symptoms that start such as chest pain, shortness of air, weakness or numbness on one side of the body, running high fevers or any other concerning symptoms return to the ER. Scripts Cephalexin (KEFLEX) 500 Mg Capsule 2 CAP PO Q12HR, #28 CAP Prov: DAWSON MULTANI MD 11/08/19 Problem Qualifiers Additional Impressions: Hydronephrosis Hydronephrosis type: unspecified Qualified Codes: N13.30 - Unspecified hydronephrosis UTI (urinary tract infection) Urinary tract infection type: site unspecified Hematuria presence: without hematuria Qualified Codes: N39.0 - Urinary tract infection, site not specified Chronic renal failure Chronic kidney disease stage: unspecified stage Qualified Codes: N18.9 - C hronic kidney disease, unspecified TED HILLMAN MD Nov 08, 2019 05:02 DAWSON MULTANI MD Nov 08, 2019 07:24
[2019-11-08 05:13] LABS: BASO # 0.1 x10^3/uL (0.0-0.2); BASO % 1 % (0-3); EOS # 0.3 x10^3/uL (0.0-0.7); EOS % 4 % (0-3); HEMATOCRIT 35.6 % (36.0-47.0); HEMOGLOBIN 11.9 g/dL (12.0-15.5); LYMPH # 2.1 x10^3/uL (1.0-4.8); LYMPH % 22 % (24-48); MEAN CORPUSCULAR HEMOGLOBIN 28 pg (25-35); MEAN CORPUSCULAR HGB CONC 34 g/dL (31-37); MEAN CORPUSCULAR VOLUME 82 fL (79-100); MONO # 0.6 x10^3/uL (0.0-1.1); MONO % 7 % (0-9); NEUT # 6.2 x10^3/uL (1.8-7.7); NEUT % 67 % (31-73); PLATELET COUNT 253 x10^3/uL (140-400); RED BLOOD COUNT 4.35 x10^6/uL (3.50-5.40); WHITE BLOOD COUNT 9.3 x10^3/uL (4.0-11.0)
[2019-11-08 05:21] LABS: BILIRUBIN,URINE NEGATIVE (NEG); CLARITY,URINE CLEAR; COLOR,URINE YELLOW; NITRITE,URINE NEGATIVE (NEG); PH,URINE 7.5; PROTEIN,URINE NEGATIVE (NEG-TRACE); UROBILINOGEN,URINE 0.2 mg/dL (0.2 mg/dL)
[2019-11-08 05:24] LABS: CALCIUM 8.5 mg/dL (8.5-10.1); CREATININE 2.1 mg/dL (0.6-1.0); GFR 31.9; POTASSIUM 3.7 mmol/L (3.5-5.1)
[2019-11-08 05:30] LABS: ALBUMIN/GLOBULIN RATIO 0.6 (1.0-1.7); TOTAL BILIRUBIN 0.2 mg/dL (0.2-1.0); TOTAL PROTEIN 8.2 g/dL (6.4-8.2)
[2019-11-08 05:46] LABS: BACTERIA,URINE 0 /HPF (0-FEW); RBC,URINE RARE /HPF (0-2); SQUAMOUS EPITHELIAL CELL,UR MANY /LPF
[2019-11-08 06:00] VITALS: BP 136/67
--- NOTE | 2019-11-08 06:13 | RAD ---
Exam: CT abdomen and pelvis without contrast INDICATION: Left flank pain TECHNIQUE: Sequential axial images through the abdomen and pelvis obtained without IV contrast. Sagittal and coronal reformatted images were reconstructed from the axial data and reviewed. Comparisons: 09/10/2019 FINDINGS: Heart size is normal. No pericardial effusion. Visualized lung bases are clear. No pleural effusion. Evaluation of solid organs limited secondary to noncontrast technique. Liver, spleen, pancreas and adrenals are unremarkable. Moderate right-sided hydronephrosis and perinephric inflammation. No obstructing calculus identified. No ureteral calculi are identified. Bladder is distended and appears thin-walled. Uterus is not enlarged. No abnormal adnexal mass. Large and small bowel are unremarkable. Appendix is normal. No free intra-abdominal air or fluid. Abdominal aorta has a normal course and caliber. No enlarged abdominal lymph nodes are identified. No suspicious osseous lesions or acute fractures. IMPRESSION: Moderate left-sided hydronephrosis and perinephric inflammation. An obstructing ureteral calculus is not identified. Findings may relate to a recently passed stone and/or pyelonephritis. Correlate with urinalysis. Exposure: One or more of the following in the visualized dose reduction techniques were utilized for this examination: 1. Automated exposure control 2. Adjustment of the MA and/or KV according to patient size 3. Use of iterative of reconstructive technique Electronically signed by: Yue Swan MD (11/08/2019 6:10 AM) [facility]
[2019-11-08] MEDS ORDERED: CEPH-264 PO (07:21)
[2019-11-08] MEDS ORDERED: fentaNYL PF VIAL 100 MCG/2 ML VIAL IVP ONE (07:30)
== END 2019-11-08 07:32 | disposition home or self-care (01) ==
LOC: ER 04:17
DX: N39.0 Urinary tract infection, site not specified (principal); E10.22 Type 1 diabetes mellitus with diabetic chronic kidney disease; I12.9 Hypertensive chronic kidney disease with stage 1 through stage 4 chronic kidney disease, or unspecified chronic kidney disease; N18.9 Chronic kidney disease, unspecified; N13.2 Hydronephrosis with renal and ureteral calculous obstruction; I25.10 Atherosclerotic heart disease of native coronary artery without angina pectoris; E78.00 Pure hypercholesterolemia, unspecified; I25.2 Old myocardial infarction; G89.29 Other chronic pain; Z90.49 Acquired absence of other specified parts of digestive tract; Z95.1 Presence of aortocoronary bypass graft; Z90.710 Acquired absence of both cervix and uterus
CPT/HCPCS: 36415; 74176; 80053; 81001; 85025; 87086; 96361; 96374; 96375; 99285; J1885; J2405; J3010; J7030

== ENCOUNTER 2021-09-29 22:08 | Emergency (ER) | payer MEDICARE ==
[~2021-09-29] VITALS: Ht 157.5 cm; Wt 90.0 kg
[~2021-09-29 22:08] MED LIST changes: +CEPH-264 PO; +CYCL10TA19 PO; -CYCL10TA2 PO; -OMEP40CA45 PO; +OMEP40CA7 PO; -OXYC15TA PO; +OXYC15TA3 PO; +TIZA-75 PO; -TIZA4TAB2 PO
[2021-09-29 23:15] VITALS: BP 149/77
[2021-09-29] MEDS ORDERED: AMOX1TAB61 PO (23:45)
[2021-09-29] MEDS ORDERED: KETOROLAC 60 MG/2 ML VIAL. IM ONE (23:45)
[2021-09-29] MEDS ORDERED: oxyCODONE/APAP 5/325 1 TAB TABLET PO ONE (23:45)
[2021-09-29] MEDS ORDERED: cefTRIAXone IM 500 MG VIAL. IM ONE (23:45)
--- NOTE | 2021-09-29 23:46 | ED.ADGEN ---
Past Medical History Past Medical History: CAD, Diabetes-Type I, High Cholesterol, Hypertension, [place], UTI, Other Additional Past Medical Histor: L EYE BLIND,CHRONIC PAIN , "abd issues" Past Surgical History: Cholecystectomy, Coronary Bypass Surgery, Hysterectomy Additional Past Surgical Histo: "bone abscess", BX EYE Smoking Status: Never Smoker Alcohol Use: None Drug Use: Marijuana General Adult EDM: Chief Complaint: DENTAL PROBLEM HPI: HPI: Patient is a 41 year old frontal dental pain of her upper teeth gums and teeth. Patient recently had some dental extractions. States that she is scheduled to go in for dental implants in 3 weeks. Denies systemic complaints but feels like she has puffiness to her face Review of Systems: Review of Systems: All other systems within normal limits except for as noted in the HPI Allergies: Allergies: Allergies Coded Allergies Type Severity Reaction Last Updated Verified morphine Allergy Severe Shortness of Air, trouble breathing/sweating 07/14/16 Yes Physical Exam: PE: Constitutional: Well developed, well nourished, no acute distress, non-toxic appearance. [] HENT: Normocephalic, atraumatic, bilateral external ears normal, nose normal. Numerous dental caries, swelling of gingiva, no fluctuance or abscess [] Eyes: PERRLA, conjunctiva normal, no discharge. [] Neck: No rigidity, supple, no stridor. [] Cardiovascular: Regular rate and rhythm, brisk cap refill [] Lungs & Thorax: Non labored symmetric respirations, no tachypnea or respiratory distress [] Abdomen: Soft, nondistended. Skin: Warm, dry, no erythema, no rash. [] Back: Unremarkable Extremities: No deformities, range of motion grossly intact, no lower extremity edema [] Neurologic: Alert and oriented X 3, no focal deficits noted. [] Psychologic: Affect normal, judgement normal, mood normal. [] EKG: EKG: [] Heart Score: C/O Chest Pain: No Risk Factors: Risk Factors: DM, Current or recent (<one month) smoker, HTN, HLP, family hi story of CAD, obesity. Risk Scores: Score 0 - 3: 2.5% MACE over next 6 weeks - Discharge Home Score 4 - 6: 20.3% MACE over next 6 weeks - Admit for Clinical Observation Score 7 - 10: 72.7% MACE over next 6 weeks - Early Invasive Strategies Radiology/Procedures: Radiology/Procedures: [] Course & Med Decision Making: Course & Med Decision Making Pertinent Labs and Imaging studies reviewed. (See chart for details) [] Dragon Disclaimer: Jesus Disclaimer: This electronic medical record was generated, in whole or in part, using a voice recognition dictation system. Departure Departure Impression: Primary Impression: Infected dental caries Disposition: HOME / SELF CARE / HOMELESS Condition: STABLE Referrals: DYLAN RYAN MD (PCP) Patient Instructions: Dental Caries Scripts Amoxicillin/Potassium Clav (AUGMENTIN [id number] TABLET) 1 Each Tablet 1 TAB PO Q12HR for antibiotic for 10 Days, #20 TAB Prov: SAMIR NAQVI MD 09/29/21 SAMIR NAQVI MD Sep 29, 2021 23:46
== END 2021-09-30 00:45 | disposition home or self-care (01) ==
LOC: ER 22:08
DX: K04.7 Periapical abscess without sinus (principal); E11.9 Type 2 diabetes mellitus without complications; E78.00 Pure hypercholesterolemia, unspecified; I10 Essential (primary) hypertension; I25.10 Atherosclerotic heart disease of native coronary artery without angina pectoris; I25.2 Old myocardial infarction; Z88.5 Allergy status to narcotic agent
CPT/HCPCS: 96372; 99284; J0696; J1885